=== PATIENT | female | born 1980 | race Caucasian/White ===

== ENCOUNTER 2020-06-20 11:36 | Outpatient (REF) | payer MEDICAID, SELFPAY ==
--- NOTE | 2020-06-20 11:41 | XR_ITS ---
EXAMINATION: XR RIBS, LEFT CLINICAL INFORMATION: Pleurodynia. COMPARISON: None TECHNIQUE: PA view of the chest as well as 3 views of the left ribs. FINDINGS: Lungs are clear. No consolidation, pneumothorax, or pleural effusion. The cardiomediastinal silhouette and pulmonary vasculature are normal. Osseous structures are unremarkable. Ribs are intact. No fractures are identified. XR/XR ribs LT min 3V w CXR1V IMPRESSION: No displaced fracture.
== END 2020-06-20 11:37 | disposition home or self-care (01) ==
LOC: HO.HMGCX 11:36
PROVIDERS: PCP Internal Medicine; Visit Provider Nurse Practitioner Family
DX: R07.81 Pleurodynia (principal)
CPT/HCPCS: 71101

== ENCOUNTER 2021-03-12 11:14 | Outpatient (REF) | payer MEDICAID, SELFPAY ==
--- NOTE | ~2021-03-12 | XR_ITS ---
EXAMINATION: XR KNEE, LEFT CLINICAL INFORMATION: Left knee pain COMPARISON: None TECHNIQUE: Four views of the left knee. FINDINGS: There is no visible acute fracture, dislocation or subluxation seen. There is a small superior patellar spurring. The tricompartment joint space is maintained normal. The soft tissues are normal. XR/XR knee LT 4V IMPRESSION: Small superior patellar spurring. No visible acute fracture or dislocation seen.
[2021-03-12 13:56] LABS: MANUAL DIFF FLAG NO
[2021-03-12 14:01] LABS: Basophils Absolute Auto 0.1 X10*3/uL (0.0-0.2); Basophils Percent Auto 0.8 % (0-2); Eosinophils Absolute Auto 0.1 X10*3/uL (0.0-0.4); Eosinophils Percent Auto 1.3 % (0-4); Hematocrit 44.3 % (37-47); Imm Gran Abs Auto 0.07 X10*3/uL (0.00-0.03); Imm Gran Pct Auto 0.8 % (0.0-0.4); Lymphocytes Absolute Auto 2.5 X10*3/uL (1.2-4.9); Lymphocytes Percent Auto 26.7 % (20-40); Mean Corpuscular HGB Conc 33.9 g/dl (31.0-35.0); Mean Corpuscular Hemoglobin 31.8 pg (27.0-33.0); Mean Corpuscular Volume 94.1 fL (80-98); Mean Platelet Volume 11.6 fL (9.4-12.3); Monocytes Absolute Auto 0.6 X10*3/uL (0.1-1.2); Monocytes Percent Auto 6.7 % (2-11); Neutrophils Absolute Auto 5.9 X10*3/uL (2.0-8.3); Neutrophils Percent Auto 63.7 % (45-73); Platelet Count 247 X10*3/uL (160-400); Red Blood Count 4.71 X10*6/uL (4.20-5.50); Red Cell Distribution Width 11.6 % (11.0-16.0); White Blood Count 9.3 X10*3/uL (4.8-10.8)
[2021-03-12 14:32] LABS: Alanine Aminotransferase 20 U/L (0-31); Alkaline Phosphatase 72 U/L (39-117); Anion Gap 14 (12-20); Aspartate Amino Transferase 13 U/L (5-31); Bilirubin Total 0.4 mg/dL (0.0-1.0); Blood Urea Nitrogen 12 mg/dL (9-16); Calcium 9.3 mg/dL (8.4-10.2); Carbon Dioxide 23 mmol/L (22-29); Chloride 108 mmol/L (96-108); Cholesterol 198 mg/dL; Estimated Glomerular Filt Rate > 60; Glucose Random 105 mg/dL (60-115); HDL Cholesterol 46 mg/dL; LDL Cholesterol Calculated 105 mg/dl; Potassium 4.6 mmol/L (3.3-5.1); Sodium 140 mmol/L (135-145); Total Protein 6.5 g/dL (6.5-8.0); Triglycerides 238 mg/dL
[2021-03-12 14:42] LABS: Estimated Average Glucose 97 mg/dL
[2021-03-12 14:56] LABS: Free T4 (Free Thyroxine) 1.02 ng/dL (0.71-1.85); Thyroid Stimulating Hormone 0.84 uIU/mL (0.32-4.0); Vitamin D 25-OH Total 22.1 ng/mL (>30)
[2021-03-12 15:01] LABS: Folate 12.3 ng/mL (> or = 4.0); Vitamin B12 404 pg/mL (200-900)
== END 2021-03-12 11:15 | disposition home or self-care (01) ==
LOC: HO.HMGCX 11:14
PROVIDERS: PCP Internal Medicine; Visit Provider Internal Medicine
DX: M25.562 Pain in left knee (principal); K21.9 Gastro-esophageal reflux disease without esophagitis; E78.00 Pure hypercholesterolemia, unspecified
CPT/HCPCS: 36415; 73564; 80053; 80061; 82306; 82607; 82746; 83036; 84439; 84443; 85025

== ENCOUNTER 2021-05-21 09:29 | Outpatient (REF) | payer MEDICAID, SELFPAY ==
--- NOTE | ~2021-05-21 | MM_ITS ---
EXAMINATION: MM SCREENING DIGITAL BREAST TOMOSYNTHESIS, BILATERAL CLINICAL INFORMATION: Screening. Asymptomatic. No prior breast imaging. Age 40. No known family history breast cancer. The lifetime risk of breast cancer based on the Tyrer-Cuzick Model is 7%. COMPARISON: None (current study represents initial baseline exam). TECHNIQUE: Digital breast tomosynthesis is performed in both the craniocaudal and mediolateral oblique views along with computer-aided detection (CAD). Synthesized 2D images are generated from the tomosynthesis. Additional bilateral CC views and additional right MLO view are provided. FINDINGS: There are scattered areas of fibroglandular density (ACR BI-RADS breast composition Category b). There are no significant masses, abnormal calcifications, or other abnormalities. The axilla and skin contours are unremarkable. MM/MM tomosynthesis screening BI IMPRESSION: No mammographic evidence of malignancy. ASSESSMENT: BI-RADS 1: Negative RECOMMENDATION: Routine annual mammography screening. This patient's information was entered into a reminder system with a target due date for their next mammogram.
== END 2021-05-21 09:30 | disposition home or self-care (01) ==
LOC: HO.MAMMO 09:29
PROVIDERS: Visit Provider Internal Medicine
DX: Z12.31 Encounter for screening mammogram for malignant neoplasm of breast (principal)
CPT/HCPCS: 77063; 77067

== ENCOUNTER 2023-06-11 13:54 | Outpatient (AMB) | payer MEDICAID, SELFPAY ==
--- NOTE | 2023-06-11 14:29 | MHC.OFFWIV ---
Intake Vital Signs 06/11/23 14:30 Height 5 ft 2 in BP 132/84 Blood Pressure Location Lt brachial Position Sitting Pulse 78 Pulse Source Pulse Oximeter Temp 98.0 F Temp Source Temporal Artery Scan Pulse Oximetry (%) 98 Intake Visit Reasons: EP LFT lower back pelvic leg pain Intake Note: pt is here for c.o left lower back pelvic pain and leg pain Patient Tobacco Use Status: Current everyday Tobacco user Allergies No Known Allergies Allergy (Verified 06/11/23 15:04) Seasonal allergies Allergy (Intermediate, Uncoded 06/11/23 15:04) Shortness of Breath Medication List - Last Reconciled 06/11/23 by Albino Ruiz MD albuterol sulfate 90 mcg/actuation 1 puff inhalation Q4H PRN clonazepam 0.5 mg PO BID PRN sennosides-docusate sodium 8.6-50 mg (Senna-S) 2 tab-caps (2 x 8.6-50 mg) PO BEDTIME 30 days Do you need a note to return to daycare/school/sports/work: Yes HPI EP LFT lower back pelvic leg pain HPI Details 42-year-old female presents to the office for a sick visit. Patient is reporting lower back pain which has gotten worse in the past week. Radiating down into the right leg. Able to walk with minimal difficulty. No fall or injury prior to the onset of symptoms. [facility] Medical History (Updated 03/09/21 @ 13:34 by Cheli Hale MD) Obesity (BMI 30-39.9) GERD (gastroesophageal reflux disease) Bipolar disorder Tobacco abuse Asthma Surgical History (Updated 03/09/21 @ 13:17 by Cheli Hale MD) H/O left knee surgery Family History (Updated 03/09/21 @ 13:19 by Cheli Hale MD) Paternal Grandfather Lung cancer Son Bipolar 1 disorder Social History (Updated 03/09/21 @ 13:20 by Cheli Hale MD) Housing: Apartment Alcohol intake: current Alcohol intake frequency: a few times a month Patient Tobacco Use Status: Current everyday Tobacco user Tobacco use type: Cigarette Cigarettes Per Day: 10 e-Cigarette/Vaping Use: Never Used Second Hand Smoke Exposure: Yes Current occupational status: employed Physical Exam Vital Signs: Last Vital Signs Temp 98.0 F 06/11/23 14:30 Pulse 78 06/11/23 14:30 BP 132/84 06/11/23 14:30 Pulse Ox 98 06/11/23 14:30 Const General: cooperative and healthy appearing Nutritional Appearance: well nourished Orientation/consciousness: patient oriented x3 Limitations: no limitations HEENT Head: Yes normal to inspection Eyes General: appearance normal, both eyes and all related structures Neck Neck: Yes normal visual inspection Chest Chest palpation & inspection: normal palpation of entire chest wall Resp Effort & Inspection: normal respiratory effort Back/Spine/Pelvis Other: No spinal tenderness. No paraspinal spasm. Right hip internal and external rotation does not elicit pain. Neuro General: patient oriented x3 Results AMB Urinalysis, Automated UA Leukoctes 125 Bridgette/uL Last Edit by Tyrone Waddell CMA on 06/11/23 14:44 UA Nitrite Negative Last Edit by Tyrone Waddell CMA on 06/11/23 14:44 UA Urobilinogen 0.2 mg/dL Last Edit by Tyrone Waddell CMA on 06/11/23 14:44 UA Protein 30 mg/dL Last Edit by Tyrone Waddell CMA on 06/11/23 14:44 UA pH 7.5 Last Edit by Tyrone Waddell CMA on 06/11/23 14:44 UA Blood 0 Sherwin/uL Last Edit by Tyrone Waddell CMA on 06/11/23 14:44 UA Specific [place] 1.010 Last Edit by Tyrone Waddell CMA on 06/11/23 14:44 UA Ketone Negative Last Edit by Tyrone Waddell CMA on 06/11/23 14:44 UA Bilirubin 0 mg/dL Last Edit by Tyrone Waddell CMA on 06/11/23 14:44 UA Glucose 0 mg/dL Last Edit by Tyrone Waddell CMA on 06/11/23 14:44 Results Reviewed Results Reviewed: Laboratory Last Values Urine pH (Auto) 7.5 06/11/23 14:43 Specific [place] (Auto) 1.010 06/11/23 14:43 Urine Protein (Auto) 30 mg/dL 06/11/23 14:43 Glucose (UA)(Auto) 0 mg/dL 06/11/23 14:43 Urine Ketones (Auto) Negative 06/11/23 14:43 Urine Blood (Auto) 0 Sherwin/uL 06/11/23 14:43 Urine Nitrite (Auto) Negative 06/11/23 14:43 Urine Bilirubin (Auto) 0 mg/dL 06/11/23 14:43 Urine Urobilinogen (Auto) 0.2 mg/dL 06/11/23 14:43 Leukocyte Esterase (Auto) 125 Bridgette/uL 06/11/23 14:43 Assessment & Plan Assessment & Plan (1) Back pain: Code(s): M54.9 - Dorsalgia, unspecified Plan: Muscle relaxant and meloxicam called in. Urinalysis reviewed. Patient has no symptoms to suggest urinary tract infection. Antibiotics were not started. Orders: Orders AMB Urinalysis Automated Today Z13.9 - Encounter for screening, unspecified Coding Level of Care Code Est Pt Level 3 (17009) Diagnoses Back pain M54.9
[2023-06-11 14:30] VITALS: BP 132/84; PULSE 78; TEMP 36.7; O2SAT 98
== END 2023-06-11 15:10 | disposition home or self-care (01) ==
PROVIDERS: Visit Provider Internal Medicine
DX: M54.9 Dorsalgia, unspecified (principal)
CPT/HCPCS: 81003; 99213

== ENCOUNTER 2023-10-27 15:38 | Outpatient (REF) | payer MEDICAID, SELFPAY ==
--- NOTE | ~2023-10-27 | XR_ITS ---
EXAMINATION: CERVICAL SPINE LUMBAR SPINE CLINICAL INFORMATION: Sciatica. Lumbar radiculopathy. Cervical radiculopathy. Patient reports right arm pain and numbness COMPARISON: None. TECHNIQUE: 3 views of the cervical spine 5 views of the lumbar spine FINDINGS: Cervical spine: Straightening of the expected lordosis. There is ankylosis or fusion at C5/C6. There are extensive proliferative osteophytes at C6/C7 some of which encroach upon the spinal canal. Uncovertebral joint spurring at C6/C7 greater on left. There is some facet disease. No acute fracture or subluxation of the cervical spine Lumbar spine: There are 5 lumbar-type vertebrae. No acute fracture, subluxation, focal lesion or loss of volume. There are minimal proliferative osteophytes at L4 and L5. There is no pars defect. No suspicious paraspinal abnormality. There are surgical clips in the right upper quadrant. The visualized bowel gas pattern is nonobstructed. XR/XR cervical spine 3V IMPRESSION: Ankylosis or fusion at C5/C6 with proliferative osteophytes encroaching upon the spinal canal and uncovertebral joint spurring at C6/C7. No acute abnormality in the lumbar spine
--- NOTE | ~2023-10-27 | XR_ITS ---
EXAMINATION: CERVICAL SPINE LUMBAR SPINE CLINICAL INFORMATION: Sciatica. Lumbar radiculopathy. Cervical radiculopathy. Patient reports right arm pain and numbness COMPARISON: None. TECHNIQUE: 3 views of the cervical spine 5 views of the lumbar spine FINDINGS: Cervical spine: Straightening of the expected lordosis. There is ankylosis or fusion at C5/C6. There are extensive proliferative osteophytes at C6/C7 some of which encroach upon the spinal canal. Uncovertebral joint spurring at C6/C7 greater on left. There is some facet disease. No acute fracture or subluxation of the cervical spine Lumbar spine: There are 5 lumbar-type vertebrae. No acute fracture, subluxation, focal lesion or loss of volume. There are minimal proliferative osteophytes at L4 and L5. There is no pars defect. No suspicious paraspinal abnormality. There are surgical clips in the right upper quadrant. The visualized bowel gas pattern is nonobstructed. XR/XR lumbar spine 4V min IMPRESSION: Ankylosis or fusion at C5/C6 with proliferative osteophytes encroaching upon the spinal canal and uncovertebral joint spurring at C6/C7. No acute abnormality in the lumbar spine
== END 2023-10-27 15:39 | disposition home or self-care (01) ==
LOC: HO.HHCX 15:38
PROVIDERS: Visit Provider Internal Medicine
DX: M54.16 Radiculopathy, lumbar region (principal); M54.12 Radiculopathy, cervical region
CPT/HCPCS: 36415; 72040; 72110; 80048

== ENCOUNTER 2023-10-27 16:10 | Outpatient (REF) | payer MEDICAID, SELFPAY ==
[2023-10-27 18:34] LABS: Anion Gap 13 (12-20); Blood Urea Nitrogen 10 mg/dL (9-16); Calcium 9.8 mg/dL (8.4-10.2); Carbon Dioxide 25 mmol/L (22-29); Chloride 107 mmol/L (96-108); Estimated Glomerular Filt Rate > 60; Glucose Random 157 mg/dL (60-115); Potassium 3.8 mmol/L (3.3-5.1); Sodium 141 mmol/L (135-145)
== END 2023-10-27 16:11 | disposition home or self-care (01) ==
LOC: HO.HHCL 16:10
PROVIDERS: Visit Provider Internal Medicine
DX: M54.12 Radiculopathy, cervical region (principal); M54.16 Radiculopathy, lumbar region
CPT/HCPCS: 36415; 80048

== ENCOUNTER 2023-12-10 18:17 | Outpatient (REF) | payer MEDICAID, SELFPAY ==
--- NOTE | ~2023-12-10 | MR_ITS ---
EXAMINATION: MR CERVICAL SPINE WITHOUT CONTRAST CLINICAL INFORMATION: Cervical radiculopathy, neck and right upper extremity pain COMPARISON: Cervical spine x-ray on 10/27/2023 TECHNIQUE: MRI of the cervical spine was obtained using routine sequences without contrast. FINDINGS: The visualized cervical vertebrae are intact with normal alignment. No focal bone lesion with abnormal signal can be seen. Evaluation of the intervertebral discs show: C2/C3: Intervertebral disc height is normal, with normal T2 signal. No focal disc herniation is seen. Bilateral C2-C3 neural foramina are patent. Bilateral apophyseal joints are intact with normal alignment. C3/C4: Intervertebral disc height is normal, with normal T2 signal. No focal disc herniation is seen. There is moderate asymmetric left C3-C4 neural foraminal stenosis. Bilateral apophyseal joints are intact with normal alignment. C4/C5: Intervertebral disc height is normal, with normal T2 signal. Mild broad-based disc bulge is seen. There is mild asymmetric left C4-C5 neural foraminal stenosis. There is marked spinal stenosis with AP diameter of the spinal canal reduced to 7.0 mm. Bilateral apophyseal joints are intact with normal alignment. C5/C6: There is developmental nonsegmentation with obliteration of C5-C6 disc space. Bilateral C5-C6 neural foramina are patent. Bilateral apophyseal joints are intact with normal alignment. C6/C7: Intervertebral disc height is normal, with is mild loss of T2 signal. Sharp anterior bridging syndesmophytes are present. Moderate posterior disc protrusion effacing the anterior thecal sac is seen. There is marked asymmetric left C6-C7 neural foraminal disc protrusion. There is marked spinal stenosis with AP diameter of the spinal canal reduced to 6.7 mm. Bilateral apophyseal joints are intact with normal alignment. C7/T1: Intervertebral disc height is normal, with normal T2 signal. No focal disc herniation is seen. Bilateral C7-T1 neural foramina are patent. Bilateral apophyseal joints are intact with normal alignment. Cervical spinal cord is normal in position and signal. MR/MR cervical spine wo con IMPRESSION: 1. Marked spinal stenosis at C4-C5 and C6-C7, moderate posterior C6-C7 disc protrusion. 2. Moderate asymmetric left C3-C4 neural foraminal stenosis. 3. Mild asymmetric left C4-C5 neural foraminal stenosis. 4. Marked asymmetric left C6-C7 neural foraminal disc protrusion. 5. Developmental nonsegmentation of the C5-C6 disc space.
== END 2023-12-10 18:18 | disposition home or self-care (01) ==
LOC: HO.MRI 18:17
PROVIDERS: PCP Internal Medicine; Visit Provider Internal Medicine
DX: M54.12 Radiculopathy, cervical region (principal)
CPT/HCPCS: 72141

== ENCOUNTER 2024-01-13 08:03 | Outpatient (REF) | payer MEDICAID, SELFPAY ==
--- NOTE | 2024-01-13 08:07 | EMG_ITS ---
Bilateral median and ulnar motor and sensory studies were performed. Bilateral radial sensory studies were performed and paraspinal muscles were tested with a needle. IMPRESSION: 1. 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 2. Bilateral Wilbur Theodora anastomosis, a normal variant. MD BRONWYN Boo/ELENA / [id number]
== END 2024-01-13 08:04 | disposition home or self-care (01) ==
LOC: HO.NEURO 08:03
PROVIDERS: PCP Internal Medicine; Visit Provider Internal Medicine
DX: G56.03 Carpal tunnel syndrome, bilateral upper limbs (principal)
CPT/HCPCS: 95886; 95911

== ENCOUNTER 2024-01-19 11:34 | Outpatient (REF) | payer MEDICAID, SELFPAY ==
[2024-01-19 13:16] LABS: Hemoglobin 17.1 g/dl (12.0-16.0); Mean Corpuscular HGB Conc 33.5 g/dl (31.0-35.0); Mean Corpuscular Hemoglobin 31.2 pg (27.0-33.0); Mean Corpuscular Volume 93.1 fL (80.0-98.0); Mean Platelet Volume 11.2 fL (9.4-12.3); Platelet Count 218 X10*3/uL (160-400); Red Blood Count 5.48 X10*6/uL (4.20-5.50); Red Cell Distribution Width 12.2 % (11.0-16.0); White Blood Count 7.9 X10*3/uL (4.8-10.8)
[2024-01-19 13:38] LABS: Alanine Aminotransferase 11 U/L (0-31); Alkaline Phosphatase 61 U/L (39-117); Anion Gap 14 (12-20); Aspartate Amino Transferase 15 U/L (5-31); Blood Urea Nitrogen 11 mg/dL (9-16); Calcium 9.3 mg/dL (8.4-10.2); Carbon Dioxide 25 mmol/L (22-29); Chloride 107 mmol/L (96-108); Cholesterol 228 mg/dL (<200); Estimated Glomerular Filt Rate 55; Glucose Random 90 mg/dL (60-115); HDL Cholesterol 49 mg/dL (>40); LDL Cholesterol Calculated 138 mg/dL (<100); Potassium 4.1 mmol/L (3.3-5.1); Sodium 142 mmol/L (135-145); Total Protein 6.8 g/dL (6.5-8.0); Triglycerides 206 mg/dL (<150)
[2024-01-19 13:43] LABS: Estimated Average Glucose 100 mg/dL; Hemoglobin A1c % 5.1 % (<6.0)
[2024-01-19 13:45] LABS: TSH reflex Free T4 1.07 uIU/mL (0.32-4.0)
[2024-01-19 14:03] LABS: Folate 8.1 ng/mL (> or = 4.0); Vitamin B12 433 pg/mL (200-900)
[2024-01-19 14:34] LABS: CT PCR NOT DETECTED (Not Detect.); NG PCR NOT DETECTED (Not Detect.)
[2024-01-20 08:37] LABS: Syphilis Screen Nonreactive (Nonreactive)
[2024-01-20 08:41] LABS: HBS Num1 0.66 mIU/mL (0-7.99); HBc Num1 0.08 S/CO (0.00-0.79); HBsAGNum1 0.34 S/CO (0.00-0.99); HIV AB/AG Nonreactive (Nonreactive); HIV Num 1 0.05 S/CO (0.00-0.99); Hepatitis B Core Antibody Nonreactive (Nonreactive); Hepatitis B Surface Antigen Negative (Negative); ~HepC Num1 0.15 S/CO (0.00-0.79); ~Hepatitis B Surface Antibody NONREACTIVE (Nonreactive); ~Hepatitis C Antibody Nonreactive (Nonreactive)
== END 2024-01-19 11:35 | disposition home or self-care (01) ==
LOC: HO.HHCL 11:34
PROVIDERS: Visit Provider Student in an Organized Health Care Education/Training Program
DX: Z00.00 Encounter for general adult medical examination without abnormal findings (principal)
CPT/HCPCS: 36415; 80053; 80061; 82306; 82607; 82746; 83036; 84443; 85027; 86704; 86706; 86780; 86803; 87340; 87389; 87491; 87591

== ENCOUNTER 2024-01-29 17:51 | Outpatient (REF) | payer MEDICAID, SELFPAY ==
[2024-02-02 12:14] LABS: HPV mRNA E6/E7 Not Detected (Not Detected)
== END 2024-01-29 17:52 | disposition home or self-care (01) ==
LOC: HO.HHCLNP 17:51
PROVIDERS: Visit Provider Advanced Practice Midwife
DX: Z01.419 Encounter for gynecological examination (general) (routine) without abnormal findings (principal)
CPT/HCPCS: 36415; 87624; 88175

== ENCOUNTER 2024-02-03 10:24 | Outpatient (REF) | payer MEDICAID, SELFPAY ==
--- NOTE | ~2024-02-03 | MM_ITS ---
EXAMINATION: MM SCREENING DIGITAL BREAST TOMOSYNTHESIS, BILATERAL CLINICAL INFORMATION: Screening. Asymptomatic. COMPARISON: Mammography: Comparison is made with available priors TECHNIQUE: Digital breast tomosynthesis is performed in both the craniocaudal and mediolateral oblique views along with computer-aided detection (CAD). Synthesized 2D images are generated from the tomosynthesis. FINDINGS: There are scattered areas of fibroglandular density (ACR BI-RADS breast composition Category b). There are no significant masses, abnormal calcifications, or other abnormalities. MM/MM tomosynthesis screening BI IMPRESSION: No mammographic evidence of malignancy. ASSESSMENT: BI-RADS BI-RADS 1 - Negative RECOMMENDATION: Routine annual mammography screening. 1 year F/U This examination should not preclude the clinical evaluation of a suspicious palpable abnormality. This patient's information was entered into a reminder system with a target due date for their next mammogram. Electronically signed by: Alisa Henry DO 02/27/2024 02:59 PM EDT
== END 2024-02-03 10:25 | disposition home or self-care (01) ==
LOC: HO.MAMMO 10:24
PROVIDERS: PCP Student in an Organized Health Care Education/Training Program; Visit Provider Student in an Organized Health Care Education/Training Program
DX: Z12.31 Encounter for screening mammogram for malignant neoplasm of breast (principal)
CPT/HCPCS: 77063; 77067

== ENCOUNTER → 2024-02-03 11:30 | Outpatient (BNV) | payer MEDICAID, SELFPAY | PROVIDERS: PCP Student in an Organized Health Care Education/Training Program; Visit Provider Internal Medicine | DX: Z12.31 Encounter for screening mammogram for malignant neoplasm of breast (principal) | CPT/HCPCS: 77063; 77067 ==

== ENCOUNTER 2024-02-10 14:39 | Outpatient (REF) | payer MEDICAID, SELFPAY ==
--- NOTE | ~2024-02-10 | US_ITS ---
EXAMINATION: US PELVIS CLINICAL INFORMATION: History of ovarian cyst COMPARISON: None available. TECHNIQUE: Ultrasound of the pelvis is performed using both transabdominal and transvaginal transducers along with Doppler. Transvaginal imaging is performed due to inadequate visualization transabdominally. FINDINGS: Uterus: The uterus is anteverted and measures 8.0 x 3.7 x 4.1 cm. The double wall endometrial thickness is 0.4 mm. The uterus is smooth in contour and has normal myometrial echogenicity. There is a 0.8 cm anterior fibroid. Adnexa: Both ovaries are visualized. There is normal color flow to the adnexa. There is no ovarian torsion. There is no pelvic ascites or fluid collection. Right ovary measures 3.4 x 1.2 x 2.7 cm. Left ovary measures 1.8 x 2.2 x 2.2 cm. There is a 0.3 cm calcification in the left ovary. US/US pelvic and transvaginal IMPRESSION: 1. 0.8 cm anterior fibroid. 2. 0.3 cm calcification in the left ovary. Electronically signed by: Tracy Banks MD 02/14/2024 03:25 PM EDT
== END 2024-02-10 14:40 | disposition home or self-care (01) ==
LOC: HO.US 14:39
PROVIDERS: PCP Student in an Organized Health Care Education/Training Program; Visit Provider Advanced Practice Midwife
DX: N83.209 Unspecified ovarian cyst, unspecified side (principal)
CPT/HCPCS: 76830; 76856

== ENCOUNTER 2024-02-13 08:50 | Outpatient (REF) | payer MEDICAID, SELFPAY ==
--- NOTE | ~2024-02-13 | CT_ITS ---
EXAMINATION: CT CERVICAL SPINE WITHOUT CONTRAST CLINICAL INFORMATION: Chronic neck pain COMPARISON: Cervical spine MRI on 12/10/2023 TECHNIQUE: Axial CT imaging of the cervical spine. Coronal sagittal reformats were also reviewed. This CT examination was performed using dose optimization techniques as appropriate, variously including the following: *Automated exposure control *Adjustment of mA and/or kV according to patient size (this includes techniques or standardized protocols for targeted exams where dose is matched to indication/reason for exam; i.e. extremities or head) *Use of iterative reconstruction technique DLP: 368 mGy-cm RESULTS: There is minimal anterolisthesis at C3-C4 and C4-C5. There is minimal retrolisthesis at C3 C6-C7. The vertebral bodies maintain normal height and mineralization aside from loss of intervertebral disc space and fusion at C5-C6.. The prevertebral and paravertebral soft tissues are within normal limits. There is multilevel loss of intervertebral disc space with endplate degenerative changes. There is bilateral facet arthropathy. There is spinal canal narrowing at C4-C5 and C5-C6. There is also bilateral foraminal stenosis at multiple levels in the mid cervical spine. CT/CT cervical spine wo IV con IMPRESSION: Moderate degenerative disease of the cervical spine. Fleischner guidelines were followed. Electronically signed by: Tracy Banks MD 02/14/2024 03:24 PM EDT
== END 2024-02-13 08:51 | disposition home or self-care (01) ==
LOC: HO.CT 08:50
PROVIDERS: PCP Student in an Organized Health Care Education/Training Program; Visit Provider Student in an Organized Health Care Education/Training Program
DX: M54.12 Radiculopathy, cervical region (principal)
CPT/HCPCS: 72125

== ENCOUNTER 2024-04-01 14:29 | Outpatient (REF) | payer MEDICAID, SELFPAY ==
[2024-04-01 10:57] VITALS: PULSE 70; RESP 16; O2SAT 96
--- NOTE | 2024-04-01 15:00 | PFT_ITS ---
Flows: FEV1: 94 % of predicted at 2.45 L FVC: 102 % of predicted at 3.29 L FEV1/FVC: 75 % Bronchodilator response: Present Volumes: Total lung capacity: 88 % of predicted at 4.13 L Residual volume: 88 % of predicted at 1.09 L Slow vital capacity: 88 % of predicted at 3.04 L Expiratory reserve volume: 89 % of predicted at 0.89 L Diffusion capacity: Normal Impression: No obstructive or restrictive ventilatory defect. Positive bronchodilator response. MTDD
== END 2024-04-01 14:30 | disposition home or self-care (01) ==
LOC: HO.RESP 14:29
PROVIDERS: PCP Student in an Organized Health Care Education/Training Program; Visit Provider Student in an Organized Health Care Education/Training Program
DX: J45.909 Unspecified asthma, uncomplicated (principal)
CPT/HCPCS: 94010; 94640; 94727; 94729

== ENCOUNTER 2024-09-08 15:12 | Outpatient (REF) | payer MEDICAID, SELFPAY ==
[2024-09-08 16:10] LABS: Appearance Urine Clear; Color Urine Yellow; Glucose Urine UA Negative (Negative); Leukocyte Esterase Urine Small (1+) (Negative); Nitrite Urine Negative (Negative); Specific Gravity - Urine <= 1.005 (1.005-1.025); UMIC TRIGGER UACC YES; Urine Blood Large (3+) (Negative); Urine Ketones Negative (Negative); Urine Protein Negative (Neg-Trace)
[2024-09-08 16:11] LABS: MANUAL DIFF FLAG NO
[2024-09-08 16:13] LABS: Bacteria Urine None Seen (None Seen); Hyaline Casts Urine 0-2 /LPF (0-2); RBC Urine 0-2 /HPF (0-2); Squamous Epithelial Cell Urine 0-2 /HPF (0-2); UACC Culture Trigger YES; WBC Urine 0-5 /HPF (0-5)
[2024-09-08 16:16] LABS: Basophils Absolute Auto 0.1 X10*3/uL (0.0-0.2); Basophils Percent Auto 0.8 % (0-2); Eosinophils Absolute Auto 0.2 X10*3/uL (0.0-0.4); Eosinophils Percent Auto 1.4 % (0-4); Hematocrit 50.1 % (37.0-47.0); Hemoglobin 16.8 g/dl (12.0-16.0); Imm Gran Abs Auto 0.04 X10*3/uL (0.00-0.03); Imm Gran Pct Auto 0.4 % (0.0-0.4); Lymphocytes Absolute Auto 3.5 X10*3/uL (1.2-4.9); Lymphocytes Percent Auto 30.9 % (20-40); Mean Corpuscular HGB Conc 33.5 g/dl (31.0-35.0); Mean Corpuscular Hemoglobin 30.9 pg (27.0-33.0); Mean Corpuscular Volume 92.1 fL (80.0-98.0); Mean Platelet Volume 10.8 fL (9.4-12.3); Monocytes Percent Auto 8.5 % (2-11); Neutrophils Absolute Auto 6.5 x10*3/uL (2.0-8.3); Platelet Count 235 X10*3/uL (160-400); Red Blood Count 5.44 X10*6/uL (4.20-5.50); Red Cell Distribution Width 12.3 % (11.0-16.0); White Blood Count 11.2 X10*3/uL (4.8-10.8)
[2024-09-08 17:09] LABS: Alanine Aminotransferase 8 U/L (0-31); Albumin Level 4.3 g/dL (3.5-5.0); Alkaline Phosphatase 86 U/L (39-117); Anion Gap 11 (12-20); Aspartate Amino Transferase 14 U/L (5-31); Blood Urea Nitrogen 7 mg/dL (9-16); Calcium 9.5 mg/dL (8.4-10.2); Carbon Dioxide 30 mmol/L (22-29); Chloride 104 mmol/L (96-108); Estimated Glomerular Filt Rate 59; Glucose Random 97 mg/dL (60-115); Lipase 49 U/L (8-78); Potassium 4.5 mmol/L (3.3-5.1); Sodium 140 mmol/L (135-145); Total Protein 7.1 g/dL (6.5-8.0)
--- OUTSIDE RECORDS SUMMARY | 2024-09-08 17:38 | XMS_ITS | Encounter Summary ---
Author Organization [employer] Address [address] [place] [address] Care Team Providers Care Wood Processing Worker Name Role Phone Annmarie Chambers MD Primary Care Pro vider Reason for Visit * Reason Comments Med Refill Encounter Details Date Type Department Care Team ([facility] st Contact Info) Description 08/20/2024 Refill [facility] [address], [place] [phone] Jagdish Santiago DDS [address] [place] [phone] Periodontal disease; Dental abscess Social History Tobacco Use Types Packs/Day Years Used Date Smoking Tobacco: Every Day Cigarettes Passive Smoke Exposure: Never Smokeless Tobacco: Never Comments:Started smoking 13 y of age ,stopped for 3 months then currently smoking for 30 years currently 10 cig a day ,before 20 a day so average 15 cig a day ---22.5 pack-years. Alcohol Use Standard Drinks/Week Comments Yes 0 (1 standard drink = 0.6 oz pur e alcohol) cocktail 4-5 cans times a week Depression Answer Date Recorded Patient Health Questionnaire-9 Score 20 01/14/2024 Patient Health Questionnaire-9 Score 20 01/14/2024 Last PHQ-9: Questionnaire Data Not on file 0 01/14/2024 Housing Stability Answer Date Recorded What is your housing situation today? I have rach jarvis 01/14/[address] you li ve. Do you have problems with any of the following? None of the above 01/14/2024 Food Insecurity Answer Date Recorded Within the past 12 months, y ou worried that your food would run out before you got money to buy more: Sometimes True 2023 Within the past 12 months,th e food you bought just didn't last and you didn't have enough money to get more: Sometimes True 01/14/2024 Transportation Answer Date Recorded In the past 12 months, has l ack of transportation kept you from medical appts, meetings, work or from getting things needed for daily living? Yes, it has kept me from medical appointments or getting medications. 01/14/2024 Utilities Answer Date Recorded In the past 12 months, has t he [employer], gas, oil or water company threatened to shut off services in your home? No 01/14/2024 Depression Answer Date Recorded Patient Health Questionnaire-2 Score 4 01/14/2024 Internet Access Answer Date Recorded Internet Access Q1 Yes 02/09/2024 Internet Access Q2 Not on file 02/09/2024 Comments Unknown Sex and Gender Information Value Date Recorded Sex Assigned at Female 04/08/2022 10:22 AM EDT Legal Sex Female 10:22 AM EDT Gender Identity Female 03/02/2024 12:44 PM EDT Sexual Orientation Bisexual 03/02/2024 12 :44 PM EDT Sexual Orientation Straight 03/02/2024 12 :44 PM EDT documented as of this encounter Plan of Treatment Upcoming Encounters Date Type Department Care Team (Late st Contact Info) Description 09/13/2024 4:00 PM EDT Nurse Only [facility] [address] [place] [phone] 09/22/2024 2:45 PM EDT Office Visit [facility] [address] [place] [phone] Annmarie Chambers MD [address] [place] [phone] documented as of this encounter Visit Diagnoses Diagnosis Periodontal disease Unspecified gingival and periodontal disease Dental abscess Periapical abscess without sinus documented in this encounter Additional Health Concerns Assessment Noted Time PHQ-9 Depression Total Score: 20 024 2:22 PM EDT documented as of this encounter Care Teams Wood Processing Worker Relationship Specialty Start Date End Date Annmarie Chambers MD [address] [place] [phone] PCP - General Internal Medicine 02/02/24 documented as of this encounter
--- OUTSIDE RECORDS SUMMARY | 2024-09-08 17:38 | XMS_ITS | Encounter Summary ---
Author Organization [employer] Address [address] [place] [address] 7 [place] [address] Care Team Providers Care Health Care Social Worker Name Role Phone Annmarie Chambers MD Primary Care Pro vider Reason for Visit * Reason Comments Med Refill Encounter Details Date Type Department Care Team ([facility] Contact Info) Description 04/24/2024 Refill [facility] [address] [place], [place] [phone] Annmarie Chambers MD [address] [place] [address] Social History Tobacco Use Types Packs/Day Years [...] the past 12 months, has t he electric, gas, oil or water company threatened to [...] Description 09/13/2024 4:00 PM EDT Nurse Only [facility] [address] [place] [phone] 09/22/2024 2:45 PM EDT Office Visit [facility] [address] [place] [phone] Annmarie Chambers MD [address] [place] [phone] documented as of this encounter Visit Diagnoses Not on filedocumented in this encounter Additional Health Concerns Assessment Noted Time PHQ-9 Depression Total Score: 20 024 2:22 PM EDT documented as of this encounter Care Teams Health Care Social Worker Relationship Specialty Start Date End Date Annmarie Chambers MD [address] [place] [phone] PCP - General Internal Medicine 02/02/24 documented as of this encounter
--- OUTSIDE RECORDS SUMMARY | 2024-09-08 17:38 | XMS_ITS | Encounter Summary ---
Author Organization [employer] Address [address] [place] [phone] Care Team Providers Care Cafeteria Aide Name Role Phone Annmarie Chambers MD Primary Care Pro vider Reason for Visit * Reason Comments Med Refill Encounter Details Date Type Department Care Team (Late st Contact Info) Description 12/17/2023 Refill [facility] [address] [place] [address] [phone] Adriana Stacy MD [address] [place] [address] [phone] Social History Tobacco Use Types Packs/Day Years Used Date Smoking Tobacco: Never Passive Smoke Exposure: Never Smokeless Tobacco: Never Comments Unknown Sex and Gender Information Value [...] Description 09/13/2024 4:00 PM EDT Nurse Only [facility] [address] [place] [address] [phone] 09/22/2024 2:45 PM EDT Office Visit [facility] [address] [place] [address] [phone] Annmarie Chambers MD [address] [place] [address] [phone] documented as of this encounter Visit Diagnoses Not on filedocumented in this encounter Care Teams Cafeteria Aide Relationship Specialty Start Date End Date Annmarie Chambers MD [address] [place] [phone] PCP - General Internal Medicine 02/02/24 documented as of this encounter
--- OUTSIDE RECORDS SUMMARY | 2024-09-08 17:38 | XMS_ITS | Encounter Summary ---
Author Organization [employer] Address [address] [place] [address] 7 [place] [address] Care Team Providers Care Steamfitter Supervisor Name Role Phone Annmarie Chambers MD Primary Care Pro vider Reason for Visit * Reason Onset Date Comments PT-1 02/11/2024 Encounter Details Date Type Department Care Team ([facility] st Contact Info) Description 02/11/2024 Telephone [facility] [address] [place], [place] [phone] Annmarie Chambers MD [address] [place], [place] [phone] PT-1 Social History Tobacco Use Types Packs/Day Years [...] PM EDT documented as of this encounter Miscellaneous Notes * Telephone Encounter - Junior Rios - 02/11/2024 3:53 PM EDT Patient calling requesting PT1 Home Address verified: Y/N: Yes Provider name or facility name: [facility] [place] Address: [address] [place] [address] Escort needed: Y/N: Yes Do you have a wheelchair: Y/N: No If yes- Manual or electric: no Visits: 3 documented in this encounter Plan of Treatment Upcoming Encounters Date Type Department Care Team (Late st Contact Info) Description 09/13/2024 4:00 PM EDT Nurse Only [facility] [address] [place] [phone] 09/22/2024 2:45 PM EDT Office Visit [facility] [address] [place] [phone] Annmarie Chambers MD [address] [place] [address] documented as of this encounter Visit Diagnoses Not on filedocumented in this encounter Additional Health Concerns Assessment Noted Time PHQ-9 Depression Total Score: 20 024 2:22 PM EDT documented as of this encounter Care Teams Steamfitter Supervisor Relationship Specialty Start Date End Date Annmarie Chambers MD [address] [place] [address] PCP - General Internal Medicine 02/02/24 documented as of this encounter
--- OUTSIDE RECORDS SUMMARY | 2024-09-08 17:38 | XMS_ITS | Encounter Summary ---
Author Organization [employer] Address [address] [place] [address] [place] [address] Care Team Providers Care Hand Straightener Name Role Phone Annmarie Chambers MD Primary Care Pro vider Reason for Visit * Reason Onset Date Comments PT1 04/27/2024 Encounter Details Date Type Department Care Team ([facility] st Contact Info) Description 04/27/2024 Telephone [facility] [address] [place], [place] [phone] Annmarie Chambers MD [address] [place] [address] PT1 Social History Tobacco Use Types Packs/Day Years [...] encounter Miscellaneous Notes * Telephone Encounter - Shannon Urrutia - 04/27/2024 2:17 PM EST Patient calling requesting PT1 Home Address verified: Y/N: Yes Provider name or facility name: [facility] Address: [address] [place] [address] Escort needed: Y/N: Yes Do you have a wheelchair: Y/N: No If yes- Manual or electric: n/a Visits: 1 x 3 months documented in this encounter Plan of Treatment Upcoming Encounters Date Type Department Care Team (Late st Contact Info) Description 09/13/2024 4:00 PM EDT Nurse Only [facility] [address] [place] [phone] 09/22/2024 2:45 PM EDT Office Visit [facility] [address] [place] [phone] Annmarie Chambers MD [address] [place] [address] documented as of this encounter Visit Diagnoses Not on filedocumented in this encounter Additional Health Concerns Assessment Noted Time PHQ-9 Depression Total Score: 20 024 2:22 PM EDT documented as of this encounter Care Teams Hand Straightener Relationship Specialty Start Date End Date Annmarie Chambers MD [address] [place] [address] PCP - General Internal Medicine 02/02/24 documented as of this encounter
--- OUTSIDE RECORDS SUMMARY | 2024-09-08 17:38 | XMS_ITS | Encounter Summary ---
Author Organization [employer] Address [address] [place] [address] Care Team Providers Care Railroad Crane Operator Name Role Phone Annmarie Chambers MD Primary Care Pro vider Encounter Details Date Type Department Care Team (Latest Contact Info) Description 09/06/2024 Travel Social History Tobacco Use Types Packs/Day Years [...] your housing situation today? I have rach jarvsi 01/14/[address] you li [...] 09/13/2024 4:00 PM EDT Nurse Only [facility] [address] [place] [phone] 09/22/2024 2:45 PM EDT Office Visit [facility] [address] [place] [phone] Annmarie Chambers MD [address] [place] [phone] documented as of this encounter Visit Diagnoses Not on filedocumented in this encounter Additional Health Concerns Assessment Noted Time PHQ-9 Depression Total Score: 20 024 2:22 PM EDT documented as of this encounter Care Teams Railroad Crane Operator Relationship Specialty Start Date End Date Annmarie Chambers MD [address] [place] [phone] PCP - General Internal Medicine 02/02/24 documented as of this encounter
--- OUTSIDE RECORDS SUMMARY | 2024-09-08 17:38 | XMS_ITS | Encounter Summary ---
Author Organization [employer] Address [address] [place] [address] [place] [address] Care Team Providers Care Public Health Internship Name Role Phone Annmarie Chambers MD Primary Care Pro vider Reason for Visit * Reason Onset Date Comments Nurse Triage 09/08/2024 Encounter Details Date Type Department Care Team ([facility] st Contact Info) Description 09/08/2024 Telephone [facility] [address] [place], [place] [phone] Annmarie Chambers MD [address] [place] [address] Nurse Triage Social History Tobacco Use Types Packs/Day Years [...] the past 12 months, has t he [employer], gas, oil or water company threatened to [...] encounter Miscellaneous Notes * Telephone Encounter - Tarn Workman LPN - 09/08/2024 12:44 PM EDT Triage call returned to patient who reports that she is concerned for infection. Patient with rightflank kidney pain had some burning with urination last week that improved. Is trying to take goodamount of fluids daily. Reports that family believes right flank area is swollen and discolored. Nofever reported. Patient then reports that she had changed her long standing tongue ring that was plastic and replaced it with surgical steel and began to have tingling of tongue and odd sensation. Patient reports that she took leftover ABT Amoxicillin and symptoms improved but today have returned. Is not taking any OTC analgesic. No acute shortness of breath. Patient reports pain induces her to feel breathing issue only. Disposition reviewed and patient in agreement with plan. ASK/PCP today at 2pm for evaluation. Patient reports noted blood with wiping but is not due for her menses . Multiple (2) protocols were used on this call. Disposition for Call: See in Office or Video Visit Today Protocol Used: Flank Pain (Adult) Protocol-Based Disposition: See in Office or Video Visit Today Video visit not offered Positive Triage Question: * Moderate pain (e.g., interferes with normal activities or awakens from sleep) * All higher-acuity triage questions were negative Care Advice Discussed: * Use Heat After 48 Hours for Pain * Reasons To Call Back - Fever over 100.4 F (38.0 C) - Burning with urination or blood in urine - Pain lasts over 3 days - You become worse Protocol Used: Mouth Pain (Adult) Protocol-Based Disposition: See in Office or Video Visit within 3 Days Video visit offer not recorded Positive Triage Question: * Mild - Moderate mouth pain present > 3 days * All higher-acuity triage questions were negative Care Advice Discussed: * Drink Liquids * Reasons To Call Back - You become worse * Telephone Encounter - Mini Waddell - 09/08/2024 12:25 PM EDT Symptoms: Breathing Trouble, Abdominal Pain - Female - Not (kidney area) Outcome: Schedule an urgent appointment (within 1 hour) or talk to a nurse or provider soon Reason: Caller denied all higher acuity questions The caller accepted this outcome. [phone] documented in this encounter Plan of Treatment Upcoming Encounters Date Type Department Care Team (Late st Contact Info) Description 09/13/2024 4:00 PM EDT Nurse Only [facility] [address] [place] [phone] 09/22/2024 2:45 PM EDT Office Visit [facility] [address] [place] [phone] Annmarie Chambers MD [address] [place] [address] documented as of this encounter Visit Diagnoses Not on filedocumented in this encounter Additional Health Concerns Assessment Noted Time PHQ-9 Depression Total Score: 20 024 2:22 PM EDT documented as of this encounter Care Teams Public Health Internship Relationship Specialty Start Date End Date Annmarie Chambers MD [address] [place] [address] PCP - General Internal Medicine 02/02/24 documented as of this encounter
--- OUTSIDE RECORDS SUMMARY | 2024-09-08 17:38 | XMS_ITS | Clinical Summary ---
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 See above sig 09/29/19 Active methylphenida te (Ritalin) 20 MG tablet Take 20 mg by mouth 2 times daily. 09/29/19 24 Active Blood Pressure Monitoring (Blood Pressure Cuff) miscIndicatio ns:Elevated blood pressure reading 1 each Once daily. 1 each 01/08/20 Active Additional Information Patient not taking.Reported on 08/02/2024 cloNIDine (Catapres) 0.1 MG tablet TAKE 1 TABLET BY MOUTH TWICE A DAY NEEDED FOR ANXIETY, TAKE PRIOR TO USE CLONAZEPAM 01/07/20 Active Vit-Fe Fumarate-FA ( Vitamins) 28-0.8 MG tabletIndicat ions:Family Planning Take 1 tablet by mouth Once per day. 90 tablet 3 01/14/20 24 025 Active Additional Information Patient not taking.Reported on 08/02/2024 clonazePAM (KlonoPIN) 0.5 MG tablet Take 0.5 mg by mouth if needed in the morning and at bedtime for anxiety. 02/18/20 24 Active Varenicline Tartrate, Starter, (Chantix Starting Month ) 0.5 MG X 11 & 1 MG X 42 tablet therapy pack Take 1 tablet by mouth at noon and 1 tablet in the evening. Days 1-3: 0.5 mg PO qDay, Days 4-7: 0.5 mg PO twice a day , Day 8 to end of treatment: 1 mg twice a day. 1 each 03/03/20 Active Additional Information Patient not taking.Reported on 08/02/2024 albuterol 108 (90 Base) MCG/ACT inhaler Inhale 2 puffs every 6 (six) hours if needed for wheezing. 18 g 3 03/03/20 Active chlorhexidine (Peridex) 0.12 % solutionIndic ations:Period ontal disease,Denta l abscess Swish 15 mL morning and night for 1 minute. Spit, do not swallow. Do not eat or drink for 30 minutes following use. 473 mL 08/02/19 25 Active acetaminophen (Tylenol) 500 MG tabletIndicat ions:Periodon chon disease,Denta l abscess,Right flank pain Take 1 tablet (500 mg) by mouth every 6 (six) hours if needed for mild pain for up to 20 doses. 20 tablet 09/09/19 25 Active lidocaine (Lidoderm) 5 % patchIndicati ons:Right flank pain Apply 1 patch topically Once per day. Remove & discard patch within 12 hours or as directed by MD. 30 patch 2 09/09/19 25 Active escitalopram (Lexapro) 10 MG tablet Take 10 mg by mouth Once per day. 08/18/19 24 025 Discontinued(Ot her) lidocaine (Lidoderm) 5 % patch Apply 1 patch topically Once per day. Remove & discard patch within 12 hours or as directed by MD. 30 patch 2 01/14/20 24 025 Discontinued(Re order (will not trigger notification to Pharmacy)) gabapentin (Neurontin) 300 MG capsule Take 1 capsule (300 mg) by mouth 3 times daily. 90 capsule 2 03/03/20 24 025 Discontinued(Ot her) varenicline (Chantix) 1 MG tablet TAKE 1 TABLET BY MOUTH TWICE A DAY. TAKE WITH FULL GLASS OF WATER. 180 tablet 07/27/19 25 025 Discontinued(Ot her) acetaminophen (Tylenol) 500 MG tabletIndicat ions:Periodon chon disease,Denta l abscess Take 1 tablet (500 mg) by mouth every 6 (six) hours if needed for mild pain for up to 20 doses. 20 tablet 08/02/19 25 025 Discontinued(Re order (will not trigger notification to Pharmacy)) amoxicillin (Amoxil) 500 MG capsuleIndica tions:Periodo ntal disease,Denta l abscess Take 1 capsule (500 mg) by mouth every 8 (eight) hours for 7 days. 21 capsule 08/02/19 25 025 ibuprofen 600 MG tabletIndicat ions:Periodon chon disease,Denta l abscess Take 1 tablet (600 mg) by mouth every 6 (six) hours if needed for mild pain for up to 20 doses. 20 tablet 08/02/19 25 025 Discontinued Active Problems Problem Noted Date Diagnosed Date Periodontal disease 08/02/2024 Dental abscess 08/02/2024 HLD (hyperlipidemia) 03/03/2024 ADHD 01/14/2024 Bipolar 1 disorder 01/14/2024 Anxiety 01/14/2024 Asthma 01/14/2024 Tobacco abuse 01/14/2024 Lumbar spine pain 01/14/2024 Substance use disorder 01/14/2024 Overweight (BMI 25.0-29.9) 01/14/2024 Health care maintenance 01/14/2024 Bilateral carpal tunnel syndrome 01/08/2024 Assessment & Plan (01/08/2024 2:12 PM EDT): Wear bilateral wrist braces specially at bed time I will prescribe for patient wrist brace for left hand I will order nerve conduction study Ibuprofen 800mg Q 8hrs PRN with full stomach C/w gabapentin as prescribed f/u with PCP Cervical radiculopathy 10/27/2023 Assessment & Plan (10/27/2023 7:34 PM EDT): She seems to have compression sxs, I will rx dexamethasone x 1w Refer to PT/order MRI to see if she needs further w/u. Out of work for at least 2d, then light duty x 1w. Take gabapentin up to 300 mg at bedtime/100mg QAM if tolerated, hold for sedation. Resolved Problems Problem Noted Date Diagnosed Date Resolved Date Elevated blood pressure reading 01/08/2024 03/03/2024 Assessment & Plan (01/08/2024 2:22 PM EDT): Possibly due to pain/anxiety I ask her to log her BP at home and bring log for her PCP appointment Encounters Date Type Department Care Team Description 09/08/2024 2:00 PM EDT Office Visit [facility] [address] [place] [phone] Annmarie Chambers MD Right flank pain (Primary Dx); Periodontal disease; Dental abscess; Dietary counseling; Exercise counseling; Bipolar 1 disorder ([facility]); Asthma, unspecified asthma severity, unspecified whether complicated, unspecified whether persistent; Absent periods 09/08/2024 Orders Only [facility] [address] [place] [phone] Annmarie Chambers MD 09/08/2024 Travel 09/08/2024 Telephone [facility] [address] [place] [phone] Annmarie Chambers MD Nurse Triage 09/06/2024 Travel 08/20/2024 Population Health Risk [facility] () Department [address] [place] [address] [phone] Provider, Population Health Generic 08/20/2024 Refill [facility] ADULT DENTAL [address] [place] [address] Jagdish Santiago DDS Periodontal disease; Dental abscess 08/02/2024 2:30 PM EST Office Visit [facility] ADULT DENT[facility] [address] [place] [address] Jagdish Santiago DDS Periodontal disease (Primary Dx); Dental abscess 07/26/2024 Refill [facility] [address] [place] [phone] Annmarie Chambers MD from Last 3 Months Immunizations Name Administration Dates Next Due Hep B, adult 04/13/2024,03/03/2024 Influenza, seasonal, injectable, preservative fr ee 03/03/2024 Pfizer Covid-19 Vaccine 12+ 04/13/2024 Pneumococcal Conjugate PCV 20 03/03/2024 Pneumococcal Polysaccharide PPSV23 03/09/2021 Tdap 01/14/2024 Family History Medical History Relation Name Comments lung ca-smoker? Father's Brother Breast cancer Father's Sister HTN Mother unspcified lung ca Paternal Grandfather Relation Name Status Comments Father's Brother Father's Sister Mother Paternal Grandfather Social History Tobacco Use Types Packs/Day Years Used Date Smoking Tobacco: Every Day Cigarettes Passive Smoke Exposure: Never Smokeless Tobacco: Never Tobacco Cessation:Ready to Q uit: Not Asked; Counseling Given: Not Answered Comments:Started smoking 13 y of age ,stopped [...] Orientation Straight 03/02/2024 12 :44 PM EDT Last Filed Vital Signs Vital Sign Reading Time Taken Comments Blood Pressure 138/82 09/08/2024 2:08 PM EDT Pulse 75 09/08/2024 2:08 PM EDT Temperature 36.2 ??C (97.2 ??F) 09/08/2024 2:08 PM ED T Respiratory Rate 20 09/08/2024 2:08 PM EDT Oxygen Saturation 98% 09/08/2024 2:08 PM EDT Inhaled Oxygen Concentration - - Weight 67.9 kg (149 lb 12.8 oz) 09/08/2024 2:08 PM EDT Height 154.9 cm (5' 1 ) 09/08/2024 2:08 PM EDT Body Mass Index 28.3 09/08/2024 2:08 PM EDT Plan of Treatment Upcoming Encounters Date Type Department Care Team (Late st Contact Info) Description 09/13/2024 4:00 PM EDT Nurse Only [facility] [address] [place] [phone] 09/22/2024 2:45 PM EDT Office Visit [facility] [address] [place] [phone] Annmarie Chambers MD [address] [place] [phone] Health Maintenance Due Date Last Done Comments CT Colonography 1979 Colonoscopy 1979 Colorectal Cancer Screening 1979 Dental Prophylaxis 1979 FIT DNA/Cologuard 1979 FIT 1979 FOBT 1979 Sigmoidoscopy 1979 Alcohol/Substance Use Screening 1991 Dental Oral Exam 06/15/2015 12/12/2014, 03/17/2013 Dental X-Ray: Bitewings 12/14/2015 12/13/19 15, 03/17/2013 Depression Monitoring (PHQ-9) 07/16/2024, 01/14/2024 Hepatitis B Vaccines (3 of 3 - 19+ 3-dose series) 08/31/2024 04/13/2024, 03/03/2024 Depression Screening 01/13/2025 01/14/2024, 01/14/2024 SDOH Screening 01/13/2025 01/14/2024 Family Planning (PISQ) 01/28/2025 01/29/2024 Tobacco Screening 09/08/2025 09/08/2024 Mammogram 02/02/2026 02/03/2024 Dental X-Ray: Full Mouth 08/03/2027 025, 03/17/2013 Lipid Panel 01/18/2029 01/19/2024 Cervical Cancer Screening 01/28/2029 HPV/Cotest 01/28/2029 01/29/2024 Pap Smear 01/28/2029 01/29/2024 Zoster Vaccines (1 of 2) 08/09/2029 DTaP/Tdap/Td Vaccines (2 - T d or Tdap) 01/13/2034 01/14/2024 RSV Patients and Patients Aged 60 years or older (1 - 1-dose 75+ series) 08/09/2054 HIV Screening Completed 01/19/2024 Hepatitis C Screening Completed 01/19/2024 Influenza Vaccine Completed 03/03/2024 Pneumococcal Vaccine: Pediatrics (0 to 5 Years) and At-Risk Patients (6 to 49) Years) Completed 03/03/2024, 03/09/2021 COVID-19 Vaccine Completed 04/13/2024, 10/23/2020, 10/02/2020 HIB Vaccines Aged Out No longer eligi ble based on patient's age to complete this topic HPV Vaccines Aged Out No longer eligi ble based on patient's age to complete this topic Hepatitis A Vaccines Aged Out No long er eligible based on patient's age to complete this topic IPV Vaccines Aged Out No longer eligi ble based on patient's age to complete this topic Meningococcal Vaccine Aged Out No talha melissa eligible based on patient's age to complete this topic RSV under 20 months Aged Out No longe r eligible based on patient's age to complete this topic Rotavirus Vaccines Aged Out No longer eligible based on patient's age to complete this topic Procedures Procedure Name Priority Date/Time Associated Diagnosis Comments POCT , URINE Routine 09/08/2024 3:21 PM EDT Absent periods COMPREHENSIVE METABOLIC PANEL Routine 09/08/2024 3:15 PM EDT Right flank pain CBC WITH AUTO DIFFERENTIAL Routine 09/08/2024 3:15 PM EDT Right flank pain LIPASE Routine 09/08/2024 3:15 PM EDT Right flank pain URINALYSIS, COMPLETE, WITH REFLEX TO CULTURE Routine 09/08/2024 2:20 PM EDT CASE PRESENTATION, DETAILED AND EXTENSIVE TREATMENT PLANNING Routine 08/02/2024 2:30 PM EST 25 EXTRACTION, ERUPTED TOOTH OR EXPOSED ROOT (ELEVATION/FORCEPS REMOVAL) Routine 08/02/2024 2:30 PM EST PANORAMIC RADIOGRAPHIC IMAGE Routine 08/02/2024 2:30 PM EST PALLIATIVE (EMERGENCY) TREATMENT OF DENTAL PAIN - MINOR PROCEDURE Routine 08/02/2024 2:30 PM EST BI MAMMOGRAM SCREENING TOMOSYNTHESIS BILATERAL Routine 02/03/2024 10:30 AM EDT Breast cancer screening by mammogram THINPREP IMAGING PAP AND HPV MRNA E6/E7 Routine 01/29/2024 12:00 AM EDT Cervical radiculopathy HEPATITIS C AB W/REFL TO HCV RNA, QN, PCR Routine 01/19/2024 11:38 AM EDT Annual physical exam HIV 1/2 ANTIGEN/ANTIBODY, FOURTH GENERATION W/RFL Routine 01/19/2024 11:38 AM EDT Annual physical exam LIPID PANEL, STANDARD Routine 01/19/2024 11:38 AM EDT Annual physical exam BITEWINGS - 4 RADIOGRAPHIC IMAGES Routine 12/12/2014 12:00 AM EDT PERIODIC ORAL EVALUATION - ESTABLISHED PATIENT Routine 12/12/2014 12:00 AM EDT from Last 3 Months or Most Recently Relevant to Health Maintenance Results * POCT Urine (09/08/2024 3:21 PM EDT) Pathologist [facility] Preg Test, Ur Negative Negative, Indeterminate, None Detected, Invalid, Specimen unsatisfactory for evaluation, Weakly Positive QC Media Lot # [id number] Lot# Expiration Date [id number] Urine 09/08/2024 3:21 PM EDT Annmarie Santana MD POINT OF CARE DOMINICK T ENTER/EDIT ORDERABLES Final Result * (ABNORMAL) CBC auto differential (09/08/2024 3:15 PM EDT) Pathologist [facility] White Blood Count 11.2(H) 4.8 - 10.8 X10*3/uL [facility] Red Blood Count 5.44 4.20 - 5.50 X10*6/uL [facility] Hemoglobin 16.8(H) 12.0 - 16.0 g/dl [facility] Hematocrit 50.1(H) 37.0 - 47.0 % [facility] Mean Corpuscular Volume 92.1 80.0 - 98.0 fL [facility] Mean Corpuscular Hemoglobin 30.9 27.0 - 33.0 pg [facility] Mean Corpuscular HGB Conc 33.5 31.0 - 35.0 g/dl [facility] Red Cell Distribution Width 12.3 11.0 - 16.0 % [facility] Platelet Count 235 160 - 400 X10*3/uL [facility] Mean Platelet Volume 10.8 9.4 - 12.3 fL [facility] Neutrophils Percent Auto 58.0 45 - 73 % [facility] Imm Gran Pct Auto 0.4 0.0 - 0.4 % [facility] Lymphocytes Percent Auto 30.9 20 - 40 % [facility] Monocytes Percent Auto 8.5 2 - 11 % [facility] Eosinophils Percent Auto 1.4 0 - 4 % [facility] Basophils Percent Auto 0.8 0 - 2 % [facility] NRBC Pct Auto 0.0 0.0 - 0.2 /100WBC [facility] Neutrophils Absolute Auto 6.5 2.0 - 8.3 x10*3/uL [facility] Imm Gran Abs Auto 0.04(H) 0.00 - 0.03 X10*3/uL [facility] Lymphocytes Absolute Auto 3.5 1.2 - 4.9 X10*3/uL [facility] Monocytes Absolute Auto 1.0 0.1 - 1.2 X10*3/uL [facility] Eosinophils Absolute Auto 0.2 0.0 - 0.4 X10*3/uL [facility] Basophils Absolute Auto 0.1 0.0 - 0.2 X10*3/uL [facility] NRBC Abs Auto 0.000 0.0 - 0.012 X10*3/uL [facility] Blood Venous blood specimen / Unknown 09/08/2024 3:15 PM EDT 09/08/2024 4:08 PM EDT us Annmarie Santana MD LAB BLOOD ORDERAB LES Final Result [facility] [address] [place] [phone] * Lipase (09/08/2024 3:15 PM EDT) Pathologist [facility] Lipase 49 8 - 78 U/L [facility] Blood Venous blood specimen / Unknown 09/08/2024 3:15 PM EDT 09/08/2024 4:08 PM EDT us Annmarie Santana MD LAB BLOOD ORDERAB LES Final Result [facility] [address] [place] [phone] * (ABNORMAL) Comprehensive Metabolic Panel (09/08/2024 3:15 PM EDT) Sodium 140 135 - 145 mmol/L [facility] Potassium 4.5 3.3 - 5.1 mmol/L [facility] Chloride 104 96 - 108 mmol/L [facility] Carbon Dioxide 30(H) 22 - 29 mmol/L [facility] Anion Gap 11(L) 12 - 20 [facility] Urea Nitrogen (BUN) 7(L) 9 - 16 mg/dL [facility] Creatinine, Serum 1.01 0.5 - 1.4 mg/dL [facility] Estimated Glomerular Filt Rate 59 [facility] Comment:Chronic Kidney Disea se: Estimated GFR < 60 mL/min/1.58w4Gdiche Kidney Disease: Estimated GFR < 15 mL/min/1.73m2 Glucose 97 60 - 115 mg/dL [facility] Calcium 9.5 8.4 - 10.2 mg/dL [facility] Bilirubin, Total 1.0 0.0 - 1.0 mg/dL [facility] Aspartate Amino Transferase 14 5 - 31 U/L [facility] Alanine Aminotransferase 8 0 - 31 U/L [facility] Total Protein 7.1 6.5 - 8.0 g/dL [facility] Albumin Level 4.3 3.5 - 5.0 g/dL [facility] Alkaline Phosphatase 86 39 - 117 U/L [facility] Blood Venous blood specimen / Unknown 09/08/2024 3:15 PM EDT 09/08/2024 4:08 PM EDT us Annmarie Santana MD LAB BLOOD ORDERAB LES Final Result [facility] [address] [place] [phone] * (ABNORMAL) Urinalysis, Complete, with Reflex to Culture (09/08/2024 2:20 PM EDT) Color Urine Yellow [facility] Appearance Urine Clear [facility] PH 6.0 5.0 - 9.0 [facility] Glucose Urine UA Negative Negative mg/dL [facility] Urine Blood Large (3+)(A) Negative [facility] Specific Shields - Urine <=1.005 1.005 - 1.025 [facility] Urine Protein Negative Neg-Trace mg/dL [facility] Urine Ketones Negative Negative mg/dL [facility] Nitrite Urine Negative Negative [facility] Leukocyte Esterase Urine Small (1+)(A) Negative [facility] RBC Urine 0-2 0 - 2 /HPF [facility] Urine WBC 0-5 0 - 5 /HPF [facility] Urine Squamous Epithelial Cell 0-2 0 - 2 /HPF [facility] Urine Bacteria None Seen None Seen [facility] Hyaline Casts, Urine 0-2 0 - 2 /LPF [facility] 09/08/2024 2:20 PM EDT 09/08/2024 4:04 PM EDT Narrative [facility] - 09/08/2024 4:14 PM EDT Urine, Clean Catch Annmarie Santana MD LAB URINE ORDERAB LES Final Result [facility] [address] [place] [phone] * BI Mammogram Screening Tomosynthesis Bilateral (02/03/2024 10:30 AM EDT) Anatomical Region Laterality Modality Breast Bilateral Mammography 02/03/2024 10:3 0 AM EDT Narrative 02/27/2024 3:02 PM EDT ? [facility] [place] ? [address] ?[place] [address] ? Mammography Report ? Signed ? Patient: Betsy,Crystal ?MR#: [id number] ?? [id number] ? : 1980 ?Acct:[id number] ? Age/Sex: 43 / F ?ADM Date: 08/27/24 ? Loc: HO.MAMMO ? Attending Dr: Annmarie Santana MD ? Ordering Physician: Annmarie Chambers MD ?Re ?? sults: 1Negative ? Date of Service: 02/03/24 ?Follow Up: 1 Year From Orig ?? inal Mammogram ? Procedure(s): MM tomosynthesis screening BI ?? Accession Number(s): [id number] ? cc: Annmarie Chambers MD ? EXAMINATION: ?? MM SCREENING DIGITAL BREAST TOMOSYNTHESIS, BILATERAL ? CLINICAL INFORMATION: ? Screening. Asymptomatic. ? COMPARISON: ?? Mammography: Comparison is made with available priors ? TECHNIQUE: ?? Digital breast tomosynthesis is performed in both the craniocaudal and ?? mediolateral oblique views along with computer-aided detection (CAD). ? Synthesized 2D images are generated from the tomosynthesis. ? FINDINGS: ?? There are scattered areas of fibroglandular density (ACR BI-RADS breast ?? composition Category b). ? There are no significant masses, abnormal calcifications, or other ?? abnormalities. ? MM/MM tomosynthesis screening BI ?? IMPRESSION: ?? No mammographic evidence of malignancy. ? ASSESSMENT: ? BI-RADS BI-RADS 1 - Negative ? RECOMMENDATION: ?? Routine annual mammography screening. ? 1 year F/U ? This examination should not preclude the clinical evaluation of a ?? suspicious palpable abnormality. ? This patient's information was entered into a reminder system with a ?? target due date for their next mammogram. ? Electronically signed by: ??Alisa Henry DO ??02/27/2024 02:59 PM EDT ?? RP ? Dictated By: ?Alisa Henry DO ? Signed By: ?<Electronically signed by Alisa Henry, DO in OV> ? 02/27/24 1459 ? DD/ 1030 ? TD/TT: 02/03/24 1042 ? Rn Obgyn: ? Procedure Note Donotuseinterpreter, Image - 02/27/2024 [facility] [address] [place] [address] Mammography Report Signed Patient: Naomi Meyer#: [id number] : 1980Acct:[id number] Age/Sex: 43 / FADM Date: 02/03/24 Loc: HO.MAMMO Attending Dr: Annmarie Santana MD Ordering Physician: Annmarie Chambers sults: 1Negative Date of Service: 02/03/24Follow Up: 1 Year From Orig inal Mammogram Procedure(s): MM tomosynthesis screening BI Accession Number(s): [id number] cc: Annmarie Chambers MD EXAMINATION: MM SCREENING DIGITAL BREAST TOMOSYNTHESIS, BILATERAL CLINICAL INFORMATION: Screening. Asymptomatic. COMPARISON: Mammography: Comparison is made with available priors TECHNIQUE: Digital breast tomosynthesis is performed in both the craniocaudal and mediolateral oblique views along with computer-aided detection (CAD). Synthesized 2D images are generated from the tomosynthesis. FINDINGS: There are scattered areas of fibroglandular density (ACR BI-RADS breast composition Category b). There are no significant masses, abnormal calcifications, or other abnormalities. MM/MM tomosynthesis screening BI IMPRESSION: No mammographic evidence of malignancy. ASSESSMENT: BI-RADS BI-RADS 1 - Negative RECOMMENDATION: Routine annual mammography screening. 1 year F/U This examination should not preclude the clinical evaluation of a suspicious palpable abnormality. This patient's information was entered into a reminder system with a target due date for their next mammogram. Electronically signed by: Alisa Henry DO 02/27/2024 02:59 PM EDT Dictated By: Alisa Henry DO Signed By: <Electronically signed by Alisa Henry DO in OV> 02/27/24 1459 DD/ 1030 TD/TT: 02/03/24 1042 Rn Obgyn: Annmarie Santana MD IMG BI PROCEDURES Edited Result - Final * [facility] Pap and HPV mRNA E6/E7 (01/29/2024 12:00 AM EDT) HPV nRNA E6/E7 Not Detected Not Detected [facility] Comment:Methodology: Transcr iption-Mediated AmplificationThis assay detects E6/E7 viral messenger RNA (mRNA) from 14high-risk HPV types (16,18,31,33,35,39,45,51,52,56,58,59,66,68).Cervical sources are required for HPV testing.If a vaginal source from a patient who has had atotal hysterectomy with removal of cervix wassubmitted, please contact the testing laboratoryfor alternative testing options.For additional information, please refer [email or web address](This link if provided for information/educational purposes only.)THIS TEST WAS PERFORMED AT:[employer] [place] [phone] MOYA MD SOURCE: SEE NOTE [facility] Comment:None given Report Status: [facility] Clinical Information: SEE NOTE [facility] Comment:None given LMP: SEE NOTE [facility] Comment:NONE GIVEN Prev. PAP: SEE NOTE [facility] Comment:NONE GIVEN Prev. BX: SEE NOTE [facility] Comment:NONE GIVEN Statement Of Adequacy: SEE NOTE [facility] Comment:Satisfactory for yusef luation.Endocervical/transformation zone componentpresent. General Categorization: [facility] Interpretation/Result: SEE NOTE [facility] Comment:Cytology Results: Ne gative for intraepitheliallesion or malignancy. Cytology Comment SEE NOTE [facility] Comment:This Pap test has be en evaluated with computerassisted technology. Claim Rep: SEE NOTE [facility] Comment:SXA, CT(ASCP)CT scre ening location: [place] [address] Review Claim Rep: [facility] Pathologist [facility] PAP Infection [facility] See Note SEE NOTE [facility] Comment:EXPLANATORY NOTE:The Pap is a screening test for cervical cancer. It isnot a diagnostic test and is subject to false negativeand false positive results. It is most reliable when asatisfactory sample, regularly obtained, is submittedwith relevant clinical findings and history, and whenthe Pap result is evaluated along with historic andcurrent clinical information. 01/29/2024 01/29/2024 Narrative [facility] - 02/02/2024 3:25 PM EDT SEE SCANNED RESULTS IN EMR us Irina Sanchez CNM LAB PATHOLOGY ORDERABLES Final Result Performing Organization Address City/[facility]/ZIP Co de Phone Number [facility] [address] [place] [phone] * Hepatitis C Antibody with Reflex to HCV, RNA, Quantitative, Real-Time PCR (01/19/2024 11:38 AM EDT) Pathologist [facility] Hepatitis C Antibody Nonreactive Nonreactive [facility] Comment:Antibodies to HCV no t detected; does not exclude early acuteHCV infection. Blood Venous blood specimen / Unknown 01/19/2024 11:38 AM EDT 01/19/2024 1:06 PM EDT us Annmarie Santana MD LAB BLOOD ORDERAB LES Final Result Performing Organization Address [facility]/ZIP Co de Phone Number [facility] [address] [place] [phone] * HIV-1/2 Antigen and Antibodies, Fourth Generation, with Reflexes (01/19/2024 11:38 AM EDT) Pathologist [facility] HIV AB/AG Nonreactive Nonreactive [facility] Comment:HIV-1 p24 Ag and/or HIV-1/HIV-2 Ab not detected.A test result that is nonreactive does not exclude thepossibility of exposure to or infection with HIV-1 and/orHIV-2. Nonreactive results in this assay for individualswith prior exposure to HIV-1 and/or HIV-2 may be due toantigen and antibody levels that are below the limit ofdetection of this assay.The [employer] HIV Ag/Ab Combo assay result andsupplemental assay results should be interpreted inconjunction with the patient's clinical presentation,history and other laboratory results. If the results areinconsistent with clinical evidence, additional testing issuggested to confirm the result. Blood Venous blood specimen / Unknown 01/19/2024 11:38 AM EDT 01/19/2024 1:06 PM EDT Annmarie Santana MD LAB BLOOD ORDERAB LES Final Result [facility] [address] [place] [phone] * (ABNORMAL) Lipid Panel, Standard (01/19/2024 11:38 AM EDT) Triglycerides 206(H) <150 mg/dL [facility] Comment:Desirable Triglyceri de: less than 150 mg/dLBorderline High Triglyceride 150-199 mg/dLHigh Triglyceride: 200-499 mg/dLVery High Triglyceride: greater than or equal to 5OO mg/dL Cholesterol 228(H) <200 mg/dL [facility] Comment:Desirable Cholestero l: less than 200 mg/dLBorderline High Cholesterol: 200-239 mg/dLHigh Cholesterol: greater than 239 mg/dL LDL Cholesterol Calculated 138(H) <100 mg/dL [facility] Comment:Desirable LDL: less than 100 mg/dLNear Optimal/Above Optimal LDL: 110- 129 mg/dLBorderline High LDL: 130-159 mg/dLHigh LDL: 160-189 mg/dLVery High LDL: greater than or equal to 190 mg/dL HDL Cholesterol 49 >40 mg/dL [facility] Comment:Desirable HDL: great er than 40 mg/dL Note: This HDL assay may give artificially low results in patients with liver disease. Blood Venous blood specimen / Unknown 01/19/2024 11:38 AM EDT 01/19/2024 1:04 PM EDT Annmarie Santana MD LAB BLOOD ORDERAB LES Final Result [facility] [address] [place] [phone] from Last 3 Months or Most Recently Relevant to Health Maintenance Insurance [facility] C3 [facility] MEDICAID STAND ADULT Care Teams Gymnastic Teacher Relationship Specialty Start Date End Date Annmarie Chambers MD [address] [place] [phone] PCP - General Internal Medicine 02/02/24
--- OUTSIDE RECORDS SUMMARY | 2024-09-08 17:38 | XMS_ITS | Encounter Summary ---
Author Organization [employer] Address [address] [place] [address] 7t [place] [address] Care Team Providers Care Automation Controls Engineer Name Role Phone Annmarie Chambers MD Primary Care Pro vider Reason for Visit * Reason Comments Med Refill Encounter Details Date Type Department Care Team ([facility] Contact Info) Description 01/23/2024 Refill [facility] [address] [place], [place] [phone] Adriana Stacy MD [address] [place] [address] Social History Tobacco Use Types Packs/Day Years [...] Recorded Patient Health Questionnaire-2 Score 4 01/14/2024 Comments Unknown Sex and Gender Information Value [...] Description 09/13/2024 4:00 PM EDT Nurse Only [facility] [address] [place] [phone] 09/22/2024 2:45 PM EDT Office Visit [facility] [address] [place] [address] [phone] Annmarie Chambers MD [address] [place] [phone] documented as of this encounter Visit Diagnoses Not on filedocumented in this encounter Additional Health Concerns Assessment Noted Time PHQ-9 Depression Total Score: 20 024 2:22 PM EDT documented as of this encounter Care Teams Automation Controls Engineer Relationship Specialty Start Date End Date Annmarie Chambers MD [address] [place] [address] [phone] PCP - General Internal Medicine 02/02/24 documented as of this encounter
--- OUTSIDE RECORDS SUMMARY | 2024-09-08 17:38 | XMS_ITS | Encounter Summary ---
Author Organization [employer] Address [address] [place] [address] 7 [place] [address] Care Team Providers Care Zumba Instructor Name Role Phone Annmarie Chambers MD Primary Care Pro vider Encounter Details Date Type Department Care Team (Late st Contact Info) Description 09/08/2024 Orders Only [facility] [address] [place] [phone] Annmarie Chambers MD [address] [place] [address] Social History Tobacco Use Types Packs/Day Years [...] Description 09/13/2024 4:00 PM EDT Nurse Only [facility] [address] [place] [address] [phone] 09/22/2024 2:45 PM EDT Office Visit [facility] [address] [place] [address] [phone] Annmarie Chambers MD [address] [place] [address] [phone] documented as of this encounter Procedures Procedure Name Priority Date/Time Associated Diagnosis Comments URINALYSIS, COMPLETE, WITH REFLEX TO CULTURE Routine 09/08/2024 2:20 PM EDT documented in this encounter Results * (ABNORMAL) Urinalysis, Complete, with Reflex to Culture (09/08/2024 2:20 PM EDT) Color Urine Yellow [facility] Appearance Urine Clear [facility] PH 6.0 5.0 - 9.0 [facility] Glucose Urine UA Negative Negative mg/dL [facility] Urine Blood Large (3+)(A) Negative [facility] Specific [place] - Urine <=1.005 1.005 - 1.025 [facility] Urine Protein Negative Neg-Trace mg/dL [facility] Urine Ketones Negative Negative mg/dL [facility] Nitrite Urine Negative Negative [facility] Leukocyte Esterase Urine Small (1+)(A) Negative [facility] RBC Urine 0-2 0 - 2 /HPF [facility] Urine WBC 0-5 0 - 5 /HPF [facility] Urine Squamous Epithelial Cell 0-2 0 - 2 /HPF [facility] Urine Bacteria None Seen None Seen [facility] Hyaline Casts, Urine 0-2 0 - 2 /LPF [facility] 09/08/2024 2:20 PM EDT 09/08/2024 4:04 PM EDT Narrative [facility] - 09/08/2024 4:14 PM EDT Urine, Clean Catch us Annmarie Santana MD LAB URINE ORDERAB LES Final Result [facility] [address] [place] [phone] documented in this encounter Visit Diagnoses Not on filedocumented in this encounter Additional Health Concerns Assessment Noted Time PHQ-9 Depression Total Score: 20 024 2:22 PM EDT documented as of this encounter Care Teams Zumba Instructor Relationship Specialty Start Date End Date Annmarie Chambers MD [address] [place] [phone] PCP - General Internal Medicine 02/02/24 documented as of this encounter
--- OUTSIDE RECORDS SUMMARY | 2024-09-08 17:38 | XMS_ITS | Encounter Summary ---
Author Organization [employer] Address [address] [place] [phone] Care Team Providers Care Prosthetic Technician Name Role Phone Annmarie Chambers MD Primary Care Pro vider Reason for Referral * Imaging (Routine) - Authorized Specialty Diagnoses / Procedures Referred By Contac t Referred To Contact Radiology Diagnoses Right flank pain Procedures US Abdomen Complete Annmarie Chambers MD [address] [place] [phone] Phone: tel: fax: [address] Phone: tel: fax: Referral ID Status Reason Start Date Expiration Date V isits Requested Visits Authorized [id number] Authorized 09/08/2024 09/08/2025 1 1 Encounter Details Date Type Department Care Team (Late st Contact Info) Description 09/08/2024 2:00 PM EDT Office Visit [facility] [address] [place] [address] [phone] Annmarie Chambers MD [address] [place], [place] [phone] Right flank pain (Primary Dx); Periodontal disease; Dental abscess; Dietary counseling; Exercise counseling; Bipolar 1 disorder (CMS/HCC); Asthma, unspecified asthma severity, unspecified whether complicated, unspecified whether persistent; Absent periods Social History Tobacco Use Types Packs/Day Years [...] PM EDT documented as of this encounter Last Filed Vital Signs Vital Sign Reading [...] Mass Index 28.3 09/08/2024 2:08 PM EDT documented in this encounter Plan of Treatment Upcoming Encounters Date Type Department Care Team (Late st Contact Info) Description 09/13/2024 4:00 PM EDT Nurse Only [facility] [address] [place] [phone] 09/22/2024 2:45 PM EDT Office Visit [facility] [address] [place] [address] [phone] Annmarie Chambers MD [address] [place] [phone] Scheduled Orders Name Type Priority Associated Diagnoses Orde r Schedule Chlamydia/N. Gonorrhoeae RNA, TMA, Urogenitial Microbiology Routine Right flank pain Expected: 09/08/2024 (Approximate), Expires: 09/08/2025 Urinalysis, Complete, with Reflex to Culture Lab Routine Right flank pain Expected: 09/08/2024 (Approximate), Expires: 09/08/2025 US Abdomen Complete Imaging Routine Right flank pain Expected: 09/08/2024, Expires: 09/08/2025 Chlamydia/N. Gonorrhoeae RNA, TMA, Urogenitial Microbiology Routine Right flank pain Ordered: 09/08/2024 Trichomonas vaginalis RNA, Qualitative, TMA Lab Routine Right flank pain Ordered: 09/08/2024 XR Ribs 3 Views Right with Chest 1 View Imaging Routine Right flank pain Expected: 09/08/2024, Expires: 09/08/2025 documented as of this encounter Procedures Procedure Name Priority Date/Time Associated Diagnosis Comments POCT , URINE Routine 09/08/2024 3:21 PM EDT Absent periods CBC WITH AUTO DIFFERENTIAL Routine 09/08/2024 3:15 PM EDT Right flank pain LIPASE Routine 09/08/2024 3:15 PM EDT Right flank pain COMPREHENSIVE METABOLIC PANEL Routine 09/08/2024 3:15 PM EDT Right flank pain documented in this encounter Results * POCT Urine (09/08/2024 3:21 PM EDT) Preg Test, Ur Negative Negative, Indeterminate, None Detected, Invalid, Specimen unsatisfactory for evaluation, Weakly Positive QC Media Lot # [id number] Lot# Expiration Date [id number] Urine 09/08/2024 3:21 PM EDT Annmarie Santana MD POINT OF CARE DOMINICK T ENTER/EDIT ORDERABLES Final Result * (ABNORMAL) Comprehensive Metabolic Panel (09/08/2024 3:15 PM EDT) Sodium 140 135 - 145 mmol/L [facility] Potassium 4.5 3.3 - 5.1 mmol/L [facility] Chloride 104 96 - 108 mmol/L [facility] Carbon Dioxide 30(H) 22 - 29 mmol/L [facility] Anion Gap 11(L) 12 - 20 [facility] Urea Nitrogen (BUN) 7(L) 9 - 16 mg/dL [facility] Creatinine, Serum 1.01 0.5 - 1.4 mg/dL [facility] Estimated Glomerular Filt Rate 59 [facility] Comment:Chronic Kidney Disea se: Estimated GFR < 60 mL/min/[id number] Kidney Disease: Estimated GFR < 15 mL/min/1.73m2 Glucose 97 60 - 115 mg/dL [facility] Calcium 9.5 8.4 - 10.2 mg/dL [facility] Bilirubin, Total 1.0 0.0 - 1.0 mg/dL [facility] Aspartate Amino Transferase 14 5 - 31 U/L [facility] Alanine Aminotransferase 8 0 - 31 U/L [facility] Total Protein 7.1 6.5 - 8.0 g/dL [facility] Albumin Level 4.3 3.5 - 5.0 g/dL [facility] Alkaline Phosphatase 86 39 - 117 U/L [facility] Blood Venous blood specimen / Unknown 09/08/2024 3:15 PM EDT 09/08/2024 4:08 PM EDT us Annmarie Santana MD LAB BLOOD ORDERAB LES Final Result [facility] [address] [place] [phone] * (ABNORMAL) CBC auto differential (09/08/2024 3:15 PM EDT) White Blood Count 11.2(H) 4.8 - 10.8 X10*3/uL [facility] Red Blood Count 5.44 4.20 - 5.50 X10*6/uL [facility] Hemoglobin 16.8(H) 12.0 - 16.0 g/dl [facility] Hematocrit 50.1(H) 37.0 - 47.0 % [facility] Mean Corpuscular Volume 92.1 80.0 - 98.0 fL [facility] Mean Corpuscular Hemoglobin 30.9 27.0 - 33.0 pg [facility] Mean Corpuscular HGB Conc 33.5 31.0 - 35.0 g/dl [facility] Red Cell Distribution Width 12.3 11.0 - 16.0 % [facility] Platelet Count 235 160 - 400 X10*3/uL [facility] Mean Platelet Volume 10.8 9.4 - 12.3 fL [facility] Neutrophils Percent Auto 58.0 45 - 73 % [facility] Imm Gran Pct Auto 0.4 0.0 - 0.4 % [facility] Lymphocytes Percent Auto 30.9 20 - 40 % [facility] Monocytes Percent Auto 8.5 2 - 11 % [facility] Eosinophils Percent Auto 1.4 0 - 4 % [facility] Basophils Percent Auto 0.8 0 - 2 % [facility] NRBC Pct Auto 0.0 0.0 - 0.2 /100WBC [facility] Neutrophils Absolute Auto 6.5 2.0 - 8.3 x10*3/uL [facility] Imm Gran Abs Auto 0.04(H) 0.00 - 0.03 X10*3/uL [facility] Lymphocytes Absolute Auto 3.5 1.2 - 4.9 X10*3/uL [facility] Monocytes Absolute Auto 1.0 0.1 - 1.2 X10*3/uL [facility] Eosinophils Absolute Auto 0.2 0.0 - 0.4 X10*3/uL [facility] Basophils Absolute Auto 0.1 0.0 - 0.2 X10*3/uL [facility] NRBC Abs Auto 0.000 0.0 - 0.012 X10*3/uL [facility] Blood Venous blood specimen / Unknown 09/08/2024 3:15 PM EDT 09/08/2024 4:08 PM EDT us Annmarie Santana MD LAB BLOOD ORDERAB LES Final Result [facility] [address] [place], [place] [phone] * Lipase (09/08/2024 3:15 PM EDT) Lipase 49 8 - 78 U/L [facility] Blood Venous blood specimen / Unknown 09/08/2024 3:15 PM EDT 09/08/2024 4:08 PM EDT us Annmarie Santana MD LAB BLOOD ORDERAB LES Final Result [facility] [address] [place] [address] [phone] documented in this encounter Visit Diagnoses Diagnosis Right flank pain- Primary Abdominal pain, unspecified site Periodontal disease Unspecified gingival and periodontal disease Dental abscess Periapical abscess without sinus Dietary counseling Dietary surveillance and counseling Exercise counseling Bipolar 1 disorder (CMS/[facility]) Asthma, unspecified asthma severity, unspecified whether complicated, unspecified whether persistent Absent periods Absence of menstruation documented in this encounter Additional Health Concerns Assessment Noted Time PHQ-9 Depression Total Score: 20 024 2:22 PM EDT documented as of this encounter Care Teams Prosthetic Technician Relationship Specialty Start Date End Date Annmarie Chambers MD [address] [place] [address] PCP - General Internal Medicine 02/02/24 documented as of this encounter
--- OUTSIDE RECORDS SUMMARY | 2024-09-08 17:38 | XMS_ITS | Encounter Summary ---
Author Organization [employer] Address [address] 7t [place] [address] Care Team Providers Care Print Designer Name Role Phone Annmarie Chambers MD Primary Care Pro vider Encounter Details Date Type Department Care Team (Latest Contact Info) Description 09/08/2024 Travel Social History Tobacco Use Types Packs/Day [...] Description 09/13/2024 4:00 PM EDT Nurse Only [facility] [address] [place] [phone] 09/22/2024 2:45 PM EDT Office Visit [facility] [address] [place] [phone] Annmarie Chambers MD [address] [place] [address] [phone] documented as of this encounter Visit Diagnoses Not on filedocumented in this encounter Additional Health Concerns Assessment Noted Time PHQ-9 Depression Total Score: 20 024 2:22 PM EDT documented as of this encounter Care Teams Print Designer Relationship Specialty Start Date End Date Annmarie Chambers MD [address] [place] [phone] PCP - General Internal Medicine 02/02/24 documented as of this encounter
--- OUTSIDE RECORDS SUMMARY | 2024-09-08 17:38 | XMS_ITS | Encounter Summary ---
Author Organization [employer] Address [address] 7t [place] [address] Care Team Providers Care Certified Adapted Physical Educator Name Role Phone Annmarie Chambers MD Primary Care Pro vider Reason for Visit * Reason Comments Med Refill Encounter Details Date Type Department Care Team ([facility] st Contact Info) Description 02/23/2024 Refill [facility] [address] [place] [address] [phone] Annmarie Rosario MD [address] [place] [address] Bilateral carpal tunnel syndrome Social History Tobacco Use Types Packs/Day Years [...] 4:00 PM EDT Nurse Only [facility] [address] [place] [address] [phone] 09/22/2024 2:45 PM EDT Office Visit [facility] [address] [place] [address] 98201 Annmarie Chambers MD [address] [place] [address] [phone] documented as of this encounter Visit Diagnoses Diagnosis Bilateral carpal tunnel syndrome Carpal tunnel syndrome documented in this encounter Additional Health Concerns Assessment Noted Time PHQ-9 Depression Total Score: 20 024 2:22 PM EDT documented as of this encounter Care Teams Certified Adapted Physical Educator Relationship Specialty Start Date End Date Annmarie Chambers MD [address] [place] [address] [phone] PCP - General Internal Medicine 02/02/24 documented as of this encounter
[2024-09-09 02:20] LABS: CT PCR NOT DETECTED (Not Detect.); NG PCR NOT DETECTED (Not Detect.)
[2024-09-09 14:38] LABS: Trichomonas vaginalis RNA NOT DETECTED (NOT DETECTED)
== END 2024-09-08 15:13 | disposition home or self-care (01) ==
LOC: HO.HHCL 15:12
PROVIDERS: Visit Provider Student in an Organized Health Care Education/Training Program
DX: R10.9 Unspecified abdominal pain (principal)
CPT/HCPCS: 36415; 80053; 81001; 83690; 85025; 87086; 87491; 87591; 87661

== ENCOUNTER 2024-09-09 08:45 | Outpatient (REF) | payer MEDICAID, SELFPAY ==
--- NOTE | ~2024-09-09 | XR_ITS ---
EXAMINATION: XR RIBS 3 VIEWS MINIMUM WITH CHEST RIGHT HISTORY: PAIN COMPARISON: Correlation is made with the prior examination of the chest dated 06/20/2020. FINDINGS: A single PA view of the chest and 3 views of the right ribs are submitted. The lungs are expanded and clear. There is no pleural effusion, pneumothorax, or pulmonary vascular congestion. The heart is normal in size. There is scoliosis and degenerative disc disease of the spine. The right ribs are intact. No fracture is seen. XR/XR ribs RT min 3V w [id number] IMPRESSION: No acute cardiopulmonary abnormality. No evidence of fracture of the right ribs. Electronically signed by: Sam Chu MD 09/09/2024 12:23 PM EDT
--- OUTSIDE RECORDS SUMMARY | 2024-09-09 08:53 | XMS_ITS | Encounter Summary ---
Author Organization [employer] Address [address] [place] [address] Care Team Providers Care Software Clerk Name Role Phone Annmarie Chambers MD Primary [...] Description 09/13/2024 4:00 PM EDT Nurse Only [facility] [address] [place] [address] [phone] 09/22/2024 2:45 PM EDT Office Visit [facility] [address] [place] [address] [phone] Annmarie Chambers MD [address] [place] [address] [phone] documented as of this encounter Visit Diagnoses Not on filedocumented in this encounter Additional Health Concerns Assessment Noted Time PHQ-9 Depression Total Score: 20 024 2:22 PM EDT documented as of this encounter Care Teams Software Clerk Relationship Specialty Start Date End Date Annmarie Chambers MD [address] [place] [phone] PCP - General Internal Medicine 02/02/24 documented as of this encounter
--- OUTSIDE RECORDS SUMMARY | 2024-09-09 08:53 | XMS_ITS | Encounter Summary ---
Author Organization [employer] Address [address] [facility] 7t [place] [address] Care Team Providers Care Engineering Consultant Name Role Phone Annmarie Chambers MD Primary Care Pro vider Reason for Visit * Reason Comments Med Refill Encounter Details Date Type Department Care Team ([facility] st Contact Info) Description 08/20/2024 Refill [facility] [address] [place], [place] [phone] Jagdish Santiago DDS [address] [place] [address] Periodontal disease; Dental abscess Social History Tobacco [...] the past 12 months, has t he [employer] gas, oil or water company threatened to [...] Description 09/13/2024 4:00 PM EDT Nurse Only [facility] [address] [place] [address] [phone] 09/22/2024 2:45 PM EDT Office Visit [facility] [address] [place] [address] [phone] Annmarie Chambers MD [address] [place] [phone] documented as of this encounter Visit Diagnoses Diagnosis Periodontal disease Unspecified gingival and periodontal disease Dental abscess Periapical abscess without sinus documented in this encounter Additional Health Concerns Assessment Noted Time PHQ-9 Depression Total Score: 20 024 2:22 PM EDT documented as of this encounter Care Teams Engineering Consultant Relationship Specialty Start Date End Date Annmarie Chambers MD [address] [place] [address] [phone] PCP - General Internal Medicine 02/02/24 documented as of this encounter
--- OUTSIDE RECORDS SUMMARY | 2024-09-09 08:53 | XMS_ITS | Encounter Summary ---
Author Organization [employer] Address [address] [place] [address] Care Team Providers Care Design Assembler Name Role Phone Annmarie Chambers MD Primary Care Pro vider Reason for Visit * Reason Comments Med Refill Encounter Details Date Type Department Care Team (Late st Contact Info) Description 12/17/[address] [facility] [address] [place] [address] [phone] Adriana Stacy MD [address] [place] [address] [phone] Social History Tobacco Use Types Packs/Day Years [...] Description 09/13/2024 4:00 PM EDT Nurse Only [facility] [address] [place] [address] [phone] 09/22/2024 2:45 PM EDT Office Visit [facility] [address] [place] [address] [phone] Annmarie Chambers MD [address] [place] [address] [phone] documented as of this encounter Visit Diagnoses Not on filedocumented in this encounter Care Teams Design Assembler Relationship Specialty Start Date End Date Annmarie Chambers MD [address] [place] [address] [phone] PCP - General Internal Medicine 02/02/24 documented as of this encounter
--- OUTSIDE RECORDS SUMMARY | 2024-09-09 08:53 | XMS_ITS | Encounter Summary ---
Author Organization [employer] Address [address] [place] [address] 7 [place] [address] Care Team Providers Care Institute Director Name Role Phone Annmarie Chambers MD Primary Care Pro vider Reason for Visit * Reason Comments Med Refill Encounter Details Date Type Department Care Team ([facility] Contact Info) Description 04/24/2024 Refill [facility] [address] [place], [place] [phone] Annmarie Chambers MD [address] [place] [address] Social History Tobacco Use Types Packs/Day Years [...] 0 (1 standard drink = 0.6 oz pure alcohol) cocktail 4-5 cans times a week [...] Description 09/13/2024 4:00 PM EDT Nurse Only [facility] [address] [place] [address] [phone] 09/22/2024 2:45 PM EDT Office Visit [facility] [address] [place] [address] [phone] Annmarie Chambers MD [address] [place] [address] [phone] documented as of this encounter Visit Diagnoses Not on filedocumented in this encounter Additional Health Concerns Assessment Noted Time PHQ-9 Depression Total Score: 20 024 2:22 PM EDT documented as of this encounter Care Teams Institute Director Relationship Specialty Start Date End Date Annmarie Chambers MD [address] [place] [phone] PCP - General Internal Medicine 02/02/24 documented as of this encounter
--- OUTSIDE RECORDS SUMMARY | 2024-09-09 08:53 | XMS_ITS | Encounter Summary ---
Author Organization [employer] Address [address] 7[address] [place] [address] Care Team Providers Care Flap Lining Binder Name Role Phone Annmarie Chambers MD Primary Care Pro vider Reason for Visit * Reason Comments Med Refill Encounter Details Date Type Department Care Team ([facility] st Contact Info) Description 02/23/2024 Refill [facility] [address] [place] [address] [phone] Annmarie Rosario MD [address] [place] [address] Bilateral carpal tunnel syndrome Social History Tobacco [...] Description 09/13/2024 4:00 PM EDT Nurse Only [facility] [address] [place] [address] [phone] 09/22/2024 2:45 PM EDT Office Visit [facility] [address] [place] [address] [phone] Annmarie Chambers MD [address] [place] [address] [phone] documented as of this encounter Visit Diagnoses Diagnosis Bilateral carpal tunnel syndrome Carpal tunnel syndrome documented in this encounter Additional Health Concerns Assessment Noted Time PHQ-9 Depression Total Score: 20 024 2:22 PM EDT documented as of this encounter Care Teams Flap Lining Binder Relationship Specialty Start Date End Date Annmarie Chambers MD [address] [place] [address] [phone] PCP - General Internal Medicine 02/02/24 documented as of this encounter
--- OUTSIDE RECORDS SUMMARY | 2024-09-09 08:53 | XMS_ITS | Encounter Summary ---
Author Organization [employer] Address [address] [place] [address] 7 [place] [address] Care Team Providers Care Sausage Maker Name Role Phone Annmarie Chambers MD Primary Care Pro vider Reason for Visit * Reason Onset Date Comments PT-1 02/11/2024 Encounter Details Date Type Department Care Team ([facility] st Contact Info) Description 02/11/2024 Telephone [facility] [address] [place], [place] [phone] Annmarie Chambers MD [address] [place], [place] [phone] PT-1 Social History Tobacco Use Types Packs/Day [...] Y/N: Yes Provider name or facility name: [facility] [facility] Facility Address: [address] [place] [address] Escort needed: Y/N: Yes Do you have a wheelchair: Y/N: No If yes- Manual or electric: no Visits: 3 documented in this encounter Plan of Treatment Upcoming Encounters Date Type Department Care Team (Late st Contact Info) Description 09/13/2024 4:00 PM EDT Nurse Only [facility] [address] [place] [phone] 09/22/2024 2:45 PM EDT Office Visit [facility] [address] [place] [phone] Annmarie Chambers MD [address] [place] [address] documented as of this encounter Visit Diagnoses Not on filedocumented in this encounter Additional Health Concerns Assessment Noted Time PHQ-9 Depression Total Score: 20 024 2:22 PM EDT documented as of this encounter Care Teams Sausage Maker Relationship Specialty Start Date End Date Annmarie Chambers MD [address] [place] [address] PCP - General Internal Medicine 02/02/24 documented as of this encounter
--- OUTSIDE RECORDS SUMMARY | 2024-09-09 08:53 | XMS_ITS | Encounter Summary ---
Author Organization [employer] Address [address] [facility] 7t [place] [address] Care Team Providers Care Kickboxing Instructor Name Role Phone Annmarie Chambers MD Primary Care Pro vider Reason for Visit * Reason Comments Med Refill Encounter Details Date Type Department Care Team ([facility] Contact Info) Description 01/23/2024 Refill [facility] [address] [place], [place] [phone] Adriana Stacy MD [address] [place] [address] Social History Tobacco Use Types Packs/Day Years [...] 4:00 PM EDT Nurse Only [facility] [address] [place] [phone] 09/22/2024 2:45 PM EDT Office Visit [facility] [address] [place] [phone] Annmarie Chambers MD [address] [place] [phone] documented as of this encounter Visit Diagnoses Not on filedocumented in this encounter Additional Health Concerns Assessment Noted Time PHQ-9 Depression Total Score: 20 024 2:22 PM EDT documented as of this encounter Care Teams Kickboxing Instructor Relationship Specialty Start Date End Date Annmarie Chambers MD [address] [place] [phone] PCP - General Internal Medicine 02/02/24 documented as of this encounter
--- OUTSIDE RECORDS SUMMARY | 2024-09-09 08:53 | XMS_ITS | Encounter Summary ---
Author Organization [employer] Address [address] [place] [phone] Care Team Providers Care Business Services Intern Name Role Phone Annmarie Chambers MD Primary Care Pro vider Reason for Referral * Imaging (Routine) - Authorized Specialty Diagnoses / Procedures Referred By Contac t Referred To Contact Radiology Diagnoses Right flank pain Procedures US Abdomen Complete Annmarie Chambers MD [address] [place] [phone] Phone: tel: fax: [address] Phone: tel: fax: Referral ID Status Reason Start Date Expiration Date V isits Requested Visits Authorized [id number] Authorized 09/08/2024 09/08/2025 1 1 Encounter Details Date Type Department Care Team (Late st Contact Info) Description 09/08/2024 2:00 PM EDT Office Visit [facility] [address] [place] [address] [phone] Annmarie Chambers MD [address] [place], [place] [phone] Right flank pain (Primary Dx); Periodontal disease; Dental abscess; Dietary counseling; Exercise counseling; Bipolar 1 disorder (CMS/HCC); Asthma, unspecified asthma severity, unspecified whether complicated, unspecified whether persistent; Absent periods; Superficial bruising of back, right, initial encounter; Vaginal bleeding Social History Tobacco Use Types Packs/Day Years [...] the past 12 months, has t he [employer], gas, oil or water company threatened to [...] 2:08 PM EDT documented in this encounter Progress Notes * Annmarie Santana MD - 09/08/2024 2:00 PM EDT Subjective Patient ID: Alicia Meyer is a 44 y.o. female who presents for sick visit HPI 44 y o F w from [place] w PMX of Asthma,HLD,Bipolar dx, anxiety,ADHD,Tobacco smoker-active, substance use disorder , CTS,cervical radiculopathy Comes for sick visit -reports having back pain in right side around flank area for the past 2 days ,noted bruising in area ,denies having any trauma in area of pain, does reports day prior pain started was having nausea with intense dry heaving. Denies fever,chills, reports some RUQ discomfort but denies of actual pain. Denies diarrhea, Does reports having vaginal bleeding aprox 2 weeks earlier that expected ,denies vaginal discharge nor urinary symptoms including dysuria,frequency nor urgency -has a tongue earring -was plastic but changed to surgical steel changed 1 mo ago ,removed couple of weeks ago, did noted tingling sensation ,states now improved. ------ LMP : mid August 2024 Review of Systems Constitutional: Negative for chills and fever. HENT: Negative. Respiratory: Negative. Negative for cough and shortness of breath. Cardiovascular: Negative for chest pain and palpitations. Gastrointestinal: Positive for nausea. Negative for abdominal distention and diarrhea. Genitourinary: Positive for vaginal bleeding. Musculoskeletal: Positive for back pain. -right flank pain,bruising -vaginal bleeding Objective BP 138/82 (BP Location: Left arm, Patient Position: Sitting, BP Cuff Size: Adult) Pulse 75 Temp97.2 ??F (36.2 ??C) (Temporal) Resp 20 Ht 5' 1 (1.549 m) Wt 149 lb 12.8 oz (67.9 kg) SpO2 98% BMI 28.30 kg/m?? Physical Exam Constitutional: Appearance: She is not toxic-appearing. HENT: Head: Normocephalic. Right Ear: Tympanic membrane normal. Left Ear: Tympanic membrane normal. Mouth/Throat: Mouth: Mucous membranes are moist. Pharynx: Oropharynx is clear. Comments: Normal tongue examination , no collections, no tenderness Eyes: Extraocular Movements: Extraocular movements intact. Conjunctiva/sclera: Conjunctivae normal. Pupils: Pupils are equal, round, and reactive to light. Cardiovascular: Rate and Rhythm: Normal rate and regular rhythm. Pulmonary: Effort: Pulmonary effort is normal. Breath sounds: Normal breath sounds. No wheezing or rhonchi. Abdominal: General: There is no distension. Palpations: Abdomen is soft. Tenderness: There is no abdominal tenderness. There is no right CVA tenderness, left CVA tenderness, guarding or rebound. Genitourinary: Comments: Noted vaginal bleeding from inspection , CMT questionable present ,no vaginal discharge Musculoskeletal: Cervical back: Neck supple. Lymphadenopathy: Cervical: No cervical adenopathy. Skin: Findings: Bruising present. No rash. Comments: Noted superficial bruise of aprox 4 cm in right side of back -above flank , over lower right ribs Neurological: Mental Status: She is alert. Assessment/Plan Problem List Items Addressed This Visit Bipolar 1 disorder (CMS/HCC) Asthma Periodontal disease Relevant Medications acetaminophen (Tylenol) 500 MG tablet Dental abscess Relevant Medications acetaminophen (Tylenol) 500 MG tablet Superficial bruising of back, right, initial encounter Pt with initially nausea and intense dry heaving that now resolved that possibly caused bruising ??Maybe from rib fracture? Pt w no apparent infection ,denies symptoms , pt thinks nausea came for vaginal bleeding , states when has menstrual periods does has similar symptoms but this time was more intense. Unsure if earlier vaginal bleeding is just associated w hormonal changes vs infection, ruled out w neg urine test today. -Chlamydia/Gn urine and vaginal swab -trich vaginal -UA w reflex cx -CBC,chem,lipase -Abd US and rib XR order today -alarm signs and symptoms discussed today -to go to ED if pain is more bothersome or nausea recurs -denies having symptoms since yesterday -tylenol , lidoerm PRN -Warm compresses advised in area of pain -will need pelvic/TV US if ongoing bleeding or abn bleeding recurs Vaginal bleeding Other Visit Diagnoses Right flank pain - Primary Relevant Medications acetaminophen (Tylenol) 500 MG tablet lidocaine (Lidoderm) 5 % patch Other Relevant Orders Chlamydia/N. Gonorrhoeae RNA, TMA, Urogenitial Urinalysis, Complete, with Reflex to Culture Lipase (Completed) CBC auto differential (Completed) US Abdomen Complete Chlamydia/N. Gonorrhoeae RNA, TMA, Urogenitial Trichomonas vaginalis RNA, Qualitative, TMA Comprehensive Metabolic Panel (Completed) XR Ribs 3 Views Right with Chest 1 View Dietary counseling Exercise counseling Absent periods Relevant Orders POCT Urine (Completed) documented in this encounter Miscellaneous Notes * Assessment & Plan Note - Annmarie Santana MD - 09/08/2024 9:52 PM EDTAssociated Problem(s): Superficial bruising of back, right, initial encounter Pt with initially nausea and intense dry heaving that now resolved that possibly caused bruising ??Maybe from rib fracture? Pt w no apparent infection ,denies symptoms , pt thinks nausea came for vaginal bleeding , states when has menstrual periods does has similar symptoms but this time was more intense. Unsure if earlier vaginal bleeding is just associated w hormonal changes vs infection, ruled out w neg urine test today. -Chlamydia/Gn urine and vaginal swab -trich vaginal -UA w reflex cx -CBC,chem,lipase -Abd US and rib XR order today -alarm signs and symptoms discussed today -to go to ED if pain is more bothersome or nausea recurs -denies having symptoms since yesterday -tylenol , lidoerm PRN -Warm compresses advised in area of pain -will need pelvic/TV US if ongoing bleeding or abn bleeding recurs documented in this encounter Plan of Treatment Upcoming Encounters Date Type Department Care Team (Late st Contact Info) Description 09/13/2024 4:00 PM EDT Nurse Only [facility] [address] [place] [phone] 09/22/2024 2:45 PM EDT Office Visit [facility] [address] [place] [address] [phone] Annmarie Chambers MD [address] [place] [phone] Scheduled Orders Name Type Priority Associated Diagnoses Orde r Schedule Chlamydia/N. Gonorrhoeae RNA, TMA, Urogenitial Microbiology Routine Right flank pain Expected: 09/08/2024 (Approximate), Expires: 09/08/2025 Urinalysis, Complete, with Reflex to Culture Lab Routine Right flank pain Expected: 09/08/2024 (Approximate), Expires: 09/08/2025 US Abdomen Complete Imaging Routine Right flank pain Expected: 09/08/2024, Expires: 09/08/2025 Trichomonas vaginalis RNA, Qualitative, TMA Lab Routine [...] 09/08/2024 3:15 PM EDT Right flank pain CHLAMYDIA/N. GONORRHOEAE RNA, TMA, UROGENITAL Routine 09/08/2024 2:50 PM EDT Right flank pain documented in this encounter Results * POCT Urine (09/08/2024 3:21 PM EDT) Preg Test, Ur Negative Negative, Indeterminate, None Detected, Invalid, Specimen unsatisfactory for evaluation, Weakly Positive [employer] Media Lot # [id number] Lot# Expiration Date [id number] Urine 09/08/2024 3:21 PM EDT Annmarie Santana MD POINT OF CARE DOMINICK T ENTER/EDIT ORDERABLES Final Result * (ABNORMAL) Comprehensive Metabolic Panel (09/08/2024 3:15 PM EDT) Sodium 140 135 - 145 mmol/L [facility] Potassium 4.5 3.3 - 5.1 mmol/L [facility] Chloride 104 96 - 108 mmol/L [facility] Carbon Dioxide 30(H) 22 - 29 mmol/L [facility] Anion Gap 11(L) 12 - 20 [facility] Urea Nitrogen (BUN) 7(L) 9 - 16 mg/dL [facility] Creatinine, Serum 1.01 0.5 - 1.4 mg/dL [facility] Estimated Glomerular Filt Rate 59 [facility] Comment:Chronic Kidney Disea se: Estimated GFR < 60 mL/min/1.85n5Tprpga Kidney Disease: Estimated GFR < 15 mL/min/1.73m2 Glucose 97 60 - 115 mg/dL [facility] Calcium 9.5 8.4 - 10.2 mg/dL [facility] Bilirubin, Total 1.0 0.0 - 1.0 mg/dL [facility] Aspartate Amino Transferase 14 5 - 31 U/L [facility] Alanine Aminotransferase 8 0 - 31 U/L [facility] Total Protein 7.1 6.5 - 8.0 g/dL [facility] Albumin Level 4.3 3.5 - 5.0 g/dL [facility] Alkaline Phosphatase 86 39 - 117 U/L [facility] Blood Venous blood specimen / Unknown 09/08/2024 3:15 PM EDT 09/08/2024 4:08 PM EDT Annmarie Santana MD LAB BLOOD ORDERAB LES Final Result [facility] [address] [place] [phone] * (ABNORMAL) CBC auto differential (09/08/2024 3:15 PM EDT) White Blood Count 11.2(H) 4.8 - 10.8 X10*3/uL [facility] Red Blood Count 5.44 4.20 - 5.50 X10*6/uL [facility] Hemoglobin 16.8(H) 12.0 - 16.0 g/dl [facility] Hematocrit 50.1(H) 37.0 - 47.0 % [facility] Mean Corpuscular Volume 92.1 80.0 - 98.0 fL [facility] Mean Corpuscular Hemoglobin 30.9 27.0 - 33.0 pg [facility] Mean Corpuscular HGB Conc 33.5 31.0 - 35.0 g/dl [facility] Red Cell Distribution Width 12.3 11.0 - 16.0 % [facility] Platelet Count 235 160 - 400 X10*3/uL [facility] Mean Platelet Volume 10.8 9.4 - 12.3 fL [facility] Neutrophils Percent Auto 58.0 45 - 73 % [facility] Imm Gran Pct Auto 0.4 0.0 - 0.4 % [facility] Lymphocytes Percent Auto 30.9 20 - 40 % [facility] Monocytes Percent Auto 8.5 2 - 11 % [facility] Eosinophils Percent Auto 1.4 0 - 4 % [facility] Basophils Percent Auto 0.8 0 - 2 % [facility] NRBC Pct Auto 0.0 0.0 - 0.2 /100WBC [facility] Neutrophils Absolute Auto 6.5 2.0 - 8.3 x10*3/uL [facility] Imm Gran Abs Auto 0.04(H) 0.00 - 0.03 X10*3/uL [facility] Lymphocytes Absolute Auto 3.5 1.2 - 4.9 X10*3/uL [facility] Monocytes Absolute Auto 1.0 0.1 - 1.2 X10*3/uL [facility] Eosinophils Absolute Auto 0.2 0.0 - 0.4 X10*3/uL [facility] Basophils Absolute Auto 0.1 0.0 - 0.2 X10*3/uL [facility] NRBC Abs Auto 0.000 0.0 - 0.012 X10*3/uL [facility] Blood Venous blood specimen / Unknown 09/08/2024 3:15 PM EDT 09/08/2024 4:08 PM EDT Annmarie Santana MD LAB BLOOD ORDERAB LES Final Result Performing Organization Address City[facility]/ZIP Co de Phone Number [facility] [address] [place] [phone] * Lipase (09/08/2024 3:15 PM EDT) [facility] Lipase 49 8 - 78 U/L [facility] Blood Venous blood specimen / Unknown 09/08/2024 3:15 PM EDT 09/08/2024 4:08 PM EDT Annmarie Santana MD LAB BLOOD ORDERAB LES Final Result Performing Organization Address [facility]/ZIP Co de Phone Number [facility] [address] [place] [address] [phone] * Chlamydia/N. Gonorrhoeae RNA, TMA, Urogenitial (09/08/2024 2:50 PM EDT) [facility] CT PCR NOT DETECTED Not Detect. [facility] Comment:A not detected test result does not exclude the possibilityof infection because test results can be affected byimproper specimen collection, concurrent antibiotic therapy,or the number of organisms in the specimen which may bebelow the sensitivity of the test. As with many diagnostictests, results from the Xpert CT/NG assay should beinterpreted in conjunction with other laboratory andclinical data available to the clinician.Xpert CT/NG performance has not been evaluated in patientsless than 14 years of age. The assay should not be used forthe evaluationof suspected sexual abuse or for other medico-legalindications. Additional testing is recommended in anycircumstance when false positive or false negative resultscould lead to adverse medical, social or psychologicalconsequences. NG PCR NOT DETECTED Not Detect. [facility] Comment:A not detected test result does not exclude the possibilityof infection because test results can be affected byimproper specimen collection, concurrent antibiotic therapy,or the number of organisms in the specimen which may bebelow the sensitivity of the test. As with many diagnostictests, results from the Xpert CT/NG assay should beinterpreted in conjunction with other laboratory andclinical data available to the clinician.Xpert CT/NG performance has not been evaluated in patientsless than 14 years of age. The assay should not be used forthe evaluationof suspected sexual abuse or for other medico-legalindications. Additional testing is recommended in anycircumstance when false positive or false negative resultscould lead to adverse medical, social or psychologicalconsequences. Swab (Vaginal Swab) 09/08/2024 2:50 PM EDT 09/08/2024 4:05 PM EDT Narrative [facility] - 09/09/2024 2:20 AM EDT Urine us Annmarie Santana MD LAB MICROBIOLOGY - GENERAL ORDERABLES Final Result [facility] [address] [place] [phone] documented in this encounter Visit Diagnoses Diagnosis Right flank pain- Primary Abdominal pain, unspecified site Periodontal disease Unspecified gingival and periodontal disease Dental abscess Periapical abscess without sinus Dietary counseling Dietary surveillance and counseling Exercise counseling Bipolar 1 disorder (CMS/HCC) Asthma, unspecified asthma severity, unspecified whether complicated, unspecified whether persistent Absent periods Absence of menstruation Superficial bruising of back, right, initial encounter Vaginal bleeding Other specified noninflammatory disorder of vagina documented in this encounter Additional Health Concerns Assessment Noted Time PHQ-9 Depression Total Score: 20 024 2:22 PM EDT documented as of this encounter Care Teams Business Services Intern Relationship Specialty Start Date End Date Annmarie Chambers MD [address] [place] [address] PCP - General Internal Medicine 02/02/24 documented as of this encounter
--- OUTSIDE RECORDS SUMMARY | 2024-09-09 08:53 | XMS_ITS | Encounter Summary ---
Author Organization [employer] Address [address] [place] [address] 7 [place] [address] Care Team Providers Care Bessemer Bottom Maker Name Role Phone Annmarie Chambers MD Primary Care Pro vider Encounter Details Date Type Department Care Team (Late st Contact Info) Description 09/08/2024 Orders Only [facility] [address] [place] [phone] Annmarie Chambers MD [address] [place] [address] Social History Tobacco Use Types Packs/Day Years [...] Description 09/13/2024 4:00 PM EDT Nurse Only [facility] [address] [place] [address] [phone] 09/22/2024 2:45 PM EDT Office Visit [facility] [address] [place] [address] [phone] Annmarie Chambers MD [address] [place] [address] [phone] documented as of this encounter Procedures Procedure Name Priority Date/Time Associated Diagnosis Comments URINALYSIS, COMPLETE, WITH REFLEX TO CULTURE Routine 09/08/2024 2:20 PM EDT documented in this encounter Results * (ABNORMAL) Urinalysis, Complete, with Reflex to Culture (09/08/2024 2:20 PM EDT) Color Urine Yellow [facility] Appearance Urine Clear [facility] PH 6.0 5.0 - 9.0 [facility] Glucose Urine UA Negative Negative mg/dL [facility] Urine Blood Large (3+)(A) Negative [facility] Specific [place] - Urine <=1.005 1.005 - 1.025 [facility] Urine Protein Negative Neg-Trace mg/dL [facility] Urine Ketones Negative Negative mg/dL [facility] Nitrite Urine Negative Negative [facility] Leukocyte Esterase Urine Small (1+)(A) Negative [facility] RBC Urine 0-2 0 - 2 /HPF [facility] Urine WBC 0-5 0 - 5 /HPF [facility] Urine Squamous Epithelial Cell 0-2 0 - 2 /HPF [facility] Urine Bacteria None Seen None Seen [facility] Hyaline Casts, Urine 0-2 0 - 2 /LPF [facility] 09/08/2024 2:20 PM EDT 09/08/2024 4:04 PM EDT Narrative [facility] - 09/08/2024 4:14 PM EDT Urine, Clean Catch us Annmarie Santana MD LAB URINE ORDERAB LES Final Result [facility] [address] [place] [phone] documented in this encounter Visit Diagnoses Not on filedocumented in this encounter Additional Health Concerns Assessment Noted Time PHQ-9 Depression Total Score: 20 024 2:22 PM EDT documented as of this encounter Care Teams Bessemer Bottom Maker Relationship Specialty Start Date End Date Annmarie Chambers MD [address] [place] [address] PCP - General Internal Medicine 02/02/24 documented as of this encounter
--- OUTSIDE RECORDS SUMMARY | 2024-09-09 08:53 | XMS_ITS | Encounter Summary ---
Author Organization [employer] Address [address] [place] [address] Care Team Providers Care Purchasing And Claims Supervisor Name Role Phone Annmarie Chambers MD [...] 4:00 PM EDT Nurse Only [facility] [address] [place] [phone] 09/22/2024 2:45 PM EDT Office Visit [facility] [address] [place] [phone] Annmarie Chambers MD [address] [place] [phone] documented as of this encounter Visit Diagnoses Not on filedocumented in this encounter Additional Health Concerns Assessment Noted Time PHQ-9 Depression Total Score: 20 024 2:22 PM EDT documented as of this encounter Care Teams Purchasing And Claims Supervisor Relationship Specialty Start Date End Date Annmarie Chambers MD [address] [place] [phone] PCP - General Internal Medicine 02/02/24 documented as of this encounter
--- OUTSIDE RECORDS SUMMARY | 2024-09-09 08:53 | XMS_ITS | Clinical Summary ---
Author Organization [employer] Address [address] [facility] 7[address] [place] [address] Care Team Providers Care Hot Dog Vender Name Role Phone Annmarie Chambers MD Primary [...] order (will not trigger notification to Pharmacy)) ibuprofen 600 MG tabletIndicat ions:Periodon chon disease,Denta l abscess Take 1 tablet (600 mg) by mouth every 6 (six) hours if needed for mild pain for up to 20 doses. 20 tablet 08/02/19 25 025 Discontinued Active Problems Problem Noted Date Diagnosed Date Superficial bruising of back, right, initial enc ounter 09/08/2024 Assessment & Plan (09/08/2024 9:52 PM EDT): Pt with initially nausea and intense dry heaving that now resolved that possibly caused bruising ?? Maybe from rib fracture? Pt w no apparent [...] bleeding or abn bleeding recurs Vaginal bleeding 09/08/2024 Periodontal disease 08/02/2024 Dental abscess 08/02/2024 HLD [...] Description 09/08/2024 2:00 PM EDT Office Visit [facility] [address] [place] [phone] Annmarie Chambers MD Right flank pain (Primary Dx); Periodontal disease; Dental abscess; Dietary counseling; Exercise counseling; Bipolar 1 disorder ([facility]); Asthma, unspecified asthma severity, unspecified whether complicated, unspecified whether persistent; Absent periods; Superficial bruising of back, right, initial encounter; Vaginal bleeding 09/08/2024 Orders Only [facility] [address] [place] [phone] Annmarie Chambers MD 09/08/2024 Travel 09/08/2024 Telephone [facility] [address] [place] [address] Annmarie Chambers MD Nurse Triage 09/06/2024 Travel 08/20/2024 Population Health Risk Score [facility] Department [address] [phone] Provider, Population Health Generic 08/20/2024 Refill [facility] [address] [place] [address] Jagdish Santiago DDS Periodontal disease; Dental abscess 08/02/2024 2:30 PM EST Office Visit [facility] [address] [place] [address] Jagdish Santiago DDS Periodontal disease (Primary Dx); Dental abscess 07/26/2024 Refill [facility] [address] [place] [address] Annmarie Chambers MD from Last 3 Months [...] 09/13/2024 4:00 PM EDT Nurse Only [facility] [address] [place] [phone] 09/22/2024 2:45 PM EDT Office Visit [facility] [address] [place] [phone] Annmarie Chambers MD [address] [place] [phone] Health Maintenance Due Date Last Done Comments [...] 09/08/2024 2:50 PM EDT Right flank pain URINALYSIS, COMPLETE, [...] Media Lot # [id number] Lot# Expiration Date [id number] Urine 09/08/2024 3:21 PM EDT Annmarie Santana MD POINT OF CARE DOMINICK T ENTER/EDIT ORDERABLES Final Result * (ABNORMAL) CBC auto differential (09/08/2024 3:15 PM EDT) White Blood Count 11.2(H) 4.8 - 10.8 X10*3/uL [facility] Red Blood Count 5.44 4.20 - 5.50 X10*6/uL [facility] Hemoglobin 16.8(H) 12.0 - 16.0 g/dl [facility] Hematocrit 50.1(H) 37.0 - 47.0 % [facility] Mean Corpuscular Volume 92.1 80.0 - 98.0 fL [facility] Mean Corpuscular Hemoglobin 30.9 27.0 - 33.0 pg [facility] Mean Corpuscular HGB Conc 33.5 31.0 - 35.0 g/dl [facility] Red Cell Distribution Width 12.3 11.0 - 16.0 % [facility] Platelet Count 235 160 - 400 X10*3/uL [facility] Mean Platelet Volume 10.8 9.4 - 12.3 fL [facility] Neutrophils Percent Auto 58.0 45 - 73 % [facility] Imm Gran Pct Auto 0.4 0.0 - 0.4 % [facility] Lymphocytes Percent Auto 30.9 20 - 40 % [facility] Monocytes Percent Auto 8.5 2 - 11 % [facility] Eosinophils Percent Auto 1.4 0 - 4 % [facility] Basophils Percent Auto 0.8 0 - 2 % [facility] NRBC Pct Auto 0.0 0.0 - 0.2 /100WBC [facility] Neutrophils Absolute Auto 6.5 2.0 - 8.3 x10*3/uL [facility] Imm Gran Abs Auto 0.04(H) 0.00 - 0.03 X10*3/uL [facility] Lymphocytes Absolute Auto 3.5 1.2 - 4.9 X10*3/uL [facility] Monocytes Absolute Auto 1.0 0.1 - 1.2 X10*3/uL [facility] Eosinophils Absolute Auto 0.2 0.0 - 0.4 X10*3/uL [facility] Basophils Absolute Auto 0.1 0.0 - 0.2 X10*3/uL [facility] NRBC Abs Auto 0.000 0.0 - 0.012 X10*3/uL [facility] Blood Venous blood specimen / Unknown 09/08/2024 3:15 PM EDT 09/08/2024 4:08 PM EDT us Annmarie Santana MD LAB BLOOD ORDERAB LES Final Result [facility] [address] [place] [address] [phone] * Lipase (09/08/2024 3:15 PM EDT) Pathologist [facility] Lipase 49 8 - 78 U/L [facility] Blood Venous blood specimen / Unknown 09/08/2024 3:15 PM EDT 09/08/2024 4:08 PM EDT Annmarie Santana MD LAB BLOOD ORDERAB LES Final Result [facility] [address] [place] [address] [phone] * (ABNORMAL) Comprehensive Metabolic Panel (09/08/2024 3:15 PM EDT) [facility] Sodium 140 135 - 145 mmol/L [facility] Potassium 4.5 3.3 - 5.1 mmol/L [facility] Chloride 104 96 - 108 mmol/L [facility] Carbon Dioxide 30(H) 22 - 29 mmol/L [facility] Anion Gap 11(L) 12 - 20 [facility] Urea Nitrogen (BUN) 7(L) 9 - 16 mg/dL [facility] Creatinine, Serum 1.01 0.5 - 1.4 mg/dL [facility] Estimated Glomerular Filt Rate 59 [facility] Comment:Chronic Kidney Disea se: Estimated GFR < 60 mL/min/1.09s2Hcggyp Kidney Disease: Estimated GFR < 15 mL/min/1.73m2 Glucose 97 60 - 115 mg/dL [facility] Calcium 9.5 8.4 - 10.2 mg/dL [facility] Bilirubin, Total 1.0 0.0 - 1.0 mg/dL [facility] Aspartate Amino Transferase 14 5 - 31 U/L [facility] Alanine Aminotransferase 8 0 - 31 U/L [facility] Total Protein 7.1 6.5 - 8.0 g/dL [facility] Albumin Level 4.3 3.5 - 5.0 g/dL [facility] Alkaline Phosphatase 86 39 - 117 U/L [facility] Blood Venous blood specimen / Unknown 09/08/2024 3:15 PM EDT 09/08/2024 4:08 PM EDT Annmarie Santana MD LAB BLOOD ORDERAB LES Final Result [facility] [address] [place] [address] [phone] * Chlamydia/N. Gonorrhoeae RNA, TMA, Urogenitial (09/08/2024 2:50 PM EDT) CT PCR NOT DETECTED Not Detect. [facility] Comment:A not detected test result [...] psychologicalconsequences. NG PCR NOT DETECTED Not Detect. [facility] Comment:A not detected test result [...] 2:50 PM EDT 09/08/2024 4:05 PM EDT [facility] - 09/09/2024 2:20 AM EDT Urine us Annmarie Santana MD LAB MICROBIOLOGY - GENERAL ORDERABLES Final Result [facility] [address] [place] [address] [phone] * (ABNORMAL) Urinalysis, Complete, with Reflex to Culture (09/08/2024 2:20 PM EDT) Color Urine Yellow [facility] Appearance Urine Clear [facility] PH 6.0 5.0 - 9.0 [facility] Glucose Urine UA Negative Negative mg/dL [facility] Urine Blood Large (3+)(A) Negative [facility] Specific Branch - Urine <=1.005 1.005 - 1.025 [facility] Urine Protein Negative Neg-Trace mg/dL [facility] Urine Ketones Negative Negative mg/dL [facility] Nitrite Urine Negative Negative [facility] Leukocyte Esterase Urine Small (1+)(A) Negative [facility] RBC Urine 0-2 0 - 2 /HPF [facility] Urine WBC 0-5 0 - 5 /HPF [facility] Urine Squamous Epithelial Cell 0-2 0 - 2 /HPF [facility] Urine Bacteria None Seen None Seen [facility] Hyaline Casts, Urine 0-2 0 - 2 /LPF [facility] 09/08/2024 2:20 PM EDT 09/08/2024 4:04 PM EDT [facility] - 09/08/2024 4:14 PM EDT Urine, Clean Catch Annmarie Santana MD LAB URINE ORDERAB LES Final Result [facility] [address] [place] [phone] * BI Mammogram Screening Tomosynthesis Bilateral (02/03/2024 10:30 AM EDT) Anatomical Region Laterality Modality Breast Bilateral Mammography 02/03/2024 10:3 0 AM EDT Narrative 02/27/2024 3:02 PM EDT ? [facility] [place] ? [address] ?[place] [address] ? Mammography Report ? Signed ? Patient: Betsy,Crystal ?MR#: [id number] ?? [id number] ? : 1980 ?Acct:[id number] ? Age/Sex: 43 / F ?ADM Date: 02/03/24 ? Loc: HO.MAMMO ? Attending Dr: Annmarie Santana MD ? Ordering Physician: Annmarie Chambers MD ?Re ?? sults: 1Negative ? Date of Service: 02/03/24 ?Follow Up: 1 Year From Orig ?? inal Mammogram ? Procedure(s): MM tomosynthesis screening BI ?? Accession Number(s): [id number] ? cc: Annmarie Chambers MD ? EXAMINATION: [...] ??Alisa Henry DO ??02/27/2024 02:59 PM EDT ? Dictated By: ?Alisa Henry DO ? Signed By: ?<Electronically signed by Alisa Henry, DO in OV> ? 02/27/24 1459 ? DD/ 1030 ? TD/TT: 02/03/24 1042 ? Hardboard Grinder: ? Procedure Note Marycruz, Yesenia - 02/27/2024 [facility] [address] [place] [address] Mammography Report Signed Patient: Naomi Meyer#: [id number] : 1980Acct:[id number] Age/Sex: 43 / FADM Date: 02/03/24 Loc: [facility] Attending Dr: Annmarie Santana MD Ordering Physician: Annmarie Chambers sults: 1Negative Date of Service: 02/03/24Follow Up: 1 Year From Orig inal Mammogram Procedure(s): MM tomosynthesis screening BI Accession Number(s): [id number] cc: Annmarie Chambers MD EXAMINATION: MM SCREENING [...] 02/27/24 1459 DD/ 1030 TD/TT: 02/03/24 1042 Hardboard Grinder: Annmarie Santana MD IM BI PROCEDURES Edited Result - Final * [facility] Pap and HPV mRNA E6/E7 (01/29/2024 12:00 AM EDT) HPV nRNA E6/E7 Not Detected Not Detected [facility] Comment:Methodology: Transcr iption-Mediated AmplificationThis assay detects E6/E7 viral messenger RNA (mRNA) from 14high-risk HPV types (16,18,31,33,35,39,45,51,52,56,58,59,66,68).Cervical sources are required for HPV testing.If a vaginal source from a patient who has had atotal hysterectomy with removal of cervix wassubmitted, please contact the testing laboratoryfor alternative testing options.For additional information, please refer [email or web address](This link if provided for information/educational purposes only.)THIS TEST WAS PERFORMED AT:[employer] [address] [id number] MOYA MD SOURCE: SEE NOTE [facility] Comment:None given Report Status: [facility] Clinical Information: SEE NOTE [facility] Comment:None given LMP: SEE NOTE [facility] Comment:NONE GIVEN Prev. PAP: SEE NOTE [facility] Comment:NONE GIVEN Prev. BX: SEE NOTE [facility] Comment:NONE GIVEN Statement Of Adequacy: SEE NOTE [facility] Comment:Satisfactory for yusef luation.Endocervical/transformation zone componentpresent. General Categorization: [facility] Interpretation/Result: SEE NOTE [facility] Comment:Cytology Results: Ne gative for intraepitheliallesion or malignancy. Cytology Comment SEE NOTE [facility] Comment:This Pap test has be en evaluated with computerassisted technology. Salesforce Administrator: SEE NOTE [facility] Comment:SXA, CT(ASCP)CT scre ening location: [address] [address] Review Salesforce Administrator: [facility] Pathologist [facility] PAP Infection [facility] See Note SEE NOTE [facility] Comment:EXPLANATORY NOTE:The Pap is a screening test for cervical cancer. It isnot a diagnostic test and is subject to false negativeand false positive results. It is most reliable when asatisfactory sample, regularly obtained, is submittedwith relevant clinical findings and history, and whenthe Pap result is evaluated along with historic andcurrent clinical information. 01/29/2024 01/29/2024 Narrative [facility] - 02/02/2024 3:25 PM EDT SEE SCANNED RESULTS IN EMR us Irina CALERO LAB PATHOLOGY ORDERABLES Final Result [facility] [address] [place] [phone] * Hepatitis C Antibody with Reflex to HCV, RNA, Quantitative, Real-Time PCR (01/19/2024 11:38 AM EDT) Pathologist [facility] Hepatitis C Antibody Nonreactive Nonreactive [facility] Comment:Antibodies to HCV no t detected; does not exclude early acuteHCV infection. Blood Venous blood specimen / Unknown 01/19/2024 11:38 AM EDT 01/19/2024 1:06 PM EDT us Annmarie Santana MD LAB BLOOD ORDERAB LES Final Result Performing Organization Address [facility] Co de Phone Number [facility] [address] [place] [phone] * HIV-1/2 Antigen and Antibodies, Fourth Generation, with Reflexes (01/19/2024 11:38 AM EDT) [facility] HIV AB/AG Nonreactive Nonreactive [facility] Comment:HIV-1 p24 Ag and/or HIV-1/HIV-2 Ab not detected.A test result that is nonreactive does not exclude thepossibility of exposure to or infection with HIV-1 and/orHIV-2. Nonreactive results in this assay for individualswith prior exposure to HIV-1 and/or HIV-2 may be due toantigen and antibody levels that are below the limit ofdetection of this assay.The [employer] HIV Ag/Ab Combo assay result andsupplemental assay results should be interpreted inconjunction with the patient's clinical presentation,history and other laboratory results. If the results areinconsistent with clinical evidence, additional testing issuggested to confirm the result. Blood Venous blood specimen / Unknown 01/19/2024 11:38 AM EDT 01/19/2024 1:06 PM EDT us Annmarie Santana MD LAB BLOOD ORDERAB LES Final Result Performing Organization Address [facility] Co de Phone Number [facility] [address] [place] [address] [phone] * (ABNORMAL) Lipid Panel, Standard (01/19/2024 11:38 AM EDT) Triglycerides 206(H) <150 mg/dL [facility] Comment:Desirable Triglyceri de: less than 150 mg/dLBorderline High Triglyceride 150-199 mg/dLHigh Triglyceride: 200-499 mg/dLVery High Triglyceride: greater than or equal to 5OO mg/dL Cholesterol 228(H) <200 mg/dL [facility] Comment:Desirable Cholestero l: less than 200 mg/dLBorderline High Cholesterol: 200-239 mg/dLHigh Cholesterol: greater than 239 mg/dL LDL Cholesterol Calculated 138(H) <100 mg/dL [facility] Comment:Desirable LDL: less than 100 mg/dLNear Optimal/Above Optimal LDL: 110- 129 mg/dLBorderline High LDL: 130-159 mg/dLHigh LDL: 160-189 mg/dLVery High LDL: greater than or equal to 190 mg/dL HDL Cholesterol 49 >40 mg/dL [facility] Comment:Desirable HDL: great er than 40 mg/dL Note: This HDL assay may give artificially low results in patients with liver disease. Blood Venous blood specimen / Unknown 01/19/2024 11:38 AM EDT 01/19/2024 1:04 PM EDT Annmarie Santana MD LAB BLOOD ORDERAB LES Final Result [facility] [address] [place] [address] [phone] from Last 3 Months or Most Recently Relevant to Health Maintenance Insurance [facility] [place] AD[place] Care Teams Hot Dog Vender Relationship Specialty Start Date End Date Annmarie Chambers MD [address] [place] [phone] PCP - General Internal Medicine 02/02/24
--- OUTSIDE RECORDS SUMMARY | 2024-09-09 08:53 | XMS_ITS | Encounter Summary ---
Author Organization [employer] Address [address] [place] [address] [place] [address] Care Team Providers Care Supplier Relationship Director Name Role Phone Annmarie Chambers MD Primary Care Pro vider Reason for Visit * Reason Onset Date Comments PT1 04/27/2024 Encounter Details Date Type Department Care Team ([facility] st Contact Info) Description 04/27/2024 Telephone [facility] [address] [place], [place] [phone] Annmarie Chambers MD [address] [place] [address] PT1 Social History Tobacco Use Types Packs/Day [...] Y/N: Yes Provider name or facility name: [facility] Facility Address: [address] [place] [address] Escort needed: Y/N: Yes Do you have a wheelchair: Y/N: No If yes- Manual or electric: n/a Visits: 1 x 3 months documented in this encounter Plan of Treatment Upcoming Encounters Date Type Department Care Team (Late st Contact Info) Description 09/13/2024 4:00 PM EDT Nurse Only [facility] [address] [place] [phone] 09/22/2024 2:45 PM EDT Office Visit [facility] [address] [place] [phone] Annmarie Chambers MD [address] [place] [address] documented as of this encounter Visit Diagnoses Not on filedocumented in this encounter Additional Health Concerns Assessment Noted Time PHQ-9 Depression Total Score: 20 024 2:22 PM EDT documented as of this encounter Care Teams Supplier Relationship Director Relationship Specialty Start Date End Date Annmarie Chambers MD [address] [place] [address] PCP - General Internal Medicine 02/02/24 documented as of this encounter
--- OUTSIDE RECORDS SUMMARY | 2024-09-09 08:53 | XMS_ITS | Encounter Summary ---
Author Organization [employer] Address [address] [place] [address] 7 [place] [address] Care Team Providers Care Brush Worker Name Role Phone Annmarie Chambers MD Primary Care Pro vider Reason for Visit * Reason Onset Date Comments Nurse Triage 09/08/2024 Encounter Details Date Type Department Care Team ([facility] st Contact Info) Description 09/08/2024 Telephone [facility] [address] [place], [place] [phone] Annmarie Chambers MD [address] [place] [address] Nurse Triage Social History Tobacco Use Types [...] the past 12 months, has t he [employer], gas, oil or water company threatened to [...] encounter Miscellaneous Notes * Telephone Encounter - Tran Workman LPN - 09/08/2024 12:44 PM EDT [...] acuity questions The caller accepted this outcome. [phone] documented in this encounter Plan of Treatment Upcoming Encounters Date Type Department Care Team (Late st Contact Info) Description 09/13/2024 4:00 PM EDT Nurse Only [facility] [address] [place] [phone] 09/22/2024 2:45 PM EDT Office Visit [facility] [address] [place] [phone] Annmarie Chambers MD [address] [place] [address] documented as of this encounter Visit Diagnoses Not on filedocumented in this encounter Additional Health Concerns Assessment Noted Time PHQ-9 Depression Total Score: 20 024 2:22 PM EDT documented as of this encounter Care Teams Brush Worker Relationship Specialty Start Date End Date Annmarie Chambers MD [address] [place] [address] PCP - General Internal Medicine 02/02/24 documented as of this encounter
== END 2024-09-09 08:46 | disposition home or self-care (01) ==
LOC: HO.HHCX 08:45
PROVIDERS: Visit Provider Student in an Organized Health Care Education/Training Program
DX: R10.9 Unspecified abdominal pain (principal)
CPT/HCPCS: 71101

== ENCOUNTER → 2024-09-09 11:27 | Outpatient (BNV) | payer MEDICAID, SELFPAY | PROVIDERS: Visit Provider Radiology Diagnostic Radiology | DX: R07.81 Pleurodynia (principal) | CPT/HCPCS: 71101 ==

== ENCOUNTER 2024-09-21 01:45 | Emergency (ER) | payer MEDICAID, SELFPAY ==
[2024-09-21 01:50] VITALS: BP 144/79; PULSE 42; RESP 20; TEMP 36.7; O2SAT 97; BMI 28.2
--- NOTE | 2024-09-21 02:02 | ECG_ITS ---
Test Reason : KAREL Blood Pressure : */* mmHG Vent. Rate : 49 BPM Atrial Rate : 49 BPM P-R Int : 132 ms QRS Dur : 90 ms QT Int : 556 ms P-R-T Axes : 37 -12 -2 degrees QTcB Int : 502 ms Sinus bradycardia with marked sinus arrhythmia Prolonged QT Abnormal ECG When compared with ECG of 03-Apr-2011 08:21, MANUAL COMPARISON REQUIRED PREVIOUS ECG IS INCOMPATIBLE Referred By: Generic ED Physician Electronically Signed By: MCKINLEY CRAMER MD
[2024-09-21 02:13] LABS: Basophils Absolute Auto 0.1 X10*3/uL (0.0-0.2); Basophils Percent Auto 0.5 % (0-2); Eosinophils Percent Auto 0.1 % (0-4); Hematocrit 50.7 % (37.0-47.0); Hemoglobin 17.6 g/dl (12.0-16.0); Imm Gran Abs Auto 0.06 X10*3/uL (0.00-0.03); Imm Gran Pct Auto 0.4 % (0.0-0.4); Lymphocytes Absolute Auto 1.6 X10*3/uL (1.2-4.9); Lymphocytes Percent Auto 10.2 % (20-40); MANUAL DIFF FLAG NO; Mean Corpuscular HGB Conc 34.7 g/dl (31.0-35.0); Mean Corpuscular Hemoglobin 31.2 pg (27.0-33.0); Mean Corpuscular Volume 89.7 fL (80.0-98.0); Mean Platelet Volume 10.2 fL (9.4-12.3); Monocytes Absolute Auto 0.6 X10*3/uL (0.1-1.2); Monocytes Percent Auto 4.1 % (2-11); Neutrophils Absolute Auto 13.1 x10*3/uL (2.0-8.3); Neutrophils Percent Auto 84.7 % (45-73); Platelet Count 256 X10*3/uL (160-400); Red Blood Count 5.65 X10*6/uL (4.20-5.50); White Blood Count 15.4 X10*3/uL (4.8-10.8)
[2024-09-21 02:24] VITALS: BP 180/90; PULSE 65; RESP 16; TEMP 36.8; O2SAT 98
--- NOTE | 2024-09-21 02:29 | ED.NAVMDI ---
HPI - Nausea/Vomiting/Diarrhea General Chief complaint: Nausea/Vomiting/Diarrhea Stated complaint: n/v/d Time Seen by Provider: 09/21/24 02:16 Source: patient Mode of arrival: ambulatory Limitations: no limitations History of Present Illness ED Provider: HPI Narrative: Patient's history of GERD , bipolar disorder started vomiting since evening today since 1900 unable to hold any food or liquid down patient is status post cholecystectomy denied any substance abuse does complain of upper abdominal pain no abdominal distention patient has been having similar episodes for last few months does smoke cannabis Related Data Home Medications ?Medication ?Instructions ?Recorded ?Confirmed clonazepam 0.5 mg tablet 0.5 mg PO BID PRN 06/20/20 03/09/21 Previous Rx's ?Medication ?Instructions ?Recorded sennosides 8.6 mg-docusate sodium 2 tab-cap (2 x 8.6-50 mg) PO 03/09/21 50 mg tablet (Senna-S) BEDTIME 30 days #60 tabs albuterol sulfate 90 mcg/actuation 1 puff inhalation Q4H PRN 01/14/22 aerosol inhaler bronchospasm #8.5 grams cyclobenzaprine 10 mg tablet 10 mg PO BEDTIME #14 tabs 06/11/23 meloxicam 15 mg tablet 15 mg PO DAILY #14 tabs 06/11/23 ondansetron 4 mg disintegrating 4 mg PO Q6-8H PRN nausea and 09/21/24 tablet vomiting #7 tabs Allergies Allergy/AdvReac Type Severity Reaction Status Date / Time No Known Allergies Allergy Verified 09/21/24 02:00 Seasonal allergies Allergy Intermediate Shortness Uncoded 06/11/23 15:04 of Breath Review of Systems Review of Systems: Yes all other systems are reviewed and are negative [facility] Past Medical History Medical History Obesity (BMI 30-39.9) GERD (gastroesophageal reflux disease) Bipolar disorder Tobacco abuse Asthma Surgical History H/O left knee surgery Family History Family History Paternal Grandfather Lung cancer Son Bipolar 1 disorder Social History Social History Housing: Apartment Alcohol intake: current Alcohol intake frequency: a few times a month Patient Tobacco Use Status: Current everyday Tobacco user Tobacco use type: Cigarette Cigarettes Per Day: 10 Smoked in Last 30 Days: Yes e-Cigarette/Vaping Use: Never Used Second Hand Smoke Exposure: Yes Use of substances other than those prescribed or required for medical reasons: Yes Advance Directives: No Advance Directives Information Provided: Yes Do you have a plan to hurt others: No Plan Patient : No Current occupational status: employed Physical Exam Vital Signs: Vital Signs: Last Vital Signs Temp 98.2 F 09/21/24 07:00 Pulse 73 09/21/24 07:00 Resp 21 H 09/21/24 07:00 BP 163/94 H 09/21/24 07:00 Pulse Ox 97 09/21/24 07:00 O2 Del Method Room Air 09/21/24 07:00 BMI result Body Mass Index 28.2 Appearance: Alert. Oriented X3. No acute distress. Eyes: No pallor or icterus ENT: Pharynx normal. Oral Mucosa moist Neck: Normal inspection. Neck supple. CVS: Normal heart rate and rhythm. Pulses normal. Respiratory: No respiratory distress. Equal air entry bilateral, no wheezing/rales/rhonchi Abdomen: Soft and mild epigastric tenderness. Bowel sounds are present, no mass palpable, no CVA tenderness Skin: Skin warm and dry. Normal skin color. Normal skin turgor. Extremities: No lower extremity edema. No calf tenderness Neuro: Oriented X 3. No motor deficit. No sensory deficit.No cerebellar signs , cranial nerves II-XII intact Medications Administered Discontinued Medications Generic Name Dose Route Start Last Admin Trade Name Freq PRN Reason Stop Dose Admin Famotidine 20 mg 09/21/24 02:55 09/21/24 03:06 Famotidine/Pf 20 Mg/2 Ml Vial IVPUSH 09/21/24 02:56 20 mg ONCE ONE Administration Sodium Chloride 1,000 mls @ 999 mls/hr 09/21/24 02:55 09/21/24 04:27 Ns IV 09/21/24 03:55 Infused .Q1H1M ONE Infusion Sodium Chloride 1,000 mls @ 999 mls/hr 09/21/24 04:42 09/21/24 07:00 Ns IV 09/21/24 05:42 Infused .Q1H1M ONE Infusion Lorazepam 1 mg 09/21/24 04:42 09/21/24 04:50 Lorazepam 2 Mg/Ml Vial IVPUSH 09/21/24 04:43 1 mg ONCE ONE Administration Ondansetron HCl 4 mg 09/21/24 02:55 09/21/24 03:06 Ondansetron Hcl 4 Mg/2 Ml Vial IVPUSH 09/21/24 02:56 4 mg ONCE ONE Administration Medical Decision Making Medical Decision Making [facility] Narrative: Patient's nausea vomiting with history of same in the past after smoking marijuana feels better after hot shower came with similar presentation improved after IV fluids and Ativan will discharge patient home advised to stop using cannabis Differential Diagnosis Differential Diagnoses: The differential diagnosis associated with the presentation includes Lab Data [facility] Lab Attestation statement: I reviewed the patient's lab results. 09/21/24 02:08 09/21/24 02:08 Labs: Lab Results 09/21/24 Range/Units 02:08 WBC 15.4 H (4.8-10.8) X10*3/uL RBC 5.65 H (4.20-5.50) X10*6/uL Hgb 17.6 H (12.0-16.0) g/dl Hct 50.7 H (37.0-47.0) % MCV 89.7 (80.0-98.0) fL MCH 31.2 (27.0-33.0) pg MCHC 34.7 (31.0-35.0) g/dl RDW 12.0 (11.0-16.0) % Plt Count 256 (160-400) X10*3/uL MPV 10.2 (9.4-12.3) fL Immature Gran % (Auto) 0.4 (0.0-0.4) % Neut % (Auto) 84.7 H (45-73) % Lymph % (Auto) 10.2 L (20-40) % [place] % (Auto) 4.1 (2-11) % Eos % (Auto) 0.1 (0-4) % Baso % (Auto) 0.5 (0-2) % Lymph # (Auto) 1.6 (1.2-4.9) X10*3/uL [place] # (Auto) 0.6 (0.1-1.2) X10*3/uL Eos # (Auto) 0.0 (0.0-0.4) X10*3/uL Baso # (Auto) 0.1 (0.0-0.2) X10*3/uL Abs Immat Gran (auto) 0.06 H (0.00-0.03) X10*3/uL Absolute Neuts (auto) 13.1 H (2.0-8.3) x10*3/uL Absolute Nucleated RBC 0.000 (0.0-0.012) X10*3/uL Nucleated RBC % (auto) 0.0 (0.0-0.2) /100WBC Sodium 143 (135-145) mmol/L Potassium 4.5 (3.3-5.1) mmol/L Chloride 105 (96-108) mmol/L Carbon Dioxide 24 (22-29) mmol/L Anion Gap 19 (12-20) BUN 16 (9-16) mg/dL Creatinine 1.14 (0.5-1.4) mg/dL Estim Creat Clear Calc 54.7 Estimated GFR 52 Random Glucose 163 H (60-115) mg/dL Calcium 10.3 H D (8.4-10.2) mg/dL Magnesium 1.7 (1.6-2.6) mg/dL Total Bilirubin 1.2 H (0.0-1.0) mg/dL Direct Bilirubin 0.2 (0.0-0.5) mg/dL AST 18 (5-31) U/L ALT 12 (0-31) U/L Alkaline Phosphatase 82 (39-117) U/L Total Protein 7.8 (6.5-8.0) g/dL Albumin 4.6 (3.5-5.0) g/dL Lipase 47 (8-78) U/L Discharge Plan Discharge Clinical Impression: Cannabis abuse with cannabis-induced disorder Patient Disposition: Home, Self-Care Instructions: Cannabis Abuse (ED) Additional Instructions: Stop smoking cannabis as this likely the cause for your vomiting Nausea medication as prescribed Drink plenty of fluids Follow with your PCP Prescriptions: New ondansetron 4 mg tablet,disintegrating 4 mg PO Q6-8H PRN (Reason: nausea and vomiting) Qty: 7 0RF No Action albuterol sulfate 90 mcg/actuation HFA aerosol inhaler 1 puff inhalation Q4H PRN (Reason: bronchospasm) Qty: 8.5 0RF clonazepam 0.5 mg tablet 0.5 mg PO BID PRN sennosides-docusate sodium [Senna-S] 8.6-50 mg tablet 2 tab-cap PO BEDTIME 30 Days Qty: 60 4RF meloxicam 15 mg tablet 15 mg PO DAILY Qty: 14 0RF cyclobenzaprine 10 mg tablet 10 mg PO BEDTIME Qty: 14 0RF Interventions: ED Discharge Assessment Last Done: 09/21/24 07:00 Discharge Date/Time: 09/21/24 07:24 Print Language: Welsh
[2024-09-21 02:37] LABS: Alanine Aminotransferase 12 U/L (0-31); Albumin Level 4.6 g/dL (3.5-5.0); Anion Gap 19 (12-20); Aspartate Amino Transferase 18 U/L (5-31); Bilirubin Direct 0.2 mg/dL (0.0-0.5); Bilirubin Total 1.2 mg/dL (0.0-1.0); Blood Urea Nitrogen 16 mg/dL (9-16); Calcium 10.3 mg/dL (8.4-10.2); Carbon Dioxide 24 mmol/L (22-29); Chloride 105 mmol/L (96-108); Creatinine Clr Calc Pharmacy 54.7; Estimated Glomerular Filt Rate 52; Glucose Random 163 mg/dL (60-115); Lipase 47 U/L (8-78); Potassium 4.5 mmol/L (3.3-5.1); Sodium 143 mmol/L (135-145); Total Protein 7.8 g/dL (6.5-8.0)
[2024-09-21] MEDS: 0.9 % Sodium Chloride 1,000 ML 999 ML IV ×2 (03:06→04:50)
[2024-09-21] MEDS: ondansetron HCL 4 MG/2 ML VIAL IVPUSH (03:06)
[2024-09-21] MEDS: Famotidine/PF 20 MG/2 ML VIAL IVPUSH (03:06)
--- OUTSIDE RECORDS SUMMARY | 2024-09-21 03:08 | XMS_ITS | Encounter Summary ---
Author Organization [employer] Address [address] [place] [address] Care Team Providers Care Rental Clerk Name Role Phone Annmarie Chambers MD Primary Care Pro vider Reason for Visit * Reason Comments Med Refill Encounter Details Date Type Department Care Team ([facility] st Contact Info) Description 08/20/2024 Refill [facility] [address] [place], [place] [phone] Jagdish Santiago DDS [address] [place] [phone] Periodontal disease; Dental abscess Social History Tobacco [...] Care Team (Late st Contact Info) Description 09/22/2024 2:45 PM EDT Office Visit [facility] [address] [place] [phone] Annmarie Chambers MD [address] [place] [phone] documented as of this encounter Visit Diagnoses Diagnosis Periodontal disease Unspecified gingival and periodontal disease Dental abscess Periapical abscess without sinus documented in this encounter Additional Health Concerns Assessment Noted Time PHQ-9 Depression Total Score: 20 024 2:22 PM EDT documented as of this encounter Care Teams Rental Clerk Relationship Specialty Start Date End Date Annmarie Chambers MD [address] [place] [id number] PCP - General Internal Medicine 02/02/24 documented as of this encounter
--- OUTSIDE RECORDS SUMMARY | 2024-09-21 03:08 | XMS_ITS | Encounter Summary ---
Author Organization [employer] Address [address] [place] [address] Care Team Providers Care Senior Clinical Consultant Name Role Phone Annmarie Chambers MD Primary Care Pro vider Reason for Visit * Reason Comments Med Refill Encounter Details Date Type Department Care Team ([facility] st Contact Info) Description 02/23/2024 Refill [facility] [address] [place] [address] [phone] Annmarie Rosario MD [address] [place] [address] Bilateral carpal tunnel syndrome Social History Tobacco [...] Description 09/22/2024 2:45 PM EDT Office Visit [facility] [address] [place] [phone] Annmarie Chambers MD [address] [place] [phone] documented as of this encounter Visit Diagnoses Diagnosis Bilateral carpal tunnel syndrome Carpal tunnel syndrome documented in this encounter Additional Health Concerns Assessment Noted Time PHQ-9 Depression Total Score: 20 024 2:22 PM EDT documented as of this encounter Care Teams Senior Clinical Consultant Relationship Specialty Start Date End Date Annmarie Chambers MD [address] [place] [phone] PCP - General Internal Medicine 02/02/24 documented as of this encounter
--- OUTSIDE RECORDS SUMMARY | 2024-09-21 03:08 | XMS_ITS | Encounter Summary ---
Author Organization [employer] Address [address] [place] [address] [address] [place] [address] Care Team Providers Care Forge Press Operator Name Role Phone Annmarie Chambers MD Primary Care Pro vider Reason for Visit * Reason Comments Med Refill Encounter Details Date Type Department Care Team ([facility] Contact Info) Description 04/24/2024 Refill [facility] [address] [place], [place] [phone] Annmarie Chambers MD [address] [place] [address] Social History Tobacco Use Types Packs/Day Years [...] Description 09/22/2024 2:45 PM EDT Office Visit [facility] [address] [place] [phone] Annmarie Chambers MD [address] [place] [phone] documented as of this encounter Visit Diagnoses Not on filedocumented in this encounter Additional Health Concerns Assessment Noted Time PHQ-9 Depression Total Score: 20 024 2:22 PM EDT documented as of this encounter Care Teams Forge Press Operator Relationship Specialty Start Date End Date Annmarie Chambers MD [address] [place] [phone] PCP - General Internal Medicine 02/02/24 documented as of this encounter
--- OUTSIDE RECORDS SUMMARY | 2024-09-21 03:08 | XMS_ITS | Clinical Summary ---
Author Organization [employer] Address [address] [place] [address] Care Team Providers Care Lathe Setup Operator Name Role Phone Annmarie Chambers MD [...] Encounters Date Type Department Care Team Description 09/15/2024 Travel 09/15/2024 Patient Outreach [facility] PEDS [address] [place], [place] [phone] Annmarie Chambers MD Pre-visit Planning ([facility] unable to reach [facility]) 09/14/2024 Telephone [facility] MEDICINE [address] [place] [phone] Annmarie Chambers MD chart prep 09/10/[address] [address] Annmarie Chambers MD Results 09/08/2024 2:00 PM EDT Office Visit [address] [address] Annmarie Chambers MD Right flank pain (Primary Dx); Periodontal disease; Dental abscess; Dietary counseling; Exercise counseling; Bipolar 1 disorder (CMS/HCC); Asthma, unspecified asthma severity, unspecified whether complicated, unspecified whether persistent; Absent periods; Superficial bruising of back, right, initial encounter; Vaginal bleeding 09/08/2024 Orders Only [facility] MEDICINE [address] [place] [phone] Annmarie Chambers MD 09/08/2024 Travel 09/08/2024 Telephone [facility] MEDICINE [address] [place] [address] Annmarie Chambers MD Nurse Triage 09/06/2024 Travel 08/20/2024 Population Health Risk Score [facility] ([facility] Department [address] [place] [phone] Provider, Population Health Generic 08/20/2024 Refill [facility] ADULT DENTAL [address] [place] [address] Jagdish Santiago DDS Periodontal disease; Dental abscess 08/02/2024 2:30 PM EST Office Visit [facility] ADULT DENTAL [address] [place] [address] Jagdish Santiago DDS Periodontal disease (Primary Dx); Dental abscess 07/26/2024 Refill [facility] MEDICINE [address] [place] [address] Annmarie Chambers MD from Last 3 Months [...] Description 09/22/2024 2:45 PM EDT Office Visit [facility] MEDICINE [address] [place] [address] nAnmarie Chambers MD [address] [place], [place] [phone] Health Maintenance Due Date Last Done Comments CT Colonography 1979 Colonoscopy 1979 Colorectal Cancer Screening 1979 Dental Prophylaxis 1979 FIT DNA/Cologuard 1979 FIT 1979 FOBT 1979 Sigmoidoscopy 1979 Alcohol/Substance Use Screening 1991 Dental Oral Exam 06/15/2015 12/12/2014, 03/17/2013 Dental X-Ray: Bitewings 12/14/2015 12/13/19 15, 03/17/2013 Depression Monitoring 07/16/2024 01/14/2024 , 01/14/2024 Hepatitis B Vaccines (3 of 3 [...] Procedure Name Priority Date/Time Associated Diagnosis Comments XR RIBS 3 VIEWS RIGHT W CHEST 1 VIEW Routine 09/09/2024 11:27 AM EDT Right flank pain CULTURE, URINE, ROUTINE Routine 09/08/2024 4:14 PM EDT POCT , URINE Routine 09/08/2024 3:21 PM EDT Absent periods COMPREHENSIVE METABOLIC PANEL Routine 09/08/2024 3:15 PM EDT Right flank pain CBC WITH AUTO DIFFERENTIAL Routine 09/08/2024 3:15 PM EDT Right flank pain LIPASE Routine 09/08/2024 3:15 PM EDT Right flank pain CHLAMYDIA/N. GONORRHOEAE RNA, TMA, UROGENITAL Routine 09/08/2024 2:50 PM EDT Right flank pain TRICHOMONAS VAGINALIS RNA, QUALITATIVE, TMA Routine 09/08/2024 2:46 PM EDT Right flank pain URINALYSIS, COMPLETE, [...] Recently Relevant to Health Maintenance Results * XR Ribs 3 Views Right with Chest 1 View (09/09/2024 11:27 AM EDT) Anatomical Region Laterality Modality Radiographic Natalia ging 09/09/2024 11:2 7 AM EDT Narrative 09/09/2024 12:27 PM EDT ?[facility] ?[address] ?[place] [address] ?XRay Report ? Signed ? Patient: Betsy,Crystal ?MR#: [id number] ?? [id number] ? : 1980 ?Acct:[id number] ? Age/Sex: 44 / F ?ADM Date: 09/09/24 ? Loc: HO.HHCX ? Attending Dr: Annmarie Santana MD ? Ordering Physician: Annmarie Chambers MD ?? Date of Service: 09/09/24 ?? Procedure(s): XR ribs RT min 3V w CXR1V ?? Accession Number(s): [id number] ? cc: Annmarie Chambers MD ? EXAMINATION: ??XR RIBS 3 VIEWS MINIMUM WITH CHEST RIGHT ? HISTORY: PAIN ? COMPARISON: Correlation is made with the prior examination of the chest ?? dated 06/20/2020. ? FINDINGS: ??A single PA view of the chest and 3 views of the right ribs ?? are submitted. The lungs are expanded and clear. There is no pleural ?? effusion, pneumothorax, or pulmonary vascular congestion. The heart is ?? normal in size. There is scoliosis and degenerative disc disease of the ?? spine. The right ribs are intact. No fracture is seen. ? XR/XR ribs RT min 3V w CXR1V ?? IMPRESSION: ?? No acute cardiopulmonary abnormality. No evidence of fracture of the ?? right ribs. ? Electronically signed by: ??Sam Chu MD ??09/09/2024 12:23 PM EDT ?? RP ? Dictated By: ?Sam Chu MD ? Signed By: ?<Electronically signed by Sam Chu MD in OV> ?09/09/24 1223 ? DD/ 1127 ? TD/TT: 09/09/24 1148 ? Piecer: ? Procedure Note Yesenia Joel - 09/09/[address] [address] XRay Report Signed Patient: Alicia MeyerMR#: [id number] : 1980Acct:[id number] Age/Sex: 44 / FADM Date: 09/09/24 Loc: HO.HHCX Attending Dr: Annmarie Santana MD Ordering Physician: Annmarie Chambers MD Date of Service: 09/09/24 Procedure(s): XR ribs RT min 3V w CXR1V Accession Number(s): [id number] cc: Annmarie Chambers MD EXAMINATION: XR RIBS 3 VIEWS MINIMUM WITH CHEST RIGHT HISTORY: PAIN COMPARISON: Correlation is made with the prior examination of the chest dated 06/20/2020. FINDINGS: A single PA view of the chest and 3 views of the right ribs are submitted. The lungs are expanded and clear. There is no pleural effusion, pneumothorax, or pulmonary vascular congestion. The heart is normal in size. There is scoliosis and degenerative disc disease of the spine. The right ribs are intact. No fracture is seen. XR/XR ribs RT min 3V w CXR1V IMPRESSION: No acute cardiopulmonary abnormality. No evidence of fracture of the right ribs. Electronically signed by: Sam hCu MD 09/09/2024 12:23 PM EDT Dictated By: Sam Chu MD Signed By: <Electronically signed by Sam Chu MD in OV> 09/09/24 1223 DD/ 1127 TD/TT: 09/09/24 1148 Piecer: us Annmarie Santana MD IMG XR PROCEDURES Edited Result - Final * Culture, Urine, Routine (09/08/2024 4:14 PM EDT) Urine Urine specimen obtained by clean catch procedure / Unknown 09/08/2024 4:14 PM EDT 09/08/2024 4:14 PM EDT Comment:[facility] - 09/10/2024 11:33 AM EDT Urine Culture Report Result Urine Culture 10,000 to 50,000 cfu/ml Urine Culture Mixed bacterial jaxson characteristic of Urine Culture urogenital contamination. Specimen Source: Urine clean catch us Annmarie Santana MD LAB MICROBIOLOGY - GENERAL ORDERABLES Final Result [facility] [address] [place] [address] [phone] * POCT Urine (09/08/2024 3:21 PM EDT) Pathologist [facility] Preg Test, Ur Negative Negative, Indeterminate, None Detected, Invalid, Specimen unsatisfactory for evaluation, Weakly Positive QC Media Lot # [id number] Lot# Expiration Date [id number] Urine 09/08/2024 3:21 PM EDT Annmarie Santana MD POINT OF CARE DOMINICK T ENTER/EDIT ORDERABLES Final Result * (ABNORMAL) CBC auto differential (09/08/2024 3:15 PM EDT) [facility] White Blood Count 11.2(H) 4.8 - 10.8 X10*3/uL [facility] Red Blood Count 5.44 4.20 - 5.50 X10*6/uL [facility] Hemoglobin 16.8(H) 12.0 - 16.0 g/dl [facility] Hematocrit 50.1(H) 37.0 - 47.0 % [facility] Mean Corpuscular Volume 92.1 80.0 - 98.0 fL [facility] Mean Corpuscular Hemoglobin 30.9 27.0 - 33.0 pg [facility] Mean Corpuscular HGB Conc 33.5 31.0 - 35.0 g/dl [facility] Red Cell Distribution Width 12.3 11.0 - 16.0 % [facility] Platelet Count 235 160 - 400 X10*3/uL [facility] Mean Platelet Volume 10.8 9.4 - 12.3 fL [facility] Neutrophils Percent Auto 58.0 45 - 73 % [facility] Imm Gran Pct Auto 0.4 0.0 - 0.4 % [facility] Lymphocytes Percent Auto 30.9 20 - 40 % [facility] Monocytes Percent Auto 8.5 2 - 11 % [facility] Eosinophils Percent Auto 1.4 0 - 4 % [facility] Basophils Percent Auto 0.8 0 - 2 % [facility] NRBC Pct Auto 0.0 0.0 - 0.2 /100WBC [facility] Neutrophils Absolute Auto 6.5 2.0 - 8.3 x10*3/uL [facility] Imm Gran Abs Auto 0.04(H) 0.00 - 0.03 X10*3/uL [facility] Lymphocytes Absolute Auto 3.5 1.2 - 4.9 X10*3/uL [facility] Monocytes Absolute Auto 1.0 0.1 - 1.2 X10*3/uL [facility] Eosinophils Absolute Auto 0.2 0.0 - 0.4 X10*3/uL [facility] Basophils Absolute Auto 0.1 0.0 - 0.2 X10*3/uL [facility] NRBC Abs Auto 0.000 0.0 - 0.012 X10*3/uL [facility] Blood Venous blood specimen / Unknown 09/08/2024 3:15 PM EDT 09/08/2024 4:08 PM EDT us Annmarie Santana MD LAB BLOOD ORDERAB LES Final Result [facility] [address] [place] [phone] * Lipase (09/08/2024 3:15 PM EDT) Lipase 49 8 - 78 U/L [facility] Blood Venous blood specimen / Unknown 09/08/2024 3:15 PM EDT 09/08/2024 4:08 PM EDT Annmarie Santana MD LAB BLOOD ORDERAB LES Final Result Performing Organization Address [facility]/ZIP Co de Phone Number [facility] [address] [place] [address] [phone] * (ABNORMAL) Comprehensive Metabolic Panel (09/08/2024 3:15 PM EDT) Sodium 140 135 - 145 mmol/L [facility] Potassium 4.5 3.3 - 5.1 mmol/L [facility] Chloride 104 96 - 108 mmol/L [facility] Carbon Dioxide 30(H) 22 - 29 mmol/L [facility] Anion Gap 11(L) 12 - 20 [facility] Urea Nitrogen (BUN) 7(L) 9 - 16 mg/dL [facility] Creatinine, Serum 1.01 0.5 - 1.4 mg/dL [facility] Estimated Glomerular Filt Rate 59 [facility] Comment:Chronic Kidney Disea se: Estimated GFR < 60 mL/min/1.59x2Dekiao Kidney Disease: Estimated GFR < 15 mL/min/1.73m2 Glucose 97 60 - 115 mg/dL [facility] Calcium 9.5 8.4 - 10.2 mg/dL [facility] Bilirubin, Total 1.0 0.0 - 1.0 mg/dL [facility] Aspartate Amino Transferase 14 5 - 31 U/L [facility] Alanine Aminotransferase 8 0 - 31 U/L [facility] Total Protein 7.1 6.5 - 8.0 g/dL [facility] Albumin Level 4.3 3.5 - 5.0 g/dL [facility] Alkaline Phosphatase 86 39 - 117 U/L [facility] Blood Venous blood specimen / Unknown 09/08/2024 3:15 PM EDT 09/08/2024 4:08 PM EDT us Annmarie Santana MD LAB BLOOD ORDERAB LES Final Result [facility] [address] [place] [address] [phone] * Chlamydia/N. Gonorrhoeae RNA, TMA, Urogenitial (09/08/2024 2:50 PM EDT) Pathologist [facility] CT PCR NOT DETECTED Not Detect. [facility] Comment:A not detected test result [...] psychologicalconsequences. NG PCR NOT DETECTED Not Detect. [facility] Comment:A not detected test result [...] PM EDT 09/08/2024 4:05 PM EDT Narrative [facility] - 09/09/2024 2:20 AM EDT Urine us Annmarie Santana MD LAB MICROBIOLOGY - GENERAL ORDERABLES Final Result [facility] [address] [place] [phone] * Trichomonas vaginalis RNA, Qualitative, TMA (09/08/2024 2:46 PM EDT) Trichomas vaginalis RNA, QL, TMA NOT DETECTED NOT DETECTED [facility] Comment:For additional infor alexa, please refer tohttp://education.ilab/faq/Trichomonastma(This link is being provided for informational/educational purposes only.)THIS TEST WAS PERFORMED AT:[facility] [place] [phone] MOYA MD Swab (Vaginal Swab) 09/08/2024 2:46 PM EDT 09/08/2024 4:05 PM EDT us Annmarie Santana MD LAB BODY FLUIDS A ND STOOLS ORDERABLES Final Result [facility] [address] [place] [phone] * (ABNORMAL) Urinalysis, Complete, with Reflex to Culture (09/08/2024 2:20 PM EDT) Color Urine Yellow [facility] Appearance Urine Clear [facility] PH 6.0 5.0 - 9.0 [facility] Glucose Urine UA Negative Negative mg/dL [facility] Urine Blood Large (3+)(A) Negative [facility] Specific Whitakers - Urine <=1.005 1.005 - 1.025 [facility] Urine Protein Negative Neg-Trace mg/dL [facility] Urine Ketones Negative Negative mg/dL [facility] Nitrite Urine Negative Negative [facility] Leukocyte Esterase Urine Small (1+)(A) Negative [facility] RBC Urine 0-2 0 - 2 /HPF [facility] Urine WBC 0-5 0 - 5 /HPF [facility] Urine Squamous Epithelial Cell 0-2 0 - 2 /HPF [facility] Urine Bacteria None Seen None Seen [facility] Hyaline Casts, Urine 0-2 0 - 2 /LPF [facility] 09/08/2024 2:20 PM EDT 09/08/2024 4:04 PM EDT Narrative [facility] - 09/08/2024 4:14 PM EDT Urine, Clean Catch us Annmarie Santana MD LAB URINE ORDERAB LES Final Result [facility] [address] [facility] [place] [address] [phone] * BI Mammogram Screening Tomosynthesis Bilateral (02/03/2024 10:30 AM EDT) Anatomical Region Laterality Modality Breast Bilateral Mammography 02/03/2024 10:3 0 AM EDT Narrative 02/27/2024 3:02 PM EDT ? [facility] [place] ? [address] ?[place] [address] ? Mammography Report ? Signed ? Patient: Betsy,Crystal ?MR#: [id number] ?? [id number] ? : 1980 ?Acct:[id number] ? Age/Sex: 43 / F ?ADM Date: 02/03/24 ? Loc: HO.MAMMO ? Attending Dr: Annmarie Santana MD ? Ordering Physician: Annmarie Chambers MD ?Re ?? sults: 1Negative ? Date of Service: 02/03/24 ?Follow Up: 1 Year From Orig ?? inal Mammogram ? Procedure(s): MM tomosynthesis screening BI ?? Accession Number(s): [id number] ? cc: Annmarie Chambers MD ? EXAMINATION: [...] ? Signed By: ?<Electronically signed by Alisa Henry DO in OV> ? 02/27/24 1459 ? DD/ 1030 ? TD/TT: 02/03/24 1042 ? Piecer: ? Procedure Note Marycruz, Image - 02/27/2024 [facility] [address] [place] [address] [place] [address] Mammography Report Signed Patient: Naomi Meyer#: [id number] : 1980Acct:[id number] Age/Sex: 43 / FADM Date: 02/03/24 Loc: HO.MAMMO Attending Dr: Annmarie Santana MD Ordering Physician: Annmarie Chambers sults: 1Negative Date of Service: 02/03/24Follow Up: 1 Year From Orig inal Mammogram Procedure(s): MM tomosynthesis screening BI Accession Number(s): [id number] cc: Annmarie Chambers MD EXAMINATION: MM SCREENING [...] 02/27/24 1459 DD/ 1030 TD/TT: 02/03/24 1042 Piecer: us Annmarie Santana MD IMG BI PROCEDURES Edited Result - Final * [facility] Pap and HPV mRNA E6/E7 (01/29/2024 12:00 AM EDT) HPV nRNA E6/E7 Not Detected Not Detected [facility] Comment:Methodology: Transcr iption-Mediated AmplificationThis assay detects E6/E7 viral messenger RNA (mRNA) from 14high-risk HPV types (16,18,31,33,35,39,45,51,52,56,58,59,66,68).Cervical sources are required for HPV testing.If a vaginal source from a patient who has had atotal hysterectomy with removal of cervix wassubmitted, please contact the testing laboratoryfor alternative testing options.For additional information, please refer tohttp://education.ilab/faq/DZS405m3(This link if provided for information/educational purposes only.)THIS TEST WAS PERFORMED AT:[employer] [address] [phone] MOYA MD SOURCE: SEE NOTE [facility] Comment:None given Report Status: [facility] Clinical Information: SEE NOTE [facility] Comment:None given LMP: SEE NOTE [facility] Comment:NONE GIVEN Prev. PAP: SEE NOTE [facility] Comment:NONE GIVEN Prev. BX: SEE NOTE [facility] Comment:NONE GIVEN Statement Of Adequacy: SEE NOTE [facility] Comment:Satisfactory for yusef luation.Endocervical/transformation zone componentpresent. General Categorization: [facility] Interpretation/Result: SEE NOTE [facility] Comment:Cytology Results: Ne gative for intraepitheliallesion or malignancy. Cytology Comment SEE NOTE [facility] Comment:This Pap test has be en evaluated with computerassisted technology. [employer]ed [employer] Arc: SEE NOTE [facility] Comment:SXA, CT(ASCP)CT scre ening location: [address] [address] Review [employer] Arc: [facility] Pathologist [facility] PAP Infection [facility] See Note SEE [facility] Comment:EXPLANATORY NOTE:The Pap is a screening test for cervical cancer. It isnot a diagnostic test and is subject to false negativeand false positive results. It is most reliable when asatisfactory sample, regularly obtained, is submittedwith relevant clinical findings and history, and whenthe Pap result is evaluated along with historic andcurrent clinical information. 01/29/2024 01/29/2024 Narrative [facility] - 02/02/2024 3:25 PM EDT SEE SCANNED RESULTS IN EMR us Irina Sanchez CNM LAB PATHOLOGY ORDERABLES Final Result Performing Organization Address [facility]/ZIP Co de Phone Number [facility] [address] [place] [phone] * Hepatitis C Antibody with Reflex to HCV, RNA, Quantitative, Real-Time PCR (01/19/2024 11:38 AM EDT) Hepatitis C Antibody Nonreactive Nonreactive [facility] Comment:Antibodies to HCV no t detected; does not exclude early acuteHCV infection. Blood Venous blood specimen / Unknown 01/19/2024 11:38 AM EDT 01/19/2024 1:06 PM EDT us Annmarie Santana MD LAB BLOOD ORDERAB LES Final Result Performing Organization Address [facility] Co de Phone Number [facility] [address] [place] [phone] * HIV-1/2 Antigen and Antibodies, Fourth Generation, with Reflexes (01/19/2024 11:38 AM EDT) HIV AB/AG Nonreactive Nonreactive [facility] Comment:HIV-1 p24 Ag and/or HIV-1/HIV-2 Ab not detected.A test result that is nonreactive does not exclude thepossibility of exposure to or infection with HIV-1 and/orHIV-2. Nonreactive results in this assay for individualswith prior exposure to HIV-1 and/or HIV-2 may be due toantigen and antibody levels that are below the limit ofdetection of this assay.The [employer] HIV Ag/Ab Combo assay result andsupplemental assay results should be interpreted inconjunction with the patient's clinical presentation,history and other laboratory results. If the results areinconsistent with clinical evidence, additional testing issuggested to confirm the result. Blood Venous blood specimen / Unknown 01/19/2024 11:38 AM EDT 01/19/2024 1:06 PM EDT us Annmarie Santana MD LAB BLOOD ORDERAB LES Final Result [facility] [address] [place] [address] [phone] * (ABNORMAL) Lipid Panel, Standard (01/19/2024 11:38 AM EDT) Triglycerides 206(H) <150 mg/dL [facility] Comment:Desirable Triglyceri de: less than 150 mg/dLBorderline High Triglyceride 150-199 mg/dLHigh Triglyceride: 200-499 mg/dLVery High Triglyceride: greater than or equal to 5OO mg/dL Cholesterol 228(H) <200 mg/dL [facility] Comment:Desirable Cholestero l: less than 200 mg/dLBorderline High Cholesterol: 200-239 mg/dLHigh Cholesterol: greater than 239 mg/dL LDL Cholesterol Calculated 138(H) <100 mg/dL [facility] Comment:Desirable LDL: less than 100 mg/dLNear Optimal/Above Optimal LDL: 110- 129 mg/dLBorderline High LDL: 130-159 mg/dLHigh LDL: 160-189 mg/dLVery High LDL: greater than or equal to 190 mg/dL HDL Cholesterol 49 >40 mg/dL [facility] Comment:Desirable HDL: great er than 40 mg/dL Note: This HDL assay may give artificially low results in patients with liver disease. Blood Venous blood specimen / Unknown 01/19/2024 11:38 AM EDT 01/19/2024 1:04 PM EDT us Annmarie Santana MD LAB BLOOD ORDERAB LES Final Result [facility] [address] [place] [address] [phone] from Last 3 Months or Most Recently Relevant to Health Maintenance Insurance [place] AD[place] Care Teams Lathe Setup Operator Relationship Specialty Start Date End Date Annmarie Chambers MD [address] [place] [address] [phone] PCP - General Internal Medicine 02/02/24
--- OUTSIDE RECORDS SUMMARY | 2024-09-21 03:08 | XMS_ITS | Encounter Summary ---
Author Organization [employer] Address [address] [facility] 7t [place] [address] Care Team Providers Care Parts Data Writer Name Role Phone Annmarie Chambers MD Primary Care Pro vider Reason for Visit * Reason Comments Med Refill Encounter Details Date Type Department Care Team ([facility] Contact Info) Description 01/23/2024 Refill [facility] [address] [place], [place] [phone] Adriana Stacy MD [address] [place] [address] Social History Tobacco Use Types Packs/Day Years [...] Description 09/22/2024 2:45 PM EDT Office Visit [facility] [address] [place] [address] [phone] Annmarie Chambers MD [address] [place] [phone] documented as of this encounter Visit Diagnoses Not on filedocumented in this encounter Additional Health Concerns Assessment Noted Time PHQ-9 Depression Total Score: 20 024 2:22 PM EDT documented as of this encounter Care Teams Parts Data Writer Relationship Specialty Start Date End Date Annmarie Chambers MD [address] [place] [address] [phone] PCP - General Internal Medicine 02/02/24 documented as of this encounter
--- OUTSIDE RECORDS SUMMARY | 2024-09-21 03:08 | XMS_ITS | Encounter Summary ---
Author Organization [employer] Address [address] [place] [address] [place] [address] Care Team Providers Care Sales Operations Consultant Name Role Phone Annmarie Chambers MD Primary Care Pro vider Reason for Visit * Reason Onset Date Comments PT1 04/27/2024 Encounter Details Date Type Department Care Team ([facility] st Contact Info) Description 04/27/2024 Telephone [facility] MEDICINE [address] [place], [place] [phone] Annmarie Chambers MD [address] [place] [address] PT1 Social History Tobacco Use Types Packs/Day [...] Y/N: Yes Provider name or facility name: [facility] Address: [address] [place] [address] Escort needed: Y/N: Yes Do you have a wheelchair: Y/N: No If yes- Manual or electric: n/a Visits: 1 x 3 months documented in this encounter Plan of Treatment Upcoming Encounters Date Type Department Care Team (Late st Contact Info) Description 09/22/2024 2:45 PM EDT Office Visit [facility] MED[facility]INE [address] [place] [phone] Annmarie Chambers MD [address] [place] [phone] documented as of this encounter Visit Diagnoses Not on filedocumented in this encounter Additional Health Concerns Assessment Noted Time PHQ-9 Depression Total Score: 20 024 2:22 PM EDT documented as of this encounter Care Teams Sales Operations Consultant Relationship Specialty Start Date End Date Annmarie Chambers MD [address] [place] [phone] PCP - General Internal Medicine 02/02/24 documented as of this encounter
--- OUTSIDE RECORDS SUMMARY | 2024-09-21 03:08 | XMS_ITS | Encounter Summary ---
Author Organization [employer] [facility] Address [address] [place] [address] 7 [place] [address] Care Team Providers Care Agricultural Appraiser Name Role Phone Annmarie Chambers MD Primary Care Pro vider Reason for Visit * Reason Comments Med Refill Encounter Details Date Type Department Care Team (Late st Contact Info) Description 12/17/2023 Refill [facility] [address] [place] [address] [phone] Adriana Stacy MD [address] [place] [phone] Social History Tobacco Use Types Packs/Day Years [...] Description 09/22/2024 2:45 PM EDT Office Visit [facility] [address] [place] [address] [phone] Annmarie Chambers MD [address] [place] [address] documented as of this encounter Visit Diagnoses Not on filedocumented in this encounter Care Teams Agricultural Appraiser Relationship Specialty Start Date End Date Annmarie Chambers MD [address] [place] [phone] PCP - General Internal Medicine 02/02/24 documented as of this encounter
[2024-09-21 03:10] LABS: Alkaline Phosphatase 82 U/L (39-117)
[2024-09-21 03:37] VITALS: BP 169/104; PULSE 61; RESP 14; TEMP 36.8; O2SAT 100
[2024-09-21] MEDS: LORazepam 2 MG/ML VIAL 1 MG IVPUSH (04:50)
[2024-09-21 05:04] LABS: Magnesium 1.7 mg/dL (1.6-2.6)
[2024-09-21 05:57] VITALS: BP 163/94; PULSE 73; RESP 21; TEMP 36.8; O2SAT 97
[2024-09-21 07:00] VITALS: BP 163/94; PULSE 73; RESP 21; TEMP 36.8; O2SAT 97
== END 2024-09-21 07:24 | disposition home or self-care (01) ==
PROVIDERS: Emergency Provider Internal Medicine
DX: F12.188 Cannabis abuse with other cannabis-induced disorder (principal); R11.10 Vomiting, unspecified
CPT/HCPCS: 36415; 80053; 82248; 83690; 83735; 85025; 93005; 96361; 96374; 96375; 99284; 99285; J2060; J2405

== ENCOUNTER → 2024-09-21 02:02 | Outpatient (BNV) | payer MEDICAID, SELFPAY | PROVIDERS: Emergency Provider Internal Medicine; Visit Provider Internal Medicine Cardiovascular Disease | DX: I49.9 Cardiac arrhythmia, unspecified (principal); R00.1 Bradycardia, unspecified | CPT/HCPCS: 93010 ==

== ENCOUNTER 2024-09-28 10:02 | Outpatient (REF) | payer MEDICAID, SELFPAY ==
--- NOTE | ~2024-09-28 | US_ITS ---
EXAMINATION: US ABDOMEN COMPLETE CLINICAL INFORMATION: Abdominal pain and sudden bruise on right flank.. COMPARISON: December 05, 2014. Correlated to CT dated November 24, 2019. TECHNIQUE: Real-time imaging of the abdominal viscera. FINDINGS: PANCREAS: No peripancreatic fluid collection. No main pancreatic ductal dilatation. ABDOMINAL AORTA: The proximal, mid, and distal segments are normal in caliber. INFERIOR VENA CAVA: Visualized portions are normal. LIVER: Liver measures 14 cm. Normal echotexture. No contour irregularity. No solid or cystic lesion detected by the technologist. No intrahepatic biliary ductal dilatation. GALLBLADDER: Cholecystectomy. COMMON BILE DUCT: 6 mm. RIGHT KIDNEY: 10 cm. Normal echotexture. Normal renal cortical thickness. No hydronephrosis. No solid or cystic lesion normal flow on color Doppler interrogation of the renal hilum. LEFT KIDNEY: 10 cm. Normal echotexture. Normal renal cortical thickness. No solid or cystic lesion. No hydronephrosis. Normal flow on color Doppler interrogation. SPLEEN: 8 cm. 4.6 cm ovoid shaped hypoechoic structure between the spleen and kidney.. FREE FLUID: None. US/US abdomen complete IMPRESSION: Status post cholecystectomy. No hydronephrosis. Polysplenia. Please refer to the CT dated November 24, 2019. Electronically signed by: Jose G Bhatti MD 09/29/2024 10:17 AM EDT
--- OUTSIDE RECORDS SUMMARY | 2024-09-28 11:23 | XMS_ITS | Encounter Summary ---
Author Organization [employer] Address [address] [place] [address] 7 [place] [address] Care Team Providers Care Coffee Host Name Role Phone Annmarie Chambers MD Primary Care Pro vider Reason for Visit * Reason Onset Date Comments PT-1 02/11/2024 Encounter Details Date Type Department Care Team ([facility] st Contact Info) Description 02/11/2024 Telephone [facility] [address] [place], [place] [phone] Annmarie Chambers MD [address] [place], [place] [phone] PT-1 Social History Tobacco Use Types Packs/Day [...] Yes Provider name or facility name: [facility] [place] Address: [address] [place] [address] Escort needed: Y/N: Yes Do you have a wheelchair: Y/N: No If yes- Manual or electric: no Visits: 3 documented in this encounter Plan of Treatment Upcoming Encounters Date Type Department Care Team (Late st Contact Info) Description 11/23/2024 11:15 AM EDT Office Visit [facility] [address] [place] [address] Annmarie Chambers MD [address] [place] [address] documented as of this encounter Visit Diagnoses Not on filedocumented in this encounter Additional Health Concerns Assessment Noted Time PHQ-9 Depression Total Score: 20 024 2:22 PM EDT documented as of this encounter Care Teams Coffee Host Relationship Specialty Start Date End Date Annmarie Chambers MD [address] [place] [phone] PCP - General Internal Medicine 02/02/24 documented as of this encounter
--- OUTSIDE RECORDS SUMMARY | 2024-09-28 11:23 | XMS_ITS | Encounter Summary ---
Author Organization [employer] Address [address] [place] [address] 7 [place] [address] Care Team Providers Care Vending Route Servicer Name Role Phone Annmarie Chambers MD Primary Care Pro vider Reason for Visit * Reason Onset Date Comments PT1 04/27/2024 Encounter Details Date Type Department Care Team ([facility] st Contact Info) Description 04/27/2024 Telephone [facility] [address] [place], [place] [phone] Annmarie Chambers MD [address] [place] [address] PT1 Social History Tobacco Use Types Packs/Day [...] Y/N: Yes Provider name or facility name: [facility] [place] Address: [address] [place] [address] Escort needed: Y/N: Yes Do you have a wheelchair: Y/N: No If yes- Manual or electric: n/a Visits: 1 x 3 months documented in this encounter Plan of Treatment Upcoming Encounters Date Type Department Care Team (Late st Contact Info) Description 11/23/2024 11:15 AM EDT Office Visit [facility] [address] [place] [phone] Annmarie Chambers MD [address] [place] [address] documented as of this encounter Visit Diagnoses Not on filedocumented in this encounter Additional Health Concerns Assessment Noted Time PHQ-9 Depression Total Score: 20 024 2:22 PM EDT documented as of this encounter Care Teams Vending Route Servicer Relationship Specialty Start Date End Date Annmarie Chambers MD [address] [place] [phone] PCP - General Internal Medicine 02/02/24 documented as of this encounter
--- OUTSIDE RECORDS SUMMARY | 2024-09-28 11:23 | XMS_ITS | Encounter Summary ---
Author Organization [employer] Address [address] 7[address] [place] [address] Care Team Providers Care Rock Crushing Machine Operator Name Role Phone Annmarie Chambers MD Primary Care Pro vider Reason for Visit * Reason Comments Med Refill Encounter Details Date Type Department Care Team ([facility] st Contact Info) Description 02/23/2024 Refill [facility] [address] [place] [address] [phone] Annmarie Rosario MD [address] [place] [address] Bilateral carpal tunnel syndrome Social History Tobacco [...] Description 11/23/2024 11:15 AM EDT Office Visit [facility] [address] [place] [phone] Annmarie Chambers MD [address] [place] [phone] documented as of this encounter Visit Diagnoses Diagnosis Bilateral carpal tunnel syndrome Carpal tunnel syndrome documented in this encounter Additional Health Concerns Assessment Noted Time PHQ-9 Depression Total Score: 20 024 2:22 PM EDT documented as of this encounter Care Teams Rock Crushing Machine Operator Relationship Specialty Start Date End Date Annmarie Chambers MD [address] [place] [phone] PCP - General Internal Medicine 02/02/24 documented as of this encounter
--- OUTSIDE RECORDS SUMMARY | 2024-09-28 11:23 | XMS_ITS | Encounter Summary ---
Author Organization [employer] Address [address] [facility] 7t [place] [address] Care Team Providers Care Motor Pool Driver Name Role Phone Annmarie Chambers MD Primary Care Pro vider Reason for Visit * Reason Comments Med Refill Encounter Details Date Type Department Care Team ([facility] Contact Info) Description 01/23/2024 Refill [facility] [address] [place], [place] [phone] Adriana Stacy MD 230 [place] [address] Social History Tobacco Use Types Packs/Day Years [...] Description 11/23/2024 11:15 AM EDT Office Visit [facility] [address] [place] [address] [phone] Annmarie Chambers MD [address] [place] [phone] documented as of this encounter Visit Diagnoses Not on filedocumented in this encounter Additional Health Concerns Assessment Noted Time PHQ-9 Depression Total Score: 20 024 2:22 PM EDT documented as of this encounter Care Teams Motor Pool Driver Relationship Specialty Start Date End Date Annmarie Chambers MD [address] [place] [address] [phone] PCP - General Internal Medicine 02/02/24 documented as of this encounter
--- OUTSIDE RECORDS SUMMARY | 2024-09-28 11:23 | XMS_ITS | Encounter Summary ---
Author Organization [employer] Address [address] [place] [address] 7 [place] [address] Care Team Providers Care Financial Services Associate Name Role Phone Annmarie Chambers MD Primary Care Pro vider Reason for Visit * Reason Comments Med Refill Encounter Details Date Type Department Care Team ([facility] Contact Info) Description 04/24/2024 Refill [facility] [address] [place], [place] [phone] Annmarie Chambers MD [address] [place] [address] Social History Tobacco Use Types Packs/Day Years [...] [facility] [address] [place] [phone] Annmarie Chambers MD [address] [place] [phone] documented as of this encounter Visit Diagnoses Not on filedocumented in this encounter Additional Health Concerns Assessment Noted Time PHQ-9 Depression Total Score: 20 024 2:22 PM EDT documented as of this encounter Care Teams Financial Services Associate Relationship Specialty Start Date End Date Annmarie Chambres MD [address] [place] [phone] PCP - General Internal Medicine 02/02/24 documented as of this encounter
--- OUTSIDE RECORDS SUMMARY | 2024-09-28 11:23 | XMS_ITS | Encounter Summary ---
Author Organization [employer] Address [address] [facility] 7t [place] [address] Care Team Providers Care Top Lift Scourer Name Role Phone Annmarie Chambers MD Primary Care Pro vider Reason for Visit * Reason Comments Med Refill Encounter Details Date Type Department Care Team ([facility] st Contact Info) Description 08/20/2024 Refill [facility] [address] [place], [place] [phone] Jagdish Santiago DDS [address] [place] [phone] Periodontal disease; Dental abscess Social History Tobacco [...] Description 11/23/2024 11:15 AM EDT Office Visit [facility] [address] [place] [phone] Annmarie Chambers MD [address] [place] [phone] documented as of this encounter Visit Diagnoses Diagnosis Periodontal disease Unspecified gingival and periodontal disease Dental abscess Periapical abscess without sinus documented in this encounter Additional Health Concerns Assessment Noted Time PHQ-9 Depression Total Score: 20 024 2:22 PM EDT documented as of this encounter Care Teams Top Lift Scourer Relationship Specialty Start Date End Date Annmarie Chambers MD [address] [place] [phone] PCP - General Internal Medicine 02/02/24 documented as of this encounter
--- OUTSIDE RECORDS SUMMARY | 2024-09-28 11:23 | XMS_ITS | Clinical Summary ---
Author Organization [employer] Address [address] [facility] [address] [place] [address] Care Team Providers Care Corporate Director Name Role Phone Annmarie Chambers MD Primary Care Pro vider Allergies Active Allergy Reactions Criticality Noted Date Comments Other 10/27/2023 Seasonal allergies Medications Banophen 25 MG capsule Take 25 mg by mouth if needed for sleep (insomnia, anxiety). See above sig Active methylphenidate (Ritalin) 20 MG tablet Take 20 mg by mouth 2 times daily. Active Blood Pressure Monitoring (Blood Pressure Cuff) miscIndications :Elevated blood pressure reading 1 each Once daily. 1 each Active Additional Information Patient not taking.Reported on 08/02/2024 cloNIDine (Catapres) 0.1 MG tablet TAKE 1 TABLET BY MOUTH TWICE A DAY NEEDED FOR ANXIETY, TAKE PRIOR TO USE CLONAZEPAM Active Vit-Fe Fumarate-FA ( Vitamins) 28-0.8 MG tabletIndicatio ns:Family Planning Take 1 tablet by mouth Once per day. 90 tablet 3 024 2024 Active Additional Information Patient not taking.Reported on 08/02/2024 clonazePAM (KlonoPIN) 0.5 MG tablet Take 0.5 mg by mouth if needed in the morning and at bedtime for anxiety. Active albuterol 108 (90 Base) MCG/ACT inhaler Inhale 2 puffs every 6 (six) hours if needed for wheezing. 18 g 3 Active chlorhexidine (Peridex) 0.12 % solutionIndicat ions:Periodonta l disease,Dental abscess Swish 15 mL morning and night for 1 minute. Spit, do not swallow. Do not eat or drink for 30 minutes following use. 473 mL Active lidocaine (Lidoderm) 5 % patchIndication s:Right flank pain Apply 1 patch topically Once per day. Remove & discard patch within 12 hours or as directed by MD. 30 patch 2 Active Varenicline Tartrate, Starter, (Chantix Starting Month ) 0.5 MG X 11 & 1 MG X 42 tablet therapy pack Take 1 tablet by mouth at noon and 1 tablet in the evening. Days 1-3: 0.5 mg PO qDay, Days 4-7: 0.5 mg PO twice a day , Day 8 to end of treatment: 1 mg twice a day. 1 each Active varenicline (Chantix) 1 MG tablet Take 1 tablet (1 mg) by mouth 2 times daily. Take with full glass of water. 60 tablet 2 2024 Active psyllium (Metamucil Smooth Texture) 58.6 % powderIndicatio ns:Constipation , unspecified constipation type Take 5.12 g (3 g of fiber) by mouth 2 times daily. 283 g 2 2025 Active docusate sodium (Colace) 100 MG capsuleIndicati ons:Constipatio n, unspecified constipation type Take 1 tab po bid prn constipation 60 capsule 3 Active ondansetron (Zofran) 4 MG tablet Take 1 tablet (4 mg) by mouth every 8 (eight) hours if needed for nausea or vomiting for up to 7 days. 20 tablet 025 2024 Active famotidine (Pepcid) 20 MG tablet Take 1 tablet (20 mg) by mouth if needed at bedtime for heartburn. 60 tablet 025 2025 Active acetaminophen (Tylenol) 500 MG tabletIndicatio ns:Periodontal disease,Dental abscess,Right flank pain Take 1 tablet (500 mg) by mouth every 8 (eight) hours if needed for mild pain for up to 30 doses. 30 tablet 2 Active escitalopram (Lexapro) 10 MG tablet Take 10 mg by mouth Once per day. 024 2024 Discontinued(O ther) lidocaine (Lidoderm) 5 % patch Apply 1 patch topically Once per day. Remove & discard patch within 12 hours or as directed by . 30 patch 2 024 2024 Discontinued(R eorder (will not trigger notification to Pharmacy)) Varenicline Tartrate, Starter, (Chantix Starting Month ) 0.5 MG X 11 & 1 MG X 42 tablet therapy pack Take 1 tablet by mouth at noon and 1 tablet in the evening. Days 1-3: 0.5 mg PO qDay, Days 4-7: 0.5 mg PO twice a day , Day 8 to end of treatment: 1 mg twice a day. 1 each 024 2024 Discontinued(R eorder (will not trigger notification to Pharmacy)) gabapentin (Neurontin) 300 MG capsule Take 1 capsule (300 mg) by mouth 3 times daily. 90 capsule 2 024 2024 Discontinued(O ther) varenicline (Chantix) 1 MG tablet TAKE 1 TABLET BY MOUTH TWICE A DAY. TAKE WITH FULL GLASS OF WATER. 180 tablet 025 2024 Discontinued(O ther) acetaminophen (Tylenol) 500 MG tabletIndicatio ns:Periodontal disease,Dental abscess Take 1 tablet (500 mg) by mouth every 6 (six) hours if needed for mild pain for up to 20 doses. 20 tablet 025 2024 Discontinued(R eorder (will not trigger notification to Pharmacy)) ibuprofen 600 MG tabletIndicatio ns:Periodontal disease,Dental abscess Take 1 tablet (600 mg) by mouth every 6 (six) hours if needed for mild pain for up to 20 doses. 20 tablet 025 2024 Discontinued acetaminophen (Tylenol) 500 MG tabletIndicatio ns:Periodontal disease,Dental abscess,Right flank pain Take 1 tablet (500 mg) by mouth every 6 (six) hours if needed for mild pain for up to 20 doses. 20 tablet 025 2024 Discontinued(R eorder (will not trigger notification to Pharmacy)) Active Problems Problem Noted Date Diagnosed Date Constipation 09/22/2024 Abdominal pain 09/22/2024 Somnolence, daytime 09/22/2024 Weight loss 09/22/2024 Periodontal disease 08/02/2024 Dental abscess 08/02/2024 HLD [...] Problem Noted Date Diagnosed Date Resolved Date Vaginal bleeding 09/08/2024 09/22/2024 Elevated blood pressure reading 01/08/2024 03/03/2024 Assessment & Plan (01/08/2024 2:22 PM EDT): Possibly due to pain/anxiety I ask her to log her BP at home and bring log for her PCP appointment Encounters Date Type Department Care Team Description 09/22/2024 2:45 PM EDT Office Visit [facility] MEDICINE [address] [place] [phone] Annmarie Chambers MD Loud snoring (Primary Dx); Polycythemia; Colon cancer screening; Constipation, unspecified constipation type; Hyperlipidemia, unspecified hyperlipidemia type; Periodontal disease; Dental abscess; Right flank pain; Asthma, unspecified asthma severity, unspecified whether complicated, unspecified whether persistent; Health care maintenance; Abdominal pain, unspecified abdominal location; Somnolence, daytime; Weight loss 09/22/2024 Travel 09/21/2024 Orders Only GENERIC EXTERNAL DATA DEPARTMENT Provider, Generic External Data 09/15/2024 Travel 09/15/2024 Patient Outreach [facility] MED & PEDS [address] [place] [address] Annmarie Chambers MD Pre-visit Planning ([facility] unable to reach [facility]) 09/14/2024 Telephone [facility] MEDICINE [address] [place] [phone] Annmarie Chambers MD chart prep 09/10/[address] [address] Annmarie Chambers MD Results 09/08/2024 2:00 PM EDT Office Visit [address] [phone] Annmarie Chambers MD Right flank pain (Primary Dx); Periodontal disease; Dental abscess; Dietary counseling; Exercise counseling; Bipolar 1 disorder (CMS/HCC); Asthma, unspecified asthma severity, unspecified whether complicated, unspecified whether persistent; Absent periods; Superficial bruising of back, right, initial encounter; Vaginal bleeding 09/08/2024 Orders Only [facility] MED[facility]INE [address] [place] [phone] Annmarie Chambers MD 09/08/2024 Travel 09/08/2024 Telephone [facility] MEDICINE [address] [place] [phone] Annmarie Chambers MD Nurse Triage 09/06/2024 Travel 08/20/2024 Population Health Risk Score Community Care [facility] ([facility] Department [address] [place] [phone] Provider, Population Health Generic 08/20/2024 Refill [facility] ADULT DENTAL [address] [place] [phone] Jagdish Santiago DDS Periodontal disease; Dental abscess 08/02/2024 2:30 PM EST Office Visit [facility] ADULT DENTAL [address] [place] [address] Jagdish Santiago DDS Periodontal disease (Primary Dx); Dental abscess 07/26/2024 Refill [facility] MED[facility]INE [address] [place] [address] Annmarie Chambers MD from Last 3 Months [...] Sign Reading Time Taken Comments Blood Pressure 136/84 09/22/2024 3:02 PM EDT Pulse 72 09/22/2024 3:02 PM EDT Temperature 36.7 ??C (98 ??F) 09/22/2024 3:02 PM EDT Respiratory Rate 20 09/22/2024 3:02 PM EDT Oxygen Saturation 99% 09/22/2024 3:02 PM EDT Inhaled Oxygen Concentration - - Weight 66 kg (145 lb 9.6 oz) 09/22/2024 3:02 PM EDT Height 154.9 cm (5' 1 ) 09/22/2024 3:02 PM EDT Body Mass Index 27.51 09/22/2024 3:02 PM EDT Plan of Treatment Upcoming Encounters Date Type Department Care Team (Late st Contact Info) Description 11/23/2024 11:15 AM EDT Office Visit [facility] MED[facility]INE [address] [place] [address] Annmarie Chambers MD [address] [place] [address] Health Maintenance Due Date Last Done Comments CT Colonography 1979 Colonoscopy 1979 Colorectal Cancer Screening 1979 Dental Prophylaxis 1979 FIT DNA/Cologuard 1979 FIT 1979 FOBT 1979 Sigmoidoscopy 1979 Alcohol/Substance Use Screening 1991 Dental Oral Exam 06/15/2015 12/12/2014, 03/17/2013 Dental X-Ray: Bitewings 12/14/2015 12/13/19 15, 03/17/2013 Hepatitis B Vaccines (3 of 3 - [...] Procedure Name Priority Date/Time Associated Diagnosis Comments MAGNESIUM Routine 09/21/2024 2:08 AM EDT LIPASE Routine 09/21/2024 2:08 AM EDT HEPATIC FUNCTION PANEL Routine 09/21/2024 2:08 AM EDT COMPREHENSIVE METABOLIC PANEL Routine 09/21/2024 2:08 AM EDT XR RIBS 3 VIEWS RIGHT W CHEST [...] Recently Relevant to Health Maintenance Results * Magnesium (09/21/2024 2:08 AM EDT) Magnesium 1.7 1.6 - 2.6 mg/dL [facility] 09/21/2024 2:08 AM EDT 09/21/2024 2:11 AM EDT us Generic External Data Provider LAB BLOOD ORDERAB LES Final Result [facility] [address] [place] [phone] * Lipase (09/21/2024 2:08 AM EDT) Only the most recent of2 resultswithin the time period is included. Lipase 47 8 - 78 U/L [facility] 09/21/2024 2:08 AM EDT 09/21/2024 2:11 AM EDT Generic External Data Provider LAB BLOOD ORDERAB LES Final Result Performing Organization Address City/[facility]/ZIP Co de Phone Number [facility] [address] [place] [phone] * Hepatic Function Panel (09/21/2024 2:08 AM EDT) Bilirubin, Direct 0.2 0.0 - 0.5 mg/dL [facility] 09/21/2024 2:08 AM EDT 09/21/2024 2:11 AM EDT Generic External Data Provider LAB BLOOD ORDERAB LES Final Result Performing Organization Address [facility] Co de Phone Number [facility] [address] [place] [phone] * (ABNORMAL) Comprehensive Metabolic Panel (09/21/2024 2:08 AM EDT) Only the most recent of2 resultswithin the time period is included. Sodium 143 135 - 145 mmol/L [facility] Potassium 4.5 3.3 - 5.1 mmol/L [facility] Chloride 105 96 - 108 mmol/L [facility] Carbon Dioxide 24 22 - 29 mmol/L [facility] Anion Gap 19 12 - 20 [facility] Urea Nitrogen (BUN) 16 9 - 16 mg/dL [facility] Creatinine, Serum 1.14 0.5 - 1.4 mg/dL [facility] Creatinine Clr Calc Pharmacy 54.7 [facility] Comment:Provided height and weight: 154.94 cm,67.585 kg.eGFR (calculated from the MDRD study equation) and eCrCl(calculated from the Cockcroft-Gault equation) are based ondifferent parameters and may not yield comparable results.If eCrCl result is absurd, please check patient'sheight/weight. Estimated Glomerular Filt Rate 52 [facility] Comment:Chronic Kidney Disea se: Estimated GFR < 60 mL/min/1.47e0Pgaxky Kidney Disease: Estimated GFR < 15 mL/min/1.73m2 Glucose 163(H) 60 - 115 mg/dL [facility] Calcium 10.3(H) 8.4 - 10.2 mg/dL [facility] Bilirubin, Total 1.2(H) 0.0 - 1.0 mg/dL [facility] Aspartate Amino Transferase 18 5 - 31 U/L [facility] Alanine Aminotransferase 12 0 - 31 U/L [facility] Total Protein 7.8 6.5 - 8.0 g/dL [facility] Albumin Level 4.6 3.5 - 5.0 g/dL [facility] Alkaline Phosphatase 82 39 - 117 U/L [facility] 09/21/2024 2:08 AM EDT 09/21/2024 2:11 AM EDT us Generic External Data Provider LAB BLOOD ORDERAB LES Final Result [facility] [address] [place] [phone] * XR Ribs 3 Views Right with Chest 1 View (09/09/2024 11:27 AM EDT) Anatomical Region Laterality Modality Radiographic Natalia ging 09/09/2024 11:2 7 AM EDT Narrative 09/09/2024 12:27 PM EDT ?[facility] ?[address] ?[place] [address] ?XRay Report ? Signed ? Patient: Betsy,Crystal ?MR#: [id number] ?? [id number] ? : 1980 ?Acct:[id number] ? Age/Sex: 44 / F ?ADM Date: 09/09/24 ? Loc: HO.HHCX ? Attending Dr: Annmarie Santana MD ? Ordering Physician: Annmarie Chambers MD ?? Date of Service: 09/09/24 ?? Procedure(s): XR ribs RT min 3V w CXR1V ?? Accession Number(s): [id number] ? cc: Annmarie Chambers MD ? EXAMINATION: [...] DD/ 1127 ? TD/TT: 09/09/24 1148 ? [employer]: ? Procedure Note Marycruz, Image - 09/09/[address] [address] XRay Report Signed Patient: Alicia MeyerMR#: [id number] : 1980Acct:[id number] Age/Sex: 44 / FADM Date: 09/09/24 Loc: HO.HHCX Attending Dr: Annmarie Santana MD Ordering Physician: Annmarie Chambers MD Date of Service: 09/09/24 Procedure(s): XR ribs RT min 3V w CXR1V Accession Number(s): [id number] cc: Annmarie Chambers MD EXAMINATION: XR RIBS [...] the right ribs. Electronically signed by: Sam Chu MD 09/09/2024 12:23 PM EDT RP Dictated By: Sam Chu MD Signed By: <Electronically signed by Sam Chu MD in OV> 09/09/24 1223 DD/ 1127 TD/TT: 09/09/24 1148 [employer]: us Annmarie Santana MD IMG XR PROCEDURES Edited Result - Final * Culture, Urine, Routine (09/08/2024 4:14 PM EDT) Urine Urine specimen obtained by clean catch procedure / Unknown 09/08/2024 4:14 PM EDT 09/08/2024 4:14 PM EDT Comment:[facility] - 09/10/2024 11:33 AM EDT Urine Culture Report Result Urine Culture 10,000 to 50,000 cfu/ml Urine Culture Mixed bacterial jaxson characteristic of Urine Culture urogenital contamination. Specimen Source: Urine clean catch us Annmarie Santana MD LAB MICROBIOLOGY - GENERAL ORDERABLES Final Result [facility] [address] [place] [phone] * POCT Urine (09/08/2024 3:21 PM EDT) Preg Test, Ur Negative Negative, Indeterminate, None Detected, Invalid, Specimen unsatisfactory for evaluation, Weakly Positive QC Media Lot # [id number] Lot# Expiration Date [id number] Urine 09/08/2024 3:21 PM EDT Annmarie Santana MD POINT OF CARE DOMINICK T ENTER/EDIT ORDERABLES Final Result * (ABNORMAL) CBC auto differential (09/08/2024 3:15 PM EDT) Pathologist [facility] White Blood Count 11.2(H) 4.8 - 10.8 X10*3/uL [facility] Red Blood Count 5.44 4.20 - 5.50 X10*6/uL [facility] Hemoglobin 16.8(H) 12.0 - 16.0 g/dl [facility] Hematocrit 50.1(H) 37.0 - 47.0 % [facility] Mean Corpuscular Volume 92.1 80.0 - 98.0 fL [facility] Mean Corpuscular Hemoglobin 30.9 27.0 - 33.0 pg [facility] Mean Corpuscular HGB Conc 33.5 31.0 - 35.0 g/dl [facility] Red Cell Distribution Width 12.3 11.0 - 16.0 % [facility] Platelet Count 235 160 - 400 X10*3/uL [facility] Mean Platelet Volume 10.8 9.4 - 12.3 fL [facility] Neutrophils Percent Auto 58.0 45 - 73 % [facility] Imm Gran Pct Auto 0.4 0.0 - 0.4 % [facility] Lymphocytes Percent Auto 30.9 20 - 40 % [facility] Monocytes Percent Auto 8.5 2 - 11 % [facility] Eosinophils Percent Auto 1.4 0 - 4 % [facility] Basophils Percent Auto 0.8 0 - 2 % [facility] NRBC Pct Auto 0.0 0.0 - 0.2 /100WBC [facility] Neutrophils Absolute Auto 6.5 2.0 - 8.3 x10*3/uL [facility] Imm Gran Abs Auto 0.04(H) 0.00 - 0.03 X10*3/uL [facility] Lymphocytes Absolute Auto 3.5 1.2 - 4.9 X10*3/uL [facility] Monocytes Absolute Auto 1.0 0.1 - 1.2 X10*3/uL [facility] Eosinophils Absolute Auto 0.2 0.0 - 0.4 X10*3/uL [facility] Basophils Absolute Auto 0.1 0.0 - 0.2 X10*3/uL [facility] NRBC Abs Auto 0.000 0.0 - 0.012 X10*3/uL [facility] Blood Venous blood specimen / Unknown 09/08/2024 3:15 PM EDT 09/08/2024 4:08 PM EDT us Annmarie Santana MD LAB BLOOD ORDERAB LES Final Result [facility] [address] [place] [phone] * Chlamydia/N. Gonorrhoeae RNA, TMA, Urogenitial (09/08/2024 2:50 PM EDT) CT PCR NOT DETECTED Not Detect. [facility] Comment:A not detected test result does [...] psychologicalconsequences. NG PCR NOT DETECTED Not Detect. [facility] Comment:A not detected test result does [...] PM EDT 09/08/2024 4:05 PM EDT Narrative [facility] - 09/09/2024 2:20 AM EDT Urine us Annmarie Santana MD LAB MICROBIOLOGY - GENERAL ORDERABLES Final Result [facility] [address] [place] [phone] * Trichomonas vaginalis RNA, Qualitative, TMA (09/08/2024 2:46 PM EDT) Trichomas vaginalis RNA, QL, TMA NOT DETECTED NOT DETECTED [facility] Comment:For additional infor alexa, please refer tohttp://education.[employer]/faq/Trichomonastma(This link is being provided for informational/educational purposes only.)THIS TEST WAS PERFORMED AT:[employer] [place] [phone] MOYA MD Swab (Vaginal Swab) 09/08/2024 2:46 PM EDT 09/08/2024 4:05 PM EDT us Annmarie Santana MD LAB BODY FLUIDS A ND STOOLS ORDERABLES Final Result Performing Organization Address City/[facility]/ZIP Co de Phone Number [facility] [address] [place] [phone] * (ABNORMAL) Urinalysis, Complete, with Reflex to Culture (09/08/2024 2:20 PM EDT) Color Urine Yellow [facility] Appearance Urine Clear [facility] PH 6.0 5.0 - 9.0 [facility] Glucose Urine UA Negative Negative mg/dL [facility] Urine Blood Large (3+)(A) Negative [facility] Specific [place] - Urine <=1.005 1.005 - 1.025 [facility] Urine Protein Negative Neg-Trace mg/dL [facility] Urine Ketones Negative Negative mg/dL [facility] Nitrite Urine Negative Negative [facility] Leukocyte Esterase Urine Small (1+)(A) Negative [facility] RBC Urine 0-2 0 - 2 /HPF [facility] Urine WBC 0-5 0 - 5 /HPF [facility] Urine Squamous Epithelial Cell 0-2 0 - 2 /HPF [facility] Urine Bacteria None Seen None Seen [facility] Hyaline Casts, Urine 0-2 0 - 2 /LPF [facility] 09/08/2024 2:20 PM EDT 09/08/2024 4:04 PM EDT Narrative [facility] - 09/08/2024 4:14 PM EDT Urine, Clean Catch us Annmarie Santana MD LAB URINE ORDERAB LES Final Result Performing Organization Address [facility] Co de Phone Number [facility] [address] [place] [phone] * BI Mammogram Screening Tomosynthesis Bilateral (02/03/2024 10:30 AM EDT) Anatomical Region Laterality Modality Breast Bilateral Mammography 02/03/2024 10:3 0 AM EDT Narrative 02/27/2024 3:02 PM EDT ? [facility] ? [address] ?[place] [address] ? Mammography Report ? Signed ? Patient: Betsy,Crystal ?MR#: [id number] ?? [id number] ? : 1980 ?Acct:[id number] ? Age/Sex: 43 / F ?ADM Date: 02/03/24 ? Loc: HO.MAMMO ? Attending Dr: Annmarie Santana MD ? Ordering Physician: Annmarie Cahmbers MD ?Re ?? sults: 1Negative ? Date of Service: 02/03/24 ?Follow Up: 1 Year From Orig ?? inal Mammogram ? Procedure(s): MM tomosynthesis screening BI ?? Accession Number(s): [id number] ? cc: Annmarie Chambers MD ? EXAMINATION: [...] DD/ 1030 ? TD/TT: 02/03/24 1042 ? [employer]: ? Procedure Note Mayrcruz, Image - 02/27/2024 [facility] [address] [place] [address] Mammography Report Signed Patient: Naomi Meyer#: [id number] : 1980Acct:[id number] Age/Sex: 43 / FADM Date: 02/03/24 Loc: HO.MAMMO Attending Dr: Annmarie Santana MD Ordering Physician: Annmarie Chamberse sults: 1Negative Date of Service: 02/03/24Follow Up: 1 Year From Orig inal Mammogram Procedure(s): MM tomosynthesis screening BI Accession Number(s): [id number] cc: Annmarie Chambers MD EXAMINATION: MM SCREENING [...] Alisa Henry DO 02/27/2024 02:59 PM EDT RP Dictated By: Alisa Henry DO Signed By: <Electronically signed by Alisa Henry DO in OV> 02/27/24 1459 DD/ 1030 TD/TT: 02/03/24 1042 [employer]: Annmarie Santana MD IM BI PROCEDURES Edited Result - Final * [facility] Pap and HPV mRNA E6/E7 (01/29/2024 12:00 AM EDT) HPV nRNA E6/E7 Not Detected Not Detected [facility] Comment:Methodology: Transcr iption-Mediated AmplificationThis assay detects E6/E7 viral messenger RNA (mRNA) from 14high-risk HPV types (16,18,31,33,35,39,45,51,52,56,58,59,66,68).Cervical sources are required for HPV testing.If a vaginal source from a patient who has had atotal hysterectomy with removal of cervix wassubmitted, please contact the testing laboratoryfor alternative testing options.For additional information, please refer tohttp://education.[employer]/faq/YWN743r9(This link if provided for information/educational purposes only.)THIS TEST WAS PERFORMED AT:[employer] [place] [phone] MOYA MD SOURCE: SEE NOTE [facility] Comment:None given Report Status: [facility]NP [facility] Clinical Information: SEE NOTE [facility] Comment:None given LMP: SEE NOTE [facility] Comment:NONE GIVEN Prev. PAP: SEE NOTE [facility] Comment:NONE GIVEN Prev. BX: SEE NOTE [facility] Comment:NONE GIVEN Statement Of Adequacy: SEE NOTE [facility] Comment:Satisfactory for yusef luation.Endocervical/transformation zone componentpresent. General Categorization: [facility] Interpretation/Result: SEE NOTE [facility] Comment:Cytology Results: Ne gative for intraepitheliallesion or malignancy. Cytology Comment SEE NOTE [facility] Comment:This Pap test has be en evaluated with computerassisted technology. Travel Clerk: SEE NOTE [facility] Comment:SXA, CT(ASCP)CT scre ening location: [place] [address] Review Travel Clerk: [facility] Pathologist [facility] PAP Infection [facility] See Note SEE NOTE [facility] Comment:EXPLANATORY NOTE:The Pap is a screening test for cervical cancer. It isnot a diagnostic test and is subject to false negativeand false positive results. It is most reliable when asatisfactory sample, regularly obtained, is submittedwith relevant clinical findings and history, and whenthe Pap result is evaluated along with historic andcurrent clinical information. 01/29/2024 01/29/2024 Narrative [facility] - 02/02/2024 3:25 PM EDT SEE SCANNED RESULTS IN EMR us Irina CALERO LAB PATHOLOGY ORDERABLES Final Result [facility] [address] [place] [phone] [phone] * Hepatitis C Antibody with Reflex to HCV, RNA, Quantitative, Real-Time PCR (01/19/2024 11:38 AM EDT) Hepatitis C Antibody Nonreactive Nonreactive [facility] Comment:Antibodies to HCV no t detected; does not exclude early acuteHCV infection. Blood Venous blood specimen / Unknown 01/19/2024 11:38 AM EDT 01/19/2024 1:06 PM EDT us Annmarie Santana MD LAB BLOOD ORDERAB LES Final Result Performing Organization Address City/[facility]/ZIP Co de Phone Number [facility] [address] [place] [phone] * HIV-1/2 Antigen and Antibodies, Fourth Generation, with Reflexes (01/19/2024 11:38 AM EDT) Pathologist [facility] HIV AB/AG Nonreactive Nonreactive [facility] Comment:HIV-1 p24 Ag and/or HIV-1/HIV-2 Ab not detected.A test result that is nonreactive does not exclude thepossibility of exposure to or infection with HIV-1 and/orHIV-2. Nonreactive results in this assay for individualswith prior exposure to HIV-1 and/or HIV-2 may be due toantigen and antibody levels that are below the limit ofdetection of this assay.The [employer] HIV Ag/Ab Combo assay result andsupplemental assay results should be interpreted inconjunction with the patient's clinical presentation,history and other laboratory results. If the results areinconsistent with clinical evidence, additional testing issuggested to confirm the result. Blood Venous blood specimen / Unknown 01/19/2024 11:38 AM EDT 01/19/2024 1:06 PM EDT us Annmarie Santana MD LAB BLOOD ORDERAB LES Final Result Performing Organization Address [facility]/ZIP Co de Phone Number [facility] [address] [place] [phone] [phone] * (ABNORMAL) Lipid Panel, Standard (01/19/2024 11:38 AM EDT) Triglycerides 206(H) <150 mg/dL [facility] Comment:Desirable Triglyceri de: less than 150 mg/dLBorderline High Triglyceride 150-199 mg/dLHigh Triglyceride: 200-499 mg/dLVery High Triglyceride: greater than or equal to 5OO mg/dL Cholesterol 228(H) <200 mg/dL [facility] Comment:Desirable Cholestero l: less than 200 mg/dLBorderline High Cholesterol: 200-239 mg/dLHigh Cholesterol: greater than 239 mg/dL LDL Cholesterol Calculated 138(H) <100 mg/dL [facility] Comment:Desirable LDL: less than 100 mg/dLNear Optimal/Above Optimal LDL: 110- 129 mg/dLBorderline High LDL: 130-159 mg/dLHigh LDL: 160-189 mg/dLVery High LDL: greater than or equal to 190 mg/dL HDL Cholesterol 49 >40 mg/dL [facility] Comment:Desirable HDL: great er than 40 mg/dL Note: This HDL assay may give artificially low results in patients with liver disease. Blood Venous blood specimen / Unknown 01/19/2024 11:38 AM EDT 01/19/2024 1:04 PM EDT us Annmarie Santana MD LAB BLOOD ORDERAB LES Final Result [facility] [address] [place] [phone] from Last 3 Months or Most Recently Relevant to Health Maintenance Insurance [facility] C[place] AD[place] Care Teams Corporate Director Relationship Specialty Start Date End Date Annmarie Chambers MD [address] [place] [phone] PCP - General Internal Medicine 02/02/24
--- OUTSIDE RECORDS SUMMARY | 2024-09-28 11:23 | XMS_ITS | Encounter Summary ---
Author Organization [employer] [facility] Address [address] [place] [address] [address] [place] [address] Care Team Providers Care [employer] Cartoonist Name Role Phone Annmarie Chambers MD Primary Care Pro vider Reason for Visit * Reason Comments Med Refill Encounter Details Date Type Department Care Team (Late st Contact Info) Description 12/17/2023 Refill [facility] [address] [place] [address] [phone] Adriana Stacy MD [address] [place] [phone] Social History Tobacco Use Types Packs/Day Years [...] Description 11/23/2024 11:15 AM EDT Office Visit [facility] [address] [place] [phone] Annmarie Chambers MD [address] [place] [address] documented as of this encounter Visit Diagnoses Not on filedocumented in this encounter Care Teams [employer] Cartoon[employer] Relationship Specialty Start Date End Date Annmarie Chambers MD [address] [place] [phone] PCP - General Internal Medicine 02/02/24 documented as of this encounter
== END 2024-09-28 10:03 | disposition home or self-care (01) ==
LOC: HO.HMGCX 10:02
PROVIDERS: PCP Student in an Organized Health Care Education/Training Program; Visit Provider Student in an Organized Health Care Education/Training Program
DX: R10.9 Unspecified abdominal pain (principal)
CPT/HCPCS: 76700

== ENCOUNTER → 2024-09-28 10:03 | Outpatient (BNV) | payer MEDICAID, SELFPAY | PROVIDERS: PCP Student in an Organized Health Care Education/Training Program; Visit Provider Radiology Diagnostic Radiology | DX: R10.9 Unspecified abdominal pain (principal) | CPT/HCPCS: 76700 ==

== ENCOUNTER 2025-01-28 10:45 | Day surgery (SDC) | payer MEDICAID, SELFPAY ==
--- OUTSIDE RECORDS SUMMARY | 2025-01-11 06:30 | XMS_ITS ---
Author Organization [facility] Address [address] [place] [id number] Care Team Providers Care Professor/Nurse Anesthetist Name Role Phone Annmarie Chambers Primary Care Provider Sam Barnett Unavailable [phone] Allergies Allergen (clinical drug ingredient) Drug/Non Drug Allergy documented on EMR Reaction Allergy Type Onset Date Status seasonal (uncoded) Unknown Allergy A ctive REASON FOR VISIT Patient presents today for a discuss colonoscopy Medications Medication SIG (Take, Route, Fr equency, Duration) Notes Start Date End Date Status Adderall XR 10 MG 1 capsule in the mor katherine Orally Once a day 01/11/2025 Active clonazePAM 0.5 MG TAKE 1 TABLET BY HAILEE TH TWICE A DAY NEEDED FOR ANXIETY Oral for 30 Days Active Metamucil 0.36 GM Take 2 with 8 ounces of water or juice Orally Once ot twice a day for constipation for 30 days 01/14/2025 Active MiraLax 17 GM/SCOOP 1 scoop in 8 ounces of water or any liquid Orally Once or twice a day for constipation for 30 days 01/14/2025 Active Famotidine 20 MG TAKE 1 TABLET BY HAILEE TH EVERY DAY AT BEDTIME NEEDED FOR HEARTBURN Oral for 90 Days Not-T aking Social History Tobacco Use: Social History Observation Description Date Details (start date - stop date) Current Smoker NA - NA Tobacco Control (Standard) Question Answer Notes Tobacco use: Current smoker AUDIT-C (Standard) Question Answer Notes Did you have a drink contain ing alcohol in the past year? Yes How often did you have a dri nk containing alcohol in the past year? 2 to 3 times a week (3 points) How many drinks did you have on a typical day when you were drinking in the past year? 3 or 4 drinks (1 point) How often did you have six o r more drinks on one occasion in the past year? Never (0 point) Points 4 Interpretation Positive Section Notes: Smoker; occ. alcohol Problems Problem Type SNOMED Code ICD Code Onset Dates Problem Status W/U Status Risk Notes Problem Constipation (74303998) Constipation (K59.00) Active confirmed Problem Colon cancer screening (910802307) Colon cancer screening (Z12.11) Active confirmed Problem Gastroesophageal reflux disease (247275756) GERD (gastroesophage al reflux disease) (K21.9) Active confirmed Problem Generalized abdominal pain (105251085) Abdominal discomfort, generalized (R10.84) Active confirmed Problem Irritable bowel syndrome characterized by constipation (725136737) Irritable bowel syndrome with constipation (K58.9) Active confirmed Vital Signs Temperature 99.3 degrees Fahrenheit 01/12/20 25 Blood pressure systolic 001 mm Hg 01/12/20 25 Blood pressure diastolic 01 mm Hg 025 Height 61 in 01/11/2025 Weight 153.2 lbs 01/11/2025 BMI 28.94 kg/m2 01/11/2025 Procedures Procedure Date Ordered Date Performed Result Body Sit e UPPER GI ENDOSCOPY 01/11/2025 N/A COLONOSCOPY 01/11/2025 N/A Encounters Encounter Location Date Provider Diagnosis [facility] [address] [place] [address] 01/11/2025 Sam Willard Constipation K59.00 ; Colon cancer screening Z12.11 ; GERD (gastroesophageal reflux disease) K21.9 ; Abdominal discomfort, generalized R10.84 and Irritable bowel syndrome with constipation K58.9 Assessments Encounter Date Diagnosis (ICD Code) Assessment Notes Treatment Notes Treatment Clinical Notes Section Notes 01/11/2025 Constipation (ICD-10 - K59.00) Start using Miralax daily or twice a day and 2 Metamucil fiber pills with a lot of water every day or twice a day for the constipation Given Alicia's longstanding symptomatology of her GI symptoms and abdominal discomfort, we did review that her diagnosis seems consistent with that of some irritable bowel syndrome and chronic constipation. In that regard I advised her that I think the parkinson thing would be to help her bowel movements become more regular so as to decrease the abdominal discomfort and straining. I have given her the below instructions for adding MiraLAX and Metamucil once or twice daily to her daily regimen. I will send prescriptions for that. I also advised her to try to stay on an as healthy diet as possible with fruits and vegetables. I did recommend a colonoscopy primarily for screening purposes. We did review the rationale for that in regard to colorectal cancer prevention. She will have a 2-day prep for the procedure given her longstanding constipation. She will also have an upper endoscopy the same day given her upper abdominal discomfort, occasional reflux, and her sense of dysphagia in association with her smoking history. Full consent has been obtained from her for both procedures, including risks of bleeding and perforation. Both procedures will be done with monitored anesthesia care. Given her recent workup with ultrasound and laboratories, I do not think any further diagnostic testing is required at this time. I did advise her to call me prior to the procedures if she has any problems or questions I can be of assistance with. Thank you again for allowing me to participate in Alicia's care. I shall continue to keep you advised of her progress. 01/11/2025 Colon cancer screening (ICD-10 - Z12.11) Given Alicia's longstanding symptomatology of her GI symptoms and abdominal discomfort, we did review that her diagnosis seems consistent with that of some irritable bowel syndrome and chronic constipation. In that regard I advised her that I think the parkinson thing would be to help her bowel movements become more regular so as to decrease the abdominal discomfort and straining. I have given her the below instructions for adding MiraLAX and Metamucil once or twice daily to her daily regimen. I will send prescriptions for that. I also advised her to try to stay on an as healthy diet as possible with fruits and vegetables. I did recommend a colonoscopy primarily for screening purposes. We did review the rationale for that in regard to colorectal cancer prevention. She will have a 2-day prep for the procedure given her longstanding constipation. She will also have an upper endoscopy the same day given her upper abdominal discomfort, occasional reflux, and her sense of dysphagia in association with her smoking history. Full consent has been obtained from her for both procedures, including risks of bleeding and perforation. Both procedures will be done with monitored anesthesia care. Given her recent workup with ultrasound and laboratories, I do not think any further diagnostic testing is required at this time. I did advise her to call me prior to the procedures if she has any problems or questions I can be of assistance with. Thank you again for allowing me to participate in Alicia's care. I shall continue to keep you advised of her progress. 01/11/2025 GERD (gastroesophage al reflux disease) (ICD-10 - K21.9) Given Alicia's longstanding symptomatology of her GI symptoms and abdominal discomfort, we did review that her diagnosis seems consistent with that of some irritable bowel syndrome and chronic constipation. In that regard I advised her that I think the parkinson thing would be to help her bowel movements become more regular so as to decrease the abdominal discomfort and straining. I have given her the below instructions for adding MiraLAX and Metamucil once or twice daily to her daily regimen. I will send prescriptions for that. I also advised her to try to stay on an as healthy diet as possible with fruits and vegetables. I did recommend a colonoscopy primarily for screening purposes. We did review the rationale for that in regard to colorectal cancer prevention. She will have a 2-day prep for the procedure given her longstanding constipation. She will also have an upper endoscopy the same day given her upper abdominal discomfort, occasional reflux, and her sense of dysphagia in association with her smoking history. Full consent has been obtained from her for both procedures, including risks of bleeding and perforation. Both procedures will be done with monitored anesthesia care. Given her recent workup with ultrasound and laboratories, I do not think any further diagnostic testing is required at this time. I did advise her to call me prior to the procedures if she has any problems or questions I can be of assistance with. Thank you again for allowing me to participate in Alicia's care. I shall continue to keep you advised of her progress. 01/11/2025 Abdominal discomfort, generalized (ICD-10 - R10.84) Given Alicia's longstanding symptomatology of her GI symptoms and abdominal discomfort, we did review that her diagnosis seems consistent with that of some irritable bowel syndrome and chronic constipation. In that regard I advised her that I think the parkinson thing would be to help her bowel movements become more regular so as to decrease the abdominal discomfort and straining. I have given her the below instructions for adding MiraLAX and Metamucil once or twice daily to her daily regimen. I will send prescriptions for that. I also advised her to try to stay on an as healthy diet as possible with fruits and vegetables. I did recommend a colonoscopy primarily for screening purposes. We did review the rationale for that in regard to colorectal cancer prevention. She will have a 2-day prep for the procedure given her longstanding constipation. She will also have an upper endoscopy the same day given her upper abdominal discomfort, occasional reflux, and her sense of dysphagia in association with her smoking history. Full consent has been obtained from her for both procedures, including risks of bleeding and perforation. Both procedures will be done with monitored anesthesia care. Given her recent workup with ultrasound and laboratories, I do not think any further diagnostic testing is required at this time. I did advise her to call me prior to the procedures if she has any problems or questions I can be of assistance with. Thank you again for allowing me to participate in Alicia's care. I shall continue to keep you advised of her progress. 01/11/2025 Irritable bowel syndrome with constipation (ICD-10 - K58.9) Given Alicia's longstanding symptomatology of her GI symptoms and abdominal discomfort, we did review that her diagnosis seems consistent with that of some irritable bowel syndrome and chronic constipation. In that regard I advised her that I think the parkinson thing would be to help her bowel movements become more regular so as to decrease the abdominal discomfort and straining. I have given her the below instructions for adding MiraLAX and Metamucil once or twice daily to her daily regimen. I will send prescriptions for that. I also advised her to try to stay on an as healthy diet as possible with fruits and vegetables. I did recommend a colonoscopy primarily for screening purposes. We did review the rationale for that in regard to colorectal cancer prevention. She will have a 2-day prep for the procedure given her longstanding constipation. She will also have an upper endoscopy the same day given her upper abdominal discomfort, occasional reflux, and her sense of dysphagia in association with her smoking history. Full consent has been obtained from her for both procedures, including risks of bleeding and perforation. Both procedures will be done with monitored anesthesia care. Given her recent workup with ultrasound and laboratories, I do not think any further diagnostic testing is required at this time. I did advise her to call me prior to the procedures if she has any problems or questions I can be of assistance with. Thank you again for allowing me to participate in Alicia's care. I shall continue to keep you advised of her progress. Plan Of Treatment Medication Medication Name Sig Start Date Stop Date Notes Metamucil 0.36 GM Take 2 with 8 ounces of water or juice Orally Once ot twice a day for constipation for 30 days 01/14/2025 MiraLax 17 GM/SCOOP 1 scoop in 8 ounces of water or any liquid Orally Once or twice a day for constipation for 30 days 01/14/2025 Treatment Notes Assessment Notes Constipation Start using Miralax daily or twice a day and 2 Metamucil fiber pills with a lot of water every day or twice a day for the constipation Pending Test Test Name Order Date UPPER GI ENDOSCOPY 01/11/2025 COLONOSCOPY 01/11/2025 Next Appt Details Provider Name:Sam Willard , 01/28/2025 12:20:00 PM, [address] [place] [address], [id number], Progress Notes * ALICIA VELAZQUEZDOB: [birth year] (44 yo F)Acc No.[id number]:01/11/2025 Progress Notes Patient: ALICIA BAIN Provider: James Willard MD :1980 A ge:44 Y S ex:Female Date:01/11/2025 Address:[address] [place], [place] [id number] Pcp:Annmarie Santana Subjective: * Chief Complaints: * 1 . Patient presents today for a discuss colonoscopy. * HPI: i ncontinence: I saw Alicia in consultation today in regard to further evaluation of her abdominal discomfort, constipation and irregular bowel movements, discussion of colorectal cancer screening, and intermittent reflux with a sense of dysphagia. As you know, Alicia is a 44-year-old female who describes a very longstanding history of over 10 years of irregular bowel movements with constipation and straining. She describes a bowel movement pattern of a bowel movement about twice a week. However she does have fairly diffuse abdominal discomfort, although predominantly on the right side and upper abdomen. She does describe that the abdominal discomfort and constipation contribute to some postprandial fullness anorexia, a nd occasional reflux. She does have intermittent heartburn and a sense of some dysphagia to solid food, although she does not specifically describe symptoms of esophageal obstruction. She does not take any particular medication on a regular basis for the constipation or acid reflux. She does still smoke but denies the use of any significant amounts of alcohol at the present time.. Her appetite has been fairly good. She has not noticed any hematochezia nor melena. She denies any signs of jaundice or fevers. She denies any known family history of colorectal cancer. She has never had a colonoscopy or upper endoscopy. She does describe that her diet is not particularly healthy most of the time due to inability to afford things. She is currently edentulous and this also limits her dietary intake. She did have an abdominal ultrasound in September that was unremarkable.There was no evidence of any biliary disease status-post her cholecystectomy.. Recent lab work through an ER visit in September was also unremarkable including a CBC, chemistries and renal function, lipase, and liver profile. * Medical History: A sthma-inhaler prn, Denies WI,DM,CVA,renal disease, ADHD, Anxiety. * Surgical History: K nee surgery , C-spine disc , CCY . * Family History: F ather: . M other: alive, diagnosed with HTN (hypertension). No family history of colon cancer. * Social History: T obacco Use: T obacco Control (Standard) T obacco use: C urrent smoker. M iscellaneous: M arital status: . 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 D rug/Alcohol: A ERIKA-C (Standard) D id you have a drink containing alcohol in the past year? Y es,?How often did you have a drink containing alcohol in the past year? 2 to 3 times a week (3 points), H ow many drinks did you have on a typical day when you were drinking in the past year??3 or 4 drinks (1 point), H ow often did you have six or more drinks on one occasion in the past year? N ever (0 point), P oints 4 , I nterpretation P ositive. S moker; occ. alcohol. * Medications: T aking clonazePAM 0.5 MG Tablet TAKE 1 TABLET BY MOUTH TWICE A DAY NEEDED FOR ANXIETY Oral , Taking Adderall XR 10 MG Capsule Extended Release 24 Hour 1 capsule in the morning Orally Once a day , Not-Taking/PRN Famotidine 20 MG Tablet TAKE 1 TABLET BY MOUTH EVERY DAY AT BEDTIME NEEDED FOR HEARTBURN Oral * Allergies: S easonal. Objective: * Vitals: W t:153.2lbs, Ht:61in, BMI:28.94Index, BP:001/01mm Hg, Temp:99.3, Ht-cm: 154.94, Wt-k.49. Assessment: * Assessment: 1. C onstipation - K59.00 (Primary) 2 . C olon cancer screening - Z12.11? 3. G ERD (gastroesophageal reflux disease) - K21.9 4 . A bdominal discomfort, generalized - R10.84 5 . I rritable bowel syndrome with constipation - K58.9 Given Alicia's longstanding symptomatology of her GI symptoms and abdominal discomfort, we did review that her diagnosis seems consistent with that of some irritable bowel syndrome and chronic constipation. In that regard I advised her that I think the parkinson thing would be to help her bowel movements become more regular so as to decrease the abdominal discomfort and straining. I have given her the below instructions for adding MiraLAX and Metamucil once or twice daily to her daily regimen. I will send prescriptions for that. I also advised her to try to stay on an as healthy diet as possible with fruits and vegetables. I did recommend a colonoscopy primarily for screening purposes. We did review the rationale for that in regard to colorectal cancer prevention. She will have a 2- day prep for the procedure given her longstanding constipation. She will also have an upper endoscopy the same day given her upper abdominal discomfort, occasional reflux, and her sense of dysphagia in association with her smoking history. Full consent has been obtained from her for both procedures, including risks of bleeding and perforation. Both procedures will be done with monitored anesthesia care. Given her recent workup with ultrasound and laboratories, I do not think any further diagnostic testing is required at this time. I did advise her to call me prior to the procedures if she has any problems or questions I can be of assistance with. Thank you again for allowing me to participate in Alicia's care. I shall continue to keep you advised of her progress. Plan: * Treatment: 2. C olon cancer screening P rocedure: COLONOSCOPY 3.?GERD (gastroesophageal reflux disease)?Procedure: UPPER GI ENDOSCOPY* with MACsched for 01/28/25 at 12:20 pm 4.?Abdominal discomfort, generalized?Procedure: UPPER GI ENDOSCOPY* with MACsched for 01/28/25 at 12:20 pm * Procedure Codes: 4 5378 DIAGNOSTIC COLONOSCOPY, 40401 UPPR GI ENDOSCOPY, DIAGNOSIS * Preventive Medicine: Counseling: C are goal follow-up plan: A enmanuel Normal BMI Follow-up D ietary management education, guidance, and counseling, B WI management provided Y es. * * The named appointment provid er may or may not be the originator of this progress note, and it is not deemed complete until electronically signed by the appointment provider. Sign off status: Pending * Provider: James Willard MD Date: 01/11/2025 Generated for Danie henry/Saad/Iraitting on: 01/14/2025 01:04 PM EDT
--- OUTSIDE RECORDS SUMMARY | 2025-01-14 13:05 | XMS_ITS | Encounter Summary ---
Author Organization [employer] Address [address] [place] [address] [address] [place] [address] Care Team Providers Care Data Scientist Name Role Phone Annmarie Chambers MD Primary Care Pro vider Reason for Visit * Reason Onset Date Comments PT-1 02/11/2024 Encounter Details Date Type Department Care Team ([facility] st Contact Info) Description 02/11/2024 Telephone [facility] [address], [place] [phone] Annmarie Chambers MD [address] [place] [address] PT-1 Social History Tobacco Use Types Packs/Day [...] Y/N: Yes Provider name or facility name: [facility] radiology Facility Address: [address] [place] [address] Escort needed: Y/N: Yes Do you have a wheelchair: Y/N: No If yes- Manual or electric: no Visits: 3 documented in this encounter Plan of Treatment Upcoming Encounters Date Type Department Care Team (Late st Contact Info) Description 01/20/2025 2:30 PM EDT Office Visit [facility] [address] [place] [address] Radames Garay, DMD [address] [place] [address] 01/27/2025 10:00 AM EDT Office Visit [facility] [address] [place] [address] Irina Sanchez CNM [address] [place] [address] 01/28/2025 9:30 AM EDT Office Visit [facility] [address] [place] [address] Annmarie Chambers MD [address] [place] [address] documented as of this encounter Visit Diagnoses Not on filedocumented in this encounter Additional Health Concerns Assessment Noted Time PHQ-9 Depression Total Score: 20 024 2:22 PM EDT documented as of this encounter Care Teams Data Scientist Relationship Specialty Start Date End Date Annmarie Chambers MD [address] [place] [phone] PCP - General Internal Medicine 02/02/24 documented as of this encounter
--- NOTE | 2025-01-27 12:09 | P.CONAN_ITS ---
Documented by User: Neelam Michelle NP 01/27/25 12:25 HPI - Anesthesia Eval Consult details Narrative: 44yo F for Upper Endoscopy and Colonoscopy s/p ACDF C6-C7 05/2024 [facility] [place] 09/2024 with N/V r/t cannibis use disorder Chronic elevated Hgb and Hct dating back to 2019 - ? r/t smoking - does not follow heme, no record of therapeutic phlebs PMFSH Active Problems Active Problems: All Active Problems Constipation (Acute) Knee pain, left (Acute) Cervical cancer screening (Acute) Breast cancer screening by mammogram (Acute) Annual physical exam (Acute) Back pain (Acute) Lower abdominal pain (Acute) Obesity (BMI 30-39.9) (Acute) GERD (gastroesophageal reflux disease) (Acute) Bipolar disorder (Acute) Tobacco abuse (Acute) Asthma (Acute) Rib pain on left side (Acute) Past Medical History Medical History Obesity (BMI 30-39.9) GERD (gastroesophageal reflux disease) Bipolar disorder Tobacco abuse Asthma Family History Family History Paternal Grandfather Lung cancer Son Bipolar 1 disorder Surgical History Surgical History H/O left knee surgery Social History Social History Housing: Apartment Alcohol intake: current Alcohol intake frequency: a few times a month Patient Tobacco Use Status: Current everyday Tobacco user Tobacco use type: Cigarette Cigarettes Per Day: 10 e-Cigarette/Vaping Use: Never Used Second Hand Smoke Exposure: Yes Advance Directives: No Advance Directives Information Provided: Yes Current occupational status: employed Meds Allergies Allergy/AdvReac Type Severity Reaction Status Date / Time No Known Allergies Allergy Verified 09/21/24 02:00 Seasonal allergies Allergy Intermediate Shortness Uncoded 06/11/23 15:04 of Breath Home Medications ?Medication ?Instructions ?Recorded ?Confirmed ?Last Taken ?Type clonazepam 0.5 mg tablet 0.5 mg PO BID PRN 06/20/20 1 Unknown History clonidine HCl 0.1 mg tablet 0.1 mg PO BID PRN Anxiety 08/22/25 08/22/25 Unknown History methylphenidate HCl 20 mg tablet 20 mg PO BID 01/28/25 01/28/25 Unknown History Exam Pertinent Lab Results Pertinent Lab Results: Laboratory Tests 09/21/24 02:08 WBC 15.4 H Hgb 17.6 H Hct 50.7 H Plt Count 256 Sodium 143 Potassium 4.5 Chloride 105 Carbon Dioxide 24 BUN 16 Creatinine 1.14 Narrative Narrative: EKG 09/2024 Vent. Rate : 49 BPM Atrial Rate : 49 BPM P-R Int : 132 ms QRS Dur : 90 ms QT Int : 556 ms P-R-T Axes : 37 -12 -2 degrees QTcB Int : 502 ms Sinus bradycardia with marked sinus arrhythmia Prolonged QT Abnormal ECG When compared with ECG of 03-Apr-2011 08:21, MANUAL COMPARISON REQUIRED PREVIOUS ECG IS INCOMPATIBLE EKG 05/2024 ([facility]) Ventricular Rate: 56 ?BPM Atrial Rate: 56 ?BPM P-R Interval: 128 ?ms QRS Duration: 92 ?ms Q-T Interval: 438 ?ms QTC Calculation(Bazett): 422 ?ms P [place]: 32 ?degrees R [place]: 4 ?degrees T [place]: 14 ?degrees Sinus bradycardia Otherwise normal ECG No previous ECGs available Confirmed by Geoff Paez ([id number]) on 05/10/2024 2:49:00 PM Assessment and Plan Assessment Anesthesia Assessment: Chart Reviewed Documented by User: Leandra Thompson MD 01/28/25 11:40 PMFSH Past Medical History Medical History Obesity (BMI 30-39.9) GERD (gastroesophageal reflux disease) Bipolar disorder Tobacco abuse Asthma Family History Family History Paternal Grandfather Lung cancer Son Bipolar 1 disorder Family history of problems with anesthesia: No Surgical History Surgical History H/O left knee surgery History of Problems with Anesthesia: No Social History Social History Housing: Apartment Alcohol intake: current Alcohol intake frequency: a few times a month Patient Tobacco Use Status: Current everyday Tobacco user Tobacco use type: Cigarette Cigarettes Per Day: 10 e-Cigarette/Vaping Use: Never Used Second Hand Smoke Exposure: Yes Advance Directives: No Advance Directives Information Provided: Yes Current occupational status: employed Meds Allergies Allergy/AdvReac Type Severity Reaction Status Date / Time No Known Allergies Allergy Verified 09/21/24 02:00 Seasonal allergies Allergy Intermediate Shortness Uncoded 06/11/23 15:04 of Breath Home Medications ?Medication ?Instructions ?Recorded ?Confirmed ?Last Taken ?Type clonazepam 0.5 mg tablet 0.5 mg PO BID PRN 06/20/20 1 Unknown History clonidine HCl 0.1 mg tablet 0.1 mg PO BID PRN Anxiety 01/28/25 01/28/25 Unknown History methylphenidate HCl 20 mg tablet 20 mg PO BID 01/28/25 01/28/25 Unknown History Exam Airway Mallampati Class: II TM Dist: >3cm Neck ROM: Full Heart: rrr Lungs: cta Assessment and Plan Assessment Anesthesia Assessment: Anesthesia Plan Discussed Final Anesthetic Review Family History of Problems with Anesthesia: No History of Problems with Anesthesia: No NPO: Yes ASA Class: III Final Preanesthetic Review: No Changes in Pt Med Stat, Meds/Allgs Chart Reviewed, Consent Obtained/Reviewed and Anes Risks/Benef Reviewed Patient Risk: Intermediate Procedure Risk: Low Anesthetic Plan Anesthetic Plan: MAC: Disposition: Standard PACU
[2025-01-28 11:35] LABS: UPreg QC Valid YES
[2025-01-28 11:49] VITALS: BP 143/88; PULSE 60; RESP 15; TEMP 37.1; O2SAT 99; BMI 27.5
[2025-01-28] MEDS: Lactated Ringers 1,000 ML 100 ML IVCONT (11:58)
--- NOTE | 2025-01-28 12:24 | PC.NURSE ---
Patient admitted to doing cocaine a few days ago when she met with pairer odds before going into procedure room. Dr. Thompson at bedside now and aware. Doctor stated okay to proceed, educated patient. no interventions at this time.
[2025-01-28 13:30] VITALS: BP 128/78; PULSE 75; RESP 16; TEMP 36.4; O2SAT 97
--- NOTE | 2025-01-28 13:38 | PM.OP ---
Brief Operative Note Date of Service: 01/28/25 Pre-op diagnosis: GERD, Abdominal pain, Screening Post-op diagnosis: other (Hiatal hernia, Gastritis, Rectal polyps) Procedure: EGD with biopsies, Colonoscopy to the cecum and TI with cold snare polypectomies x 2 Surgeon: Sam Willard MD Was an Answering Service Operator used for this Procedure?: No Estimated blood loss (mL): 2.0 Pathology: other (A. 2nd and 3rd portions of duodenum B. Gastric antrum C. EG Junction at 34cm D. Rectal polyps) Condition: stable Disposition: PACU
[2025-01-28 13:45] VITALS: BP 133/88; PULSE 65; RESP 20; TEMP 37; O2SAT 100
--- NOTE | 2025-01-28 23:11 | OP_ITS ---
DATE OF SERVICE: 01/28/2025 SURGEON: Sam Willard MD INDICATIONS: The patient presents for evaluation of gastroesophageal reflux, abdominal discomfort, and colorectal cancer screening. Full consent has been obtained from her for both procedures, including risks of bleeding and perforation. PREOPERATIVE DIAGNOSIS: POSTOPERATIVE DIAGNOSIS: PROCEDURE PERFORMED: Esophagogastroduodenoscopy with biopsies, and colonoscopy to the cecum and terminal ileum with cold snare polypectomy x2. ESTIMATED BLOOD LOSS: COMPLICATIONS: ANESTHESIA: Monitored anesthesia care. ASSISTANTS: SPECIMENS: PREOPERATIVE DIAGNOSES: Gastroesophageal reflux, abdominal discomfort, colorectal cancer screening. POSTOPERATIVE DIAGNOSES: Gastroesophageal reflux, abdominal discomfort, colorectal cancer screening, hiatal hernia, gastritis, duodenitis, rectal polyps, diverticulosis, and internal hemorrhoids. DESCRIPTION OF PROCEDURE: The patient was placed in the left lateral decubitus position. The Olympus video gastroscope was passed in the posterior oropharynx and upper esophagus under direct vision. The scope was passed slowly into the distal esophagus. The gastroesophageal junction appeared at 34 cm. There was some slight irregularity consistent with reflux and possibly a Aden esophagus. There was no evidence of any esophagitis nor any lesions. There was a small hiatal hernia. The scope was advanced to the pylorus and the duodenum was cannulated to the descending portion. The duodenum including the bulb appeared consistent with some duodenitis with erythema and edema, but no erosions or ulceration. Biopsies were obtained from the second and third portions. The scope was withdrawn back in the stomach. The gastric antrum had areas of erythema and edema, but no erosions nor ulceration. There was good peristalsis. Biopsies were obtained from the gastric antrum. The scope was withdrawn back to the esophagus. Biopsies were obtained at the EG junction at 34 cm. Proximal to this, the esophageal mucosa appeared normal. Scope was withdrawn from the patient. She was turned around for the colonoscopy. The digital rectal exam revealed no abnormalities. The Olympus video pediatric colonoscope was entered into the rectum and advanced easily to the cecum. Once in the cecum, I did identify normal-appearing cecal pouch with appendiceal orifice and a normal-appearing ileocecal valve. The terminal ileum was cannulated and appeared normal. The scope withdrawn back in the colon. The entire cecum and ileocecal valve appeared normal. The scope was slowly withdrawn assessing all mucosal surfaces carefully. Preparation was excellent. There was a mild amount of sigmoid diverticulosis. I did not visualize any sign of colitis nor angiodysplasia. In the rectum, scope was retroflexed visualizing internal hemorrhoids. Also, in the distal rectum, seen best in the forward viewing position, were 2 flat but raised approximately 5 or 6 mm polyps, which were removed by cold snare polypectomy and recovered by suction. The polypectomy sites appeared clean, without any sign of residual polyp nor bleeding. The scope was withdrawn from the patient. She tolerated both procedures well and was returned to the recovery area in stable condition. IMPRESSION: 1. Rectal polyps. 2. Diverticulosis. 3. Internal hemorrhoids. 4. Hiatal hernia, gastroesophageal reflux. 5. Gastritis. 6. Duodenitis. PLAN: The results of the pathology will be checked. She will undergo a followup colonoscopy with screening in 5 years if either polyp is a tubular adenoma. If they are both hyperplastic, she could have a repeat colonoscopy in 10 years. She was advised to avoid all aspirin and NSAIDs for at least 1 week. I shall give her a trial of omeprazole to see if that might help alleviate some of her abdominal complaints in the event we are dealing with some gastritis and/or reflux. She will be seen in followup as needed. MD NOEMI Moore/ELENA / [id number]
== END 2025-01-28 14:03 | disposition home or self-care (01) ==
PROVIDERS: Nurse Practitioner; PCP Student in an Organized Health Care Education/Training Program; Visit Provider Internal Medicine
PROC: (CPT 45385; principal; 2025-01-28 12:20)
DX: Z12.11 Encounter for screening for malignant neoplasm of colon (principal); D12.8 Benign neoplasm of rectum; K57.30 Diverticulosis of large intestine without perforation or abscess without bleeding; K64.8 Other hemorrhoids; K58.1 Irritable bowel syndrome with constipation; K21.9 Gastro-esophageal reflux disease without esophagitis; K29.50 Unspecified chronic gastritis without bleeding; B96.81 Helicobacter pylori [H. pylori] as the cause of diseases classified elsewhere; K31.A11 Gastric intestinal metaplasia without dysplasia, involving the antrum; K29.80 Duodenitis without bleeding; K44.9 Diaphragmatic hernia without obstruction or gangrene; J45.909 Unspecified asthma, uncomplicated; F90.9 Attention-deficit hyperactivity disorder, unspecified type; F41.9 Anxiety disorder, unspecified; Z79.899 Other long term (current) drug therapy; Z90.49 Acquired absence of other specified parts of digestive tract; Z98.890 Other specified postprocedural states; F17.210 Nicotine dependence, cigarettes, uncomplicated
CPT/HCPCS: 45385; 43239; 81025; 88305; 88313; 88342; J2704

== ENCOUNTER 2025-03-29 14:55 | Outpatient (REF) | payer MEDICAID, SELFPAY ==
--- OUTSIDE RECORDS SUMMARY | 2025-01-28 07:20 | XMS_ITS ---
Author Organization [facility] Address [address] [place] [phone] Care Team Providers Care Casting Supervisor Name Role Phone Annmarie Chambers Primary Care Provider Sam Barnett [phone] REASON FOR VISIT gerd,abdominal pain,screening Encounters Encounter Location Date Provider Diagnosis [facility] [place] Out[place] [address] [place], [place] [phone] 01/28/2025 aSm Willard Plan Of Treatment No Information Progress Notes * EMILIA VELAZQUEZDOB: [birth year] (44 yo F)Acc No.[id number]:01/28/2025 EGD and COL/MAC Patient: EMILIA BAIN Provider: James Willard MD :1980 A ge:44 Y S ex:Female Date:01/28/2025 Address:[address] [place] [address] [facility] Pcp:Annmarie Santana Subjective: * Chief Complaints: * 1 . Gerd,abdominal pain,screening. * Medical History: Objective: * Vitals: Assessment: Plan: * Treatment: * * The named appointment provid er may or may not be the originator of this progress note, and it is not deemed complete until electronically signed by the appointment provider. Sign off status: Pending * Provider: James Willard MD Date: 0 01/28/2025 Generated for Danie henry/Saad/Iraitting on: 08:05 PM EDT
--- NOTE | ~2025-03-29 | US_ITS ---
CLINICAL HISTORY: dysmenorrhea, known fibroid US pelvis transabdominal and transvaginal with doppler interrogation Comparison: 02/10/2024 Findings: Transabdominal scanning performed for overall anatomy. Transvaginal scanning performed for additional detail. Anteverted uterus 7.5 cm in length. Normal echotexture. A small left lower uterine segment fibroid measuring 11 x 9 x 7 mm is noted (previously 8 mm).. Normal endometrium, 2 mm thickness. Right ovary normal, 2.3 cm. Normal color flow. Punctate calcification are re-identified. Left ovary normal, 2.4 cm. Normal color flow . Punctate calcification are re-identified. No free fluid Impression: 1. Small uterine fibroid. Otherwise, unremarkable pelvic ultrasound This document has been electronically signed by: Fredis Ariza MD on 03/30/2025 19:39:27
--- OUTSIDE RECORDS SUMMARY | 2025-03-29 20:05 | XMS_ITS | Encounter Summary ---
Author Organization [employer] Address [address] [facility] 7t [place] [address] Care Team Providers Care Furniture Installer Name Role Phone Annmarie Chambers MD Primary Care Pro vider Reason for Visit * Reason Comments Med Refill Encounter Details Date Type Department Care Team ([facility] st Contact Info) Description 10/18/2024 Refill [facility] [address] [place], [place] [phone] Annmarie Chambers MD [address] [place], [place] [phone] Social History Tobacco Use Types Packs/Day Years [...] Care Team (Late st Contact Info) Description 04/08/2025 11:00 AM EDT Office Visit [facility] ADULT DENTAL [address] [place] [phone] Radames Garay, DMD [address] [place] [address] 05/04/2025 10:45 AM EST Office Visit [facility] [address] [place] [phone] Annmarie Chambers MD [address] [place] [address] documented as of this encounter Visit Diagnoses Not on filedocumented in this encounter Additional Health Concerns Assessment Noted Time PHQ-9 Depression Total Score: 20 024 2:22 PM EDT documented as of this encounter Care Teams Furniture Installer Relationship Specialty Start Date End Date Annmarie Chambers MD [address] [place] [address] PCP - General Internal Medicine 02/02/24 documented as of this encounter
--- OUTSIDE RECORDS SUMMARY | 2025-03-29 20:05 | XMS_ITS | Encounter Summary ---
Author Organization [employer] Address [address] [place] [address] 7[address] [place] [address] Care Team Providers Care Livestock Farmer Name Role Phone Annmarie Chambers MD Primary Care Pro vider Reason for Visit * Reason Comments Med Refill Encounter Details Date Type Department Care Team (Late st Contact Info) Description 12/17/2023 Refill [facility] [address] [place] [phone] Adriana Stacy MD [address] [place] [phone] Social History Tobacco Use Types Packs/Day Years [...] Description 04/08/2025 11:00 AM EDT Office Visit [facility] [address] [place] [address] Radames Garay DMD [address] [place] [address] 05/04/2025 10:45 AM EST Office Visit [facility] [address] [place] [address] [place] [address] Annmarie Chambers MD [address] [place], [place] [phone] documented as of this encounter Visit Diagnoses Not on filedocumented in this encounter Care Teams Livestock Farmer Relationship Specialty Start Date End Date Annmarie Chambers MD [address] [place], [place] [phone] PCP - General Internal Medicine 02/02/24 documented as of this encounter
--- OUTSIDE RECORDS SUMMARY | 2025-03-29 20:05 | XMS_ITS | Encounter Summary ---
Author Organization [employer] Address [address] [facility] 7t [place] [address] Care Team Providers Care Retinal Surgeon Name Role Phone Annmarie Chambers MD Primary Care Pro vider Reason for Visit * Reason Comments Med Refill Encounter Details Date Type Department Care Team ([facility] st Contact Info) Description 01/23/2024 Refill [facility] [address] [place], [place] [phone] Adriana Stacy MD [address] [place] [address] Social History Tobacco Use Types Packs/Day Years [...] the past 12 months, has t he [employer], gas, oil or water company threatened to [...] Description 04/08/2025 11:00 AM EDT Office Visit [facility] ADULT DENTAL [address] [place] [phone] Radames Garay, DMD [address] [place] [address] 05/04/2025 10:45 AM EST Office Visit [facility] [address] [place] [phone] Annmarie Chambers MD [address] [place] [phone] documented as of this encounter Visit Diagnoses Not on filedocumented in this encounter Additional Health Concerns Assessment Noted Time PHQ-9 Depression Total Score: 20 024 2:22 PM EDT documented as of this encounter Care Teams Retinal Surgeon Relationship Specialty Start Date End Date Annmarie Chambers MD [address] [place] [phone] PCP - General Internal Medicine 02/02/24 documented as of this encounter
--- OUTSIDE RECORDS SUMMARY | 2025-03-29 20:05 | XMS_ITS | Encounter Summary ---
Author Organization [employer] Address [address] [facility] 7t [place] [address] Care Team Providers Care Pbx Inspector Name Role Phone Annmarie Chambers MD Primary Care Pro vider Reason for Visit * Reason Comments Med Change Request Encounter Details Date Type Department Care Team ([facility] st Contact Info) Description 12/08/2024 Refill [facility] [address] [place], [place] [phone] Annmarie Chambers MD [address] [place], [place] [phone] Social History Tobacco Use Types Packs/Day Years [...] Description 04/08/2025 11:00 AM EDT Office Visit [facility] ADULT DENTAL [address] [place] [phone] Radames Garay, DMD [address] [place] [address] 05/04/2025 10:45 AM EST Office Visit [facility] [address] [place] [address] Annmarie Chambers MD [address] [place] [address] documented as of this encounter Visit Diagnoses Not on filedocumented in this encounter Additional Health Concerns Assessment Noted Time PHQ-9 Depression Total Score: 20 024 2:22 PM EDT documented as of this encounter Care Teams Pbx Inspector Relationship Specialty Start Date End Date Annmarie Chambers MD [address] [place] [address] PCP - General Internal Medicine 02/02/24 documented as of this encounter
--- OUTSIDE RECORDS SUMMARY | 2025-03-29 20:05 | XMS_ITS | Encounter Summary ---
Author Organization [employer] Address [address] [facility] 7t [place] [address] Care Team Providers Care Weight Control Lecturer Name Role Phone Annmarie Chambers MD Primary Care Pro vider Reason for Visit * Reason Comments Med Refill Encounter Details Date Type Department Care Team ([facility] st Contact Info) Description 04/24/2024 Refill [facility] [address] [place], [place] [phone] Annmarie Chambers MD [address] [place] [address] Social History Tobacco Use Types Packs/Day Years [...] Description 04/08/2025 11:00 AM EDT Office Visit [facility] ADULT D[facility] [address] [place] [phone] Radames Garay, DMD [address] [place] [address] 05/04/2025 10:45 AM EST Office Visit [facility] [address] [place] [address] Annmarie Chambers MD [address] [place] [address] documented as of this encounter Visit Diagnoses Not on filedocumented in this encounter Additional Health Concerns Assessment Noted Time PHQ-9 Depression Total Score: 20 024 2:22 PM EDT documented as of this encounter Care Teams Weight Control Lecturer Relationship Specialty Start Date End Date Annmarie Chambers MD [address] [place] [phone] PCP - General Internal Medicine 02/02/24 documented as of this encounter
--- OUTSIDE RECORDS SUMMARY | 2025-03-29 20:05 | XMS_ITS | Clinical Summary ---
Author Organization [facility] [employer] Address [address] [facility] 7[address] [place] [address] Care Team Providers Care Char House Supervisor Name Role Phone Annmarie Chambers MD Primary Care Pro vider Allergies Active Allergy Reactions Criticality Noted Date Comments Other 10/27/2023 Seasonal allergies Medications Banophen 25 MG capsule Take 25 mg by mouth if needed for sleep (insomnia, anxiety). See above sig 4 Active methylphenidate (Ritalin) 20 MG tablet Take 20 mg by mouth 2 times daily. 4 Active Blood Pressure Monitoring (Blood Pressure Cuff) miscIndications: Elevated blood pressure reading 1 each Once daily. 1 each 4 Active cloNIDine (Catapres) 0.1 MG tablet TAKE 1 TABLET BY MOUTH TWICE A DAY NEEDED FOR ANXIETY, TAKE PRIOR TO USE CLONAZEPAM 4 Active clonazePAM (KlonoPIN) 0.5 MG tablet Take 0.5 mg by mouth if needed in the morning and at bedtime for anxiety. 4 Active albuterol 108 (90 Base) MCG/ACT inhaler Inhale 2 puffs every 6 (six) hours if needed for wheezing. 18 g 3 4 Active chlorhexidine (Peridex) 0.12 % solutionIndicati ons:Periodontal disease,Dental abscess Swish 15 mL morning and night for 1 minute. Spit, do not swallow. Do not eat or drink for 30 minutes following use. 473 mL 5 Active lidocaine (Lidoderm) 5 % patchIndications :Right flank pain Apply 1 patch topically Once per day. Remove & discard patch within 12 hours or as directed by MD. 30 patch 2 5 Active psyllium (Metamucil Smooth Texture) 58.6 % powderIndication s:Constipation, unspecified constipation type Take 5.12 g (3 g of fiber) by mouth 2 times daily. 283 g 2 5 026 Active famotidine (Pepcid) 20 MG tablet TAKE 1 TABLET BY MOUTH AT BEDTIME NEEDED FOR HEARTBURN 90 tablet 5 Active Acetaminophen Extra Strength 500 MG tabletIndication s:Periodontal disease,Dental abscess,Right flank pain TAKE 1 TABLET (500 MG) BY MOUTH EVERY 8 (EIGHT) HOURS IF NEEDED FOR MILD PAIN FOR UP TO 30 DOSES. 30 tablet 2 5 Active chlorhexidine (Peridex) 0.12 % solution Use 15ml twice daily to rinse the mouth. Spit, do not swallow. 473 mL 5 Active docusate sodium (Colace) 100 MG capsuleIndicatio ns:Constipation, unspecified constipation type TAKE 1 CAPSULE BY MOUTH TWICE A DAY NEEDED FOR CONSTIPATION 180 capsule 1 5 Active chlorhexidine (Peridex) 0.12 % solution SWISH 15 ML FOR 30 SECS THEN SPIT. USE IN AM, NOON, AND BEDTIME AFTER BRUSHING TEETH NEEDED 473 mL 5 Active Varenicline Tartrate, Starter, (Chantix Starting Month ) 0.5 MG X 11 & 1 MG X 42 tablet therapy pack Take 1 tablet by mouth at noon and 1 tablet in the evening. Days 1-3: 0.5 mg PO qDay, Days 4-7: 0.5 mg PO twice a day , Day 8 to end of treatment: 1 mg twice a day. 1 each 5 Active varenicline (Chantix) 1 MG tablet TAKE 1 TABLET BY MOUTH TWICE A DAY. TAKE WITH FULL GLASS OF WATER. 60 tablet 2 5 Active Active Problems Problem Noted Date Diagnosed Date Constipation 09/22/2024 Abdominal pain 09/22/2024 Somnolence, daytime 09/22/2024 Periodontal disease 08/02/2024 Dental abscess 08/02/2024 HLD (hyperlipidemia) 03/03/2024 ADHD 01/14/2024 Bipolar 1 disorder ([facility]) 01/14/2024 Anxiety 01/14/2024 Asthma 01/14/2024 Tobacco abuse [...] Encounters Date Type Department Care Team Description 03/22/2025 1:00 PM EDT Office Visit [facility] [address] [place] [address] Irina Sanchez CNM Dysmenorrhea (Primary Dx); Fibroid; Encounter for immunization; Pelvic pain 03/22/2025 Travel 03/21/2025 Telephone [facility] [address] [place] [address] Princess Jj MA 03/10/2025 1:30 PM EDT Office Visit [facility] ADULT DENTAL [address] [facility] [place] [address] Radames Garay DMD 02/15/2025 Telephone [facility] [address] [facility] [place] [address] Irina Sanchez CNM CHART PREP 02/10/2025 Telephone [facility] [address] [facility] [place] [address] Annmarie Chambers MD PT1 apts 02/03/2025 Telephone [facility] [place] [facility] [place] [address] Annmarie Chambers MD 01/28/2025 9:30 AM EDT Office Visit [facility] [place] [place] [address] Annmarie Chambers MD Abdominal pain, unspecified abdominal location (Primary Dx); Health care maintenance; Bipolar 1 disorder ([facility]); Tobacco abuse 01/28/2025 Orders Only GENERIC EXTERNAL DATA DEPARTMENT Provider, Generic External Data 01/28/2025 Travel 01/27/2025 Telephone [facility] [place] [address] Annmarie Chambers MD 01/27/[address] [address] Annmarie Chambers MD Error (VOID this visit) 01/27/2025 Telephone [facility] [place] [address] Irina Sanchez CNM No Show 01/26/2025 Telephone [facility] [place] [facility] [place] [address] Irina Sanchez CNM chart prep 01/22/2025 Refill [facility] [place] [facility] [place] [address] Annmarie Chambers MD 01/04/2025 Refill [facility] ADULT DENTAL [address] [facility] [place] [address] Radames Garay DMD from Last 3 Months Immunizations Immunization Administration Dates Next Due Hep B, adult 03/22/2025,04/13/2024,03/03/2024 Influenza, IIV3, injectable 03/24/2024 Influenza, seasonal, injecta ble, preservative free 03/03/2024 Pfizer Covid-19 Vaccine 12+ 04/13/2024 Pneumococcal [...] Tobacco: Every Day Cigarettes Passive Smoke Exposure: Current Smokeless Tobacco: Never Tobacco Cessation:Ready to Q [...] alcohol) cocktail 4-5 cans times a week Alcohol Answer Date Recorded How often do you have a drink containing alcohol ? 3 01/28/2025 How many drinks containing a lcohol do you have on a typical day when you are drinking? 1 01/28/2025 How often do you have six or more drinks on one occasion? 1 01/28/2025 Depression Answer Date Recorded Patient Health Questionnaire-9 Score 27 01/28/2025 Patient Health Questionnaire-9 Score 27 01/28/2025 Last PHQ-9: Questionnaire Data Not on file 0 01/28/2025 Housing Stability Answer Date Recorded What is your housing situation today? I have rach jarvis 01/28/[address] you li ve. Do you have problems with any of the following? None of the above 01/28/2025 Food Insecurity Answer Date Recorded Within the past 12 months, y ou worried that your food would run out before you got money to buy more: Sometimes True 2024 Within the past 12 months,th e food you bought just didn't last and you didn't have enough money to get more: Sometimes True 01/28/2025 Transportation Answer Date Recorded In the past 12 months, has l ack of transportation kept you from medical appts, meetings, work or from getting things needed for daily living? Yes, it has kept me from medical appointments or getting medications. 01/28/2025 Utilities Answer Date Recorded In the past 12 months, has t he electric, gas, oil or water company threatened to shut off services in your home? Yes 01/28/2025 Depression Answer Date Recorded Patient Health Questionnaire-2 Score 6 01/28/2025 Internet Access Answer Date Recorded Internet Access Q1 Yes 01/28/2025 Internet Access Q2 Not on file 01/28/2025 Comments Unknown Sex and Gender Information Value Date Recorded Sex Assigned at Female 04/08/2022 10:22 AM EDT Legal Sex Female 10:22 AM EDT Gender Identity Female 03/02/2024 12:44 PM EDT Sexual Orientation Bisexual 03/02/2024 12 :44 PM EDT Sexual Orientation Straight 03/02/2024 12 :44 PM EDT Last Filed Vital Signs Vital Sign Reading Time Taken Comments Blood Pressure 110/70 03/22/2025 1:11 PM EDT Pulse 68 03/22/2025 1:11 PM EDT Temperature 36.6 C (97.8 F) 01/28/2025 9:21 AM EDT Respiratory Rate 16 03/22/2025 1:11 PM EDT Oxygen Saturation 99% 09/22/2024 3:02 PM EDT Inhaled Oxygen Concentration - - Weight 74.5 kg (164 lb 3.2 oz) 03/22/2025 1:11 P M EDT Height 157 cm (5' 1.81 ) 01/28/2025 9:21 AM EDT Body Mass Index 30.22 01/28/2025 9:21 AM EDT Plan of Treatment Upcoming Encounters Date Type Department Care Team (Late st Contact Info) Description 04/08/2025 11:00 AM EDT Office Visit [facility] ADULT DENTAL [address] [place] [address] Radames Garay DMD [address] [place] [address] 05/04/2025 10:45 AM EST Office Visit [facility] [address] [place] [address] Annmarie Chambers MD [address] [place] [phone] Health Maintenance Due Date Last Done Comments CT Colonography 1980 Colonoscopy 1980 Colorectal Cancer Screening 1980 Dental Prophylaxis 1980 FIT DNA/Cologuard 1979 FIT 1980 FOBT 1980 Sigmoidoscopy 1980 Family Planning (PISQ) 08/09/1994 HPV Vaccines (1 - 3-dose series) 08/09/1994 Dental X-Ray: Bitewings 12/14/2015 12/13/19 15, 03/17/2013 Influenza Vaccine (#1) 2025 , 03/03/2024 Dental Oral Exam 04/30/2025 10/27/2024, 12/12/2014, 03/17/2013 Depression Monitoring 07/31/2025 01/28/2025 , 01/28/2025 Alcohol/Substance Use Screening 01/28/2026 01/28/2025 Disability Screening 01/28/2026 01/28/2025 SDOH Screening 01/28/2026 01/28/2025 Mammogram 02/02/2026 02/03/2024 Tobacco Screening 03/10/2026 03/10/2025 Dental X-Ray: Full Mouth 10/29/2027 025, 08/02/2024, 03/17/2013 Lipid Panel 01/18/2029 01/19/2024 Cervical Cancer Screening 01/28/2029 HPV/Cotest 01/28/2029 01/29/2024 Pap Smear 01/28/2029 01/29/2024 Zoster Vaccines (1 of 2) 08/09/2029 DTaP/Tdap/Td Vaccines (2 - T d or Tdap) 01/13/2034 01/14/2024 RSV Patients and Patients Aged 60 years or older (1 - 1-dose 75+ series) 08/09/2054 HIV Screening Completed 01/19/2024 Hepatitis C Screening Completed 01/19/2024 Pneumococcal Vaccine: Pediatrics (0 to 5 Years) and At-Risk Patients (6 to 49) Years Completed 03/03/2024, 03/09/2021 COVID-19 Vaccine Completed 04/13/2024, 10/23/2020, 10/02/2020 Hepatitis B Vaccines Completed 03/22/2025, 04/13/2024, 03/03/2024 HIB Vaccines Aged Out No longer eligi ble based on patient's age to complete this topic Hepatitis A Vaccines Aged Out No long er eligible based on patient's age to complete this topic IPV Vaccines Aged Out No longer eligi ble based on patient's age to complete this topic Meningococcal B Vaccine Aged Out No l onger eligible based on patient's age to complete [...] Procedure Name Priority Date/Time Associated Diagnosis Comments DENTURE IMPRESSION Routine 03/10/2025 1: 30 PM EDT HEMATOXYLIN AND EOSIN STAIN Routine 01/28/2025 12:36 PM EDT HCG, QL, URINE Routine 01/28/2025 11:15 AM EDT PANORAMIC RADIOGRAPHIC IMAGE Routine 10/27/2024 10:30 AM EDT PERIODIC ORAL EVALUATION - ESTABLISHED PATIENT Routine 10/27/2024 10:30 AM EDT BI MAMMOGRAM SCREENING TOMOSYNTHESIS BILATERAL Routine 02/03/2024 [...] RADIOGRAPHIC IMAGES Routine 12/12/2014 12:00 AM EDT from Last 3 Months or Most Recently Relevant to Health Maintenance Results * Hematoxylin and Eosin Stain (01/28/2025 12:36 PM EDT) 01/28/2025 12:3 6 PM EDT 01/28/2025 2:07 PM EDT [facility] - 01/31/2025 3:27 PM EDT ----- ------- Name: Alicia Meyer Age/Sex: 44/F : 1980 Unit#: [id number] Attend Dr: Sam Willard MD Re01/28/25 Status: [facility] Location: HO.SSS Disch: ----- ------- SPEC : [id number] RECD: 01/28/25-447 STATUS: SOUT REQ NUM: [id number] MAYTE: 01/28/25-[address] [facility] [address]: Sam Willard MD ENTERED: 01/28/25-2083 SP TYPE: Surgical OTHR DR: Annmarie Chambers MD ORDERED: HE Stain/12, Gross Micro L4/4, IHC, Special st. 2/3, H. pylori, AB/PAS/3 Diagnosis A. Duodenum, 2nd and 3rd portion, biopsy: Duodenal mucosa within normal limits; preserved villous architecture and no increase in intraepithelial lymphocytes seen. B. Stomach, antrum, biopsy: Gastric antral mucosa with moderate chronic active gastritis and numerous Helicobacter pylori organisms identified along with intestinal metaplasia (complete); negative for dysplasia. C. Gastroesophageal junction, 34 cm, biopsy: Squamocolumnar junctional mucosa with mild chronic inflammation; negative for intestinal metaplasia and dysplasia. D. Rectum, polypectomy x2: Tubular adenoma (1); hyperplastic polyp (1); negative for high-grade dysplasia. Clinical History Pre-Op Dx: Screening, GERD, generalized abdominal pain Post-Op Dx: Hiatal hernia, gastritis, reflux, diverticulosis, hemorrhoids, colon polyps Microscopic Description A-D. Microscopic sections examined. Intestinal metaplasia is identified in specimen B, highlighted by AB/PAS; no metaplastic changes are seen, supported by AB/PAS stains (A, C, D); Helicobacter organisms are seen, supported by H. pylori immunostain (B). Material Received A. 2nd and 3rd portion duodenum bx's B. Gastric antrum bx's C. EG junction bx's at 34 cm D. Rectal polyps Gross Description Received in 4 parts. A. Received in formalin labeled 2nd and 3rd portion duodenum biopsies are 4 fragments of pink-ricks soft tissue measuring 0.4-0.5 cm in greatest dimension which are wrapped in lens paper and entirely submitted for microscopic examination, 4 pieces in cassette A. B. Received in formalin labeled gastric antrum biopsies are 3 fragments of ricks-white soft tissue measuring 0.3-0.4 cm in greatest dimension which are wrapped in lens paper and entirely submitted for microscopic examination, 3 pieces in cassette B. CONTINUED ON NEXT PAGE ----- ------- Name: BetsyAlicia Age/Sex: 44/F : 1980 [facility]#: [id number] Unit#: [id number] Attend Dr: Sam Willard MD Re01/28/25 Status: [facility] Location: HO.ZAC Disch: ----- ------- SPEC : [id number] RECD: 01/28/25 STATUS: MARGAUX BERRY NUM: [id number] MAYTE: 01/28/251236 [facility] DR: Sam Willard MD ENTERED: 01/28/250 SP TYPE: Surgical OTHR DR: Annmarie Chambers MD ORDERED: HE Stain/12, Gross Micro L4/4, IHC, Special st. 2/3, H. pylori, AB/PAS/3 Gross Description (Continued) C. Received in formalin labeled EG junction biopsies at 34 cm are 3 fragments of white and pink white soft tissue measuring 0.3-0.4 cm in greatest dimension which are wrapped in lens paper and entirely submitted for microscopic examination, 3 pieces in cassette C. D. Received in formalin labeled rectal polyps are fragments of ricks-white soft tissue ranging from 0.1-0.4 cm in greatest dimension, forming an aggregate measuring 0.9 x 0.7 x 0.2 cm which is wrapped in lens paper and entirely submitted for microscopic examination, multiple pieces in cassette D. ([facility]) Special stains ordered and performed: AB/PAS on A-C; immunostain for B. IHC S/NG Disclaimer NOTE: Unless otherwise stated, all tissue is formalin-fixed and paraffin-embedded. Some or all of the immunohistochemical tests reported herein may have been developed and their performance characteristics determined by [facility]. They have not been cleared or approved by the U.S. Food and Drug Administration (FDA). However, the FDA has determined that such clearance or approval is not necessary. This laboratory is certified under the Clinical Laboratory Improvement Amendments of 1988 (CLIA) as qualified to perform high complexity clinical laboratory testing. Copies To: Annmarie Chambers MD [address] [place] [address] [id number] Sam Willard MD [address] [place] ----- ------- Signed (signature on file) Odalys Pierre MD 01/31/25 1527 ----- ------- END OF REPORT Generic External Data Provider LAB BLOOD ORDERAB LES Final Result Performing Organization Address [facility] Co de Phone Number [facility] [address] [place], [place] [phone] * HCG, Qualitative, Urine (01/28/2025 11:15 AM EDT) Pathologist [facility] Urine NEGATIVE NEGATIVE [facility] Comment:This test was develo ped to detect early . Falsenegative results may occur after the 5th - 7th week ofpregnancy when using this test method. If clinicallyindicated, consider a serum hCG. 01/28/2025 11:1 5 AM EDT 01/28/2025 11:31 AM EDT Generic External Data Provider LAB URINE ORDERAB LES Final Result Performing Organization Address [facility] Co de Phone Number [facility] [address] [place], [place] [phone] * BI Mammogram Screening Tomosynthesis Bilateral (02/03/2024 10:30 AM EDT) Anatomical Region Laterality Modality Breast Bilateral Mammography 02/03/2024 10:3 0 AM EDT Narrative 02/27/2024 3:02 PM EDT [facility] [address] [place] [address] Mammography Report Signed Patient: Alicia Meyer MR#: [id number] : 1980 Acct:[id number] Age/Sex: 43 / F ADM Date: 02/03/24 Loc: HO.MAMMO Attending Dr: Annmarie Santana MD Ordering Physician: Annmarie Chambers MD Re sults: 1Negative Date of Service: 02/03/24 Follow Up: 1 Year From Orig inal Mammogram Procedure(s): MM tomosynthesis screening BI Accession Number(s): [id number] cc: Annmarie Chambers MD EXAMINATION: MM SCREENING [...] 02/27/24 1459 DD/ 1030 TD/TT: 02/03/24 1042 Lithographic Proofer: Procedure Note Donotuseinterpreter, Image - 02/27/2024 [facility] [address] [place], [place] [address] Mammography Report Signed Patient: Naomi Meyer#: [id number] : 1980Acct:[id number] Age/Sex: 43 / FADM Date: 02/03/24 Loc: HO.MAMMO Attending Dr: Annmarie Santana MD Ordering Physician: Annmarie Chambers sults: 1Negative Date of Service: 02/03/24Follow Up: 1 Year From Orig inal Mammogram Procedure(s): MM tomosynthesis screening BI Accession Number(s): [id number] cc: Annmarie Chambers MD EXAMINATION: MM SCREENING [...] 02/27/24 1459 DD/ 1030 TD/TT: 02/03/24 1042 Lithographic Proofer: us Annmarie Santana MD IMG BI PROCEDURES Edited Result - Final * ThinPrep Imaging Pap and HPV mRNA E6/E7 (01/29/2024 12:00 AM EDT) HPV nRNA E6/E7 Not Detected Not Detected [facility] Comment:Methodology: Transcr iption-Mediated AmplificationThis assay detects E6/E7 viral messenger RNA (mRNA) from 14high-risk HPV types (16,18,31,33,35,39,45,51,52,56,58,59,66,68).Cervical sources are required for HPV testing.If a vaginal source from a patient who has had atotal hysterectomy with removal of cervix wassubmitted, please contact the testing laboratoryfor alternative testing options.For additional information, please refer [email or web address].PowWowHR/faq/WYR851k0(This link if provided for information/educational purposes only.)THIS TEST WAS PERFORMED AT:[facility] [address] [id number] MOYA MD SOURCE: SEE NOTE [facility] Comment:None given Report Status: [facility] Clinical Information: SEE NOTE [facility] Comment:None given LMP: SEE NOTE [facility] Comment:NONE GIVEN Prev. PAP: SEE NOTE [facility] Comment:NONE GIVEN Prev. BX: SEE NOTE [facility] Comment:NONE GIVEN Statement Of Adequacy: SEE NOTE [facility] Comment:Satisfactory for yusef luation.Endocervical/transformation zone componentpresent. General Categorization: [facility] Interpretation/Result: SEE NOTE [facility] Comment:Cytology Results: Ne gative for intraepitheliallesion or malignancy. Cytology Comment SEE NOTE [facility] Comment:This Pap test has be en evaluated with computerassisted technology. Otolaryngology Teacher: SEE NOTE [facility] Comment:SXA, CT(ASCP)CT scre ening location: [place] [address] Review Otolaryngology Teacher: [facility] Pathologist [facility] PAP Infection TNP [facility] See Note SEE NOTE [facility] Comment:EXPLANATORY NOTE:The Pap is a screening test for cervical cancer. It isnot a diagnostic test and is subject to false negativeand false positive results. It is most reliable when asatisfactory sample, regularly obtained, is submittedwith relevant clinical findings and history, and whenthe Pap result is evaluated along with historic andcurrent clinical information. 01/29/2024 01/29/2024 Narrative [facility] - 02/02/2024 3:25 PM EDT SEE SCANNED RESULTS IN EMR us Irina Sanchez CNM LAB PATHOLOGY ORDERABLES Final Result Performing Organization Address [facility]/ZIP Co de Phone Number [facility] [address] [place] [phone] * Hepatitis C Antibody with Reflex to HCV, RNA, Quantitative, Real-Time PCR (01/19/2024 11:38 AM EDT) Hepatitis C Antibody Nonreactive Nonreactive [facility] Comment:Antibodies to HCV no t detected; does not exclude early acuteHCV infection. Blood Venous blood specimen / Unknown 01/19/2024 11:38 AM EDT 01/19/2024 1:06 PM EDT us Annmarie Santana MD LAB BLOOD ORDERAB LES Final Result Performing Organization Address [facility]/ZIP Co de Phone Number [facility] [address] [place] [phone] * HIV-1/2 Antigen and Antibodies, Fourth Generation, with Reflexes (01/19/2024 11:38 AM EDT) HIV AB/AG Nonreactive Nonreactive [facility] Comment:HIV-1 p24 Ag and/or HIV-1/HIV-2 Ab not detected.A test result that is nonreactive does not exclude thepossibility of exposure to or infection with HIV-1 and/orHIV-2. Nonreactive results in this assay for individualswith prior exposure to HIV-1 and/or HIV-2 may be due toantigen and antibody levels that are below the limit ofdetection of this assay.The [employer] Not[employer] HIV Ag/Ab Combo assay result andsupplemental assay results should be interpreted inconjunction with the patient's clinical presentation,history and other laboratory results. If the results areinconsistent with clinical evidence, additional testing issuggested to confirm the result. Blood Venous blood specimen / Unknown 01/19/2024 11:38 AM EDT 01/19/2024 1:06 PM EDT us Annmarie Santana MD LAB BLOOD ORDERAB LES Final Result [facility] [address] [place] [address] [phone] * (ABNORMAL) Lipid Panel, Standard (01/19/2024 11:38 AM EDT) Triglycerides 206(H) <150 mg/dL [facility] Comment:Desirable Triglyceri de: less than 150 mg/dLBorderline High Triglyceride 150-199 mg/dLHigh Triglyceride: 200-499 mg/dLVery High Triglyceride: greater than or equal to 5OO mg/dL Cholesterol 228(H) <200 mg/dL [facility] Comment:Desirable Cholestero l: less than 200 mg/dLBorderline High Cholesterol: 200-239 mg/dLHigh Cholesterol: greater than 239 mg/dL LDL Cholesterol Calculated 138(H) <100 mg/dL [facility] Comment:Desirable LDL: less than 100 mg/dLNear Optimal/Above Optimal LDL: 110- 129 mg/dLBorderline High LDL: 130-159 mg/dLHigh LDL: 160-189 mg/dLVery High LDL: greater than or equal to 190 mg/dL HDL Cholesterol 49 >40 mg/dL [facility] Comment:Desirable HDL: great er than 40 mg/dL Note: This HDL assay may give artificially low results in patients with liver disease. Blood Venous blood specimen / Unknown 01/19/2024 11:38 AM EDT 01/19/2024 1:04 PM EDT Annmarie Santana MD LAB BLOOD ORDERAB LES Final Result [facility] [address] [place] [address] [phone] from Last 3 Months or Most Recently Relevant to Health Maintenance Insurance [facility] C3 DENTAL-[facility] MEDICAID STAND ADULT Care Teams Char House Supervisor Relationship Specialty Start Date End Date Annmarie Chambers MD [address] [place] [phone] PCP - General Internal Medicine 02/02/24
--- OUTSIDE RECORDS SUMMARY | 2025-03-29 20:05 | XMS_ITS | Encounter Summary ---
Author Organization [employer] Address [address] [facility] 7t [place] [address] Care Team Providers Care Forging Engineer Name Role Phone Annmarie Chambers MD Primary Care Pro vider Reason for Visit * Reason Comments Med Refill Encounter Details Date Type Department Care Team ([facility] st Contact Info) Description 01/04/2025 Refill [facility] ADULT DENTAL [address] [place], [place] [phone] Radames Garay, DMD [address] [place] [address] Social History Tobacco Use Types Packs/Day Years [...] the past 12 months, has t he [employer], gas, oil or water company threatened to [...] encounter Miscellaneous Notes * Telephone Encounter - Rachel Newton DDS - 01/04/2025 1:36 PM EDT Approving, but needs appt for additional refills. documented in this encounter Plan of Treatment Upcoming Encounters Date Type Department Care Team (Late st Contact Info) Description 04/08/2025 11:00 AM EDT Office Visit [facility] ADULT DENTAL [address] [place] [address] Radames Garay DMD [address] [place] [address] 05/04/2025 10:45 AM EST Office Visit [facility] MEDICINE [address] [place] [address] Annmarie Chambers MD [address] [place] [address] documented as of this encounter Visit Diagnoses Not on filedocumented in this encounter Additional Health Concerns Assessment Noted Time PHQ-9 Depression Total Score: 20 024 2:22 PM EDT documented as of this encounter Care Teams Forging Engineer Relationship Specialty Start Date End Date Annmarie Chambers MD [address] [place] [address] PCP - General Internal Medicine 02/02/24 documented as of this encounter
--- OUTSIDE RECORDS SUMMARY | 2025-03-29 20:05 | XMS_ITS | Patient Health Record ---
Author Organization [facility] Address [address] [facility] [address] [place] [phone] Care Team Providers Care Billet Heater Name Role Phone Annmarie Chambers Primary Care Provider Sam Barnett Unavailable [phone] Allergies Allergen (clinical drug ingredient) Drug/Non Drug Allergy documented on EMR Reaction Allergy Type Onset Date Status seasonal (uncoded) Unknown Allergy A ctive Results Component Value Reference Range Notes Ur Preg Test Reviewed date:01/30/2025 08:10:34 PM Interpretation: Performing Lab:[facility], [address] [place] [phone] Notes/Report: Urine NEGATIVE NEGATIVE This test was developed to detect early . False negative results may occur after the 5th - 7th week of when using this test method. If clinically indicated, consider a serum hCG. Pathology (Not yet reviewed by provider) Interpretation: Performing Lab:[facility], [address] [place] [phone] Notes/Report: Reason For Referral Referring Provider First Name Annmarie Referring Provider Last Name Edd cardona Referred Organization [facility] Referred Provider Sam Willard Referred Address [address] [place] [address],[address],[place], [place],[address], Referred Provider Specialty Gastroentero logy Referral Priority Routine Medications Medication SIG (Take, Route, Fr equency, Duration) Notes Start Date End Date Status Adderall XR 10 MG 1 capsule in the mor katherine Orally Once a day 01/11/2025 Active Omeprazole 20 MG 1 capsule 1/2 to 1 h our before morning meal Orally Once a day; Duration: 30 days 01/30/2025 Active clonazePAM 0.5 MG TAKE 1 TABLET BY HAILEE TH TWICE A DAY NEEDED FOR ANXIETY Oral; Duration: 30 Days Active Metamucil 0.36 GM Take 2 with 8 ounces of water or juice Orally Once ot twice a day for constipation; Duration: 30 days 01/14/2025 Active MiraLax 17 GM/SCOOP 1 scoop in 8 ounces of water or any liquid Orally Once or twice a day for constipation; Duration: 30 days 01/14/2025 Active Famotidine 20 MG TAKE 1 TABLET BY HAILEE TH EVERY DAY AT BEDTIME NEEDED FOR HEARTBURN Oral; Duration: 90 Days Not-Taking Immunizations Vaccine Route Administration Date Status Comme nts Influenza Unknown 03/24/2024 Administered Social History Tobacco Use: Social History Observation [...] Problem Status W/U Status Risk Notes Problem Colon cancer screening (583312880) Colon cancer screening (Z12.11) Active confirmed Problem Constipation (32197047) Constipation (K59.00) Active confirmed Problem Irritable bowel syndrome characterized by constipation (080668510) Irritable bowel syndrome with constipation (K58.9) Active confirmed Problem Gastroesophageal reflux disease (566365330) GERD (gastroesophage al reflux disease) (K21.9) Active confirmed Problem Generalized abdominal pain (105882394) Abdominal discomfort, generalized (R10.84) Active confirmed Vital Signs Temperature 99.3 degrees Fahrenheit 01/11/2025 Blood pressure diastolic 01 mm Hg 01/11/2025 Height 61 in 01/11/2025 Blood pressure systolic 001 mm Hg 01/11/2025 Weight 153.2 lbs 01/11/2025 BMI 28.94 kg/m2 01/11/2025 Procedures Procedure Date Ordered Date Performed Result Body Sit e UPPER GI ENDOSCOPY 01/11/2025 N/A COLONOSCOPY 01/11/2025 N/A Encounters Encounter Location Date Provider Diagnosis [facility] Outpatient [address] [place], [place] [phone] 01/28/2025 Sam Willard [facility] [address] [place] [phone] 01/11/2025 Sam Willard Constipation K59.00 ; Irritable bowel syndrome with constipation K58.9 ; Colon cancer screening Z12.11 ; GERD (gastroesophageal reflux disease) K21.9 and Abdominal discomfort, generalized R10.84 [facility] [address] [place] [phone] 01/11/2025 Sam Willard [facility] [address] [place] [phone] 01/13/2025 Sam Willard [facility] [address] [place] [phone] 01/30/2025 Sam Willard [facility] [address] [place] [phone] 03/29/2025 Sam Willard Assessments Encounter Date Diagnosis (ICD Code) Assessment [...] advised of her progress. Plan Of Treatment Pending Test Test Name Order Date UPPER GI ENDOSCOPY 01/11/2025 COLONOSCOPY 01/11/2025 Pathology 01/28/2025 Insurance Providers Payer Name Payer Address Payer Phone Subscriber Number Group Number Insured Name Patient Relationship to Insured Coverage Start Date Coverage End Date [facility] [address] [place]ST[place] [phone] [id number] ALICIA VELAZQUEZ Self - patient is the insured Medical (General) History Medical History History ICD Code Asthma-inhaler prn Denies NM,DM,CVA,renal disease ADHD Anxiety Surgical History Surgery Date(Month/Year) CCY C-spine disc Knee surgery
--- OUTSIDE RECORDS SUMMARY | 2025-03-29 20:05 | XMS_ITS | Encounter Summary ---
Author Organization [employer] Address [address] [facility] [address] 7t [place] [address] Care Team Providers Care Director Sales Name Role Phone Annmarie Chambers MD Primary Care Pro vider Reason for Visit * Reason Comments Med Refill Encounter Details Date Type Department Care Team ([facility] st Contact Info) Description 02/23/2024 Refill [facility] [address] [place] [phone] Annmarie Rosario MD [address] [place] [address] Bilateral carpal tunnel syndrome Social History Tobacco [...] Description 04/08/2025 11:00 AM EDT Office Visit [facility] ADULT DENTAL [address] [place] [address] Radames Garay, EVELYN [address] [place] [address] 05/04/2025 10:45 AM EST Office Visit [facility] MEDICINE [address] [place] [address] Annmarie Chambers MD [address] [place] [address] documented as of this encounter Visit Diagnoses Diagnosis Bilateral carpal tunnel syndrome Carpal tunnel syndrome documented in this encounter Additional Health Concerns Assessment Noted Time PHQ-9 Depression Total Score: 20 024 2:22 PM EDT documented as of this encounter Care Teams Director Sales Relationship Specialty Start Date End Date Annmarie Chambers MD [address] [place] [address] PCP - General Internal Medicine 02/02/24 documented as of this encounter
--- OUTSIDE RECORDS SUMMARY | 2025-03-29 20:05 | XMS_ITS | Encounter Summary ---
Author Organization [employer] Address [address] [facility] 7t [place] [address] Care Team Providers Care Property Staff Accountant Name Role Phone Annmarie Chambers MD Primary Care Pro vider Reason for Visit * Reason Comments Med Refill Encounter Details Date Type Department Care Team ([facility] st Contact Info) Description 08/20/2024 Refill [facility] ADULT DENTAL [address] [place], [place] [phone] Jagdish Santiago, DDS [address] [place] [address] Periodontal disease; Dental abscess Social History Tobacco [...] Description 04/08/2025 11:00 AM EDT Office Visit [facility] ADULT DENTAL [address] [place] [phone] Radames Garay DMD [address] [place] [address] 05/04/2025 10:45 AM EST Office Visit [facility] MEDICINE [address] [place] [address] Annmarie Chambers MD [address] [place] [address] documented as of this encounter Visit Diagnoses Diagnosis Periodontal disease Unspecified gingival and periodontal disease Dental abscess Periapical abscess without sinus documented in this encounter Additional Health Concerns Assessment Noted Time PHQ-9 Depression Total Score: 20 024 2:22 PM EDT documented as of this encounter Care Teams Property Staff Accountant Relationship Specialty Start Date End Date Annmarie Chambers MD [address] [place] [phone] PCP - General Internal Medicine 02/02/24 documented as of this encounter
--- OUTSIDE RECORDS SUMMARY | 2025-03-29 20:05 | XMS_ITS | Encounter Summary ---
Author Organization [employer] Address [address] [facility] 7 [place] [address] Care Team Providers Care Orthopedic Nurse Practitioner Name Role Phone Annmarie Chambers MD Primary Care Pro vider Reason for Visit * Reason Onset Date Comments PT-1 02/11/2024 Encounter Details Date Type Department Care Team ([facility] st Contact Info) Description 02/11/2024 Telephone [facility] MEDICINE [address] [place], [place] [phone] Annmarie Chambers MD [address] [place], [place] [phone] PT-1 Social History Tobacco Use Types Packs/Day [...] Y/N: Yes Provider name or facility name: [facility] radiology Facility Address: [address] [place] [address] Escort needed: Y/N: Yes Do you have a wheelchair: Y/N: No If yes- Manual or electric: no Visits: 3 documented in this encounter Plan of Treatment Upcoming Encounters Date Type Department Care Team (Late st Contact Info) Description 04/08/2025 11:00 AM EDT Office Visit [facility] ADULT DENTAL [address] [place] [address] Radames Garay, DMD [address] [place] [address] 05/04/2025 10:45 AM EST Office Visit [facility] MEDICINE [address] [place], [place] [phone] Annmarie Chambers MD [address] [place], [place] [phone] documented as of this encounter Visit Diagnoses Not on filedocumented in this encounter Additional Health Concerns Assessment Noted Time PHQ-9 Depression Total Score: 20 024 2:22 PM EDT documented as of this encounter Care Teams Orthopedic Nurse Practitioner Relationship Specialty Start Date End Date Annmarie Chambers MD [address] [place], [place] [phone] PCP - General Internal Medicine 02/02/24 documented as of this encounter
== END 2025-03-29 14:56 | disposition home or self-care (01) ==
LOC: HO.US 14:55
PROVIDERS: PCP Student in an Organized Health Care Education/Training Program; Visit Provider Advanced Practice Midwife
DX: N94.6 Dysmenorrhea, unspecified (principal); D21.9 Benign neoplasm of connective and other soft tissue, unspecified
CPT/HCPCS: 76830; 76856

== ENCOUNTER → 2025-03-29 14:59 | Outpatient (BNV) | payer MEDICAID, SELFPAY | PROVIDERS: PCP Student in an Organized Health Care Education/Training Program; Visit Provider Radiology Diagnostic Radiology | DX: D25.9 Leiomyoma of uterus, unspecified (principal) | CPT/HCPCS: 76830; 76856 ==

== ENCOUNTER 2025-05-03 11:05 | Outpatient (REF) | payer MEDICAID, SELFPAY ==
--- OUTSIDE RECORDS SUMMARY | 2025-01-28 06:20 | XMS_ITS ---
Author Organization [facility] Address [address] [place] [phone] Care Team Providers Care Pallet Rectifier Name Role Phone Annmarie Chambers Primary Care Provider Sam Barnett [phone] REASON FOR VISIT gerd,abdominal pain,screening Encounters Encounter Location Date Provider Diagnosis [facility] [place] [address] [place], [place] [id number] 01/28/2025 Sam Willard Plan Of Treatment No Information Progress Notes * MARCUS, EMILIADOB: [birth year] (44 yo F)Acc No.[id number]:01/28/2025 EGD and COL/MAC Patient: EMILIA BAIN Provider: James Willard MD :1980 A ge:44 Y S ex:Female Date:01/28/2025 Address:[address] [place] [address] [id number] Pcp:Annmarie Santana Subjective: * Chief Complaints: * G erd,abdominal pain,screening Billing Information: * Procedure Codes: * The named appointment provid er may or may not be the originator of this progress note, and it is not deemed complete until electronically signed by the appointment provider. Sign off status: Pending * Provider: James Willard MD Date: 0 01/28/2025 Generated for Danie henry/Saad/eTransmitting on: 07/03/2024 02:41 PM EST
--- OUTSIDE RECORDS SUMMARY | 2025-04-28 13:00 | XMS_ITS | Encounter Summary ---
Author Organization [employer] Address [address] [place] [address] 7t [place] [address] Care Team Providers Care Cook Roast Name Role Phone Annmarie Chambers MD Primary Care Pro vider Reason for Visit * Reason Comments Follow-up Encounter Details Date Type Department Care Team ([facility] st Contact Info) Description 04/28/2025 1:00 PM EST Office Visit [facility] MEDICINE [address] [place] [address] Irina Sanchez, [facility] [address] [place] [address] Cellulitis of right breast (Primary Dx); Pelvic pain Social History Tobacco Use Types Packs/Day Years Used Date Smoking Tobacco: Every Day Cigarettes Passive Smoke Exposure: Current Smokeless Tobacco: Never Comments:Started smoking 13 y [...] Access Q2 Not on file 01/28/2025 Comments No Sex and Gender Information Value Date Recorded Sex Assigned at Female 04/08/2022 10:22 AM EDT Legal Sex Female 10:22 AM EDT Gender Identity Female 03/02/2024 12:44 PM EDT Sexual Orientation Bisexual 03/02/2024 12 :44 PM EDT Sexual Orientation Straight 03/02/2024 12 :44 PM EDT documented as of this encounter Last Filed Vital Signs Vital Sign Reading Time Taken Comments Blood Pressure 100/60 04/28/2025 1:10 PM EST Pulse 78 04/28/2025 1:10 PM EST Temperature 36.7 C (98.1 F) 04/28/2025 1:10 PM EST Respiratory Rate 17 04/28/2025 1:10 PM EST Oxygen Saturation 98% 04/28/2025 1:10 PM EST Inhaled Oxygen Concentration - - Weight 78 kg (172 lb) 04/28/2025 1:10 PM EST Height 154.9 cm (5' 1 ) 04/28/2025 1:10 PM EST Body Mass Index 32.5 04/28/2025 1:10 PM EST documented in this encounter Progress Notes * Irina Sanchez, TAM - 04/28/2025 1:00 PM EST Subjective Patient ID: Alicia Meyer is a 44 y.o. female who presents for followup Prescribed doxycyline and bactroban for right breast cellulitis. Has been using doxycycline as prescribed, using bactroban when she can. Feels much better. No more pain in breast. Also here to followup on pelvic pain. Hasn't restarted progestin only pill yet but plans to. Needs prescription to [facility] pharmacy. Given diaphragmatic breathing, piriformis stretch and anterior thigh off bed stretch. Hasn't been doing stretches as often recently, but they are helpful when she does them Review of Systems Constitutional: Negative for chills and fever. Genitourinary: Negative for pelvic pain and vaginal pain. Objective BP 100/60 (BP Location: Left arm, Patient Position: Sitting, BP Cuff Size: Adult) Pulse 78 Temp98.1 ??F (36.7 ??C) (Oral) Resp 17 Ht 5' 1 (1.549 m) Wt 172 lb (78 kg) LMP 04/03/2025 (Exact Date) SpO2 98% BMI 32.50 kg/m?? Physical Exam Constitutional: Appearance: Normal appearance. Chest: Breasts: Right: Skin change present. No swelling, bleeding, mass or tenderness. Comments: Area of erythema significantly reduced. Scabbed areas x 3. Total area including scabbed areas 6cm x 6cm but minimal erythema. No induration or streaking Neurological: Mental Status: She is alert. Psychiatric: Mood and Affect: Mood normal. Behavior: Behavior normal. Assessment/Plan Diagnoses and all orders for this visit: Cellulitis of right breast Will extend doxycyline for another 4 day (total of 14 days as 10 tablets given with last prescription). Continue this and bactroban. Skin check 2 weeks, but please come to [facility] if no continued improvement or symptoms worsen. Aware area likely to scar. Pelvic pain Resume progestin only pill, prescription sent to [facility]. Reviewed diaphragmatic breathing today. Focus on this and seated piriformis stretch if it is hard to do anterior thigh off bed stretch. Followup 2 weeks. Other orders - norethindrone (Micronor) 0.35 MG tablet; Take 1 tablet (0.35 mg) by mouth Once per day. - doxycycline (Monodox) 100 MG capsule; One twice a day. Take with at least 8 ounces (large glass) of water, do not lie down for 30 minutes after documented in this encounter Plan of Treatment Upcoming Encounters Date Type Department Care Team (Late st Contact Info) Description 05/04/2025 10:45 AM EST Office Visit [facility] MEDICINE [address] [place] [address] Annmarie Chambers MD [address] [place] [address] 05/04/2025 3:30 PM EST Office Visit [facility] ADULT DENTAL [address] [place] [address] Radames Garay, EVELYN [address] [place] [address] 05/12/2025 3:15 PM EST Office Visit [facility] MEDICINE [address] [place] [address] Irina Sanchez CNM [address] [place] [address] documented as of this encounter Visit Diagnoses Diagnosis Cellulitis of right breast- Primary Pelvic pain documented in this encounter Additional Health Concerns Assessment Noted Time PHQ-9 Depression Total Score: 27 025 9:23 AM EDT documented as of this encounter Care Teams Cook Roast Relationship Specialty Start Date End Date Annmarie Chambers MD [address] [place] [address] PCP - General Internal Medicine 02/02/24 documented as of this encounter
[2025-05-03 13:23] LABS: MANUAL DIFF FLAG NO
[2025-05-03 13:32] LABS: Hematocrit 43.9 % (37.0-47.0); Hemoglobin 14.5 g/dl (12.0-16.0); Imm Gran Abs Auto 0.03 X10*3/uL (0.00-0.03); Imm Gran Pct Auto 0.3 % (0.0-0.4); Lymphocytes Absolute Auto 2.4 X10*3/uL (1.2-4.9); Mean Corpuscular HGB Conc 33.0 g/dl (31.0-35.0); Mean Corpuscular Hemoglobin 31.4 pg (27.0-33.0); Mean Corpuscular Volume 95.0 fL (80.0-98.0); NRBC Abs Auto 0.000 X10*3/uL (0.0-0.012); NRBC Pct Auto 0.0 /100WBC (0.0-0.2); Platelet Count 271 X10*3/uL (160-400); Red Blood Count 4.62 X10*6/uL (4.20-5.50); White Blood Count 10.2 X10*3/uL (4.8-10.8)
[2025-05-03 13:43] LABS: Alanine Aminotransferase 21 U/L (0-31); Albumin Level 4.5 g/dL (3.5-5.0); Alkaline Phosphatase 57 U/L (39-117); Anion Gap 11 (12-20); Aspartate Amino Transferase 26 U/L (5-31); Blood Urea Nitrogen 19 mg/dL (9-16); Calcium 9.5 mg/dL (8.4-10.2); Carbon Dioxide 26 mmol/L (22-29); Chloride 109 mmol/L (96-108); Cholesterol 178 mg/dL (<200); Estimated Glomerular Filt Rate 53; HDL Cholesterol 51 mg/dL (>40); Potassium 4.4 mmol/L (3.3-5.1); Sodium 142 mmol/L (135-145); Total Protein 6.9 g/dL (6.5-8.0); Triglycerides 138 mg/dL (<150)
--- OUTSIDE RECORDS SUMMARY | 2025-05-03 14:41 | XMS_ITS | Encounter Summary ---
Author Organization [employer] Address [address] [facility] [address] 7t [place] [address] Care Team Providers Care Cardiothoracic Icu Rn Name Role Phone Annmarie Chambers MD Primary Care Pro vider Encounter Details Date Type Department Care Team (Latest Contact Info) Description 04/28/2025 Travel Social History Tobacco Use Types Packs/Day [...] the past 12 months, has t he [email or web address], gas, oil or water company threatened to [...] Description 05/04/2025 10:45 AM EST Office Visit [facility] MEDICINE [address] [place] [address] Annmarie Chambers MD [address] [place] [address] 05/04/2025 3:30 PM EST Office Visit [facility] ADULT DENTAL [address] [place] [phone] Radames Garay, EVELYN [address] [place] [address] 05/12/2025 3:15 PM EST Office Visit [facility] MEDICINE [address] [place] [address] Irina Sanchez, TAM [address] [place] [address] documented as of this encounter Visit Diagnoses Not on filedocumented in this encounter Additional Health Concerns Assessment Noted Time PHQ-9 Depression Total Score: 27 025 9:23 AM EDT documented as of this encounter Care Teams Cardiothoracic Icu Rn Relationship Specialty Start Date End Date Annmarie Chambers MD [address] [place] [address] PCP - General Internal Medicine 02/02/24 documented as of this encounter
--- OUTSIDE RECORDS SUMMARY | 2025-05-03 14:41 | XMS_ITS | Encounter Summary ---
Author Organization [employer] Address [address] [place] [address] 7 [place] [address] Care Team Providers Care Supervisor Ticket Sales Name Role Phone Annmarie Chambers MD Primary Care Pro vider Reason for Visit * Reason Comments Med Refill Encounter Details Date Type Department Care Team (Late st Contact Info) Description 12/17/2023 Refill [facility] [address] [place] [address] [phone] Adriana Stacy MD [address] [place] [address] Social History Tobacco Use Types Packs/Day Years [...] Description 05/04/2025 10:45 AM EST Office Visit [facility] MED[facility]INE [address] [place] [address] Annmarie Chambers MD [address] [place] [address] 05/04/2025 3:30 PM EST Office Visit [facility] ADULT DENTAL [address] [place], [place] [phone] Radames Garay, DMD [address] [place], [place] [phone] 05/12/2025 3:15 PM EST Office Visit [facility] MEDICINE [address] [place], [place] [phone] Irina Sanchez, TAM [address] [place], [place] [phone] documented as of this encounter Visit Diagnoses Not on filedocumented in this encounter Care Teams Supervisor Ticket Sales Relationship Specialty Start Date End Date Annmarie Chambers MD [address] [place], [place] [phone] PCP - General Internal Medicine 02/02/24 documented as of this encounter
--- OUTSIDE RECORDS SUMMARY | 2025-05-03 14:41 | XMS_ITS | Encounter Summary ---
Author Organization [employer] Address [address] [facility] 7t [place] [address] Care Team Providers Care Sales Product Manager Name Role Phone Annmarie Chambers MD Primary Care Pro vider Reason for Visit * Reason Comments Med Refill Encounter Details Date Type Department Care Team ([facility] st Contact Info) Description 01/23/2024 Refill [facility] MEDICINE [address] [place], [place] [phone] Adriana Stacy MD [address] [place], [place] [phone] Social History Tobacco Use Types Packs/Day Years [...] Description 05/04/2025 10:45 AM EST Office Visit [facility] MEDICINE [address] [place] [address] Annmarie Chambers MD [address] [place] [address] 05/04/2025 3:30 PM EST Office Visit [facility] ADULT DENTAL [address] [place] [address] Radames Garay, EVELYN [address] [place] [address] 05/12/2025 3:15 PM EST Office Visit [facility] MEDICINE [address] [place] [address] Irina Sanchez CNM [address] [place] [address] documented as of this encounter Visit Diagnoses Not on filedocumented in this encounter Additional Health Concerns Assessment Noted Time PHQ-9 Depression Total Score: 20 024 2:22 PM EDT documented as of this encounter Care Teams Sales Product Manager Relationship Specialty Start Date End Date Annmarie Chambers MD [address] [place] [phone] PCP - General Internal Medicine 02/02/24 documented as of this encounter
--- OUTSIDE RECORDS SUMMARY | 2025-05-03 14:41 | XMS_ITS | Encounter Summary ---
Author Organization [employer] Address [address] [facility] [address] [address] 7t [place] [address] Care Team Providers Care Kit Planner Name Role Phone Annmarie Chambers MD Primary Care Pro vider Reason for Visit * Reason Comments Med Refill Encounter Details Date Type Department Care Team ([facility] st Contact Info) Description 02/23/2024 Refill [facility] [address] [place], [place] [phone] Annmarie Rosario MD [address] [place] [address] Bilateral carpal tunnel syndrome Social History Tobacco [...] Description 05/04/2025 10:45 AM EST Office Visit [facility] MEDICINE [address] [place] [address] Annmarie Chambers MD [address] [place] [address] 05/04/2025 3:30 PM EST Office Visit [facility] ADULT DENTAL [address] [place] [phone] Radames Garay, EVELYN [address] [place] [phone] 05/12/2025 3:15 PM EST Office Visit [facility] MEDICINE [address] [place] [address] Irina Sanchez, TAM [address] [place] [address] documented as of this encounter Visit Diagnoses Diagnosis Bilateral carpal tunnel syndrome Carpal tunnel syndrome documented in this encounter Additional Health Concerns Assessment Noted Time PHQ-9 Depression Total Score: 20 024 2:22 PM EDT documented as of this encounter Care Teams Kit Planner Relationship Specialty Start Date End Date Annmarie Chambers MD [address] [place] [address] PCP - General Internal Medicine 02/02/24 documented as of this encounter
--- OUTSIDE RECORDS SUMMARY | 2025-05-03 14:41 | XMS_ITS | Encounter Summary ---
Author Organization [employer] Address [address] [place] [address] 7 [place] [address] Care Team Providers Care Ropeman Name Role Phone Annmarie Chambers MD Primary Care Pro vider Reason for Visit * Reason Onset Date Comments chart prep 05/03/2025 Encounter Details Date Type Department Care Team ([facility] st Contact Info) Description 05/03/2025 Telephone [facility] MEDICINE [address] [place] [address] Annmarie Chambers MD 230 [place] [address] chart prep Social History Tobacco Use Types Packs/Day Years [...] encounter Miscellaneous Notes * Telephone Encounter - Radha Johnson MA - 05/03/2025 1:28 PM EST Chart Prep Labs: done Images: done Screenings: Colonoscopy Vaccines due: Covid Due, Flu Due, and HPV Referrals: Sleep Medicine Pending appointment on 06/30/25 at 10 AM Overdue care gaps: None documented in this encounter Plan of Treatment Upcoming Encounters Date Type Department Care Team (Late st Contact Info) Description 05/04/2025 10:45 AM EST Office Visit [facility] MEDICINE [address] [place] [address] Annmarie Chambers MD 230 [place] [address] 05/04/2025 3:30 PM EST Office Visit [facility] ADULT DENTAL 230 [place] [address] Radames Garay, DMD 230 [place] [address] 05/12/2025 3:15 PM EST Office Visit [facility] MEDICINE [address] [place], [place] [phone] Irina Sanchez CNM 230 [place] [address] documented as of this encounter Visit Diagnoses Not on filedocumented in this encounter Additional Health Concerns Assessment Noted Time PHQ-9 Depression Total Score: 27 025 9:23 AM EDT documented as of this encounter Care Teams Ropeman Relationship Specialty Start Date End Date Annmarie Chambers MD [address] [place] [address] [phone] PCP - General Internal Medicine 02/02/24 documented as of this encounter
--- OUTSIDE RECORDS SUMMARY | 2025-05-03 14:41 | XMS_ITS | Encounter Summary ---
Author Organization [employer] Address [address] [place] [address] 7 [place] [address] Care Team Providers Care Manager E Commerce Name Role Phone Annmarie Chambers MD Primary Care Pro vider Reason for Visit * Reason Comments Med Change Request Encounter Details Date Type Department Care Team ([facility] st Contact Info) Description 12/08/2024 Refill [facility] MEDICINE 230 [place], [place] [phone] Annmarie Chambers MD 230 [place], [place] [phone] Social History Tobacco Use Types Packs/Day Years [...] Description 05/04/2025 10:45 AM EST Office Visit [facility] MEDICINE [address] [place] [address] Annmarie Chambers MD [address] [place] [address] 05/04/2025 3:30 PM EST Office Visit [facility] ADULT DENTAL [address] [place] [address] Radames Garay, EVELYN [address] [place] [address] 05/12/2025 3:15 PM EST Office Visit [facility] MEDICINE [address] [place] [address] Irina Sanchez, ABDIASM [address] [place] [address] documented as of this encounter Visit Diagnoses Not on filedocumented in this encounter Additional Health Concerns Assessment Noted Time PHQ-9 Depression Total Score: 20 024 2:22 PM EDT documented as of this encounter Care Teams Manager E Commerce Relationship Specialty Start Date End Date Annmarie Chambers MD [address] [place] [address] PCP - General Internal Medicine 02/02/24 documented as of this encounter
--- OUTSIDE RECORDS SUMMARY | 2025-05-03 14:41 | XMS_ITS | Encounter Summary ---
Author Organization [employer] Address [address] [facility] 7t [place] [address] Care Team Providers Care X Ray Nurse Name Role Phone Annmarie Chambers MD Primary Care Pro vider Reason for Visit * Reason Comments Med Refill Encounter Details Date Type Department Care Team (Late st Contact Info) Description 08/20/2024 Refill [facility] ADULT DENTAL 230 [place], [place] [phone] Jagdish Santiago, DDS 230 [place] [address] Periodontal disease; Dental abscess Social History Tobacco [...] Description 05/04/2025 10:45 AM EST Office Visit [facility] MEDICINE [address] [place] [address] Annmarie Chambers MD [address] [place] [address] 05/04/2025 3:30 PM EST Office Visit [facility] ADULT DENTAL [address] [place] [address] Radames Garay, EVELYN [address] [place] [address] 05/12/2025 3:15 PM EST Office Visit [facility] MEDICINE [address] [place] [address] Irina Sanchez, TAM [address] [place] [address] documented as of this encounter Visit Diagnoses Diagnosis Periodontal disease Unspecified gingival and periodontal disease Dental abscess Periapical abscess without sinus documented in this encounter Additional Health Concerns Assessment Noted Time PHQ-9 Depression Total Score: 20 024 2:22 PM EDT documented as of this encounter Care Teams X Ray Nurse Relationship Specialty Start Date End Date Annmarie Chambers MD [address] [place] [phone] PCP - General Internal Medicine 02/02/24 documented as of this encounter
--- OUTSIDE RECORDS SUMMARY | 2025-05-03 14:41 | XMS_ITS | Encounter Summary ---
Author Organization [employer] Address [address] [place] [address] 7 [place] [address] Care Team Providers Care Sales And Retail Management Recruiter Name Role Phone Annmarie Chambers MD Primary Care Pro vider Encounter Details Date Type Department Care Team (Latest Contact Info) Description 05/03/2025 Results Follow-Up [facility] MEDICINE [address] [place] [address] Annmarie Chambers MD 230 [place] [address] Comprehensive Metabolic Panel, Lipid Panel, Standard, CBC auto differential Social History Tobacco Use Types Packs/Day Years [...] as of this encounter Miscellaneous Notes * Result Encounter Note - Annmarie Santana MD - 05/03/2025 1:54 PM EST Please call patient to advise to come to already scheduled apt with me to go over abnormal labs Thanks documented in this encounter Plan of Treatment Upcoming Encounters Date Type Department Care Team (Late st Contact Info) Description 05/04/2025 10:45 AM EST Office Visit [facility] MEDICINE [address] [place] [address] Annmarie Chambers MD 230 [place] [address] 05/04/2025 3:30 PM EST Office Visit [facility] ADULT DENTAL 230 [place], [place] [phone] Radames Garay, DMD 230 [place] [address] 05/12/2025 3:15 PM EST Office Visit [facility] MEDICINE [address] [place], [place] [phone] Irina Sanchez, CNM 230 [place], [place] [phone] documented as of this encounter Visit Diagnoses Not on filedocumented in this encounter Additional Health Concerns Assessment Noted Time PHQ-9 Depression Total Score: 27 025 9:23 AM EDT documented as of this encounter Care Teams Sales And Retail Management Recruiter Relationship Specialty Start Date End Date Annmarie Chambers MD [address] [place] [address] [phone] PCP - General Internal Medicine 02/02/24 documented as of this encounter
--- OUTSIDE RECORDS SUMMARY | 2025-05-03 14:41 | XMS_ITS | Encounter Summary ---
Author Organization [employer] Address [address] [facility] 7t [place] [address] Care Team Providers Care Retail Sales Assistant Name Role Phone Annmarie Chambers MD Primary Care Pro vider Reason for Visit * Reason Comments Med Refill Encounter Details Date Type Department Care Team ([facility] st Contact Info) Description 01/04/2025 Refill [facility] ADULT DENTAL 230 [place], [place] [phone] Radames Garay, DMD 230 [place] [address] Social History Tobacco Use Types Packs/Day Years [...] the past 12 months, has t he [employer] gas, oil or water company threatened to [...] Description 05/04/2025 10:45 AM EST Office Visit [facility] MEDICINE 230 [place] [address] Annmarie Chambers MD 230 [place] [address] 05/04/2025 3:30 PM EST Office Visit [facility] ADULT DENTAL [address] [place] [address] Radames Garay DMD [address] [place] [address] 05/12/2025 3:15 PM EST Office Visit [facility] MEDICINE 230 [place], [place] [phone] Irina Sanchez CNM 230 [place], [place] [phone] documented as of this encounter Visit Diagnoses Not on filedocumented in this encounter Additional Health Concerns Assessment Noted Time PHQ-9 Depression Total Score: 20 024 2:22 PM EDT documented as of this encounter Care Teams Retail Sales Assistant Relationship Specialty Start Date End Date Annmarie Chambers MD 230 [place] [address] PCP - General Internal Medicine 02/02/24 documented as of this encounter
--- OUTSIDE RECORDS SUMMARY | 2025-05-03 14:41 | XMS_ITS | Encounter Summary ---
Author Organization [employer] Address [address] [place] [address] 7 [place] [address] Care Team Providers Care Cloth Brushing And Sueding Supervisor Name Role Phone Annmarie Chambers MD Primary Care Pro vider Reason for Visit * Reason Onset Date Comments PT-1 02/11/2024 Encounter Details Date Type Department Care Team ([facility] st Contact Info) Description 02/11/2024 Telephone [facility] MEDICINE 230 [place], [place] [phone] Annmarie Chambers MD 230 [place], [place] [phone] PT-1 Social History Tobacco Use Types Packs/Day [...] Y/N: Yes Provider name or facility name: [facility] Facility Address: [address] [place] [address] Escort needed: Y/N: Yes Do you have a wheelchair: Y/N: No If yes- Manual or electric: no Visits: 3 documented in this encounter Plan of Treatment Upcoming Encounters Date Type Department Care Team (Late st Contact Info) Description 05/04/2025 10:45 AM EST Office Visit [facility] MEDICINE 230 [place] [address] Annmarie Chambers MD [address] [place] [address] 05/04/2025 3:30 PM EST Office Visit [facility] ADULT DENTAL 230 [place], [place] [phone] Radames Garay, EVELYN 230 [place] [address] 05/12/2025 3:15 PM EST Office Visit [facility] MEDICINE 230 [place], [place] [phone] Irina Sanchez, TAM 230 [place], [place] [phone] documented as of this encounter Visit Diagnoses Not on filedocumented in this encounter Additional Health Concerns Assessment Noted Time PHQ-9 Depression Total Score: 20 024 2:22 PM EDT documented as of this encounter Care Teams Cloth Brushing And Sueding Supervisor Relationship Specialty Start Date End Date Annmarie Chambers MD [address] [place] [address] [phone] PCP - General Internal Medicine 02/02/24 documented as of this encounter
--- OUTSIDE RECORDS SUMMARY | 2025-05-03 14:42 | XMS_ITS | Encounter Summary ---
Author Organization [employer] Address [address] [place] [address] 7 [place] [address] Care Team Providers Care On Site Manager Name Role Phone Annmarie Chambers MD Primary Care Pro vider Reason for Visit * Reason Comments Med Refill Encounter Details Date Type Department Care Team ([facility] st Contact Info) Description 10/18/2024 Refill [facility] MEDICINE 230 [place], [place] [phone] Annmarie Chambers MD 230 [place], [place] [phone] Social History Tobacco Use Types Packs/Day Years [...] Description 05/04/2025 10:45 AM EST Office Visit [facility] MEDICINE [address] [place] [address] Annmarie Chambers MD [address] [place] [address] 05/04/2025 3:30 PM EST Office Visit [facility] ADULT DENTAL [address] [place] [address] Radames Garay, EVELYN [address] [place] [address] 05/12/2025 3:15 PM EST Office Visit [facility] MEDICINE [address] [place] [address] Irina Sanchez, ABDIASM [address] [place] [address] documented as of this encounter Visit Diagnoses Not on filedocumented in this encounter Additional Health Concerns Assessment Noted Time PHQ-9 Depression Total Score: 20 024 2:22 PM EDT documented as of this encounter Care Teams On Site Manager Relationship Specialty Start Date End Date Annmarie Chambers MD [address] [place] [address] PCP - General Internal Medicine 02/02/24 documented as of this encounter
--- OUTSIDE RECORDS SUMMARY | 2025-05-03 14:42 | XMS_ITS | Patient Health Record ---
Author Organization [facility] Address [address] [facility] [address] [place] [phone] Care Team Providers Care Tennis Director Name Role Phone Annmarie Chambers Primary Care Provider Sam Barnett Unavailable [phone] Allergies Allergen (clinical drug ingredient) Drug/Non Drug Allergy documented on EMR Reaction Allergy Type Onset Date Status seasonal (uncoded) Unknown Allergy A ctive Results Component Value Reference Range Notes Ur Preg Test Reviewed date:01/30/2025 08:10:34 PM Interpretation: Performing Lab:[facility], [address] [place] [phone] Notes/Report: Urine NEGATIVE NEGATIVE This test was developed to detect early . False negative results may occur after the 5th - 7th week of when using this test method. If clinically indicated, consider a serum hCG. Pathology (Not yet reviewed by provider) Interpretation: Performing Lab:[facility], [address] [place] [phone] Notes/Report: Reason For Referral Referring Provider First Name Annmarie Referring Provider Last Name Edd cardona Referred Organization [facility] Referred Provider Sam Willard Referred Address [address] [place] [address], [address],[place], [place],[address], Referred Provider Specialty Gastroentero logy Referral Priority Routine Medications Medication SIG (Take, Route, Frequency, Duration) Notes Start Date End Date Status Adderall XR 10 MG Capsule Extended Release 24 Hour 1 capsule in the morning Orally Once a day 01/11/2025 Active Omeprazole 20 MG Capsule Delayed Release 1 capsule 1/2 to 1 hour before morning meal Orally Once a day; Duration: 30 days 01/30/2025 Active clonazePAM 0.5 MG Tablet TAKE 1 TABLET BY MOUTH TWICE A DAY NEEDED FOR ANXIETY Oral; Duration: 30 Days Active Metamucil 0.36 GM Capsule Take 2 with 8 ounces of water or juice Orally Once ot twice a day for constipation; Duration: 30 days 01/14/2025 Active MiraLax 17 GM/SCOOP Powder 1 scoop in 8 ounces of water or any liquid Orally Once or twice a day for constipation; Duration: 30 days 01/14/2025 Active Famotidine 20 MG Tablet TAKE 1 TABLET BY MOUTH EVERY DAY AT BEDTIME NEEDED FOR HEARTBURN Oral; Duration: 90 Days Not-Taking/PRN Immunizations Vaccine Route Administration Date Status Comme nts Influenza Unknown 03/24/2024 Administered Social History Tobacco Use: Social History Observation Description Date Details (start date - stop date) Current Smoker NA - NA Social History Drug/Alcohol: Social Info Question Answer Notes AUDIT-C (Standard) Did you have a drink containing alcohol in the past year? Yes How often did you have a drink containing alcohol in the past year? 2 to 3 times a week (3 points) How many drinks did you have on a typical day when you were drinking in the past year? 3 or 4 drinks (1 point) How often did you have six or more drinks on one occasion in the past year? 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 alcohol Problems Problem Type SNOMED Code ICD Code Onset Dates Problem Status W/U Status Risk Notes Problem Colon cancer screening (284188481) Colon cancer screening (Z12.11) Active confirmed Problem Constipation (16441972) Constipation (K59.00) Active confirmed Problem Irritable bowel syndrome characterized by constipation (932848769) Irritable bowel syndrome with constipation (K58.9) Active confirmed Problem Gastroesophageal reflux disease (261648613) GERD (gastroesophage al reflux disease) (K21.9) Active confirmed Problem Generalized abdominal pain (662335338) Abdominal discomfort, generalized (R10.84) Active confirmed Vital Signs Temperature 99.3 degrees Fahrenheit 01/11/2025 Blood pressure diastolic 01 mm Hg 01/11/2025 Height 61 in 01/11/2025 Blood pressure systolic 001 mm Hg 01/11/2025 Weight 153.2 lbs 01/11/2025 BMI 28.94 kg/m2 01/11/2025 Procedures Procedure Date Ordered Date Performed Result Body Sit e UPPER GI ENDOSCOPY 01/11/2025 N/A COLONOSCOPY 01/11/2025 N/A Encounters Encounter Location Date Provider Diagnosis [facility] Outpatient [address] [place], [place] [phone] 01/28/2025 Sam Willard [facility] [address] [place] [phone] 01/11/2025 Sam Willard Constipation K59.00 ; Irritable bowel syndrome with constipation K58.9 ; Colon cancer screening Z12.11 ; GERD (gastroesophageal reflux disease) K21.9 and Abdominal discomfort, generalized R10.84 [facility] [address] [place] [phone] 03/29/2025 Sam Willard [facility] [address] [place] [phone] 01/11/2025 Sam Willard [facility] [address] [place] [phone] 01/13/2025 Sam Willard [facility] [address] [place] [phone] 01/30/2025 Sam Willard Assessments Encounter Date Diagnosis (ICD [...] Start Date Coverage End Date [place] [address] MATT SEBASTIAN [phone] [id number] MARCUS ALICIA Self - patient is the insured Medical (General) History Medical History History ICD Code Asthma-inhaler prn Denies ID,DM,CVA,renal disease ADHD Anxiety Surgical History Surgery Date(Month/Year) Knee surgery C-spine disc CCY
--- OUTSIDE RECORDS SUMMARY | 2025-05-03 14:42 | XMS_ITS | Encounter Summary ---
Author Organization [employer] Address [address] [place] [address] 7 [place] [address] Care Team Providers Care Wool Hat Forming Machine Tender Name Role Phone Annmarie Chambers MD Primary Care Pro vider Reason for Visit * Reason Comments Med Refill Encounter Details Date Type Department Care Team ([facility] st Contact Info) Description 04/24/2024 Refill [facility] MEDICINE 230 [place], [place] [phone] Annmarie Chambers MD 230 [place], [place] [phone] Social History Tobacco Use Types Packs/Day Years [...] Description 05/04/2025 10:45 AM EST Office Visit [facility] MEDICINE [address] [place] [address] Annmarie Chambers MD [address] [place] [address] 05/04/2025 3:30 PM EST Office Visit [facility] ADULT DENTAL [address] [place] [address] Radames Garay, EVELYN [address] [place] [address] 05/12/2025 3:15 PM EST Office Visit [facility] MEDICINE [address] [place] [address] Irina Sanchez, ABDIASM [address] [place] [address] documented as of this encounter Visit Diagnoses Not on filedocumented in this encounter Additional Health Concerns Assessment Noted Time PHQ-9 Depression Total Score: 20 024 2:22 PM EDT documented as of this encounter Care Teams Wool Hat Forming Machine Tender Relationship Specialty Start Date End Date Annmarie Chambers MD [address] [place] [address] PCP - General Internal Medicine 02/02/24 documented as of this encounter
--- OUTSIDE RECORDS SUMMARY | 2025-05-03 14:42 | XMS_ITS | Clinical Summary ---
Author Organization [email or web address] Address [address] [facility] [address] [place] [address] Care Team Providers Care Jacquard Plate Maker Name Role Phone Annmarie Chambers MD Primary Care Pro vider Allergies Active Allergy Reactions Criticality Noted Date Comments Other 10/27/2023 Seasonal allergies Medications Banophen 25 MG capsule Take 25 mg by mouth if needed for sleep (insomnia, anxiety). See above sig Active methylphenidate (Ritalin) 20 MG tablet Take 20 mg by mouth 2 times daily. 024 Active Blood Pressure Monitoring (Blood Pressure Cuff) miscIndications :Elevated blood pressure reading 1 each Once daily. 1 each 024 Active cloNIDine (Catapres) 0.1 MG tablet TAKE 1 TABLET BY MOUTH TWICE A DAY NEEDED FOR ANXIETY, TAKE PRIOR TO USE CLONAZEPAM Active clonazePAM (KlonoPIN) 0.5 MG tablet Take 0.5 mg by mouth if needed in the morning and at bedtime for anxiety. 024 Active albuterol 108 (90 Base) MCG/ACT inhaler Inhale 2 puffs every 6 (six) hours if needed for wheezing. 18 g 3 024 Active chlorhexidine (Peridex) 0.12 % solutionIndicat ions:Periodonta l disease,Dental abscess Swish 15 mL morning and night for 1 minute. Spit, do not swallow. Do not eat or drink for 30 minutes following use. 473 mL 025 Active psyllium (Metamucil Smooth Texture) 58.6 % powderIndicatio ns:Constipation , unspecified constipation type Take 5.12 g (3 g of fiber) by mouth 2 times daily. 283 g 2 025 2025 Active famotidine (Pepcid) 20 MG tablet TAKE 1 TABLET BY MOUTH AT BEDTIME NEEDED FOR HEARTBURN 90 tablet Active chlorhexidine (Peridex) 0.12 % solution Use 15ml twice daily to rinse the mouth. Spit, do not swallow. 473 mL Active docusate sodium (Colace) 100 MG capsuleIndicati ons:Constipatio n, unspecified constipation type TAKE 1 CAPSULE BY MOUTH TWICE A DAY NEEDED FOR CONSTIPATION 180 capsule 1 Active chlorhexidine (Peridex) 0.12 % solution SWISH 15 ML FOR 30 SECS THEN SPIT. USE IN AM, NOON, AND BEDTIME AFTER BRUSHING TEETH NEEDED 473 mL 025 Active Varenicline Tartrate, Starter, (Chantix Starting ) 0.5 MG X 11 & 1 MG X 42 tablet therapy pack Take 1 tablet by mouth at noon and 1 tablet in the evening. Days 1-3: 0.5 mg PO qDay, Days 4-7: 0.5 mg PO twice a day , Day 8 to end of treatment: 1 mg twice a day. 1 each Active varenicline (Chantix) 1 MG tablet TAKE 1 TABLET BY MOUTH TWICE A DAY. TAKE WITH FULL GLASS OF WATER. 60 tablet 2 Active Acetaminophen Extra Strength 500 MG tabletIndicatio ns:Periodontal disease,Dental abscess,Right flank pain TAKE 1 TABLET (500 MG) BY MOUTH EVERY 8 HOURS IF NEEDED FOR MILD PAIN FOR UP TO 30 DOSES. 30 tablet 2 Active lidocaine (Lidoderm) 5 % patchIndication s:Right flank pain APPLY 1 PATCH TOPICALLY ONCE PER DAY. REMOVE & DISCARD PATCH WITHIN 12 HOURS OR DIRECTED BY . 30 patch 2 Active norethindrone (Micronor) 0.35 MG tablet Take 1 tablet (0.35 mg) by mouth Once per day. 28 tablet 11 025 2025 Active doxycycline (Monodox) 100 MG capsule One twice a day. Take with at least 8 ounces (large glass) of water, do not lie down for 30 minutes after 8 capsule 11:51 AM EST Active lidocaine (Lidoderm) 5 % patchIndication s:Right flank pain Apply 1 patch topically Once per day. Remove & discard patch within 12 hours or as directed by MD. 30 patch 2 2024 Discontinued norethindrone (Micronor) 0.35 MG tablet Take 1 tablet (0.35 mg) by mouth Once per day. 28 tablet 11 2024 Discontinued(R eorder (will not trigger notification to Pharmacy)) doxycycline (Monodox) 100 MG capsule One twice a day for 7 days. Take with at least 8 ounces (large glass) of water, do not lie down for 30 minutes after 20 capsule 2024 Discontinued(R eorder (will not trigger notification to Pharmacy)) mupirocin (Bactroban) 2 % ointment Apply topically 3 times daily for 7 days. 22 g 2024 Active Problems Problem Noted Date Diagnosed Date Constipation 09/22/2024 Abdominal pain 09/22/2024 Somnolence, daytime 09/22/2024 Periodontal disease 08/02/2024 Dental abscess 08/02/2024 HLD (hyperlipidemia) 03/03/2024 ADHD 01/14/2024 Bipolar 1 disorder ([facility]) 01/14/2024 Anxiety 01/14/2024 Asthma 01/14/2024 Tobacco abuse [...] Encounters Date Type Department Care Team Description 05/03/2025 Results Follow-Up [address] [address] Annmarie Chambers MD Comprehensive Metabolic Panel, Lipid Panel, Standard, CBC auto differential 05/03/[address] [address] Annmarie Chambers MD chart prep 04/28/2025 1:00 PM EST Office Visit [address] [address] Selvin Hernandez CNM Cellulitis of right breast (Primary Dx); Pelvic pain 04/28/2025 Travel 04/27/2025 11:00 AM EST Office Visit [facility] [address] [place] [phone] Radames Garay, DMD 04/27/[address] [address] Selvin Hernandez CNM chart prep 04/26/2025 Patient Outreach [address] [address] Annmarie Chambers MD Pre-visit Planning ([facility] screening was completed on 01/28/2025) 04/19/2025 3:15 PM EST Office Visit [facility] MED[facility] [address] [place] [address] Selvin Hernandez CNM Cellulitis of right breast (Primary Dx); Pelvic pain 04/19/2025 Travel 04/12/2025 1:00 PM EST Office Visit [facility] [address] [place] [address] Selvin Hernandez CNM Pelvic pain (Primary Dx); Dysmenorrhea; Fibroid 04/12/2025 Travel 04/11/2025 10:00 AM EST Office Visit [facility] [address] [place] [address] Radames Garay, DMD 04/11/2025 Telephone [facility] [address] [place] [address], [place] [address] Princess Jj [place] 04/07/2025 Refill [facility] [address] [place] [address] Annmarie Chambers MD Right flank pain 04/07/2025 Refill [facility] [address] [place] [address] Radames Garay, DMD 03/31/2025 Results Follow-Up [facility] [address] [place] [address] Selvin Hernandez CNM US Pelvis Transvaginal 03/29/2025 Refill [facility] [address] [place] [address] Annmarie Chambers MD Periodontal disease; Dental abscess; Right flank pain 03/22/2025 1:00 PM EDT Office Visit [facility] [address] [place] [address] Selvin Hernandez CNM Dysmenorrhea (Primary Dx); Fibroid; Encounter for immunization; Pelvic pain 03/22/2025 Travel 03/21/2025 Telephone [facility] [address] [place] [address] Princess Jj [place] 03/10/2025 1:30 PM EDT Office Visit [facility] [address] [place] [address] Radames Garay, DMD 02/15/2025 Telephone [facility] [address] [place] [address] Selvin Hernandez, CNM CHART PREP 02/10/2025 Telephone [facility] [address] [place] [address] Annmarie Chambers MD PT1 apts 02/03/[address] [address] Annmarie Chambers MD from Last 3 Months Immunizations Immunization Administration [...] Mass Index 32.5 04/28/2025 1:10 PM EST Plan of Treatment Upcoming Encounters Date Type Department Care Team (Late st Contact Info) Description 05/04/2025 10:45 AM EST Office Visit [facility] [address] [place] [address] Annmarie Chambers MD [address] [place] [address] 05/04/2025 3:30 PM EST Office Visit [facility] [address] [place] [address] Radames Garay, EVELYN [address] [place] [address] 05/12/2025 3:15 PM EST Office Visit [facility] [address] [place] [address] Selvin Hernandez, TAM [address] [place] [address] Health Maintenance Due Date Last Done Comments CT Colonography 1980 Colonoscopy 1979 Colorectal Cancer Screening 1980 Dental Prophylaxis 1979 FIT DNA/Cologuard 1979 FIT 1979 FOBT 1980 Sigmoidoscopy 1980 Family Planning (PISQ) 08/09/1994 HPV Vaccines (1 - 3-dose series) 08/09/1994 Dental X-Ray: Bitewings 12/14/2015 12/13/19 15, 03/17/2013 COVID-19 Vaccine ( - 2024-2 6 season) 2025 04/13/2024, 10/23/2020, 10/02/2020 Influenza Vaccine (#1) 2025 , 03/03/2024 Dental Oral Exam 04/30/2025 10/27/2024, 12/12/2014, 03/17/2013 Depression Monitoring 07/31/2025 01/28/2025 , 01/28/2025 Alcohol/Substance Use Screening 01/28/2026 01/28/2025 Disability Screening 01/28/2026 01/28/2025 SDOH Screening 01/28/2026 01/28/2025 Mammogram 02/02/2026 02/03/2024 Tobacco Screening 04/28/2026 04/28/2025 Dental X-Ray: Full Mouth 10/29/2027 025, 08/02/2024, 03/17/2013 Cervical Cancer Screening 01/28/2029 HPV/Cotest 01/28/2029 01/29/2024 Pap Smear 01/28/2029 01/29/2024 Zoster Vaccines (1 of 2) 08/09/2029 Lipid Panel 05/03/2030 05/03/2025, 01/19/2024 DTaP/Tdap/Td Vaccines (2 - T d or Tdap) 01/13/2034 01/14/2024 RSV Patients and Patients Aged 60 years or older (1 - 1-dose 75+ series) 08/09/2054 HIV Screening Completed 01/19/2024 Hepatitis C Screening Completed 01/19/2024 Pneumococcal Vaccine: Pediatrics (0 to 5 Years) and At-Risk Patients (6 to 49) Years Completed 03/03/2024, 03/09/2021 Hepatitis B Vaccines Completed 03/22/2025, 04/13/2024, 03/03/2024 [...] Procedure Name Priority Date/Time Associated Diagnosis Comments CBC WITH AUTO DIFFERENTIAL Routine 05/03/2025 11:32 AM EST Polycythemia LIPID PANEL, STANDARD Routine 05/03/2025 11:32 AM EST Hyperlipidemia, unspecified hyperlipidemia type COMPREHENSIVE METABOLIC PANEL Routine 05/03/2025 11:32 AM EST Hyperlipidemia, unspecified hyperlipidemia type WAX TRY IN Routine 04/27/2025 11:00 AM EST DENTURE IMPRESSION Routine 04/11/2025 10 :00 AM EST BITE REGISTRATION Routine 04/11/2025 10: 00 AM EST US PELVIS TRANSVAGINAL Urgent 03/30/2025 7:39 PM EDT Fibroid Dysmenorrhea DENTURE IMPRESSION Routine 03/10/2025 1: 30 PM EDT PANORAMIC RADIOGRAPHIC IMAGE Routine 10/27/2024 10:30 [...] Recently Relevant to Health Maintenance Results * CBC auto differential (05/03/2025 11:32 AM EST) White Blood Count 10.2 4.8 - 10.8 X10*3/uL [facility] Red Blood Count 4.62 4.20 - 5.50 X10*6/uL [facility] Hemoglobin 14.5 12.0 - 16.0 g/dl [facility] Hematocrit 43.9 37.0 - 47.0 % [facility] Mean Corpuscular Volume 95.0 80.0 - 98.0 fL [facility] Mean Corpuscular Hemoglobin 31.4 27.0 - 33.0 pg [facility] Mean Corpuscular HGB Conc 33.0 31.0 - 35.0 g/dl [facility] Red Cell Distribution Width 12.5 11.0 - 16.0 % [facility] Platelet Count 271 160 - 400 X10*3/uL [facility] Mean Platelet Volume 10.6 9.4 - 12.3 fL [facility] Neutrophils Percent Auto 66.0 45 - 73 % [facility] Imm Gran Pct Auto 0.3 0.0 - 0.4 % [facility] Lymphocytes Percent Auto 24.0 20 - 40 % [facility] Monocytes Percent Auto 7.6 2 - 11 % [facility] Eosinophils Percent Auto 1.4 0 - 4 % [facility] Basophils Percent Auto 0.7 0 - 2 % [facility] NRBC Pct Auto 0.0 0.0 - 0.2 /100WBC [facility] Neutrophils Absolute Auto 6.7 2.0 - 8.3 x10*3/uL [facility] Imm Gran Abs Auto 0.03 0.00 - 0.03 X10*3/uL [facility] Lymphocytes Absolute Auto 2.4 1.2 - 4.9 X10*3/uL [facility] Monocytes Absolute Auto 0.8 0.1 - 1.2 X10*3/uL [facility] Eosinophils Absolute Auto 0.1 0.0 - 0.4 X10*3/uL [facility] Basophils Absolute Auto 0.1 0.0 - 0.2 X10*3/uL [facility] NRBC Abs Auto 0.000 0.0 - 0.012 X10*3/uL [facility] Blood Venous blood specimen / Unknown 05/03/2025 11:32 AM EST 05/03/2025 1:21 PM EST us Annmarie Santana MD LAB BLOOD ORDERAB LES Final Result [facility] [address] [place] [phone] * (ABNORMAL) Lipid Panel, Standard (05/03/2025 11:32 AM EST) Triglycerides 138 <150 mg/dL [facility] Comment:Desirable Triglyceri de: less than 150 mg/dLBorderline High Triglyceride 150-199 mg/dLHigh Triglyceride: 200-499 mg/dLVery High Triglyceride: greater than or equal to 5OO mg/dL Cholesterol 178 <200 mg/dL [facility] Comment:Desirable Cholestero l: less than 200 mg/dLBorderline High Cholesterol: 200-239 mg/dLHigh Cholesterol: greater than 239 mg/dL LDL Cholesterol Calculated 100(H) <100 mg/dL [facility] Comment:Desirable LDL: less than 100 mg/dLNear Optimal/Above Optimal LDL: 110- 129 mg/dLBorderline High LDL: 130-159 mg/dLHigh LDL: 160-189 mg/dLVery High LDL: greater than or equal to 190 mg/dL HDL Cholesterol 51 >40 mg/dL [facility] Comment:Desirable HDL: great er than 40 mg/dL Note: This HDL assay may give artificially low results in patients with liver disease. Blood Venous blood specimen / Unknown 05/03/2025 11:32 AM EST 05/03/2025 1:18 PM EST Annmarie Santana MD LAB BLOOD ORDERAB LES Final Result [facility] [address] [place] [address] [phone] * (ABNORMAL) Comprehensive Metabolic Panel (05/03/2025 11:32 AM EST) Sodium 142 135 - 145 mmol/L [facility] Potassium 4.4 3.3 - 5.1 mmol/L [facility] Chloride 109(H) 96 - 108 mmol/L [facility] Carbon Dioxide 26 22 - 29 mmol/L [facility] Anion Gap 11(L) 12 - 20 [facility] Urea Nitrogen (BUN) 19(H) 9 - 16 mg/dL [facility] Creatinine, Serum 1.12 0.5 - 1.4 mg/dL [facility] Estimated Glomerular Filt Rate 53 [facility] Comment:Chronic Kidney Disea se: Estimated GFR < 60 mL/min/1.15d3Dbpybp Kidney Disease: Estimated GFR < 15 mL/min/1.73m2 Glucose 97 60 - 115 mg/dL [facility] Calcium 9.5 8.4 - 10.2 mg/dL [facility] Bilirubin, Total 0.8 0.0 - 1.0 mg/dL [facility] Aspartate Amino Transferase 26 5 - 31 U/L [facility] Alanine Aminotransferase 21 0 - 31 U/L [facility] Total Protein 6.9 6.5 - 8.0 g/dL [facility] Albumin Level 4.5 3.5 - 5.0 g/dL [facility] Alkaline Phosphatase 57 39 - 117 U/L [facility] Blood Venous blood specimen / Unknown 05/03/2025 11:32 AM EST 05/03/2025 1:18 PM EST us Annmarie Santana MD LAB BLOOD ORDERAB LES Final Result Performing Organization Address City/State/[facility] Co de Phone Number [facility] [address] [place] [phone] * US Pelvis Transvaginal (03/30/2025 7:39 PM EDT) Anatomical Region Laterality Modality Pelvis Ultrasound 03/30/2025 7:39 PM EDT Narrative 03/30/2025 7:40 PM EDT [address] [address] Ultrasound Report Signed Patient: Alicia Meyer MR#: [id number] : 1980 Acct:[id number] Age/Sex: 44 / F ADM Date: 03/29/25 Loc: HO.US Attending Dr: Selvin Hernandez CNM Ordering Physician: SELVIN HERNANDEZ CNM Date of Service: 03/29/25 Procedure(s): US pelvic and transvaginal Accession Number(s): [id number] cc: Annmarie Chambers MD; SELVIN HERNANDEZ CNM Reason for Exam: dysmenorrhea, known fibroid CLINICAL HISTORY: dysmenorrhea, known fibroid US pelvis transabdominal and transvaginal with doppler interrogation Comparison: 02/10/2024 Findings: Transabdominal scanning performed for overall anatomy. Transvaginal scanning performed for additional detail. Anteverted uterus 7.5 cm in length. Normal echotexture. A small left lower uterine segment fibroid measuring 11 x 9 x 7 mm is noted (previously 8 mm).. Normal endometrium, 2 mm thickness. Right ovary normal, 2.3 cm. Normal color flow. Punctate calcification are re-identified. Left ovary normal, 2.4 cm. Normal color flow . Punctate calcification are re-identified. No free fluid Impression: 1. Small uterine fibroid. Otherwise, unremarkable pelvic ultrasound This document has been electronically signed by: Fredis Ariza MD on 03/30/2025 19:39:27 Dictated By: Fredis Ariza MD Signed By: <Electronically signed by Fredis Ariza MD in OV> 03/30/251938 DD/ 38 TD/TT: 03/30/251938 Loading Dock Helper: Procedure Note Donotuseinterpreter, Image - 03/30/2025 [place] [address] Ultrasound Report Signed Patient: Naomi Meyer#: [id number] : 1980Acct:[id number] Age/Sex: 44 / FADM Date: 03/29/25 Loc: HO.US Attending Dr: Selvin Hernandez CNM Ordering Physician: SELVIN HERNANDEZ CNM Date of Service: 03/29/25 Procedure(s): US pelvic and transvaginal Accession Number(s): [id number] cc: Annmarie Chambers MD; SELVIN HERNANDEZ CNM Reason for Exam: dysmenorrhea, known fibroid CLINICAL HISTORY: dysmenorrhea, known fibroid US pelvis transabdominal and transvaginal with doppler interrogation Comparison: 02/10/2024 Findings: Transabdominal scanning performed for overall anatomy. Transvaginal scanning performed for additional detail. Anteverted uterus 7.5 cm in length. Normal echotexture. A small left lower uterine segment fibroid measuring 11 x 9 x 7 mm is noted (previously 8 mm).. Normal endometrium, 2 mm thickness. Right ovary normal, 2.3 cm. Normal color flow. Punctate calcification are re-identified. Left ovary normal, 2.4 cm. Normal color flow . Punctate calcification are re-identified. No free fluid Impression: 1. Small uterine fibroid. Otherwise, unremarkable pelvic ultrasound This document has been electronically signed by: Fredis Ariza MD on 03/30/2025 19:39:27 Dictated By: Fredis Ariza MD Signed By: <Electronically signed by Fredis Ariza MD in OV> 03/30/251938 DD/ 38 TD/TT: 03/30/251938 Loading Dock Helper: us Selvin Hernandez CNM IMG US PROCEDURES Final R esult * BI Mammogram Screening Tomosynthesis Bilateral (02/03/2024 10:30 AM EDT) Anatomical Region Laterality Modality Breast Bilateral Mammography 02/03/2024 10:3 0 AM EDT Narrative 02/27/2024 3:02 PM EDT [facility] [address] [place] [address] Mammography Report Signed Patient: Alicia Meyer MR#: [id number] : 1980 Acct:[id number] Age/Sex: 43 / F ADM Date: 02/03/24 Loc: HOAshleighMAMMO Attending Dr: Annmarie Santana MD Ordering Physician: Annmarie Chambers MD Re sults: 1Negative Date of Service: 02/03/24 Follow Up: 1 Year From Orig inal Mammogram Procedure(s): MM tomosynthesis screening BI Accession Number(s): [id number] cc: Annmarie Chambers MD EXAMINATION: MM SCREENING [...] 02/27/24 1459 DD/ 1030 TD/TT: 02/03/24 1042 Loading Dock Helper: Procedure Note Donotuseinterpreter, Image - 02/27/2024 [facility] [address] [place] [address] Mammography Report Signed Patient: Alicia Meyer#: [id number] : 1980Acct:[id number] Age/Sex: 43 / FADM Date: 02/03/24 Loc: HO.MAMMO Attending Dr: Annmarie Santana MD Ordering Physician: Annmarie Chambers sults: 1Negative Date of Service: 02/03/24Follow Up: 1 Year From Orig inal Mammogram Procedure(s): MM tomosynthesis screening BI Accession Number(s): [id number] cc: Annmarie Chambers MD EXAMINATION: MM SCREENING [...] 02/27/24 1459 DD/ 1030 TD/TT: 02/03/24 1042 Loading Dock Helper: Annmarie Santana MD IM BI PROCEDURES Edited Result - Final * [facility] Imaging Pap and HPV mRNA E6/E7 (01/29/2024 12:00 AM EDT) HPV nRNA E6/E7 Not Detected Not Detected [facility] Comment:Methodology: Transcr iption-Mediated AmplificationThis assay detects E6/E7 viral messenger RNA (mRNA) from 14high-risk HPV types (16,18,31,33,35,39,45,51,52,56,58,59,66,68).Cervical sources are required for HPV testing.If a vaginal source from a patient who has had atotal hysterectomy with removal of cervix wassubmitted, please contact the testing laboratoryfor alternative testing options.For additional information, please refer [email or web address](This link if provided for information/educational purposes only.)THIS TEST WAS PERFORMED AT:[facility] [address] [phone] MOYA MD SOURCE: SEE NOTE [facility] Comment:None given Report Status: [facility] Clinical Information: SEE NOTE [facility] Comment:None given LMP: SEE NOTE [facility] Comment:NONE GIVEN Prev. PAP: SEE NOTE [facility] Comment:NONE GIVEN Prev. BX: SEE NOTE [facility] Comment:NONE GIVEN Statement Of Adequacy: SEE NOTE [facility] Comment:Satisfactory for yusef luation.Endocervical/transformation zone componentpresent. General Categorization: [facility] Interpretation/Result: SEE NOTE [facility] Comment:Cytology Results: Ne gative for intraepitheliallesion or malignancy. Cytology Comment SEE NOTE [facility] Comment:This Pap test has be en evaluated with computerassisted technology. [employer] Player: SEE NOTE [facility] Comment:SXA, CT(ASCP)CT scre ening location: [address] [address] Review [employer] Player: [facility] Pathologist [facility] PAP Infection [facility] See Note SEE NOTE [facility] Comment:EXPLANATORY NOTE:The Pap is a screening test for cervical cancer. It isnot a diagnostic test and is subject to false negativeand false positive results. It is most reliable when asatisfactory sample, regularly obtained, is submittedwith relevant clinical findings and history, and whenthe Pap result is evaluated along with historic andcurrent clinical information. 01/29/2024 01/29/2024 Narrative [facility] - 02/02/2024 3:25 PM EDT SEE SCANNED RESULTS IN EMR Selvin Hernandez CNM LAB PATHOLOGY ORDERABLES Final Result [facility] [address] [place] [phone] [phone] * Hepatitis C Antibody with Reflex to HCV, RNA, Quantitative, Real-Time PCR (01/19/2024 11:38 AM EDT) Hepatitis C Antibody Nonreactive Nonreactive [facility] Comment:Antibodies to HCV no t detected; does not exclude early acuteHCV infection. Blood Venous blood specimen / Unknown 01/19/2024 11:38 AM EDT 01/19/2024 1:06 PM EDT Annmarie Santana MD LAB BLOOD ORDERAB LES Final Result Performing Organization Address [facility]/ZIP Co de Phone Number [facility] [address] [place] [phone] * HIV-1/2 Antigen and Antibodies, Fourth Generation, with Reflexes (01/19/2024 11:38 AM EDT) Pathologist [facility] HIV AB/AG Nonreactive Nonreactive [facility] Comment:HIV-1 p24 Ag and/or HIV-1/HIV-2 Ab not detected.A test result that is nonreactive does not exclude thepossibility of exposure to or infection with HIV-1 and/orHIV-2. Nonreactive results in this assay for individualswith prior exposure to HIV-1 and/or HIV-2 may be due toantigen and antibody levels that are below the limit ofdetection of this assay.The [employer] HIV Ag/Ab Combo assay result andsupplemental assay results should be interpreted inconjunction with the patient's clinical presentation,history and other laboratory results. If the results areinconsistent with clinical evidence, additional testing issuggested to confirm the result. Blood Venous blood specimen / Unknown 01/19/2024 11:38 AM EDT 01/19/2024 1:06 PM EDT Annmarie Santana MD LAB BLOOD ORDERAB LES Final Result Performing Organization Address City/[facility]/ZIP Co de Phone Number [facility] [address] [place] [phone] from Last 3 Months or Most Recently Relevant to Health Maintenance Insurance [facility] C3 DENTAL-[facility] MEDICAID STAND ADULT Care Teams Jacquard Plate Maker Relationship Specialty Start Date End Date Annmarie Chambers MD [address] [place] [address] PCP - General Internal Medicine 02/02/24
== END 2025-05-03 11:06 | disposition home or self-care (01) ==
LOC: HO.HHCL 11:05
PROVIDERS: Student in an Organized Health Care Education/Training Program; PCP Internal Medicine; Visit Provider Internal Medicine
DX: D75.1 Secondary polycythemia (principal); E78.5 Hyperlipidemia, unspecified
CPT/HCPCS: 36415; 80053; 80061; 82668; 85025

== ENCOUNTER 2025-05-04 13:52 | Outpatient (REF) | payer MEDICAID, SELFPAY ==
--- OUTSIDE RECORDS SUMMARY | 2025-01-28 06:20 | XMS_ITS ---
Author Organization [facility] Address [address] [place] [phone] Care Team Providers Care Adjunct Instructor Of Women'S Studies Name Role Phone Annmarie Chambers Primary Care Provider Sam Barnett [phone] REASON FOR VISIT gerd,abdominal pain,screening Encounters Encounter Location Date Provider Diagnosis [facility] [place] Out[place] [address] [place], [place] [id number] 01/28/2025 Sam Willard Plan Of Treatment No Information Progress Notes * MARCUS, EMILIADOB: [birth year] (44 yo F)Acc No.[id number]:01/28/2025 EGD and COL/MAC Patient: EMILIA BAIN Provider: James Willard MD :1980 A ge:44 Y S ex:Female Date:01/28/2025 Address:[address] [place] [address] [id number] Pcp:Annmarie Santana Subjective: * Chief Complaints: * G erd,abdominal pain,screening Billing Information: * Procedure Codes: * The named appointment provid er may or may not be the originator of this progress note, and it is not deemed complete until electronically signed by the appointment provider. Sign off status: Pending * Provider: James Willard MD Date: 0 01/28/2025 Generated for Danie henry/Saad/eTransmitting on: 07/04/2024 04:54 PM EST
--- OUTSIDE RECORDS SUMMARY | 2025-05-04 10:45 | XMS_ITS | Encounter Summary ---
Author Organization [employer] Address [address] [place] [address] Care Team Providers Care Capsule Filler Name Role Phone Annmarie Chambers MD Primary Care Pro vider Reason for Referral * Consultation (Routine) - Authorized Specialty Diagnoses / Procedures Referred By Jm blue Referred To Contact Hand Surgery Diagnoses Bilateral carpal tunnel syndrome Annmarie Chambers MD [address] [place] [address] Phone: tel: fax: [facility] [address] [place] [address] Phone: tel: Referral ID Status Reason Start Date Expiration Date Visits Requested Visits Authorized [id number] Authorized Specialty Services Required 05/04/2026 6 6 * Consultation (Routine) - Authorized Specialty Diagnoses / Procedures Referred By Contac t Referred To Contact Nutrition Diagnoses Obesity (BMI 30-39.9) Annmarie Chambers MD [address] [place] [address] Phone: tel: fax: Referral ID Status Reason Start Date Expiration Date Visits Requested Visits Authorized [id number] Authorized Specialty Services Required 5 05/04/2026 1 1 Encounter Details Date Type Department Care Team (Late st Contact Info) Description 05/04/2025 10:45 AM EST Office Visit [facility] MED[facility] [address] [place] [address] Annmarie Chambers MD [address] [place], [place] [phone] Obesity (BMI 30-39.9) (Primary Dx); Bilateral carpal tunnel syndrome; Annual physical exam; Encounter for immunization Social History Tobacco Use Types Packs/Day Years Used Date Smoking Tobacco: Every Day Cigarettes Passive Smoke Exposure: Current Smokeless Tobacco: Never Comments:Started smoking 13 y of age ,2-10 cig a day currently smoking for 30 years currently ,before 20 a day so average 15 cig a day ---22.5 pack-years. Alcohol Use Standard Drinks/Week Comments Yes 0 (1 standard drink = 0.6 oz pur e alcohol) cocktail 4-5 cans times a week Alcohol Answer Date Recorded How often do you have a drink containing alcohol ? 3 05/04/2025 How many drinks containing a lcohol do you have on a typical day when you are drinking? 1 05/04/2025 How often do you have six or more drinks on one occasion? 0 05/04/2025 Depression Answer Date Recorded Patient Health Questionnaire-9 Score 27 01/28/2025 Patient Health Questionnaire-9 Score 27 01/28/2025 Last PHQ-9: Questionnaire Data Not on file 0 01/28/2025 Housing Stability Answer Date Recorded What is your housing situation today? I have rach matheus 01/28/[address] you li [...] Sign Reading Time Taken Comments Blood Pressure 136/74 05/04/2025 11:14 AM EST Pulse 77 05/04/2025 11:14 AM EST Temperature 36.3 C (97.3 F) 05/04/2025 11:14 AM EST Respiratory Rate 20 05/04/2025 11:14 AM EST Oxygen Saturation 98% 05/04/2025 11:14 AM EST Inhaled Oxygen Concentration - - Weight 77.1 kg (170 lb) 05/04/2025 11:14 AM EST Height 154.9 cm (5' 1 ) 05/04/2025 11:14 AM EST Body Mass Index 32.12 05/04/2025 11:14 AM EST documented in this encounter Plan of Treatment Upcoming Encounters Date Type Department Care Team (Late st Contact Info) Description 05/12/2025 3:15 PM EST Office Visit [facility] [address] [place] [address] Irina Sanchez CNM [address] [place] [address] Scheduled Orders Name Type Priority Associated Diagnoses Orde r Schedule Chlamydia/Trichomonas/Neis seria gonorrhoeae, PCR, Urine Lab Routine Annual physical exam Ordered: 05/04/2025 Hemoglobin A1c Lab Routine Annual physical exam Expected: 05/04/2025 (Approximate), Expires: 05/04/2026 Hepatitis B surface antigen, EIA Lab Routine Annual physical exam Expected: 05/04/2025 (Approximate), Expires: 05/04/2026 Hepatitis B Surface Antibody, Qualitative Lab Routine Annual physical exam Expected: 05/04/2025 (Approximate), Expires: 05/04/2026 Hepatitis B Core Antibody, Total Lab Routine Annual physical exam Expected: 05/04/2025 (Approximate), Expires: 05/04/2026 Hepatitis C Antibody with Reflex to HCV, RNA, Quantitative, Real-Time PCR Lab Routine Annual physical exam Expected: 05/04/2025 (Approximate), Expires: 05/04/2026 HIV-1/2 Antigen and Antibodies, Fourth Generation, with Reflexes Lab Routine Annual physical exam Expected: 05/04/2025 (Approximate), Expires: 05/04/2026 Syphilis Screen Lab Routine Annual physical exam Expected: 05/04/2025 (Approximate), Expires: 05/04/2026 TSH with Reflex to Free T4 Lab Routine Annual physical exam Expected: 05/04/2025 (Approximate), Expires: 05/04/2026 Scheduled Referrals Name Type Priority Associated Diagnoses Orde r Schedule Referral to Nutrition Services, Internal Outpatient Referral Routine Obesity (BMI 30-39.9) Expected: 05/04/2025 (Approximate), Expires: 05/04/2026 Referral to Hand Surgery Outpatient Referral Routine Bilateral carpal tunnel syndrome Expected: 05/04/2025 (Approximate), Expires: 05/04/2026 documented as of this encounter Visit Diagnoses Diagnosis Obesity (BMI 30-39.9)- Primary Bilateral carpal tunnel syndrome Carpal tunnel syndrome Annual physical exam Routine general medical examination at a health care facility Encounter for immunization documented in this encounter Additional Health Concerns Assessment Noted Time PHQ-9 Depression Total Score: 27 025 9:23 AM EDT documented as of this encounter Care Teams Capsule Filler Relationship Specialty Start Date End Date Annmarie Chambers MD [address] [place] [address] PCP - General Internal Medicine 02/02/24 documented as of this encounter
--- OUTSIDE RECORDS SUMMARY | 2025-05-04 15:30 | XMS_ITS | Encounter Summary ---
Author Organization [employer] Address [address] [facility] 7t [place] [address] Care Team Providers Care Cushion Padder Name Role Phone Annmarie Chambers MD Primary Care Pro vider Reason for Visit * Reason Comments Dental Exam Dentures Encounter Details Date Type Department Care Team ([facility] st Contact Info) Description 05/04/2025 3:30 PM EST Office Visit [facility] ADULT DENTAL [address] [place] [address] Radames Garay, DMD [address] [place] [address] Social History Tobacco Use Types Packs/Day Years [...] your housing situation today? I have rach sing 01/28/[address] you li [...] PM EDT documented as of this encounter Progress Notes * Radames Garay DMD - 05/04/2025 3:30 PM EST Delivery of F/F. Pt likes the esthetic but she has slight difficult time to get used to them. High spots is being eliminated at UR premolar area Inform pt that she need time to get used to them NV: more denture adjustment if needed Kamilla documented in this encounter Plan of Treatment Upcoming Encounters Date Type Department Care Team (Late st Contact Info) Description 05/12/2025 3:15 PM EST Office Visit [facility] MEDICINE [address] [place] [address] [phone] Irina Sanchez, ABDIASM [address] [place], [place] [phone] documented as of this encounter Procedures Procedure Name Priority Date/Time Associated Diagnosis Comments Max COMPLETE DENTURE - MAXILLARY Routine 05/04/2025 3:30 PM EST David COMPLETE DENTURE - MANDIBULAR Routine 05/04/2025 3:30 PM EST CASE PRESENTATION, DETAILED AND EXTENSIVE TREATMENT PLANNING Routine 05/04/2025 3:30 PM EST documented in this encounter Visit Diagnoses Not on filedocumented in this encounter Additional Health Concerns Assessment Noted Time PHQ-9 Depression Total Score: 27 025 9:23 AM EDT documented as of this encounter Care Teams Cushion Padder Relationship Specialty Start Date End Date Annmarie Chambers MD [address] [place] [address] PCP - General Internal Medicine 02/02/24 documented as of this encounter
--- OUTSIDE RECORDS SUMMARY | 2025-05-04 16:55 | XMS_ITS | Encounter Summary ---
Author Organization [employer] Address [address] [place] [address] 7 [place] [address] Care Team Providers Care Public Speaking Teacher Name Role Phone Annmarie Chambers MD Primary Care Pro vider Reason for Visit * Reason Comments Med Change Request Encounter Details Date Type Department Care Team ([facility] st Contact Info) Description 12/08/2024 Refill [facility] MEDICINE [address] [place], [place] [phone] Annmarie Chambers MD [address] [place], [place] [phone] Social History Tobacco Use Types Packs/Day Years [...] Description 05/12/2025 3:15 PM EST Office Visit [facility] MEDICINE [address] [place] [address] Irina Sanchez CN [address] [place] [address] documented as of this encounter Visit Diagnoses Not on filedocumented in this encounter Additional Health Concerns Assessment Noted Time PHQ-9 Depression Total Score: 20 024 2:22 PM EDT documented as of this encounter Care Teams Public Speaking Teacher Relationship Specialty Start Date End Date Annmarie Chambers MD [address] [place] [address] PCP - General Internal Medicine 02/02/24 documented as of this encounter
--- OUTSIDE RECORDS SUMMARY | 2025-05-04 16:55 | XMS_ITS | Encounter Summary ---
Author Organization [email or web address] Address [address] [place] [address] 7 [place] [address] Care Team Providers Care Investigation Lieutenant Name Role Phone Annmarie Chambers MD Primary Care Pro vider Encounter Details Date Type Department Care Team (Latest Contact Info) Description 05/03/2025 Results Follow-Up [facility] MEDICINE [address] [place] [address] Annmarie Chambers MD [address] [place] [address] Comprehensive Metabolic Panel, Lipid Panel, Standard, CBC [...] Description 05/12/2025 3:15 PM EST Office Visit [facility] MEDICINE [address] [place] [address] Irina Sanchez CNM [address] [place] [address] documented as of this encounter Visit Diagnoses Not on filedocumented in this encounter Additional Health Concerns Assessment Noted Time PHQ-9 Depression Total Score: 27 025 9:23 AM EDT documented as of this encounter Care Teams Investigation Lieutenant Relationship Specialty Start Date End Date Annmarie Chambers MD [address] [place] [address] PCP - General Internal Medicine 02/02/24 documented as of this encounter
--- OUTSIDE RECORDS SUMMARY | 2025-05-04 16:55 | XMS_ITS | Encounter Summary ---
Author Organization [employer] Address [address] [facility] [address] 7[address] [place] [address] Care Team Providers Care Atomizer Assembler Name Role Phone Annmarie Chmabers MD Primary Care Pro vider Reason for Visit * Reason Comments Med Refill Encounter Details Date Type Department Care Team ([facility] st Contact Info) Description 02/23/2024 Refill [facility] [address] [place], [place] [phone] Annmarie Rosario MD [address] [place] [address] Bilateral carpal tunnel syndrome Social History Tobacco [...] Description 05/12/2025 3:15 PM EST Office Visit [facility] [address] [place] [address] Irina Sanchez CN [address] [place] [address] documented as of this encounter Visit Diagnoses Diagnosis Bilateral carpal tunnel syndrome Carpal tunnel syndrome documented in this encounter Additional Health Concerns Assessment Noted Time PHQ-9 Depression Total Score: 20 024 2:22 PM EDT documented as of this encounter Care Teams Atomizer Assembler Relationship Specialty Start Date End Date Annmarie Chambers MD [address] [place] [address] PCP - General Internal Medicine 02/02/24 documented as of this encounter
--- OUTSIDE RECORDS SUMMARY | 2025-05-04 16:55 | XMS_ITS | Encounter Summary ---
Author Organization [employer] Address [address] [facility] [address] 7t [place] [address] Care Team Providers Care Precision Millwright Name Role Phone Annmarie Chambers MD Primary Care Pro vider Reason for Visit * Reason Comments Med Refill Encounter Details Date Type Department Care Team ([facility] st Contact Info) Description 01/23/2024 Refill [facility] MEDICINE [address] [place], [place] [phone] Adriana Stacy MD [address] [place], [place] [phone] Social History Tobacco Use Types Packs/Day Years [...] Description 05/12/2025 3:15 PM EST Office Visit [facility] MEDICINE [address] [place] [address] Irina Sanchez CNM [address] [place] [address] documented as of this encounter Visit Diagnoses Not on filedocumented in this encounter Additional Health Concerns Assessment Noted Time PHQ-9 Depression Total Score: 20 024 2:22 PM EDT documented as of this encounter Care Teams Precision Millwright Relationship Specialty Start Date End Date Annmarie Chambers MD [address] [place] [address] PCP - General Internal Medicine 02/02/24 documented as of this encounter
--- OUTSIDE RECORDS SUMMARY | 2025-05-04 16:55 | XMS_ITS | Encounter Summary ---
Author Organization [employer] Address [address] [place] [address] 7 [place] [address] Care Team Providers Care Black Top Spreader Machine Operator Name Role Phone Annmarie Chambers MD Primary Care Pro vider Reason for Visit * Reason Onset Date Comments chart prep 05/03/2025 Encounter Details Date Type Department Care Team ([facility] st Contact Info) Description 05/03/2025 Telephone [facility] MEDICINE [address] [place] [address] Annmarie Chambers MD [address] [place] [address] chart prep Social History Tobacco Use Types [...] Visit [facility] MEDICINE [address] [place], [place] [phone] Irina Sanchez CNM [address] [place] [address] documented as of this encounter Visit Diagnoses Not on filedocumented in this encounter Additional Health Concerns Assessment Noted Time PHQ-9 Depression Total Score: 27 025 9:23 AM EDT documented as of this encounter Care Teams Black Top Spreader Machine Operator Relationship Specialty Start Date End Date Annmarie Chambers MD [address] [place], [place] [phone] PCP - General Internal Medicine 02/02/24 documented as of this encounter
--- OUTSIDE RECORDS SUMMARY | 2025-05-04 16:55 | XMS_ITS | Encounter Summary ---
Author Organization [employer] Address [address] [place] [address] 7t [place] [address] Care Team Providers Care Carton Marker Machine Name Role Phone Annmarie Chambers MD Primary Care Pro vider Reason for Visit * Reason Comments Med Refill Encounter Details Date Type Department Care Team (Late st Contact Info) Description 12/17/2023 Refill [facility] [address] [place] [address] [phone] Adriana Stacy MD [address] [place] [address] Social History Tobacco Use Types Packs/Day Years [...] Description 05/12/2025 3:15 PM EST Office Visit [facility] MED[facility] [address] [place] [address] Irina Sanchez CNM [address] [place] [address] documented as of this encounter Visit Diagnoses Not on filedocumented in this encounter Care Teams Carton Marker Machine Relationship Specialty Start Date End Date Annmarie Chambers MD [address] [place] [address] PCP - General Internal Medicine 02/02/24 documented as of this encounter
--- OUTSIDE RECORDS SUMMARY | 2025-05-04 16:55 | XMS_ITS | Encounter Summary ---
Author Organization [employer] Address [address] [facility] 7t [place] [address] Care Team Providers Care Television Operator Name Role Phone Annmarie Chambers MD Primary Care Pro vider Reason for Visit * Reason Comments Med Refill Encounter Details Date Type Department Care Team (Late st Contact Info) Description 08/20/2024 Refill [facility] [address] [place], [place] [phone] Jagdish Santiago, DDS [address] [place] [address] Periodontal disease; Dental abscess Social History Tobacco [...] Description 05/12/2025 3:15 PM EST Office Visit [facility] MEDICINE [address] [place] [address] Irina Sanchez CN [address] [place] [address] documented as of this encounter Visit Diagnoses Diagnosis Periodontal disease Unspecified gingival and periodontal disease Dental abscess Periapical abscess without sinus documented in this encounter Additional Health Concerns Assessment Noted Time PHQ-9 Depression Total Score: 20 024 2:22 PM EDT documented as of this encounter Care Teams Television Operator Relationship Specialty Start Date End Date Annmarie Chambers MD [address] [place] [address] PCP - General Internal Medicine 02/02/24 documented as of this encounter
--- OUTSIDE RECORDS SUMMARY | 2025-05-04 16:55 | XMS_ITS | Encounter Summary ---
Author Organization [email or web address] Address [address] [facility] 7t [place] [address] Care Team Providers Care Pipeline Executive Name Role Phone Annmarie Chambers MD Primary Care Pro vider Reason for Visit * Reason Comments Med Refill Encounter Details Date Type Department Care Team ([facility] st Contact Info) Description 01/04/2025 Refill [facility] ADULT DENTAL [address] [place], [place] [phone] Radames Garay, DMD [address] [place] [address] Social History Tobacco Use Types Packs/Day Years [...] the past 12 months, has t he [employer], gas, oil or water company threatened to [...] Description 05/12/2025 3:15 PM EST Office Visit [facility] MEDICINE [address] [place] [address] Irina Sanchez CNM [address] [place] [address] documented as of this encounter Visit Diagnoses Not on filedocumented in this encounter Additional Health Concerns Assessment Noted Time PHQ-9 Depression Total Score: 20 024 2:22 PM EDT documented as of this encounter Care Teams Pipeline Executive Relationship Specialty Start Date End Date Annmarie Chambers MD [address] [place] [address] PCP - General Internal Medicine 02/02/24 documented as of this encounter
--- OUTSIDE RECORDS SUMMARY | 2025-05-04 16:55 | XMS_ITS | Encounter Summary ---
Author Organization [employer] Address [address] [facility] [address] 7t [place] [address] Care Team Providers Care Orthopedic Surgeon Name Role Phone Annmarie Chambers MD Primary Care Pro vider Encounter Details Date Type Department Care Team (Latest Contact Info) Description 05/04/2025 Travel Social History Tobacco Use Types Packs/Day [...] Description 05/12/2025 3:15 PM EST Office Visit [facility] MEDICINE [address] [place] [address] Irina Sanchez CN [address] [place] [address] documented as of this encounter Visit Diagnoses Not on filedocumented in this encounter Additional Health Concerns Assessment Noted Time PHQ-9 Depression Total Score: 27 025 9:23 AM EDT documented as of this encounter Care Teams Orthopedic Surgeon Relationship Specialty Start Date End Date Annmarie Chambers MD [address] [place] [phone] PCP - General Internal Medicine 02/02/24 documented as of this encounter
--- OUTSIDE RECORDS SUMMARY | 2025-05-04 16:55 | XMS_ITS | Encounter Summary ---
Author Organization [employer] Address [address] [place] [address] 7 [place] [address] Care Team Providers Care Drawing Operator Name Role Phone Annmarie Chambers MD Primary Care Pro vider Reason for Visit * Reason Onset Date Comments PT-1 02/11/2024 Encounter Details Date Type Department Care Team ([facility] st Contact Info) Description 02/11/2024 Telephone [facility] MEDICINE [address] [place], [place] [phone] Annmarie Chambers MD [address] [place], [place] [phone] PT-1 Social History Tobacco Use Types Packs/Day [...] Y/N: Yes Provider name or facility name: [facility] radiology Facility Address: [address] [place] [address] Escort needed: Y/N: Yes Do you have a wheelchair: Y/N: No If yes- Manual or electric: no Visits: 3 documented in this encounter Plan of Treatment Upcoming Encounters Date Type Department Care Team (Late st Contact Info) Description 05/12/2025 3:15 PM EST Office Visit [facility] MEDICINE [address] [place] [address] Irina Sanchez CNM [address] [place], [place] [phone] documented as of this encounter Visit Diagnoses Not on filedocumented in this encounter Additional Health Concerns Assessment Noted Time PHQ-9 Depression Total Score: 20 024 2:22 PM EDT documented as of this encounter Care Teams Drawing Operator Relationship Specialty Start Date End Date Annmarie Chambers MD [address] [place] [address] PCP - General Internal Medicine 02/02/24 documented as of this encounter
--- OUTSIDE RECORDS SUMMARY | 2025-05-04 16:56 | XMS_ITS | Clinical Summary ---
Author Organization [employer] Address [address] [facility] [address] [place] [address] Care Team Providers Care Separations Scientist Name Role Phone Annmarie Chambers MD Primary Care Pro vider Allergies Active Allergy Reactions Criticality Noted Date Comments Other 10/27/2023 Seasonal allergies Medications methylphenidate (Ritalin) 20 MG tablet Take 20 [...] 3 024 Active chlorhexidine (Peridex) 0.12 % solutionIndicati ons:Periodontal [...] mL Active docusate sodium (Colace) 100 MG capsuleIndicatio ns:Constipation, unspecified constipation type TAKE 1 CAPSULE BY MOUTH TWICE A DAY NEEDED FOR CONSTIPATION 180 capsule 1 Active chlorhexidine (Peridex) 0.12 % solution SWISH 15 ML FOR 30 SECS THEN SPIT. USE IN AM, NOON, AND BEDTIME AFTER BRUSHING TEETH NEEDED 473 mL Active Varenicline Tartrate, Starter, (Chantix Starting Month [...] 2 Active Acetaminophen Extra Strength 500 MG tabletIndication s:Periodontal disease,Dental abscess,Right flank pain TAKE 1 TABLET (500 MG) BY MOUTH EVERY 8 HOURS IF NEEDED FOR MILD PAIN FOR UP TO 30 DOSES. 30 tablet 2 Active lidocaine (Lidoderm) 5 % patchIndications :Right flank pain APPLY 1 PATCH TOPICALLY ONCE PER DAY. REMOVE & DISCARD PATCH WITHIN 12 HOURS OR DIRECTED BY MD. 30 patch 2 Active norethindrone (Micronor) 0.35 MG tablet Take 1 tablet (0.35 mg) by mouth Once per day. 28 tablet 11 025 2025 Active doxycycline (Monodox) 100 MG capsule One twice a day. Take with at least 8 ounces (large glass) of water, do not lie down for 30 minutes after 8 capsule 05/03/20 25 11:51 AM EST Active loratadine (Claritin) 10 MG tablet Take 1 tablet (10 mg) by mouth Once per day. 30 tablet 5 05/04/20 3:34 PM EST 2024 Active Umeclidinium Lavinia 62.5 MCG/ACT aerosol powder Inhale 1 Act (62.5 mcg) Once per day. 1 Act 5 05/04/20 3:34 PM EST 2025 Active venlafaxine XR (Effexor XR) 75 MG 24 hr capsule TAKE 1 CAPSULE BY MOUTH EVERY MORNING WITH FOOD Active bismuth subsalicylate (Pepto Bismol) 262 MG chewable tablet Chew 2 tablets (524 mg) before breakfast, before lunch, before evening meal, and at bedtime for 14 days. 112 tablet 05/04/20 3:34 PM EST 2024 Active metroNIDAZOLE (Flagyl) 500 MG tablet Take 1 tablet (500 mg) by mouth every 6 (six) hours for 14 days. One tab po four times a day for 14 days 56 tablet 05/04/20 3:34 PM EST 2024 Active omeprazole OTC (PriLOSEC OTC) 20 MG EC tablet Take 1 tablet (20 mg) by mouth before breakfast and before evening meal. 60 tablet 1 2025 Active tetracycline 500 MG capsule Take 1 capsule (500 mg) by mouth 4 times daily for 14 days. One tab po four times a day for 14 days 56 capsule 05/04/20 3:34 PM EST 2024 Active Banophen 25 MG capsule Take 25 mg by mouth if needed for sleep (insomnia, anxiety). See above sig 024 2024 Discontinued(O ther) lidocaine (Lidoderm) 5 % patchIndications :Right flank pain Apply 1 patch topically Once per day. Remove & discard patch within 12 hours or as directed by MD. 30 patch 2 025 2024 Discontinued norethindrone (Micronor) 0.35 MG tablet Take 1 tablet (0.35 mg) by mouth Once per day. 28 tablet 11 025 2024 Discontinued(R eorder (will not trigger notification to Pharmacy)) doxycycline (Monodox) 100 MG capsule One twice a day for 7 days. Take with at least 8 ounces (large glass) of water, do not lie down for 30 minutes after 20 capsule 025 2024 Discontinued(R eorder (will not trigger notification to Pharmacy)) mupirocin (Bactroban) 2 % ointment Apply topically 3 times daily for 7 days. 22 g 025 2024 Active Problems Problem Noted Date Diagnosed Date Constipation 09/22/2024 Abdominal pain 09/22/2024 Somnolence, daytime 09/22/2024 Periodontal disease 08/02/2024 Dental abscess 08/02/2024 HLD (hyperlipidemia) 03/03/2024 ADHD 01/14/2024 Bipolar 1 disorder ([facility]) 01/14/2024 Anxiety 01/14/2024 Asthma 01/14/2024 [...] Encounters Date Type Department Care Team Description 05/04/2025 3:30 PM EST Office [facility] [place] [address] Radames Garay, DMD 05/04/2025 10:45 AM EST Office Visit [facility] [place] [address] Annmarie Chambers MD Obesity (BMI 30-39.9) (Primary Dx); Bilateral carpal tunnel syndrome; Annual physical exam; Encounter for immunization 05/04/2025 Travel 05/03/2025 Results Follow-Up [address] [place] [address] Annmarie Chambers MD Comprehensive Metabolic Panel, Lipid Panel, Standard, CBC auto differential 05/03/2025 Telephone [facility] [place] [address] Annmarie Chambers MD chart prep 04/28/2025 1:00 PM EST Office Visit [facility] [address] Selvin Hernandez CNM Cellulitis of right breast (Primary Dx); Pelvic pain 04/28/2025 Travel 04/27/2025 11:00 AM EST Office Visit [facility] [place] [address] Radames Garay, EVELYN 04/27/2025 Telephone [facility] [place] [address] Selvin Hernandez CNM chart prep 04/26/2025 Patient Outreach [facility] [place] [address] Annmarie Chambers MD Pre-visit Planning (SDOH screening was completed on 01/28/2025) 04/19/2025 3:15 PM EST Office Visit [facility] [address] [place] [phone] Selvin Hernandez CNM Cellulitis of right breast (Primary Dx); Pelvic pain 04/19/2025 Travel 04/12/2025 1:00 PM EST Office Visit [facility] [address] [place] [phone] Selvin Hernandez CNM Pelvic pain (Primary Dx); Dysmenorrhea; Fibroid 04/12/2025 Travel 04/11/2025 10:00 AM EST Office Visit [facility] [address] [place] [address] Radames Garay, EVELYN 04/11/2025 Telephone [facility] [address] [place] [address] Princess Jj [place] 04/07/2025 Refill [facility] [address] [place] [phone] Annmarie Chambers MD Right flank pain 04/07/2025 Refill [facility] [address] [place] [phone] Radames Garay DMD 03/31/2025 Results Follow-Up [facility] [address] [place] [phone] Selvin Hernandez CNM US Pelvis Transvaginal 03/29/2025 Refill [facility] [address] [place] [phone] Annmarie Chambers MD Periodontal disease; Dental abscess; Right flank pain 03/22/2025 1:00 PM EDT Office Visit [facility] [address] [place] [phone] Selvin Hernandez CNM Dysmenorrhea (Primary Dx); Fibroid; Encounter for immunization; Pelvic pain 03/22/2025 Travel 03/21/2025 Telephone [facility] [address] [place] [phone] Princess Jj [place] 03/10/2025 1:30 PM EDT Office Visit [facility] [address] [place] [address] Radames Garay, DMD 02/15/2025 Telephone [facility] [address] [place], [place] [phone] Selvin Hernandez, CNM CHART PREP 02/10/2025 Telephone [facility] [address] [place], [place] [phone] Annmarie Chambers MD PT1 apts 02/03/2025 Telephone [facility] [address] [place], [place] [phone] Annmarie Chambers MD from Last 3 Months Immunizations Immunization Administration Dates Next Due Hep B, adult 03/22/2025,04/13/2024,03/03/2024 Influenza, IIV3, injectable 03/24/2024 Influenza, seasonal, injecta ble, preservative free 05/04/2025,03/03/2024 Pfizer Covid-19 Vaccine 12+ 05/04/2025, Pneumococcal Conjugate PCV 20 03/03/2024 Pneumococcal Polysaccharide [...] Mass Index 32.12 05/04/2025 11:14 AM EST Plan of Treatment Upcoming Encounters Date Type Department Care Team (Late st Contact Info) Description 05/12/2025 3:15 PM EST Office Visit [facility] [address] [place] [address] Selvin Hernandez, ABDIASM [address] [place] [address] Health Maintenance Due Date Last Done Comments CT Colonography 1980 Colonoscopy 1979 Colorectal Cancer Screening 1979 Dental Prophylaxis 1979 FIT DNA/Cologuard 1979 FIT 1979 FOBT 1979 Sigmoidoscopy 1980 Family Planning (PISQ) 08/09/1994 HPV Vaccines (1 - 3-dose series) 08/09/1994 Dental X-Ray: Bitewings 12/14/2015 12/12/2014, 03/17 Dental Oral Exam 04/30/2025 10/27/2024, 11/2014, 03/17/2013 Depression Monitoring 07/31/2025 01/28/2025, 025 Alcohol/Substance Use Screening 01/28/2026 01/28/2025 Disability Screening 01/28/2026 01/28/2025 SDOH Screening 01/28/2026 01/28/2025 Mammogram 02/02/2026 02/03/2024 Tobacco Screening 05/04/2026 05/04/2025 Dental X-Ray: Full Mouth 10/29/2027 025, 08/02/2024, 03/17/2013 Cervical Cancer Screening 01/28/2029 HPV/Cotest 01/28/2029 01/29/2024 Pap Smear 01/28/2029 01/29/2024 Zoster Vaccines (1 of 2) 08/09/2029 Lipid Panel 05/03/2030 05/03/2025, 01/19/2024 DTaP/Tdap/Td Vaccines (2 - Td or Tdap) 01/13/2034 01/14/2024 RSV Patients and Patients Aged 60 years or older (1 - 1-dose 75+ series) 08/09/2054 HIV Screening Completed 01/19/2024 Hepatitis C Screening Completed 01/19/2024 Pneumococcal Vaccine: Pediatrics (0 to 5 Years) and At-Risk Patients (6 to 49) Years Completed 03/03/2024, 03/09/2021 Hepatitis B Vaccines Completed 03/22/2025, 04/13/2024, 03/03/2024 COVID-19 Vaccine Completed 05/04/2025, 10/2023, 10/23/2020, Additional history exists Influenza Vaccine Completed 05/04/2025, , 03/03/2024 HIB Vaccines Aged Out No longer [...] Procedure Name Priority Date/Time Associated Diagnosis Comments CASE PRESENTATION, DETAILED AND EXTENSIVE TREATMENT PLANNING Routine 05/04/2025 3:30 PM EST David COMPLETE DENTURE - MANDIBULAR Routine 05/04/2025 3:30 PM EST Max COMPLETE DENTURE - MAXILLARY Routine 05/04/2025 3:30 PM EST CBC WITH AUTO DIFFERENTIAL Routine 05/03/2025 11:32 [...] Blood Count 10.2 4.8 - 10.8 X10*3/uL [facility] Red Blood Count 4.62 4.20 - 5.50 X10*6/uL [facility] Hemoglobin 14.5 12.0 - 16.0 g/dl [facility] Hematocrit 43.9 37.0 - 47.0 % [facility] Mean Corpuscular Volume 95.0 80.0 - 98.0 fL [facility] Mean Corpuscular Hemoglobin 31.4 27.0 - 33.0 pg [facility] Mean Corpuscular HGB Conc 33.0 31.0 - 35.0 g/dl [facility] Red Cell Distribution Width 12.5 11.0 - 16.0 % [facility] Platelet Count 271 160 - 400 X10*3/uL [facility] Mean Platelet Volume 10.6 9.4 - 12.3 fL [facility] Neutrophils Percent Auto 66.0 45 - 73 % [facility] Imm Gran Pct Auto 0.3 0.0 - 0.4 % [facility] Lymphocytes Percent Auto 24.0 20 - 40 % [facility] Monocytes Percent Auto 7.6 2 - 11 % [facility] Eosinophils Percent Auto 1.4 0 - 4 % [facility] Basophils Percent Auto 0.7 0 - 2 % [facility] NRBC Pct Auto 0.0 0.0 - 0.2 /100WBC [facility] Neutrophils Absolute Auto 6.7 2.0 - 8.3 x10*3/uL [facility] Imm Gran Abs Auto 0.03 0.00 - 0.03 X10*3/uL [facility] Lymphocytes Absolute Auto 2.4 1.2 - 4.9 X10*3/uL [facility] Monocytes Absolute Auto 0.8 0.1 - 1.2 X10*3/uL [facility] Eosinophils Absolute Auto 0.1 0.0 - 0.4 X10*3/uL [facility] Basophils Absolute Auto 0.1 0.0 - 0.2 X10*3/uL [facility] NRBC Abs Auto 0.000 0.0 - 0.012 X10*3/uL [facility] Blood Venous blood specimen / Unknown 05/03/2025 11:32 AM EST 05/03/2025 1:21 PM EST us Annmarie Santana MD LAB BLOOD ORDERAB LES Final Result [facility] [address] [place] [address] [phone] * (ABNORMAL) Lipid Panel, Standard (05/03/2025 11:32 AM EST) Triglycerides 138 <150 mg/dL [facility] Comment:Desirable Triglyceri de: less than 150 mg/dLBorderline High Triglyceride 150-199 mg/dLHigh Triglyceride: 200-499 mg/dLVery High Triglyceride: greater than or equal to 5OO mg/dL Cholesterol 178 <200 mg/dL [facility] Comment:Desirable Cholestero l: less than 200 mg/dLBorderline High Cholesterol: 200-239 mg/dLHigh Cholesterol: greater than 239 mg/dL LDL Cholesterol Calculated 100(H) <100 mg/dL [facility] Comment:Desirable LDL: less than 100 mg/dLNear Optimal/Above Optimal LDL: 110- 129 mg/dLBorderline High LDL: 130-159 mg/dLHigh LDL: 160-189 mg/dLVery High LDL: greater than or equal to 190 mg/dL HDL Cholesterol 51 >40 mg/dL [facility] Comment:Desirable HDL: great er than 40 mg/dL Note: This HDL assay may give artificially low results in patients with liver disease. Blood Venous blood specimen / Unknown 05/03/2025 11:32 AM EST 05/03/2025 1:18 PM EST Annmarie Santana MD LAB BLOOD ORDERAB LES Final Result [facility] [address] [place], [place] [phone] * (ABNORMAL) Comprehensive Metabolic Panel (05/03/2025 11:32 AM EST) Sodium 142 135 - 145 mmol/L [facility] Potassium 4.4 3.3 - 5.1 mmol/L [facility] Chloride 109(H) 96 - 108 mmol/L [facility] Carbon Dioxide 26 22 - 29 mmol/L [facility] Anion Gap 11(L) 12 - 20 [facility] Urea Nitrogen (BUN) 19(H) 9 - 16 mg/dL [facility] Creatinine, Serum 1.12 0.5 - 1.4 mg/dL [facility] Estimated Glomerular Filt Rate 53 [facility] Comment:Chronic Kidney Disea se: Estimated GFR < 60 mL/min/1.52i6Vcixko Kidney Disease: Estimated GFR < 15 mL/min/1.73m2 Glucose 97 60 - 115 mg/dL [facility] Calcium 9.5 8.4 - 10.2 mg/dL [facility] Bilirubin, Total 0.8 0.0 - 1.0 mg/dL [facility] Aspartate Amino Transferase 26 5 - 31 U/L [facility] Alanine Aminotransferase 21 0 - 31 U/L [facility] Total Protein 6.9 6.5 - 8.0 g/dL [facility] Albumin Level 4.5 3.5 - 5.0 g/dL [facility] Alkaline Phosphatase 57 39 - 117 U/L [facility] Blood Venous blood specimen / Unknown 05/03/2025 11:32 AM EST 05/03/2025 1:18 PM EST Annmarie Santana MD LAB BLOOD ORDERAB LES Final Result Performing Organization Address City/State/[facility] Co de Phone Number [facility] [address] [place] [phone] * US Pelvis Transvaginal (03/30/2025 7:39 PM EDT) Anatomical Region Laterality Modality Pelvis Ultrasound 03/30/2025 7:39 PM EDT Narrative 03/30/2025 7:[address] [address] Ultrasound Report Signed Patient: Alicia Meyer MR#: [id number] : 1980 Acct:[id number] Age/Sex: 44 / F ADM Date: 03/29/25 Loc: HO.US Attending Dr: Selvin Hernandez CNM Ordering Physician: SELVIN HERNANDEZ CNM Date of Service: 03/29/25 Procedure(s): US pelvic and transvaginal Accession Number(s): [id number] cc: Annmarie Chambers MD; SELVIN HERNANDEZ CNM [...] in OV> 03/30/251938 DD/ 38 TD/TT: 03/30/251938 Director Digital Advertising: Procedure Note Donotuseinterpreter, Image - 03/30/2025 [place] [address] Ultrasound Report Signed Patient: Naomi Meyer#: [id number] : 1980Acct:[id number] Age/Sex: 44 / FADM Date: 03/29/25 Loc: HO.US Attending Dr: Selvin Hernandez CNM Ordering Physician: SELVIN HERNANDEZ CNM Date of Service: 03/29/25 Procedure(s): US pelvic and transvaginal Accession Number(s): [id number] cc: Annmarie Chambers MD; SELVIN HERNANDEZ CNM [...] in OV> 03/30/251938 DD/ 38 TD/TT: 03/30/251938 Director Digital Advertising: us Selvin Mikeshen CN IMG US PROCEDURES Final R esult * BI Mammogram Screening Tomosynthesis Bilateral (02/03/2024 10:30 AM EDT) Anatomical Region Laterality Modality Breast Bilateral Mammography 02/03/2024 10:3 0 AM EDT Narrative 02/27/2024 3:02 PM EDT [facility] [address] [place] [address] Mammography Report Signed Patient: Alicia Meyer MR#: [id number] : 1980 Acct:[id number] Age/Sex: 43 / F ADM Date: 02/03/24 Loc: HO.MAMMO Attending Dr: Annmarie Santana MD Ordering Physician: Annmarie Chambers MD Re sults: 1Negative Date of Service: 02/03/24 Follow Up: 1 Year From Orig ina Mammogram Procedure(s): MM tomosynthesis screening BI Accession Number(s): [id number] cc: Annmarie Chambers MD EXAMINATION: MM SCREENING [...] 02/27/24 1459 DD/ 1030 TD/TT: 02/03/24 1042 Director Digital Advertising: Procedure Note Donotuseinterpreter, Image - 02/27/20[facility] [address] [place], [place] [address] Mammography Report Signed Patient: Naomi Meyer#: [id number] : 1980Acct:[id number] Age/Sex: 43 / FADM Date: 02/03/24 Loc: HO.MAMMO Attending Dr: Annmarie Santana MD Ordering Physician: Annmarie Chambers sults: 1Negative Date of Service: 02/03/24Follow Up: 1 Year From Orig inal Mammogram Procedure(s): MM tomosynthesis screening BI Accession Number(s): [id number] cc: Annmarie Chambers MD EXAMINATION: MM SCREENING [...] 02/27/24 1459 DD/ 1030 TD/TT: 02/03/24 1042 Director Digital Advertising: Annmarie Santana MD IM BI PROCEDURES Edited Result - Final * [facility] Pap and HPV mRNA E6/E7 (01/29/2024 12:00 AM EDT) HPV nRNA E6/E7 Not Detected Not Detected [facility] Comment:Methodology: Transcr iption-Mediated AmplificationThis assay detects E6/E7 viral messenger RNA (mRNA) from 14high-risk HPV types (16,18,31,33,35,39,45,51,52,56,58,59,66,68).Cervical sources are required for HPV testing.If a vaginal source from a patient who has had atotal hysterectomy with removal of cervix wassubmitted, please contact the testing laboratoryfor alternative testing options.For additional information, please refer tohttp://education.EQUISO/faq/HLP169r0(This link if provided for information/educational purposes only.)THIS TEST WAS PERFORMED AT:[facility] [place] [phone] MOYA MD SOURCE: SEE NOTE [facility] Comment:None given Report Status: TNP [facility] Clinical Information: SEE NOTE [facility] Comment:None given LMP: SEE NOTE [facility] Comment:NONE GIVEN Prev. PAP: SEE NOTE [facility] Comment:NONE GIVEN Prev. BX: SEE NOTE [facility] Comment:NONE GIVEN Statement Of Adequacy: SEE NOTE [facility] Comment:Satisfactory for yusef luation.Endocervical/transformation zone componentpresent. General Categorization: [facility] Interpretation/Result: SEE NOTE [facility] Comment:Cytology Results: Ne gative for intraepitheliallesion or malignancy. Cytology Comment SEE NOTE [facility] Comment:This Pap test has be en evaluated with computerassisted technology. Enrollment Nurse: SEE NOTE [facility] Comment:SXA, CT(ASCP)CT scre ening location: [address] [address] Review Enrollment Nurse: [facility] Pathologist [facility] PAP Infection [facility] See Note SEE NOTE [facility] Comment:EXPLANATORY NOTE:The Pap is a screening test for cervical cancer. It isnot a diagnostic test and is subject to false negativeand false positive results. It is most reliable when asatisfactory sample, regularly obtained, is submittedwith relevant clinical findings and history, and whenthe Pap result is evaluated along with historic andcurrent clinical information. 01/29/2024 01/29/2024 Narrative [facility] - 02/02/2024 3:25 PM EDT SEE SCANNED RESULTS IN EMR Selvin CALERO LAB PATHOLOGY ORDERABLES Final Result [facility] [address] [place] [address] [phone] * Hepatitis C Antibody with Reflex to HCV, RNA, Quantitative, Real-Time PCR (01/19/2024 11:38 AM EDT) Hepatitis C Antibody Nonreactive Nonreactive [facility] Comment:Antibodies to HCV no t detected; does not exclude early acuteHCV infection. Blood Venous blood specimen / Unknown 01/19/2024 11:38 AM EDT 01/19/2024 1:06 PM EDT us Annmarie Santana MD LAB BLOOD ORDERAB LES Final Result Performing Organization Address [facility]/ZIP Co de Phone Number [facility] [address] [place] [phone] * HIV-1/2 Antigen and Antibodies, Fourth Generation, with Reflexes (01/19/2024 11:38 AM EDT) HIV AB/AG Nonreactive Nonreactive [facility] Comment:HIV-1 p24 Ag and/or HIV-1/HIV-2 Ab not detected.A test result that is nonreactive does not exclude thepossibility of exposure to or infection with HIV-1 and/orHIV-2. Nonreactive results in this assay for individualswith prior exposure to HIV-1 and/or HIV-2 may be due toantigen and antibody levels that are below the limit ofdetection of this assay.The [employer] HIV Ag/Ab Combo assay result andsupplemental assay results should be interpreted inconjunction with the patient's clinical presentation,history and other laboratory results. If the results areinconsistent with clinical evidence, additional testing issuggested to confirm the result. Blood Venous blood specimen / Unknown 01/19/2024 11:38 AM EDT 01/19/2024 1:06 PM EDT us Annmarie Santana MD LAB BLOOD ORDERAB LES Final Result Performing Organization Address [facility] Co de Phone Number [facility] [address] [place] [phone] from Last 3 Months or Most Recently Relevant to Health Maintenance Insurance [facility] C[place] AD[place] Care Teams Separations Scientist Relationship Specialty Start Date End Date Annmarie Chambers MD [address] [place] [phone] PCP - General Internal Medicine 02/02/24
--- OUTSIDE RECORDS SUMMARY | 2025-05-04 16:56 | XMS_ITS | Encounter Summary ---
Author Organization [employer] Address [address] [place] [address] [address] [place] [address] Care Team Providers Care Agency Operator Name Role Phone Annmarie Chambers MD Primary Care Pro vider Reason for Visit * Reason Comments Med Refill Encounter Details Date Type Department Care Team ([facility] st Contact Info) Description 04/24/2024 Refill [facility] [address] [place], [place] [phone] Annmarie Chambers MD [address] [place], [place] [phone] Social History Tobacco Use Types Packs/Day Years [...] Description 05/12/2025 3:15 PM EST Office Visit [facility] [address] [place] [phone] Irina Sanchez CN [address] [place] [address] documented as of this encounter Visit Diagnoses Not on filedocumented in this encounter Additional Health Concerns Assessment Noted Time PHQ-9 Depression Total Score: 20 024 2:22 PM EDT documented as of this encounter Care Teams Agency Operator Relationship Specialty Start Date End Date Annmarie Chambers MD [address] [place] [phone] PCP - General Internal Medicine 02/02/24 documented as of this encounter
--- OUTSIDE RECORDS SUMMARY | 2025-05-04 16:56 | XMS_ITS | Patient Health Record ---
Author Organization [facility] Address [address] [place] [phone] Care Team Providers Care Director Client Services Name Role Phone Annmarie Chambers Primary Care Provider Sam Barnett Unavailable [phone] Allergies Allergen (clinical drug ingredient) Drug/Non Drug Allergy documented on EMR Reaction Allergy Type Onset Date Status seasonal (uncoded) Unknown Allergy A ctive Results Component Value Reference Range Notes Pathology (Not yet reviewed by provider) Interpretation: Performing Lab:[facility], [address] [place] [id number] Notes/Report: Ur Preg Test Reviewed date:01/30/2025 08:10:34 PM Interpretation: Performing Lab:[facility], [address] [place] [id number] Notes/Report: Urine NEGATIVE NEGATIVE This test was developed to detect early . False negative results may occur after the 5th - 7th week of when using this test method. If clinically indicated, consider a serum hCG. 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 alcohol Problems Problem Type SNOMED Code ICD Code Onset Dates Problem Status W/U Status Risk Notes Problem Colon cancer screening (693191476) Colon cancer screening (Z12.11) Active confirmed Problem Constipation (00026368) Constipation (K59.00) Active confirmed Problem Irritable bowel syndrome characterized by constipation (583052195) Irritable bowel syndrome with constipation (K58.9) Active confirmed Problem Gastroesophageal reflux disease (779975250) GERD (gastroesophage al reflux disease) (K21.9) Active confirmed Problem Generalized abdominal pain (139726738) Abdominal discomfort, generalized (R10.84) Active confirmed Vital Signs Temperature 99.3 degrees Fahrenheit 01/11/2025 Blood pressure diastolic 01 mm Hg 01/11/2025 Height 61 in 01/11/2025 Blood pressure systolic 001 mm Hg 01/11/2025 Weight 153.2 lbs 01/11/2025 BMI 28.94 kg/m2 01/11/2025 Procedures Procedure Date Ordered Date Performed Result Body Sit e UPPER GI ENDOSCOPY 01/11/2025 N/A COLONOSCOPY 01/11/2025 N/A Encounters Encounter Location Date Provider Diagnosis [facility] [address] [place], [place] [phone] 01/28/2025 Sam Willard [facility] [address] [place] [phone] 01/11/2025 Sam Willard Constipation K59.00 ; Irritable bowel syndrome with constipation K58.9 ; Colon cancer screening Z12.11 ; GERD (gastroesophageal reflux disease) K21.9 and Abdominal discomfort, generalized R10.84 [facility] [address] [place] [phone] 03/29/2025 Sam Willard [facility] [address] [place] [phone] 01/11/2025 Sam Willard [facility] [address] [place] [phone] 01/13/2025 Sam Willard [facility] [address] [place] [phone] 01/30/2025 Sam Willard Assessments Encounter Date Diagnosis [...] [place] [address] [place] [address] [id number] MARCUS ALICIA Self - patient is the insured Medical (General) History Medical History History ICD Code Asthma-inhaler prn Denies MO,DM,CVA,renal disease ADHD Anxiety Surgical History Surgery Date(Month/Year) Knee surgery C-spine disc CCY
--- OUTSIDE RECORDS SUMMARY | 2025-05-04 16:56 | XMS_ITS | Encounter Summary ---
Author Organization [employer] Address [address] [place] [address] [address] [place] [address] Care Team Providers Care Beverage Distiller Name Role Phone Annmarie Chambers MD Primary Care Pro vider Reason for Visit * Reason Comments Med Refill Encounter Details Date Type Department Care Team ([facility] st Contact Info) Description 10/18/2024 Refill [facility] [address], [place] [phone] Annmarie Chambers MD [address] [place], [place] [phone] Social History Tobacco Use Types Packs/Day Years [...] 3:15 PM EST Office Visit [facility] [address] [place] [phone] Irina Sanchez CN [address] [place] [address] documented as of this encounter Visit Diagnoses Not on filedocumented in this encounter Additional Health Concerns Assessment Noted Time PHQ-9 Depression Total Score: 20 024 2:22 PM EDT documented as of this encounter Care Teams Beverage Distiller Relationship Specialty Start Date End Date Annmarie Chambers MD [address] [place] [address] PCP - General Internal Medicine 02/02/24 documented as of this encounter
== END 2025-05-04 13:53 | disposition home or self-care (01) ==
LOC: HO.LNP 13:52
PROVIDERS: Visit Provider Student in an Organized Health Care Education/Training Program
DX: R10.9 Unspecified abdominal pain (principal)
CPT/HCPCS: 87338